=== PATIENT | male | born 1935 | race Caucasian/White ===

== ENCOUNTER 2016-05-26 11:43 | Emergency (ER) | payer MEDICARE, OTHER | END 2016-05-26 13:47 | disposition home or self-care (01) | DX: R07.9 Chest pain, unspecified (principal); I25.10 Atherosclerotic heart disease of native coronary artery without angina pectoris; I44.7 Left bundle-branch block, unspecified; R94.31 Abnormal electrocardiogram [ECG] [EKG]; G47.30 Sleep apnea, unspecified ==

== ENCOUNTER 2016-05-31 11:41 | Emergency (ER) | payer MEDICARE, OTHER | END 2016-05-31 16:00 | disposition short-term general hospital (02) | DX: I25.110 Atherosclerotic heart disease of native coronary artery with unstable angina pectoris (principal); Z95.5 Presence of coronary angioplasty implant and graft; I42.9 Cardiomyopathy, unspecified; I44.0 Atrioventricular block, first degree; I44.7 Left bundle-branch block, unspecified; Z79.01 Long term (current) use of anticoagulants; Z79.82 Long term (current) use of aspirin; Z87.891 Personal history of nicotine dependence ==

== ENCOUNTER 2016-05-31 16:05 | Outpatient (CLI) | payer MEDICARE, OTHER | END 2016-05-31 16:06 | disposition short-term general hospital (02) | DX: I20.0 Unstable angina (principal) | CPT/HCPCS: A0425; A0426 ==

== ENCOUNTER 2016-06-06 11:35 | Outpatient (CLI) | payer MEDICARE, OTHER | END 2016-06-06 11:36 | disposition home or self-care (01) | DX: G47.33 Obstructive sleep apnea (adult) (pediatric) (principal) | CPT/HCPCS: 99214; G0463 ==

== ENCOUNTER 2016-07-25 07:54 | Emergency (ER) | payer MEDICARE, OTHER ==
[2016-07-25] MEDS ORDERED: DEXAMETHASONE 10 MG/ML VIAL PO STA (08:30)
[2016-07-25] MEDS ORDERED: LIDOCAINE PATCH 5% TOP STA (08:30)
[2016-07-25] MEDS ORDERED: LIDOCAINE PATCH 5% TOP ONE (08:37)
[2016-07-25] MEDS ORDERED: DEXAMETHASONE 10 MG/ML VIAL ONE (08:37)
[2016-07-25] MEDS ORDERED: CHERRY SYRUP 10 ML UDC PO ONE (08:37)
--- NOTE | 2016-07-25 08:39 | ED Physician Documentation ---
History of Present Illness - Stated complaint Stated Complaint: BACK/LEG PX - Chief complaint Chief Complaint: Back Pain - Additonal information Additional information: hx from pt 80 male prior back surgery for HNP and sciatica many yr ago chronic back pain also vascular dz and other medical issues inc low back pain and right LE sciatica recently had a massage yesterday and has a spine/neuro appt today in [place] pain was severe so came to ER no recent imaging per pt always has some urinary dribbling but no new changes upset stomach but not really abd pain some numbness to posterior right thigh no weakness no saddle anesthesia no fever no injury Review of Systems Constitutional: denies: Fever, Chills Cardiac: denies: Chest pain / pressure Respiratory: denies: Dyspnea GI: denies: Abdominal Pain, Nausea, Vomiting : reports: Incontinent (not new) Musculoskeletal: reports: Back pain Neurologic: reports: Numbness (posterior R thigh). denies: Focal weakness Endocrine: denies: Easy bruising / bleeding Immunocompromised: denies: Immunocompromised PD PAST MEDICAL HISTORY - Past Medical History Cardiovascular: Coronary artery disease Respiratory: Sleep apnea, CPAP use Neuro: None Endocrine/Autoimmune: None GI: Diverticulitis : None Psych: None Musculoskeletal: Chronic back pain Derm: None - Past Surgical History Past Surgical History: Yes General: Bowel surgery Ortho: Knee replacement, Spine surgery Cardiovascular: Coronary stent - Present Medications Home Medications: Ambulatory Orders Medication Instructions Recorded Confirmed Omeprazole [PriLOSEC] 20 mg PO BID 08/01/12 07/25/16 Simvastatin [Zocor] 20 mg PO HS 08/01/12 07/25/16 Furosemide 40 mg ORAL DAILY 04/23/14 07/25/16 Losartan [Cozaar] 50 mg PO DAILY 09/02/14 07/25/16 Aspirin [Aspirin EC] 81 mg PO DAILY 12/20/14 07/25/16 Cholecalciferol (Vitamin D3) 5,000 units PO DAILY 02/21/16 07/25/16 [Vitamin D3] Darifenacin Hydrobromide [Enablex] 15 mg PO DAILY 02/21/16 07/25/16 Potassium Chloride [Micro-K] 10 meq PO BID 02/21/16 07/25/16 Sertraline [Zoloft] 50 mg PO QPM 12/13/16 05/17/17 Warfarin Sodium 5 mg PO MOWEFR@1400 02/21/16 07/25/16 Warfarin Sodium 10 mg PO SUTUTHSA@1400 02/21/16 07/25/16 Metoprolol Succinate 100 mg PO DAILY #30 tab.er.24h 05/26/16 07/25/16 Hydrocodone/Acetaminophen [Vicodin 1 tab PO Q6HR PRN 07/25/16 07/25/16 5-300 mg Tablet] Lidocaine Patch 5% [Lidoderm Patch] 1 each TOP DAILY PRN #10 patch 07/25/16 - Allergies Allergies/Adverse Reactions: Allergies Allergy/AdvReac Type Severity Reaction Status Date / Time Influenza Virus Vaccines Allergy Rash Verified 05/31/16 11:53 - Social History Does the pt smoke?: No Smoking Status: Former smoker Does the pt drink ETOH?: Yes Does the pt have substance abuse?: No - Immunizations Immunizations are current?: Yes Immunizations: TDAP >10years/unknown - POLST Patient has POLST: No PD ED PE NORMAL - Vitals Vital signs reviewed: Yes - General General: Alert and oriented X 3 - HEENT HEENT: Atraumatic - Neck Neck: Supple, no meningeal sign - Cardiac Cardiac: RRR - Respiratory Respiratory: No respiratory distress, Clear bilaterally - Abdomen Abdomen: Soft, Non tender, Other (no pulsatile mass appreciated but body habitus could obscure) - Back Back: Other (L spine midline scar, TTP L1-L3, slight erythema where pants rub but not warm or swollen) - Derm Derm: Normal color - Neuro Neuro: No motor deficit (hip flex knee ext foot dorsi plantar and great to ext 5 /5), Other (neg SLR, patellar DTR 1/4 debbi, no clonus). No: No sensory deficit ( numb to posterior R thigh/hamstring, denies saddle anesthesia) Results - Vitals Vitals: Vital Signs - 24 hr 07/25/16 07:59 Temperature 37.0 C Heart Rate 84 Respiratory 20 Rate Blood Pressure 107/84 H O2 Saturation 94 Oxygen O2 Source Room air - Rads (name of study) CT abd pelvis/L spine Radiology: See rad report (gallstone, ant right fat containing ventral hernia, aortic atherosclerosis without aneurysm, emphysema, substantial lumbar spondylosis with mod to severe central canal stenosis and r > L formainal stenosis, consider MRI (defer to pt neuro who he is seeing this afternoon, gave copy of CT on disk)) PD MEDICAL DECISION MAKING - ED course ED course: pt advised of CT findings including gallstones and hernia he feels much better after meds given copy of Ct to take to his neuro spine appt today Departure - Departure Disposition: Home, Self Care Clinical Impression: Back pain with sciatica Condition: Good Instructions: ED Sciatica, ED Back Care Tips Follow-Up: Yancy Clifton MD [Primary Care Provider] - Prescriptions: Lidocaine Patch 5% [Lidoderm Patch] 1 each TOP DAILY PRN #10 patch PRN Reason: Pain Comments: Follow up with your neurologist / marine specialist this afternoon as scheduled Take a copy on the CT with you - it shows spinal and foraminal stenosis that likely are contributing to your back pain and sciatica and the images might be useful for your specialist I wrote a prescription for more lidocaine patches And you should ask your specialist if more steroids might b helpful for the nerve pain
--- NOTE | 2016-07-25 09:24 | CT Report ---
EXAM: CT ABDOMEN AND PELVIS (CT KUB) EXAM DATE: 07/25/2016 08:52 AM. CLINICAL HISTORY: Lumbar pain and radiculopathy RLE. COMPARISONS: No abdomen pelvis comparison. Chest CT with contrast 05/04/2015. TECHNIQUE: Routine axial helical CT imaging was performed through the abdomen and pelvis without IV c ontrast. Reconstructions: Coronal and sagittal. In accordance with CT protocol optimization, one or more of the following dose reduction techniques w ere utilized for this exam: automated exposure control, adjustment of mA and/or KV based on patient s ize, or use of iterative reconstructive technique. FINDINGS: Lung Bases: Pulmonary emphysematous disease, left greater than right, without significant change. Right Kidney/Ureter: Stable upper pole cyst. 1.8 cm lower pole hypodensity (level not previously incl uded) is compatible with a cyst. No stones, hydronephrosis or hydroureter. Left Kidney/Ureter: No hydronephrosis, hydroureter or intrarenal calculi. A small calcification along the anterior margin of the upper poles associated with a small exophytic nodular focus. A calcificat ion is unchanged. Previously, there was a larger cystic appearance. Therefore, this is most consisten t with a benign finding. Other Solid Organs: Noncontrast images of the solid organs are grossly unremarkable. Gallbladder/Bile Ducts: Cholelithiasis. No gallbladder dilatation, surrounding inflammation or eviden ce of ductal dilatation. Peritoneal Cavity: Substantial colonic diverticulosis without evidence of diverticulitis. No definite acute abnormality. No adenopathy, free air or free fluid. Normal-appearing appendix. Pelvic Organs: No bladder stones or wall thickening. Noncontrast images of the visualized pelvic orga ns are unremarkable. Vasculature: Moderate to severe aortic and arterial calcifications, without aneurysm. Aorta is of nor mal diameter. Other: Very small fat-containing hernia within the anterior pelvic wall, to the right of midline, def ect measuring approximately 1.2 x 1.3 cm. Spondylosis. Degenerative disk disease and disk space narro wing is most L4-L5 and L5-S1 and slightly less so at L2-3 and L3-L4. Mild to moderate lumbar spine de generative disease. Degenerative/hypertrophic change results minimal moderate to severe L3-L4 and mod erate L4-L5 central canal stenosis. Multilevel neural foraminal narrowing, right greater than left an d greatest at L4-L5. No acute osseous abnormality. IMPRESSION: 1. Noncontrast CT of the abdomen and pelvis demonstrates no definite acute abnormality. 2. Cholelithiasis. 3. Substantial lumbar spondylosis with associated moderate to severe central canal stenosis and evide nce of right greater than left neural foraminal stenosis. MR imaging could be performed for further e valuation. 4. Small anterior right pelvic wall fat-containing hernia. 5. Substantial aortic and arterial atherosclerotic calcifications, without aneurysm. 6. Pulmonary emphysema. 7. Additional chronic findings, as above. [facility] Referring Provider Line: [phone] SITE ID: [id number]
[2016-07-25 09:57] VITALS: BP 91/77
== END 2016-07-25 10:02 | disposition home or self-care (01) ==
LOC: ED 07:54
DX: M54.41 Lumbago with sciatica, right side (principal); M47.896 Other spondylosis, lumbar region; K80.20 Calculus of gallbladder without cholecystitis without obstruction; K43.9 Ventral hernia without obstruction or gangrene; I25.10 Atherosclerotic heart disease of native coronary artery without angina pectoris; Z95.5 Presence of coronary angioplasty implant and graft; Z79.01 Long term (current) use of anticoagulants; Z79.82 Long term (current) use of aspirin; Z87.891 Personal history of nicotine dependence
CPT/HCPCS: 74176; 99283; A9270

== ENCOUNTER 2016-08-21 14:44 | Outpatient (CLI) | payer MEDICARE, OTHER ==
[2016-08-21 19:23] LABS: BASOPHILS # (AUTO) 0.1 10^3/uL (0.0-0.1); EOSINOPHILS # (AUTO) 0.1 10^3/uL (0.0-0.7); EOSINOPHILS % (AUTO) 1.7 %; HCT - HEMATOCRIT 42.9 % (42.0-52.0); HGB - HEMOGLOBIN 14.1 g/dL (14.0-18.0); LYMPHOCYTES # (AUTO) 1.7 10^3/uL (1.5-3.5); LYMPHOCYTES % (AUTO) 22.3 %; MEAN CORPUSCULAR HEMOGLOBIN 28.6 pg (27.0-31.0); MEAN CORPUSCULAR HGB CONC 32.8 g/dL (32.0-36.0); MEAN CORPUSCULAR VOLUME 87.2 fL (80.0-94.0); MEAN PLATELET VOLUME 8.6 fL (7.4-11.4); MONOCYTES # (AUTO) 0.7 10^3/uL (0.0-1.0); MONOCYTES % (AUTO) 8.8 %; NEUTROPHILS % (AUTO) 66.2 %; NUCLEATED RED BLOOD CELLS AUTO 0.1 /100WBC; RED BLOOD COUNT 4.92 10^6/uL (4.70-6.10); RED CELL DISTRIBUTION WIDTH 16.9 % (12.0-15.0); UNCORRECTED WHITE BLOOD COUNT 7.5 x10^3/uL; WHITE BLOOD COUNT 7.5 x10^3/uL (4.8-10.8)
[2016-08-21 19:42] LABS: ALBUMIN/GLOBULIN RATIO 1.2 (1.0-2.2); BILIRUBIN,TOTAL 0.5 mg/dL (0.2-1.0); BUN - BLOOD UREA NITROGEN 16 mg/dL (6-20); CALCIUM 9.8 mg/dL (8.5-10.3); CARBON DIOXIDE - CO2 24 mmol/L (21-32); CHLORIDE 103 mmol/L (101-111); CHOL/HDL RATIO 6.3 (<5.0); CHOLESTEROL 215 mg/dL; CREATININE 0.8 mg/dL (0.6-1.2); GFR - MDRD 93 (>89); GLUCOSE 107 mg/dL (70-100); HDL CHOLESTEROL 34 mg/dL; POTASSIUM 3.9 mmol/L (3.5-5.0); SODIUM 137 mmol/L (135-145); TOTAL PROTEIN 7.7 g/dL (6.7-8.2); TRIGLYCERIDES 476 mg/dL
[2016-08-21 20:50] LABS: LDL CHOLESTEROL,DIRECT 79 mg/dL
== END 2016-08-21 14:45 | disposition home or self-care (01) ==
LOC: LAB.WCP 14:44
PROVIDERS: ATTEND Family Medicine
DX: I10 Essential (primary) hypertension (principal); E78.5 Hyperlipidemia, unspecified
CPT/HCPCS: 36415; 80053; 80061; 85025

== ENCOUNTER 2016-09-17 11:50 | Outpatient (CLI) | payer MEDICARE, OTHER | END 2016-09-17 11:51 | disposition home or self-care (01) | LOC: LAB.R 11:50 | PROVIDERS: ATTEND Family Medicine | DX: R31.9 Hematuria, unspecified (principal) | CPT/HCPCS: 87086 ==

== ENCOUNTER 2016-10-16 19:32 | Outpatient (CLI) | payer MEDICARE, OTHER | END 2016-10-16 19:33 | disposition critical access hospital (66) | LOC: EMS 19:32 | PROVIDERS: ATTEND Surgery | DX: M25.561 Pain in right knee (principal); R10.9 Unspecified abdominal pain | CPT/HCPCS: A0425; A0429 ==

== ENCOUNTER 2016-10-16 19:47 | Emergency (ER) | payer MEDICARE, OTHER ==
[2016-10-16 20:01] VITALS: BP 134/73
--- NOTE | 2016-10-16 21:11 | XRAY Preliminary Report ---
Exam: XR Ribs w/PA Chest LT IMPRESSION: No evidence for rib fracture. [facility] SITE ID: [id number]
--- NOTE | 2016-10-16 21:14 | XRAY Report ---
EXAM: LEFT RIB RADIOGRAPHY EXAM DATE: 10/16/2016 08:51 PM. CLINICAL HISTORY: Ground level fall. Left mid lower anterior rib pain COMPARISON: Chest 05/31/2016. TECHNIQUE: 1 view of the chest and 2 views of the ribs. FINDINGS: Bones: No evidence for rib fracture Lungs: No focal opacities. No pneumothorax. No pleural effusions. Mediastinum: Normal heart size for technique. IMPRESSION: No evidence for rib fracture. [facility] Referring Provider Line: [phone] SITE ID: [id number]
--- NOTE | 2016-10-16 21:19 | XRAY Preliminary Report ---
Exam: XR KNEE 4 VIEW RT IMPRESSION: 1. Status post knee arthroplasty. 2. No definite acute osseous abnormality. 3. Small joint effusion redemonstrated. [facility] SITE ID: [id number]
--- NOTE | 2016-10-16 21:22 | XRAY Report ---
EXAM: RIGHT KNEE RADIOGRAPHY EXAM DATE: 10/16/2016 08:49 PM. CLINICAL HISTORY: GLF. COMPARISON: None. TECHNIQUE: 04/10/2016 views. FINDINGS: Bones: No fractures or acute bone lesion. Ossification medial to the medial margin tibial plateau and tibial prosthetic component is without substantial change. Joints: Status post knee arthroplasty with expected appearance and alignment. Small joint effusion re demonstrated. Soft Tissues: Vascular calcifications demonstrated.. No soft tissue swelling. IMPRESSION: 1. Status post knee arthroplasty. 2. No definite acute osseous abnormality. 3. Small joint effusion redemonstrated. [facility] Referring Provider Line: [phone] SITE ID: [id number]
--- NOTE | 2016-10-16 21:51 | ED Physician Documentation ---
PD HPI Fall - Stated complaint Stated Complaint: GLF/R KNEE INJ - Chief complaint Chief Complaint: Trauma Ext - History obtained from History obtained from: Patient, Family - History of Present Illness Mechanism of injury: Tripped Fall distance: Standing position Where injury occurred: Home Timing - onset: How many hours ago (1) Injury(ies) location: Chest, Right Lower Extremity Quality of pain: Pain Associated symptoms: No: LOC, AMS, Amnesia, Seizures Worsens with: Movement, Palpation Contributing factors: Anticoagulated Similar symptoms before: Has not had sx before Recently seen: Not recently seen - Additional information Additional information: Patient is an 80 year old male who is presenting after falling. patient states that he has a prosthetic knee and has been having trouble with it. patient states that he was unable to step up all the way and ended up tripping. Patient fell from standing hitting his right knee and left chest. Patient denied any head trauma, or any loc. Review of Systems Constitutional: denies: Fever, Chills Eyes: denies: Decreased vision, Photophobia Ears: denies: Ear pain, Drainage/discharge Nose: denies: Epistaxis Cardiac: reports: Chest pain / pressure. denies: Palpitations Respiratory: denies: Dyspnea, Cough, Wheezing GI: denies: Nausea, Vomiting Skin: denies: Abrasion (s) Musculoskeletal: reports: Extremity pain, Joint pain Neurologic: denies: Generalized weakness, Headache, Head injury, LOC Immunocompromised: denies: Immunocompromised PD PAST MEDICAL HISTORY - Past Medical History Cardiovascular: Coronary artery disease Respiratory: Sleep apnea, CPAP use Neuro: None Endocrine/Autoimmune: None GI: Diverticulitis : None Psych: None Musculoskeletal: Chronic back pain Derm: None - Past Surgical History Past Surgical History: Yes General: Bowel surgery Ortho: Knee replacement, Spine surgery Cardiovascular: Coronary stent - Present Medications Home Medications: Ambulatory Orders Medication Instructions Recorded Confirmed Omeprazole [PriLOSEC] 20 mg PO BID 08/01/12 07/25/16 Simvastatin [Zocor] 20 mg PO HS 08/01/12 07/25/16 Furosemide 40 mg ORAL DAILY 04/23/14 07/25/16 Losartan [Cozaar] 50 mg PO DAILY 09/02/14 07/25/16 Aspirin [Aspirin EC] 81 mg PO DAILY 12/20/14 07/25/16 Cholecalciferol (Vitamin D3) 5,000 units PO DAILY 02/21/16 07/25/16 [Vitamin D3] Darifenacin Hydrobromide [Enablex] 15 mg PO DAILY 02/21/16 07/25/16 Potassium Chloride [Micro-K] 10 meq PO BID 02/21/16 07/25/16 Sertraline [Zoloft] 50 mg PO QPM 02/21/16 07/25/16 Warfarin Sodium 5 mg PO MOWEFR@1400 02/21/16 07/25/16 Warfarin Sodium 10 mg PO SUTUTHSA@1400 02/21/16 07/25/16 Metoprolol Succinate 100 mg PO DAILY #30 tab.er.24h 05/26/16 07/25/16 Hydrocodone/Acetaminophen [Vicodin 1 tab PO Q6HR PRN 07/25/16 07/25/16 5-300 mg Tablet] Lidocaine Patch 5% [Lidoderm Patch] 1 each TOP DAILY PRN #10 patch 07/25/16 Lidocaine Patch 5% [Lidoderm Patch] 1 each TOP DAILY #10 patch 10/16/16 - Allergies Allergies/Adverse Reactions: Allergies Allergy/AdvReac Type Severity Reaction Status Date / Time Influenza Virus Vaccines Allergy Rash Verified 05/31/16 11:53 - Social History Does the pt smoke?: No Smoking Status: Former smoker Does the pt drink ETOH?: Yes Does the pt have substance abuse?: No - Immunizations Immunizations are current?: Yes Immunizations: TDAP >10years/unknown - POLST Patient has POLST: No PD ED PE NORMAL - Vitals Vital signs reviewed: Yes - General General: Alert and oriented X 3, No acute distress - HEENT HEENT: Atraumatic, PERRL - Neck Neck: Supple, no meningeal sign, No bony TTP - Cardiac Cardiac: RRR, No murmur - Respiratory Respiratory: No respiratory distress - Back Back: No CVA TTP - Derm Derm: Normal color, Warm and dry - Extremities Extremities: No deformity - Neuro Neuro: Alert and oriented X 3, No motor deficit, No sensory deficit, Normal speech - Psych Psych: Normal mood PD ED PE EXPANDED - Cardiac Cardiac: Chest wall TTP (tenderness to palpation of left chest wall, no ecchymosis, no step off) - Extremities Extremities: Right knee (no abrasion, minimal tenderness) Results - Vitals Vitals: Vital Signs - 24 hr 10/16/16 19:50 Temperature 36.9 C Heart Rate 76 Respiratory 17 Rate Blood Pressure 134/73 H O2 Saturation 96 Oxygen O2 Source Room air - Rads (name of study) chest x-ray Radiology: Final report received (no acute fracture or dislocation) right knee Radiology: Final report received (prior knee replacement, no acute abnormality) PD MEDICAL DECISION MAKING - ED course Complexity details: reviewed old records, reviewed results, re-evaluated patient , considered differential, d/w patient, d/w family ED course: Patient was seen and examined at bedside. Patient was sent for imaging. when patient returned the results were reviewed. there was no acute fractures or dislocations. Patient was treated with a lidoderm patch and tylenol. Patient required no further work up at this time and was stable for discharge with outpatient follow up. Departure - Departure Disposition: 01 Home, Self Care Clinical Impression: Contusion of rib on left side Condition: Good Instructions: ED Contusion Chest Wall Follow-Up: Yancy Clifton MD [Primary Care Provider] - Within 1 week Prescriptions: Lidocaine Patch 5% [Lidoderm Patch] 1 each TOP DAILY #10 patch Comments: your diagnostics today were within normal limits. there is no acute fracture or dislocation. You will need to follow up with your doctor this week. You should take tylenol for pain as well as the lidoderm patches. You can apply ice or heat as needed. You can follow up with your pmd as needed for new, worsening or uncontrollable symptoms. Discharge Date/Time: 10/16/16 22:07
[2016-10-16] MEDS: ACETAMINOPHEN 500 MG TABLET PO STA (22:00)
[2016-10-16] MEDS ORDERED: ACETAMINOPHEN 500 MG TABLET PO ONE (22:00)
[2016-10-16] MEDS: LIDOCAINE PATCH 5% TOP STA (22:01)
[2016-10-16] MEDS ORDERED: LIDOCAINE PATCH 5% TOP ONE (22:02)
== END 2016-10-16 22:07 | disposition home or self-care (01) ==
LOC: EDUNIT# → SUPCPDRO 19:47 → ED 19:47
DX: S20.212A Contusion of left front wall of thorax, initial encounter (principal); W01.0XXA Fall on same level from slipping, tripping and stumbling without subsequent striking against object, initial encounter; Y92.019 Unspecified place in single-family (private) house as the place of occurrence of the external cause; Z96.651 Presence of right artificial knee joint; I25.10 Atherosclerotic heart disease of native coronary artery without angina pectoris; G47.30 Sleep apnea, unspecified; Z79.82 Long term (current) use of aspirin; Z79.01 Long term (current) use of anticoagulants; Z87.891 Personal history of nicotine dependence
CPT/HCPCS: 71101; 73564; 99283; 99284; A9270

== ENCOUNTER 2016-11-19 09:11 | Outpatient (CLI) | payer MEDICARE, OTHER ==
[2016-11-19 14:15] LABS: ALBUMIN/GLOBULIN RATIO 1.3 (1.0-2.2); BILIRUBIN,TOTAL 0.4 mg/dL (0.2-1.0); BUN - BLOOD UREA NITROGEN 24 mg/dL (6-20); CALCIUM 9.5 mg/dL (8.5-10.3); CARBON DIOXIDE - CO2 26 mmol/L (21-32); CHLORIDE 102 mmol/L (101-111); CHOL/HDL RATIO 3.2 (<5.0); CHOLESTEROL 128 mg/dL; CREATININE 0.9 mg/dL (0.6-1.2); GFR - MDRD 81 (>89); GLUCOSE 102 mg/dL (70-100); HDL CHOLESTEROL 40 mg/dL; LDL/HDL RATIO 1.2 (<3.6); POTASSIUM 3.8 mmol/L (3.5-5.0); SODIUM 137 mmol/L (135-145); TOTAL PROTEIN 7.1 g/dL (6.7-8.2); TRIGLYCERIDES 206 mg/dL; VLDL CHOLESTEROL 41 mg/dL
== END 2016-11-19 09:12 | disposition home or self-care (01) ==
LOC: LAB.WCP 09:11
PROVIDERS: ATTEND Family Medicine
DX: E78.5 Hyperlipidemia, unspecified (principal); Z12.5 Encounter for screening for malignant neoplasm of prostate
CPT/HCPCS: 36415; 80053; 80061; G0103; 84153

== ENCOUNTER 2016-12-18 14:30 | Outpatient (CLI) | payer MEDICARE, OTHER | END 2016-12-18 14:31 | disposition home or self-care (01) | LOC: LAB.WCP 14:30 | PROVIDERS: ATTEND Family Medicine | DX: R35.0 Frequency of micturition (principal) | CPT/HCPCS: 87086 ==

== ENCOUNTER 2017-01-20 06:49 | Emergency (ER) | payer MEDICARE, OTHER ==
[2017-01-20 07:01] VITALS: BP 120/73
--- NOTE | 2017-01-20 07:40 | ED Physician Documentation ---
PD HPI ABD PAIN - Stated complaint Stated Complaint: CONSTIPATION - Chief complaint Chief Complaint: Abd Pain - History obtained from History obtained from: Patient, Family - History of Present Illness Timing - onset: How many days ago (4) Timing - details: Gradual onset (he had knee replacement a month ago and has had some pain med use. Has had firm stools. Has not had BM for 4 days and feels rectal fullness and discomfort like he has to go. No abd pain generally.) Quality: Aching, Pain (in rectal area mainly) Location: Other (rectal) Radiation: No: Chest, , Lower back, Left flank, Left shoulder, Other, Right flank, Right shoulder, Upper back Improved by: BM (but unable to get out more than little "deer pellets".). No: Eating Worsened by: No: Eating Associated symptoms: No: Fever, Nausea, Vomiting, Dysuria Review of Systems Constitutional: denies: Fever, Chills GI: reports: Constipation. denies: Nausea, Vomiting, Diarrhea, Bloody / black stool : denies: Dysuria, Frequency Skin: denies: Rash, Lesions PD PAST MEDICAL HISTORY - Past Medical History Past Medical History: Yes Cardiovascular: Coronary artery disease Respiratory: Sleep apnea, CPAP use Neuro: None Endocrine/Autoimmune: None GI: Diverticulitis : None Psych: None Musculoskeletal: Chronic back pain Derm: None - Past Surgical History Past Surgical History: Yes General: Bowel surgery Ortho: Knee replacement, Spine surgery Cardiovascular: Coronary stent - Present Medications Home Medications: Ambulatory Orders Medication Instructions Recorded Confirmed Omeprazole [PriLOSEC] 20 mg PO BID 08/01/12 01/20/17 Simvastatin [Zocor] 20 mg PO HS 08/01/12 01/20/17 Furosemide 40 mg ORAL DAILY 04/23/14 01/20/17 Losartan [Cozaar] 50 mg PO DAILY 09/02/14 01/20/17 Aspirin [Aspirin EC] 81 mg PO DAILY 12/20/14 01/20/17 Cholecalciferol (Vitamin D3) 5,000 units PO DAILY 02/21/16 01/20/17 [Vitamin D3] Darifenacin Hydrobromide [Enablex] 15 mg PO DAILY 02/21/16 01/20/17 Potassium Chloride [Micro-K] 10 meq PO BID 02/21/16 01/20/17 Sertraline [Zoloft] 50 mg PO QPM 02/21/16 01/20/17 Warfarin Sodium 5 mg PO MOWEFR@1400 02/21/16 01/20/17 Warfarin Sodium 10 mg PO SUTUTHSA@1400 02/21/16 01/20/17 Metoprolol Succinate 100 mg PO DAILY #30 tab.er.24h 05/26/16 01/20/17 Hydrocodone/Acetaminophen [Vicodin 1 tab PO Q6HR PRN 07/25/16 01/20/17 5-300 mg Tablet] Lidocaine Patch 5% [Lidoderm Patch] 1 each TOP DAILY PRN #10 patch 07/25/1602/24 Lidocaine Patch 5% [Lidoderm Patch] 1 each TOP DAILY #10 patch 10/16/16 01/20/17 Docusate Calcium 240 mg PO DAILY #30 capsule 01/20/17 - Allergies Allergies/Adverse Reactions: Allergies Allergy/AdvReac Type Severity Reaction Status Date / Time Influenza Virus Vaccines Allergy Rash Verified 01/20/17 07:00 - Social History Does the pt smoke?: No Smoking Status: Never smoker Does the pt drink ETOH?: Yes Does the pt have substance abuse?: No - Immunizations Immunizations are current?: Yes Immunizations: TDAP >10years/unknown - POLST Patient has POLST: No PD ED PE NORMAL - Vitals Vital signs reviewed: Yes - General General: Alert and oriented X 3, No acute distress, Well developed/nourished - Cardiac Cardiac: RRR, No murmur - Respiratory Respiratory: Clear bilaterally - Abdomen Abdomen: Normal bowel sounds, Soft, Non tender, Non distended, No organomegaly - Male Male : Other (baseball sized impaction broken to pieces digitially. No hemorrhoid/lesions. Guiac negative. ) - Back Back: No CVA TTP, No spinal TTP - Derm Derm: Normal color, Warm and dry - Extremities Extremities: No deformity, No tenderness to palpate, Other (knee replacement healing okay without signs of infection. ) Results - Vitals Vitals: Oxygen O2 Source Room air - Labs Labs: Laboratory Tests 01/20/17 01/20/17 01/20/17 08:23 08:23 08:28 WBC 7.9 RBC 4.21 L Hgb 11.5 L Hct 35.2 L MCV 83.5 MCH 27.2 MCHC 32.6 RDW 15.3 H Plt Count 284 MPV 7.4 Neut # 5.2 Lymph # 1.6 [place] # 0.8 Eos # 0.2 Baso # 0.1 Absolute Nucleated RBC 0.00 Nucleated RBC % 0.0 PT 17.8 H INR 1.6 H Sodium 132 L Potassium 4.1 Chloride 98 L Carbon Dioxide 24 Anion Gap 10.0 BUN 19 Creatinine 0.6 Estimated GFR (MDRD) 129 Glucose 109 H Calcium 9.3 Magnesium Total Bilirubin 0.6 AST 21 ALT 20 Alkaline Phosphatase 89 Total Protein 7.6 Albumin 3.9 Globulin 3.7 Albumin/Globulin Ratio 1.1 Lipase 14 L Urine Color Urine Clarity Urine pH Ur Specific [place] Urine Protein Urine Glucose (UA) Urine Ketones Urine Occult Blood Urine Nitrite Urine Bilirubin Urine Urobilinogen Ur Leukocyte Esterase Ur Microscopic Review Urine Culture Comments 01/20/17 01/20/17 08:28 08:48 WBC RBC Hgb Hct MCV MCH MCHC RDW Plt Count MPV Neut # Lymph # [place] # Eos # Baso # Absolute Nucleated RBC Nucleated RBC % PT INR Sodium Potassium Chloride Carbon Dioxide Anion Gap BUN Creatinine Estimated GFR (MDRD) Glucose Calcium Magnesium 2.3 Total Bilirubin AST ALT Alkaline Phosphatase Total Protein Albumin Globulin Albumin/Globulin Ratio Lipase Urine Color YELLOW Urine Clarity CLEAR Urine pH 7.5 Ur Specific [place] 1.020 Urine Protein NEGATIVE Urine Glucose (UA) NEGATIVE Urine Ketones NEGATIVE Urine Occult Blood NEGATIVE Urine Nitrite NEGATIVE Urine Bilirubin NEGATIVE Urine Urobilinogen 0.2 (NORMAL) Ur Leukocyte Esterase NEGATIVE Ur Microscopic Review NOT INDICATED Urine Culture Comments NOT INDICATED PD MEDICAL DECISION MAKING - ED course Complexity details: reviewed results, re-evaluated patient (he feels much improved after digitial disimpaction and enema with good results out. Labs are okay, so does not seem other underlying process. ), considered differential, d/ w patient Departure - Departure Disposition: 01 Home, Self Care Clinical Impression: Abdominal pain Qualifiers: Abdominal location: lower abdomen, unspecified Qualified Code(s): R10.30 - Lower abdominal pain, unspecified Constipation Qualifiers: Constipation type: slow transit constipation Qualified Code(s): K59.01 - Slow transit constipation Condition: Stable Record reviewed to determine appropriate education?: Yes Instructions: ED Constipation Follow-Up: Yancy Clifton MD [Primary Care Provider] - Prescriptions: Docusate Calcium 240 mg PO DAILY #30 capsule Comments: Drink lots of water. Continue usual medications. Add a stool softener such as docusate daily for the next week or 2. If you have not had good bowel movements late later this morning or afternoon, take the other half of the mag citrate. Follow-up as needed. Tylenol if needed for pains. Discharge Date/Time: 01/20/17 09:45
[2017-01-20] MEDS ORDERED: MAGNESIUM CITRATE 296 ML BOTTLE PO STA (08:01)
[2017-01-20] MEDS ORDERED: MINERAL OIL ENEMA 133 ML BOTTLE RC STA (08:01)
[2017-01-20] MEDS ORDERED: MAGNESIUM CITRATE 296 ML BOTTLE ONE (08:30)
[2017-01-20 08:44] LABS: ALBUMIN/GLOBULIN RATIO 1.1 (1.0-2.2); BILIRUBIN,TOTAL 0.6 mg/dL (0.2-1.0); CALCIUM 9.3 mg/dL (8.5-10.3); CREATININE 0.6 mg/dL (0.6-1.2); POTASSIUM 4.1 mmol/L (3.5-5.0); TOTAL PROTEIN 7.6 g/dL (6.7-8.2)
[2017-01-20 08:51] LABS: BASOPHILS # (AUTO) 0.1 10^3/uL (0.0-0.1); EOSINOPHILS # (AUTO) 0.2 10^3/uL (0.0-0.7); EOSINOPHILS % (AUTO) 2.2 %; HCT - HEMATOCRIT 35.2 % (42.0-52.0); HGB - HEMOGLOBIN 11.5 g/dL (14.0-18.0); LYMPHOCYTES # (AUTO) 1.6 10^3/uL (1.5-3.5); LYMPHOCYTES % (AUTO) 20.4 %; MEAN CORPUSCULAR HEMOGLOBIN 27.2 pg (27.0-31.0); MEAN CORPUSCULAR HGB CONC 32.6 g/dL (32.0-36.0); MEAN CORPUSCULAR VOLUME 83.5 fL (80.0-94.0); MEAN PLATELET VOLUME 7.4 fL (7.4-11.4); MONOCYTES # (AUTO) 0.8 10^3/uL (0.0-1.0); MONOCYTES % (AUTO) 10.3 %; NEUTROPHILS # (AUTO) 5.2 10^3/uL (1.5-6.6); NEUTROPHILS % (AUTO) 66.1 %; RED BLOOD COUNT 4.21 10^6/uL (4.70-6.10); RED CELL DISTRIBUTION WIDTH 15.3 % (12.0-15.0); UNCORRECTED WHITE BLOOD COUNT 7.9 x10^3/uL; WHITE BLOOD COUNT 7.9 x10^3/uL (4.8-10.8)
[2017-01-20 08:51] LABS: BILIRUBIN,URINE NEGATIVE (NEGATIVE); PH,URINE 7.5 PH (5.0-7.5)
[2017-01-20 08:53] LABS: UA CHARGE (STRIP ONLY) YES; UR CULTURE IF IND NOT INDICATED
[2017-01-20 09:41] LABS: INR 1.6 (0.8-1.2); PT - PROTHROMBIN TIME 17.8 secs (9.9-12.6)
== END 2017-01-20 09:45 | disposition home or self-care (01) ==
LOC: ED 06:49
DX: K59.01 Slow transit constipation (principal); R10.30 Lower abdominal pain, unspecified; I25.10 Atherosclerotic heart disease of native coronary artery without angina pectoris; G47.30 Sleep apnea, unspecified; Z79.82 Long term (current) use of aspirin; Z79.01 Long term (current) use of anticoagulants
CPT/HCPCS: 36415; 80053; 81003; 83690; 83735; 85025; 85610; 99283; A9270; 81001; 87086

== ENCOUNTER 2017-05-31 10:37 | Emergency (ER) | payer MEDICARE, OTHER ==
--- NOTE | 2017-05-31 12:17 | ED Physician Documentation ---
History of Present Illness - Stated complaint Stated Complaint: LT ARM NUMB/TINGLY - Chief complaint Chief Complaint: Ext Problem - History obtained from History obtained from: Patient - History of Present Illness Timing: Other (This is a very pleasant 81-year-old gentleman with history of obstructive sleep apnea, TIA, hypertension. From his description he either has coronary disease with stenting or he kind of points at his left subclavian when he is talking about this and he says it was not actually in his heart so he may have had a subclavian stent. As would have been 10 years ago or so. Regardless for the last 5 days he is awoken with numbness and tingling in the left arm that goes away during the course of the day but sometimes comes back during the day as well. For the most part he notes that after he wakes up though. He has not been sleeping in a different position. It is not associated with any symptoms in the legs. He does note occasional numbness and tingling in the right arm. There is no headache with it. He denies any arm pain. He vacillates as to whether or not there is weakness in the left arm.) Review of Systems Ten Systems: 10 systems reviewed and negative Constitutional: denies: Fever, Chills Nose: denies: Rhinorrhea / runny nose, Congestion Cardiac: denies: Chest pain / pressure, Palpitations Respiratory: denies: Dyspnea PD PAST MEDICAL HISTORY - Past Medical History Cardiovascular: Coronary artery disease Respiratory: Sleep apnea, CPAP use Neuro: None Endocrine/Autoimmune: None GI: Diverticulitis : None Psych: None Musculoskeletal: Chronic back pain Derm: None - Past Surgical History Past Surgical History: Yes General: Bowel surgery Ortho: Knee replacement, Spine surgery Cardiovascular: Coronary stent - Present Medications Home Medications: Ambulatory Orders Medication Instructions Recorded Confirmed Omeprazole [PriLOSEC] 20 mg PO BID 08/01/12 01/20/17 Simvastatin [Zocor] 20 mg PO HS 08/01/12 01/20/17 Furosemide 40 mg ORAL DAILY 04/23/14 01/20/17 Losartan [Cozaar] 50 mg PO DAILY 09/02/14 01/20/17 Aspirin [Aspirin EC] 81 mg PO DAILY 12/20/14 01/20/17 Cholecalciferol (Vitamin D3) 5,000 units PO DAILY 02/21/16 01/20/17 [Vitamin D3] Darifenacin Hydrobromide [Enablex] 15 mg PO DAILY 02/21/16 01/20/17 Potassium Chloride [Micro-K] 10 meq PO BID 02/21/16 01/20/17 Sertraline [Zoloft] 50 mg PO QPM 02/21/16 01/20/17 Warfarin Sodium 5 mg PO MOWEFR@1400 02/21/16 01/20/17 Warfarin Sodium 10 mg PO SUTUTHSA@1400 02/21/16 01/20/17 Metoprolol Succinate 100 mg PO DAILY #30 tab.er.24h 05/26/16 01/20/17 Hydrocodone/Acetaminophen [Vicodin 1 tab PO Q6HR PRN 07/25/16 01/20/17 5-300 mg Tablet] Lidocaine Patch 5% [Lidoderm Patch] 1 each TOP DAILY PRN #10 patch 07/25/1602/24 Lidocaine Patch 5% [Lidoderm Patch] 1 each TOP DAILY #10 patch 10/16/16 01/20/17 Docusate Calcium 240 mg PO DAILY #30 capsule 01/20/17 - Allergies Allergies/Adverse Reactions: Allergies Allergy/AdvReac Type Severity Reaction Status Date / Time Influenza Virus Vaccines Allergy Rash Verified 01/20/17 07:00 - Social History Does the pt smoke?: No Smoking Status: Never smoker Does the pt drink ETOH?: Yes Does the pt have substance abuse?: No - Immunizations Immunizations are current?: Yes Immunizations: TDAP >10years/unknown - POLST Patient has POLST: No PD ED PE NORMAL - Vitals Vital signs reviewed: Yes - General General: Alert and oriented X 3, No acute distress - HEENT HEENT: PERRL, EOMI, Pharynx benign - Neck Neck: Supple, no meningeal sign, No bony TTP, No bruit (carotid or subclavian on L) - Cardiac Cardiac: RRR, No murmur - Respiratory Respiratory: No respiratory distress, Clear bilaterally - Abdomen Abdomen: Non tender - Neuro Neuro: Alert and oriented X 3, Other (Normal sensation throughout the left arm. NIHSS zero.) Eye Opening: Spontaneous Motor: Obeys Commands Verbal: Oriented GCS Score: 15 - Psych Psych: Normal mood, Normal affect Results - Vitals Vitals: Vital Signs - 24 hr 05/31/17 05/31/1718 10:41 12:17 12:18 Temperature 36.3 C L 36 C L Heart Rate 86 61 60 Respiratory 18 16 Rate Blood Pressure 138/63 H 130/69 132/67 H O2 Saturation 99 98 Oxygen O2 Source Room air - Rads (name of study) CT [place] Radiology: EMP read contemporaneously (NAD, atrophy) CT Cspine Radiology: EMP read contemporaneously (Multilevel degenerative changes including spinal stenosis and neuroforaminal narrowing.) PD MEDICAL DECISION MAKING - ED course ED course: Mostly this sounds like he has just been sleeping on it wrong, but differential diagnosis would include intracranial abnormality, cervical radiculopathy, or vascular issue. Vascular issue is much less likely because he does not have any pain with it. Bilateral upper extremity blood pressures were checked by the RN and were equivalent. Intracranially issue is less likely with normal head CT other than age-related changes and the pattern of it. Radiculopathy is likely given the results of the CT scan. He was advised to follow-up with his physician for potential neurosurgical referral. Departure - Departure Disposition: 01 Home, Self Care Clinical Impression: Cervical radiculopathy, Numbness and tingling in left arm Condition: Good Record reviewed to determine appropriate education?: Yes Instructions: ED Cervical Radiculopathy Comments: Return if worse or if new symptoms develop. Follow-up with your physician, next available appointment and discuss neurosurgical referral.
[2017-05-31 12:19] VITALS: BP 132/67
--- NOTE | 2017-05-31 13:39 | CT Preliminary Report ---
Exam: CT HEAD W/O IMPRESSION: Generalized age-related cortical atrophic changes without evidence of acute intracranial abnormality. [facility] SITE ID: [id number]
--- NOTE | 2017-05-31 13:48 | CT Preliminary Report ---
Exam: CT CERVICAL SPINE W/O IMPRESSION: 1. No acute bony abnormality. 2. Multilevel degenerative changes with the greatest degree of central spinal canal stenosis mild at C5-C6 and C6-C7. 3. Greatest degree of neural foraminal compromise is on the left at C3-C4 and on the right at C5-C6. [facility] SITE ID: [id number]
--- NOTE | 2017-05-31 13:56 | CT Report ---
EXAM: CT HEAD WITHOUT CONTRAST EXAM DATE: 05/31/2017 01:06 PM. CLINICAL HISTORY: Intermittent left upper extremity numbness for the last 5 days. COMPARISON: Head MRI 08/01/2012. No prior head CT. TECHNIQUE: Multiaxial CT images were obtained from the foramen magnum to the vertex. Reformats: Coron al. IV contrast: None. In accordance with CT protocol optimization, one or more of the following dose reduction techniques w ere utilized for this exam: automated exposure control, adjustment of mA and/or KV based on patient s ize, or use of iterative reconstructive technique. FINDINGS: Parenchyma: No intraparenchymal hemorrhage. No evidence of mass, midline shift, or CT findings of acu te infarction. Herrera-white differentiation is distinct. Diffuse chronic microangiopathic white matter changes are evident. Extraaxial Spaces: Normal for age. No subdural or epidural collections identified. Ventricles: The ventricles and cortical sulci are enlarged, consistent with age-related tissue loss. Sinuses and orbits: Imaged paranasal sinuses, orbits, and mastoids show no significant abnormality. Bones: No evidence of fracture or calvarial defect. Other: None. IMPRESSION: Generalized age-related cortical atrophic changes without evidence of acute intracranial abnormality. [facility] Referring Provider Line: [phone] SITE ID: [id number]
--- NOTE | 2017-05-31 13:56 | CT Report ---
EXAM: CT CERVICAL SPINE WITHOUT CONTRAST DATE: 05/31/2017 01:06 PM. HISTORY: Acute on chronic intermittent bilateral upper extremity arm dysesthesias, left greater than right. COMPARISONS: None. TECHNIQUE: Thin-section axial images were acquired of the cervical spine without contrast. Post-proce ssing: Coronal and sagittal reformats. Other: None. In accordance with CT protocol optimization, one or more of the following dose reduction techniques w ere utilized for this exam: automated exposure control, adjustment of mA and/or KV based on patient s ize, or use of iterative reconstructive technique. FINDINGS: Alignment: No scoliosis or spondylolisthesis. Bones: No fracture or bone lesion. Interspace Levels/Facets: C1-C2: Unremarkable. C2-C3: Normal caliber. Old small central and left-sided disk herniation. Moderate degenerative change s both facets. Moderate left C2-C3 bony neural foraminal compromise. C3-C4: Mildly narrowed. Marked degenerative changes left C3-C4 facet with marked left C3-C4 bony neur al foraminal compromise. C4-C5: Mildly narrowed. C5-C6: Mildly narrowed. Old large central and right-sided disk herniation. Mild right and moderate-to -marked left C5-C6 facet degenerative changes. Mild central spinal canal stenosis. Moderate to marked right and moderate left C5-C6 bony neural foraminal compromise. C6-C7: Marked narrowing. Old large central disk herniation. Mild central spinal canal stenosis. C7-T1: Marked narrowing. Musculature: Normal. No fatty atrophy. Other: The paravertebral and prevertebral soft tissues are unremarkable. The lung apices are clear. IMPRESSION: 1. No acute bony abnormality. 2. Multilevel degenerative changes with the greatest degree of central spinal canal stenosis mild at C5-C6 and C6-C7. 3. Greatest degree of neural foraminal compromise is on the left at C3-C4 and on the right at C5-C6. [facility] Referring Provider Line: [phone] SITE ID: [id number]
== END 2017-05-31 14:27 | disposition home or self-care (01) ==
LOC: ED 10:37
DX: M54.12 Radiculopathy, cervical region (principal); R20.0 Anesthesia of skin; I25.10 Atherosclerotic heart disease of native coronary artery without angina pectoris; Z79.01 Long term (current) use of anticoagulants; G47.30 Sleep apnea, unspecified; Z87.19 Personal history of other diseases of the digestive system; Z79.82 Long term (current) use of aspirin
CPT/HCPCS: 70450; 72125; 99283

== ENCOUNTER 2017-06-03 10:25 | Outpatient (CLI) | payer MEDICARE, OTHER ==
[2017-06-03 12:33] LABS: BASOPHILS # (AUTO) 0.1 10^3/uL (0.0-0.1); BASOPHILS % (AUTO) 0.9 %; EOSINOPHILS # (AUTO) 0.2 10^3/uL (0.0-0.7); EOSINOPHILS % (AUTO) 3.5 %; HGB - HEMOGLOBIN 13.5 g/dL (14.0-18.0); LYMPHOCYTES # (AUTO) 1.6 10^3/uL (1.5-3.5); LYMPHOCYTES % (AUTO) 25.5 %; MEAN CORPUSCULAR HEMOGLOBIN 27.1 pg (27.0-31.0); MEAN CORPUSCULAR HGB CONC 32.7 g/dL (32.0-36.0); MEAN CORPUSCULAR VOLUME 82.9 fL (80.0-94.0); MEAN PLATELET VOLUME 8.4 fL (7.4-11.4); MONOCYTES # (AUTO) 0.7 10^3/uL (0.0-1.0); MONOCYTES % (AUTO) 10.6 %; NEUTROPHILS # (AUTO) 3.7 10^3/uL (1.5-6.6); NEUTROPHILS % (AUTO) 59.5 %; PLT - PLATELET COUNT 213 10^3/uL (130-450); RED BLOOD COUNT 4.97 10^6/uL (4.70-6.10); RED CELL DISTRIBUTION WIDTH 17.9 % (12.0-15.0); WHITE BLOOD COUNT 6.1 x10^3/uL (4.8-10.8)
[2017-06-03 12:44] LABS: ALBUMIN 4.1 g/dL (3.2-5.5); ALBUMIN/GLOBULIN RATIO 1.2 (1.0-2.2); ALKALINE PHOSPHATASE 63 IU/L (42-121); ALT ALANINE AMINOTRANSFERASE 17 IU/L (10-60); AST ASPARTATE AMINOTRANSFERASE 21 IU/L (10-42); BILIRUBIN,TOTAL 0.7 mg/dL (0.2-1.0); BUN - BLOOD UREA NITROGEN 20 mg/dL (6-20); CALCIUM 9.4 mg/dL (8.5-10.3); CARBON DIOXIDE - CO2 24 mmol/L (21-32); CHLORIDE 102 mmol/L (101-111); CHOL/HDL RATIO 2.7 (<5.0); CHOLESTEROL 109 mg/dL; CREATININE 0.7 mg/dL (0.6-1.2); GFR - MDRD 108 (>89); GLUCOSE 117 mg/dL (70-100); HDL CHOLESTEROL 41 mg/dL; LDL CHOLESTEROL,CALCULATED 33 mg/dL; LDL/HDL RATIO 0.8 (<3.6); SODIUM 137 mmol/L (135-145); TOTAL PROTEIN 7.6 g/dL (6.7-8.2); VLDL CHOLESTEROL 35 mg/dL
== END 2017-06-03 10:26 | disposition home or self-care (01) ==
LOC: LAB.WCP 10:25
PROVIDERS: ATTEND Family Medicine
DX: I10 Essential (primary) hypertension (principal); E78.5 Hyperlipidemia, unspecified; R53.83 Other fatigue
CPT/HCPCS: 36415; 80053; 80061; 83721; 84443; 85025

== ENCOUNTER 2017-06-15 16:55 | Emergency (ER) | payer MEDICARE, OTHER ==
--- NOTE | 2017-06-15 18:21 | ED Physician Documentation ---
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 There is no specific injury.) Review of Systems Constitutional: reports: Reviewed and negative Nose: reports: Reviewed and negative Cardiac: reports: Reviewed and negative PD PAST MEDICAL HISTORY - Past Medical History Past Medical History: Yes Cardiovascular: Coronary artery disease Respiratory: Sleep apnea, CPAP use Neuro: None Endocrine/Autoimmune: None GI: Diverticulitis : None Psych: None Musculoskeletal: Chronic back pain Derm: None - Past Surgical History Past Surgical History: Yes General: Bowel surgery Ortho: Knee replacement, Spine surgery Cardiovascular: Coronary stent - Present Medications Home Medications: Ambulatory Orders Medication Instructions Recorded Confirmed Omeprazole [PriLOSEC] 20 mg PO BID 08/01/12 01/20/17 Simvastatin [Zocor] 20 mg PO HS 08/01/12 01/20/17 Furosemide 40 mg ORAL DAILY 04/23/14 01/20/17 Losartan [Cozaar] 50 mg PO DAILY 09/02/14 01/20/17 Aspirin [Aspirin EC] 81 mg PO DAILY 12/20/14 01/20/17 Cholecalciferol (Vitamin D3) 5,000 units PO DAILY 02/21/16 01/20/17 [Vitamin D3] Darifenacin Hydrobromide [Enablex] 15 mg PO DAILY 02/21/16 01/20/17 Potassium Chloride [Micro-K] 10 meq PO BID 02/21/16 01/20/17 Sertraline [Zoloft] 50 mg PO QPM 02/21/16 01/20/17 Warfarin Sodium 5 mg PO MOWEFR@1400 02/21/16 01/20/17 Warfarin Sodium 10 mg PO SUTUTHSA@1400 02/21/16 01/20/17 Metoprolol Succinate 100 mg PO DAILY #30 tab.er.24h 05/26/16 01/20/17 Hydrocodone/Acetaminophen [Vicodin 1 tab PO Q6HR PRN 07/25/16 01/20/17 5-300 mg Tablet] Lidocaine Patch 5% [Lidoderm Patch] 1 each TOP DAILY PRN #10 patch 07/25/1602/24 Lidocaine Patch 5% [Lidoderm Patch] 1 each TOP DAILY #10 patch 10/16/16 01/20/17 Docusate Calcium 240 mg PO DAILY #30 capsule 01/20/17 HYDROcod/ACETAM 5/325 [[place] 5/325] 1 - 2 ea PO Q6H PRN #15 tablet 06/15/17 - Allergies Allergies/Adverse Reactions: Allergies Allergy/AdvReac Type Severity Reaction Status Date / Time Influenza Virus Vaccines Allergy Rash Verified 06/15/17 17:12 - Social History Does the pt smoke?: No Smoking Status: Never smoker Does the pt drink ETOH?: Yes Does the pt have substance abuse?: No - Immunizations Immunizations are current?: Yes Immunizations: TDAP >10years/unknown - POLST Patient has POLST: No PD ED PE NORMAL - Vitals Vital signs reviewed: Yes - General General: Alert and oriented X 3, No acute distress - Extremities Extremities: Other (He is tender focally over the medial epicondyle it has good range of the right elbow without evidence of infection or warmth, good machine accountant strength and radial pulses on the right.) - Neuro Neuro: Alert and oriented X 3, Normal speech - Psych Psych: Normal mood, Normal affect Results - Vitals Vitals: Vital Signs - 24 hr 06/15/17 17:04 Temperature 36.2 C L Heart Rate 63 Respiratory 16 Rate Blood Pressure 109/66 O2 Saturation 95 Oxygen O2 Source Room air Departure - Departure Disposition: 01 Home, Self Care Clinical Impression: Medial epicondylitis Qualifiers: Laterality: right Qualified Code(s): M77.01 - Medial epicondylitis, right elbow Condition: Good Record reviewed to determine appropriate education?: Yes Instructions: Medial Epicondylitis Prescriptions: HYDROcod/ACETAM 5/325 [[place] 5/325] 1 - 2 ea PO Q6H PRN #15 tablet PRN Reason: Pain Comments: When you go to the drugstore, get a tennis elbow bracelet which is available without a prescription and use it as per package instructions. Follow-up with your doctor. Return if worse. Do not drink or drive while taking narcotic pain medication. Note that many narcotic pain relievers also contain Tylenol/acetaminophen. Please ensure that your total dose of acetaminophen from all sources does not exceed 3 g (3000 mg) per day. You may get constipated while on this medication. Take a stool softener such as Colace twice a day while you are on it. Also add an poev-usu-decdjyw laxative such as senna or MiraLAX on any day that you do not have a bowel movement. If you received a narcotic pain medication or sedative while in the emergency department, do not drive for the next 24 hours.
[2017-06-15 18:33] VITALS: BP 137/79
[2017-06-15] MEDS ORDERED: HYDROcod/ACET 5/325 Prepack 4 PO STA (18:34)
== END 2017-06-15 18:44 | disposition home or self-care (01) ==
LOC: ED 16:55
DX: M77.01 Medial epicondylitis, right elbow (principal); I25.10 Atherosclerotic heart disease of native coronary artery without angina pectoris; Z95.5 Presence of coronary angioplasty implant and graft; Z96.659 Presence of unspecified artificial knee joint; Z79.82 Long term (current) use of aspirin
CPT/HCPCS: 99283

== ENCOUNTER 2017-07-15 13:11 | Outpatient (CLI) | payer MEDICARE, OTHER ==
--- NOTE | 2017-07-15 19:54 | MRI Report ---
EXAM: MRI CERVICAL SPINE WITHOUT CONTRAST EXAM DATE: 07/15/2017 01:47 PM. CLINICAL HISTORY: History of degenerative disk disease, severe intermittent neck pain and bilateral n umbness and tingling in the arms. History of degenerative disk disease and cervical radiculopathy. COMPARISONS: No prior MRI. Correlation is made with cervical spine CT from May 31, 2017.. TECHNIQUE: Multiplanar, multisequence T1-weighted and fluid-sensitive sequences of the cervical spine without contrast. Other: None. FINDINGS: Neurologic Structures: No focal signal abnormality in the cervical spinal cord including where the ve ntral cord is contacted by disk at C4-C5 and C5-C6 levels. No Chiari malformation or syrinx. Alignment: No change of alignment. Bone Marrow: Minimal degenerative endplate signal changes at multiple levels, most prominent at C6-C7 . Interspace Levels/Facets: C1-C2: Patent central canal. No cord impingement. Chronic-appearing mild to moderate hypertrophic deg enerative changes around the odontoid process. C2-C3: No focal disk herniation, central stenosis or significant disk space narrowing. Minimal left a nd moderate right facet arthropathy. Patent left neural foramen. Mild to moderate right foraminal sarah nosis. C3-C4: Mildly narrowed disk space. Minimal to mild right and moderate to severe left side hypertrophi c degenerative facet arthropathy. Asymmetric uncinate process spurring, minimal to mild on the right and moderate to severe on the left associated with foraminal stenosis that is mild on the right but a ppears severe on the left. Patent central canal. C4-C5: Mild to moderate degenerative disk disease. Moderately prominent central canal stenosis. Broad -based disk bulge. Ligamentum flavum thickening. Mild anterior cord compression. Ventral and dorsal C SF spaces are effaced. Mild to moderate facet hypertrophy. Minimal uncinate process spurring. Mild to moderate bilateral foraminal stenosis. C5-C6: Moderate degenerative disk disease. Broad-based disk bulge. Moderate central stenosis. Ventral thecal sac effacement and cord flattening by broad-based posterior disk herniation. Mild to moderate left and moderate right foraminal stenosis from bilateral uncinate process spurring and facet hypert rophy, and potentially accentuated by intraforaminal extension of the broad-based disk bulge. C6-C7: Moderate degenerative disk disease. Mild central stenosis without cord compression from chroni c-appearing broad-based bar-like posterior degenerative disk osteophyte complex. Mild to moderate debbi ateral foraminal stenosis from uncinate process spurring and relatively mild facet hypertrophy. C7-T1: Mild degenerative disk disease. Shallow disk bulge. Patent central canal. No significant jules inal narrowing. Musculature: Mild to moderate diffuse posterior paraspinal muscle fatty atrophy. Other: None. IMPRESSION: 1. Moderately prominent chronic multilevel hypertrophic degenerative cervical spinal spondylosis with out evidence for acute fracture or dislocation. 2. No focal cord signal abnormality including where mildly compressed by degenerative disk at C4-C5 a nd C5-C6 levels. 3. Multilevel central canal stenosis, most severe at C4-C5 and C5-C6. 4. Chronic appearing degenerative foraminal stenosis at multiple levels bilaterally but most severe o n the left at C3-C4. [facility] Referring Provider Line: [phone] SITE ID: [id number]
== END 2017-07-15 13:12 | disposition home or self-care (01) ==
LOC: DI 13:11
PROVIDERS: ATTEND Family Medicine
DX: M50.10 Cervical disc disorder with radiculopathy, unspecified cervical region (principal); M48.02 Spinal stenosis, cervical region; M47.22 Other spondylosis with radiculopathy, cervical region
CPT/HCPCS: 72141

== ENCOUNTER 2017-07-19 07:28 | Emergency (ER) | payer MEDICARE, OTHER ==
--- NOTE | 2017-07-19 07:46 | ED Physician Documentation ---
PD HPI UPPER EXT INJURY - Stated complaint Stated Complaint: LEFT SHOULDER PX/GLF - Chief complaint Chief Complaint: Ext Problem - History obtained from History obtained from: Patient - History of Present Illness Location: Left, Shoulder Type of injury: Fall Where injury occurred: Home Timing - onset: Last night Worsened by: Moving, Palpating Associated symptoms: No: Weakness, Numbness, Swelling Similar symptoms before: Has not had sx before - Additonal information Additional information: The patient is an 81-year-old male who presents with left shoulder pain. He stumbled last night while walking with his cane, and impacted his left shoulder when he fell. He denies any other injuries. He is right-hand dominant. Review of Systems Constitutional: denies: Fever Cardiac: denies: Chest pain / pressure Respiratory: denies: Dyspnea GI: denies: Abdominal Pain Skin: denies: Abrasion (s), Laceration (s) Musculoskeletal: reports: Joint pain (left shoulder). denies: Neck pain Neurologic: denies: Focal weakness, Numbness, Head injury PD PAST MEDICAL HISTORY - Past Medical History Cardiovascular: Coronary artery disease Respiratory: Sleep apnea, CPAP use Neuro: None Endocrine/Autoimmune: None GI: Diverticulitis : None Psych: None Musculoskeletal: Chronic back pain Derm: None - Past Surgical History Past Surgical History: Yes General: Bowel surgery Ortho: Knee replacement, Spine surgery Cardiovascular: Coronary stent - Present Medications Home Medications: Ambulatory Orders Medication Instructions Recorded Confirmed Omeprazole [PriLOSEC] 20 mg PO BID 08/01/12 01/20/17 Simvastatin [Zocor] 20 mg PO HS 08/01/12 01/20/17 Furosemide 40 mg ORAL DAILY 04/23/14 01/20/17 Losartan [Cozaar] 50 mg PO DAILY 09/02/14 01/20/17 Aspirin [Aspirin EC] 81 mg PO DAILY 12/20/14 01/20/17 Cholecalciferol (Vitamin D3) 5,000 units PO DAILY 02/21/16 01/20/17 [Vitamin D3] Darifenacin Hydrobromide [Enablex] 15 mg PO DAILY 02/21/16 01/20/17 Potassium Chloride [Micro-K] 10 meq PO BID 02/21/16 01/20/17 Sertraline [Zoloft] 50 mg PO QPM 02/21/16 01/20/17 Warfarin Sodium 5 mg PO MOWEFR@1400 02/21/16 01/20/17 Warfarin Sodium 10 mg PO SUTUTHSA@1400 02/21/16 01/20/17 Metoprolol Succinate 100 mg PO DAILY #30 tab.er.24h 05/26/16 01/20/17 Hydrocodone/Acetaminophen [Vicodin 1 tab PO Q6HR PRN 07/25/16 01/20/17 5-300 mg Tablet] Lidocaine Patch 5% [Lidoderm Patch] 1 each TOP DAILY PRN #10 patch 07/25/1602/24 Lidocaine Patch 5% [Lidoderm Patch] 1 each TOP DAILY #10 patch 10/16/16 01/20/17 Docusate Calcium 240 mg PO DAILY #30 capsule 01/20/17 HYDROcod/ACETAM 5/325 [[place] 5/325] 1 - 2 ea PO Q6H PRN #15 tablet 06/15/17 - Allergies Allergies/Adverse Reactions: Allergies Allergy/AdvReac Type Severity Reaction Status Date / Time Influenza Virus Vaccines Allergy Rash Verified 06/15/17 17:12 - Social History Does the pt smoke?: No Smoking Status: Never smoker Does the pt drink ETOH?: Yes Does the pt have substance abuse?: No - Immunizations Immunizations are current?: Yes Immunizations: TDAP >10years/unknown - POLST Patient has POLST: No PD ED PE NORMAL - Vitals Vital signs reviewed: Yes (Mild systolic hypertension initially.) - General General: Alert and oriented X 3, Well developed/nourished, Other (Ambulated into the emergency department with the assistance of his cane.) - HEENT HEENT: Atraumatic - Neck Neck: No bony TTP - Cardiac Cardiac: RRR - Respiratory Respiratory: No respiratory distress, Clear bilaterally, Other (No chest wall tenderness to palpation.) - Abdomen Abdomen: Soft, Non tender, Other (Rotund abdomen.) - Back Back: No CVA TTP, No spinal TTP - Derm Derm: No rash - Extremities Extremities: No calf tenderness / cord, Other (There is tenderness to palpation over the superior aspect of the shoulder across the acromion process. There is no tenderness over the scapular aspect, and no tenderness to palpation of the clavicle or humerus.) - Neuro Neuro: Alert and oriented X 3, No motor deficit, No sensory deficit Results - Vitals Vitals: Vital Signs - 24 hr 07/19/17 07:36 Temperature 36.3 C L Heart Rate 73 Respiratory 16 Rate Blood Pressure 148/71 H O2 Saturation 94 Oxygen O2 Source Room air - Rads (name of study) Left shoulder Radiology: Prelim report reviewed, EMP read contemporaneously, See rad report ( Degenerative joint disease.) PD MEDICAL DECISION MAKING - ED course Complexity details: reviewed results, re-evaluated patient, considered differential, d/w patient, d/w family ED course: The patient's presentation is most consistent with contusion to the left shoulder. X-ray reveals degenerative joint disease, without evidence of fracture or dislocation. I discussed with the patient and his symptomatic care and outpatient follow-up, as well as potentially worrisome signs or symptoms that should prompt reevaluation in the emergency department. Departure - Departure Disposition: 01 Home, Self Care Clinical Impression: Contusion of left shoulder Qualifiers: Encounter type: initial encounter Qualified Code(s): S40.012A - Contusion of left shoulder, initial encounter Condition: Stable Instructions: ED Contusion Upper Ext Follow-Up: Yancy Clifton MD [Primary Care Provider] - Comments: Apply ice pack to your left shoulder intermittently for the next 3 days. You can use Tylenol or ibuprofen if needed for pain or discomfort. Let pain be your guide to activity level. Follow up with your primary physician if not improved within 2 weeks. Return to the emergency department if you develop increasing pain, or otherwise worsening symptoms.
--- NOTE | 2017-07-19 08:16 | XRAY Preliminary Report ---
Exam: XR SHOULDER 3 VIEW LT IMPRESSION: MERLYN DONOHUE SITE ID: [id number]
--- NOTE | 2017-07-19 08:16 | XRAY Report ---
EXAM: LEFT SHOULDER RADIOGRAPHY EXAM DATE: 07/19/2017 08:04 AM. CLINICAL HISTORY: Left shoulder pain after falling. COMPARISON: None. TECHNIQUE: 3 views. FINDINGS: Bones: Normal. No fracture or bone lesion. Joints: AC joint hypertrophy. Glenohumeral osteophyte. Possible calcific tendinitis. Soft tissues: The visualized hemithorax is unremarkable. No soft tissue swelling. IMPRESSION: DJD [facility] Referring Provider Line: [phone] SITE ID: [id number]
[2017-07-19 08:42] VITALS: BP 133/64
== END 2017-07-19 08:40 | disposition home or self-care (01) ==
LOC: ED 07:28
DX: S40.012A Contusion of left shoulder, initial encounter (principal); M19.012 Primary osteoarthritis, left shoulder; W01.0XXA Fall on same level from slipping, tripping and stumbling without subsequent striking against object, initial encounter; Y93.01 Activity, walking, marching and hiking; Y92.009 Unspecified place in unspecified non-institutional (private) residence as the place of occurrence of the external cause; Z79.01 Long term (current) use of anticoagulants; Z79.82 Long term (current) use of aspirin
CPT/HCPCS: 99283

== ENCOUNTER 2017-07-26 13:46 | Outpatient (CLI) | payer MEDICARE, OTHER ==
[2017-07-26] MEDS ORDERED: IOPAMIDOL-300 100 ML VIAL IVP ONE ×3 (13:47→15:05)
[2017-07-26 14:13] LABS: ALBUMIN/GLOBULIN RATIO 1.1 (1.0-2.2); BILIRUBIN,TOTAL 0.8 mg/dL (0.2-1.0); CALCIUM 9.3 mg/dL (8.5-10.3); CREATININE 0.9 mg/dL (0.6-1.2); TOTAL PROTEIN 7.8 g/dL (6.7-8.2)
[2017-07-26] MEDS ORDERED: IOPAMIDOL-300 100 ML VIAL ONE (14:25)
--- NOTE | 2017-07-26 17:37 | CT Report ---
CT PULMONARY ANGIOGRAM: 07/26/2017 CLINICAL INDICATION: Dyspnea on exertion, history of pulmonary embolus. COMPARISON: 05/04/2015 TECHNIQUE: Axial CT images of the chest were obtained with 80 mL Isovue 300 intravenously. Sagittal and coronal 3-D reconstructions were performed. In accordance with CT protocol optimization, one or more of the following dose reduction techniques were utilized for this exam: Automated exposure control, adjustment of mA and/or KV based on patient size, or use of iterative reconstructive technique. FINDINGS: The heart and great vessels demonstrate atherosclerotic calcification. Previously noted left AP window lymph node is stable. No new adenopathy is seen. There is no evidence of pulmonary embolus. The lungs demonstrate stable emphysema. No focal infiltrate, effusion, or consolidation is present. No pneumothorax. Limited evaluation of upper abdominal structures demonstrates normal adrenal glands. Osseous structures demonstrate degenerative changes. IMPRESSION: NO EVIDENCE OF PULMONARY EMBOLUS. STABLE EMPHYSEMA. TD: 07/26/2017 15:15
== END 2017-07-26 13:47 | disposition home or self-care (01) ==
LOC: LAB 13:46 → DI 13:47
PROVIDERS: ATTEND Family Medicine
DX: R06.09 Other forms of dyspnea (principal); Z86.711 Personal history of pulmonary embolism; J43.9 Emphysema, unspecified
CPT/HCPCS: 36415; 71275; 80053; Q9967

== ENCOUNTER 2017-08-23 21:49 | Outpatient (CLI) | payer MEDICARE, OTHER | END 2017-08-23 23:59 | disposition critical access hospital (66) | LOC: EMS 21:49 | PROVIDERS: ATTEND Surgery | DX: M62.81 Muscle weakness (generalized) (principal); W06.XXXA Fall from bed, initial encounter; Y92.003 Bedroom of unspecified non-institutional (private) residence as the place of occurrence of the external cause | CPT/HCPCS: A0425; A0429 ==

== ENCOUNTER 2017-08-23 22:02 | Inpatient (IN) | payer MEDICARE, OTHER ==
--- NOTE | 2017-08-23 22:12 | ED Physician Documentation ---
History of Present Illness - Stated complaint Stated Complaint: FELL, FATIGUE, HIT HEAD - History obtained from History obtained from: Patient, Family - History of Present Illness Timing: How many days ago (2-3) Pain level max: 0 Pain level now: 0 Improved by: rest Worsened by: exertion, ambulation Associated symptoms: dyspnea, weakness - Additonal information Additional information: c/o 2-3 days "pretty unsteady" (per patient) when ambulating, associated with increasing generalized weakness and dyspnea which also are both worse with ambulation. Tonight, he tried to get out of bed and was too weak to stand, and thus he slowly slid down to floor. He denies falling, denies injury (denies any injury but also specifically denies head injury). BIBA. medics arrived to patient's home and found pulse ox 88% on room air, improved to 93% with supplemental oxygen (3L NC). Review of Systems Constitutional: reports: Chills. denies: Fever, Sweats Eyes: reports: Reviewed and negative Ears: reports: Reviewed and negative Nose: reports: Reviewed and negative Throat: reports: Reviewed and negative Cardiac: reports: Reviewed and negative Respiratory: reports: Dyspnea, Cough. denies: Wheezing GI: reports: Reviewed and negative : denies: Dysuria, Frequency Skin: denies: Rash Musculoskeletal: reports: Reviewed and negative Neurologic: reports: Generalized weakness. denies: Focal weakness, Numbness, Confused, Altered mental status, Headache, Head injury, LOC PD PAST MEDICAL HISTORY - Past Medical History Cardiovascular: Coronary artery disease Respiratory: Sleep apnea, CPAP use Endocrine/Autoimmune: None GI: Diverticulitis : None Psych: None Musculoskeletal: Chronic back pain Derm: None - Past Surgical History Past Surgical History: Yes General: Bowel surgery Ortho: Knee replacement, Spine surgery Cardiovascular: Coronary stent - Present Medications Home Medications: Ambulatory Orders Medication Instructions Recorded Confirmed Omeprazole [PriLOSEC] 20 mg PO BID 08/01/12 08/24/17 Furosemide 40 mg ORAL DAILY 04/23/14 08/24/17 Losartan [Cozaar] 50 mg PO DAILY 09/02/14 08/24/17 Aspirin [Aspirin EC] 81 mg PO DAILY 12/20/14 08/24/17 Cholecalciferol (Vitamin D3) 5,000 units PO DAILY 02/21/16 08/24/17 [Vitamin D3] Potassium Chloride [Micro-K] 10 meq PO BID 02/21/16 08/24/17 Warfarin Sodium 5 mg PO TU@1400 02/21/16 08/24/17 Warfarin Sodium 7.5 mg PO SUMOWETHFRSA@1400 02/21/16 08/24/17 Albuterol Sulfate [Proair Hfa 1 - 2 puffs INH Q4H PRN 08/23/17 08/23/17 Inhaler] Atorvastatin [Lipitor] 40 mg PO DAILY 08/23/17 08/23/17 Metoprolol Succinate 50 mg PO DAILY 08/23/17 08/23/17 Tiotropium [place] [Spiriva] 1 inh IH DAILY 08/23/17 08/24/17 Darifenacin Hydrobromide 7.5 mg PO DAILY 08/24/17 08/24/17 [Darifenacin ER] - Allergies Allergies/Adverse Reactions: Allergies Allergy/AdvReac Type Severity Reaction Status Date / Time Influenza Virus Vaccines Allergy Rash Verified 08/23/17 22:17 - Social History Does the pt smoke?: No Smoking Status: Never smoker Does the pt drink ETOH?: Yes Does the pt have substance abuse?: No - Immunizations Immunizations are current?: Yes Immunizations: TDAP >10years/unknown - POLST Patient has POLST: No PD ED PE NORMAL - Vitals Vital signs reviewed: Yes - General General: Alert and oriented X 3, No acute distress, Well developed/nourished - HEENT HEENT: PERRL, EOMI, Moist mucous membranes - Neck Neck: Supple, no meningeal sign - Cardiac Cardiac: RRR, No murmur - Respiratory Respiratory: No respiratory distress, Other (bibasilar rales) - Abdomen Abdomen: Soft, Non tender - Derm Derm: Normal color, Warm and dry - Extremities Extremities: No edema - Neuro Neuro: Alert and oriented X 3 Results - Vitals Vitals: Vital Signs - 24 hr 08/23/17 08/23/17 08/23/17 22:08 22:54 23:40 Temperature 37.1 C Heart Rate 88 85 84 Respiratory 22 18 25 H Rate Blood Pressure 121/58 L 134/70 H O2 Saturation 90 L 95 93 Oxygen O2 Source Room air Oxygen Flow Rate 2 - Labs Labs: Laboratory Tests 08/23/17 08/23/17 08/23/17 22:30 22:30 22:30 WBC 12.1 H RBC 4.99 Hgb 13.2 L Hct 41.3 L MCV 82.7 MCH 26.5 L MCHC 32.1 RDW 15.4 H Plt Count 212 MPV 7.6 Neut # (Auto) 10.4 H Lymph # (Auto) 0.7 L [place] # (Auto) 0.8 Eos # (Auto) 0.0 Baso # (Auto) 0.1 Absolute Nucleated RBC 0.00 Band Neuts % (Manual) Not Reportable Abnorm Lymph % (Manual) Not Reportable Nucleated RBC % 0.0 Neutrophils # (Manual) Not Reportable Lymphocytes # (Manual) Not Reportable Monocytes # (Manual) Not Reportable Eosinophils # (Manual) Not Reportable Basophils # (Manual) Not Reportable Differential Comment MANUAL=AUTO DIFF Manual Slide Review Indicated Platelet Estimate NORMAL (130-450,000) Platelet Morphology NORMAL APPEARANCE RBC Morph Micro Appear NORMAL APPEARANCE PT 40.0 H INR 3.7 H APTT 37.8 H Sodium 131 L Potassium 3.7 Chloride 97 L Carbon Dioxide 23 Anion Gap 11.0 BUN 15 Creatinine 0.9 Estimated GFR (MDRD) 81 L Glucose 133 H Lactic Acid Calcium 9.5 Troponin I B-Natriuretic Peptide Urine Color Urine Clarity Urine pH Ur Specific [place] Urine Protein Urine Glucose (UA) Urine Ketones Urine Occult Blood Urine Nitrite Urine Bilirubin Urine Urobilinogen Ur Leukocyte Esterase Urine RBC Urine WBC Ur Squamous Epith Cells Urine Bacteria Urine Casts Urine Mucus Ur Microscopic Review Urine Culture Comments 08/23/17 08/23/17 08/23/17 22:30 22:30 23:12 WBC RBC Hgb Hct MCV MCH MCHC RDW Plt Count MPV Neut # (Auto) Lymph # (Auto) [place] # (Auto) Eos # (Auto) Baso # (Auto) Absolute Nucleated RBC Band Neuts % (Manual) Abnorm Lymph % (Manual) Nucleated RBC % Neutrophils # (Manual) Lymphocytes # (Manual) Monocytes # (Manual) Eosinophils # (Manual) Basophils # (Manual) Differential Comment Manual Slide Review Platelet Estimate Platelet Morphology RBC Morph Micro Appear PT INR APTT Sodium Potassium Chloride Carbon Dioxide Anion Gap BUN Creatinine Estimated GFR (MDRD) Glucose Lactic Acid Calcium Troponin I 0.05 B-Natriuretic Peptide 394 H Urine Color YELLOW Urine Clarity CLEAR Urine pH 5.5 Ur Specific [place] 1.025 Urine Protein 30 H Urine Glucose (UA) NEGATIVE Urine Ketones NEGATIVE Urine Occult Blood NEGATIVE Urine Nitrite NEGATIVE Urine Bilirubin NEGATIVE Urine Urobilinogen 0.2 (NORMAL) Ur Leukocyte Esterase NEGATIVE Urine RBC 0-5 Urine WBC 0-3 Ur Squamous Epith Cells NONE SEEN Urine Bacteria Rare Urine Casts 3-5 Hyaline Casts Urine Mucus Marked Strands Ur Microscopic Review INDICATED Urine Culture Comments NOT INDICATED 08/23/17 23:35 WBC RBC Hgb Hct MCV MCH MCHC RDW Plt Count MPV Neut # (Auto) Lymph # (Auto) [place] # (Auto) Eos # (Auto) Baso # (Auto) Absolute Nucleated RBC Band Neuts % (Manual) Abnorm Lymph % (Manual) Nucleated RBC % Neutrophils # (Manual) Lymphocytes # (Manual) Monocytes # (Manual) Eosinophils # (Manual) Basophils # (Manual) Differential Comment Manual Slide Review Platelet Estimate Platelet Morphology RBC Morph Micro Appear PT INR APTT Sodium Potassium Chloride Carbon Dioxide Anion Gap BUN Creatinine Estimated GFR (MDRD) Glucose Lactic Acid 1.1 Calcium Troponin I B-Natriuretic Peptide Urine Color Urine Clarity Urine pH Ur Specific [place] Urine Protein Urine Glucose (UA) Urine Ketones Urine Occult Blood Urine Nitrite Urine Bilirubin Urine Urobilinogen Ur Leukocyte Esterase Urine RBC Urine WBC Ur Squamous Epith Cells Urine Bacteria Urine Casts Urine Mucus Ur Microscopic Review Urine Culture Comments PD MEDICAL DECISION MAKING - ED course Complexity details: reviewed results, re-evaluated patient, considered differential, d/w patient, d/w family ED course: pulse ox 88% room air [employer], improved to 93% with NC oxygen. On ED arrival, oxygen was briefly stopped to facilitate transfer to ED stretcher, and pulse ox noted to drop back to 89% (with good pleth wave on monitor), which improved to mid-90s with 4 liters NC oxygen. He has COPD but does not use oxygen at home ( uses CPAP at night). Describes gradually worsening generalized weakness to the point of unable to support his own weight tonight. Pneumonia (right sided infiltrate) on CXR. Given abx. (rocephin, zithromax) in ED and will admit for further treatment and evaluation until weakness and hypoxia improve sufficiently. - Sepsis Event Vital Signs: Vital Signs - 24 hr 08/23/17 08/23/17 08/23/17 22:08 22:54 23:40 Temperature 37.1 C Heart Rate 88 85 84 Respiratory 22 18 25 H Rate Blood Pressure 121/58 L 134/70 H O2 Saturation 90 L 95 93 Oxygen O2 Source Room air Oxygen Flow Rate 2 Departure - Departure Disposition: 66 [facility] DC/Xfer Clinical Impression: Pneumonia Condition: Good Discharge Date/Time: 08/24/17 00:34
[2017-08-23 22:37] LABS: BASOPHILS # (AUTO) 0.1 10^3/uL (0.0-0.1); BASOPHILS % (AUTO) 0.6 %; EOSINOPHILS % (AUTO) 0.1 %; HGB - HEMOGLOBIN 13.2 g/dL (14.0-18.0); LYMPHOCYTES # (AUTO) 0.7 10^3/uL (1.5-3.5); MEAN CORPUSCULAR HEMOGLOBIN 26.5 pg (27.0-31.0); MEAN CORPUSCULAR HGB CONC 32.1 g/dL (32.0-36.0); MEAN CORPUSCULAR VOLUME 82.7 fL (80.0-94.0); MEAN PLATELET VOLUME 7.6 fL (7.4-11.4); MONOCYTES # (AUTO) 0.8 10^3/uL (0.0-1.0); MONOCYTES % (AUTO) 6.8 %; NEUTROPHILS # (AUTO) 10.4 10^3/uL (1.5-6.6); NEUTROPHILS % (AUTO) 86.5 %; PLT - PLATELET COUNT 212 10^3/uL (130-450); RED BLOOD COUNT 4.99 10^6/uL (4.70-6.10); RED CELL DISTRIBUTION WIDTH 15.4 % (12.0-15.0); WHITE BLOOD COUNT 12.1 x10^3/uL (4.8-10.8)
[2017-08-23 22:43] LABS: INR 3.7 (0.8-1.2)
[2017-08-23 22:46] LABS: CALCIUM 9.5 mg/dL (8.5-10.3); CREATININE 0.9 mg/dL (0.6-1.2)
[2017-08-23 22:53] LABS: DIFFERENTIAL COMMENT MANUAL=AUTO DIFF; PLATELET ESTIMATE, MANUAL NORMAL (130-450,000) (NORMAL); PLATELET MORPHOLOGY NORMAL APPEARANCE (NORMAL); RBC MORPHOLOGY (MULTIPLE) NORMAL APPEARANCE (NORMAL)
--- NOTE | 2017-08-23 23:03 | XRAY Report ---
Procedure Date: 08/23/2017 Accession Number: [id number] / [id number] Procedure: XR - Chest 2 View X-Ray CPT Code: 50912 FULL RESULT: EXAM: CHEST RADIOGRAPHY EXAM DATE: 08/23/2017 10:46 PM. CLINICAL HISTORY: Weakness, hypoxia. COMPARISON: CT chest 07/26/2017, chest x-ray 05/31/2016. TECHNIQUE: 2 views. FINDINGS: Lungs/Pleura: Large volumes. Right perihilar opacities likely in the superior aspect of the right lower lobe. No pneumothorax or effusion. Mediastinum: Within exam limitations, cardiomediastinal contour is normal. Other: None. IMPRESSION: COPD with superimposed right perihilar pneumonia. RADIA
[2017-08-23 23:28] LABS: BILIRUBIN,URINE NEGATIVE (NEGATIVE); GLUCOSE, URINE (UA) NEGATIVE (NEGATIVE); KETONES,URINE (UA) NEGATIVE (NEGATIVE); LEUKOCYTE ESTERASE, URINE NEGATIVE (NEGATIVE); NITRITE,URINE NEGATIVE (NEGATIVE); OCCULT BLOOD,URINE NEGATIVE (NEGATIVE); PH,URINE 5.5 PH (5.0-7.5); PROTEIN,URINE 30 mg/dL (NEGATIVE); UROBILINOGEN,URINE 0.2 (NORMAL) E.U./dL (NORMAL)
[2017-08-23 23:34] LABS: CLARITY,URINE CLEAR (CLEAR)
[2017-08-23 23:38] LABS: BACTERIA,URINE Rare /HPF (None Seen); CASTS, URINE 3-5 Hyaline Casts /LPF; MUCUS,URINE Marked Strands; RBC,URINE 0-5 /HPF (0-5); SQUAMOUS EPITHELIAL CELL,UR NONE SEEN (<= Few)
[2017-08-24] MEDS ORDERED: cefTRIAXone 1 GM in SODIUM CHLORIDE 0.9% MINIBAG 100 ML IV STA (00:04)
[2017-08-24] MEDS ORDERED: AZITHROMYCIN INJ 500 MG in SODIUM CHLORIDE 0.9% 250 ML IV STA (00:04)
[2017-08-24] MEDS ORDERED: PROCHLORPERAZINE 10 MG/2 ML VIAL IVP PRN (00:15)
[2017-08-24] MEDS ORDERED: SODIUM CHLORIDE FLUSH 0.9% 10 ML SYRINGE IVP PRN (00:15)
[2017-08-24] MEDS ORDERED: ALBUTEROL NEB 2.5 MG/3 ML INH PRN (00:28)
--- NOTE | 2017-08-24 00:45 | HISTORY & PHYSICAL EXAMINATION ---
Chief Complaint - Chief Complaint Chief Complaint: chills, cough History of Present Illness - Admitted From Admitted From:: Home - History Obtained From History obtained from: patient, ED physician - History of Present Illness HPI Comment/Other: Mr. Wally Garcia is a very pleasant 81-year-old gentleman with a history significant for emphysema and pulmonary emboli, who has been having some increasing weakness and shortness of breath for the last several days, maybe up to a week. This continued to worsen until today when the patient lost his balance and lowered himself to the floor and then was then too short of breath to get back up again. He called the rescue squad who brought him to the emergency department where he was found to have an oxygen saturation of 88% on room air which was easily corrected to 94% on 3 L. He is also found to have an elevated BNP of 394 and an elevated INR of 3.7. Chest x-ray noted COPD with right perihilar pneumonia. Patient has had fevers and chills and so will be admitted to the hospital for IV antibiotics and ongoing treatment. History - Past Medical History Cardiovascular: reports: Hypertension, High cholesterol, Coronary artery disease , Pulmonary embolism Respiratory: reports: Sleep apnea, CPAP use Endocrine/Autoimmune: reports: None GI: reports: GERD, Diverticulitis : reports: None Psych: reports: None Musculoskeletal: reports: Chronic back pain Derm: reports: None MRSA Hx?: No - Past Surgical History General: reports: Bowel surgery Ortho: reports: Knee replacement, Spine surgery Cardiovascular: reports: Coronary stent - Family & Social History Family History: Mother: , Father: Family History Comment/Other: Patient's mother of pneumonia when he was 14. Patient's father of cancer at age 83. Patient was an only child, no known history of heart disease, COPD, or diabetes in the family. Living arrangement: At home Living Situation: With family Social History Notes: The patient describes himself as a "moderate" drinker - Substance History Use: Uses substance without health or social issues: Alcohol Abuse: Recurrent use of substance despite neg consequences: NONE Dependence: Experiences withdrawal or developed tolerances: NONE - POLST Patient has POLST: Yes POLST Status: DNR Meds/Allgy - Home Medications Home Medications: Ambulatory Orders Medication Instructions Recorded Confirmed Omeprazole [PriLOSEC] 20 mg PO BID 08/01/12 01/20/17 Furosemide 40 mg ORAL DAILY 04/23/14 01/20/17 Losartan [Cozaar] 50 mg PO DAILY 09/02/14 01/20/17 Aspirin [Aspirin EC] 81 mg PO DAILY 12/20/14 01/20/17 Cholecalciferol (Vitamin D3) 5,000 units PO DAILY 02/21/16 01/20/17 [Vitamin D3] Potassium Chloride [Micro-K] 10 meq PO BID 02/21/16 01/20/17 Warfarin Sodium 5 mg PO MOWEFR@1400 02/21/16 01/20/17 Warfarin Sodium 10 mg PO SUTUTHSA@1400 02/21/16 01/20/17 Albuterol Sulfate [Proair Hfa 1 - 2 puffs INH Q4H PRN 08/23/17 08/23/17 Inhaler] Atorvastatin [Lipitor] 40 mg PO DAILY 08/23/17 08/23/17 Darifenacin Hydrobromide [Enablex] 15 mg PO DAILY 08/23/17 08/23/17 Metoprolol Succinate 50 mg PO DAILY 08/23/17 08/23/17 Tiotropium [place] [Spiriva] 18 mcg IH DAILY 08/23/17 08/23/17 - Allergies Allergies/Adverse Reactions: Allergies Allergy/AdvReac Type Severity Reaction Status Date / Time Influenza Virus Vaccines Allergy Rash Verified 08/23/17 22:17 Review of Systems - Constitutional Constitutional: reports: Fatigue, Fever, Chills, Weakness, Night sweats - Eyes Eyes: denies: Pain, Irritation, Amaurosis, Blurred vision, Dipolpia - Ears, Nose & Throat Ears, Nose & Throat: denies: Ear pain, Hearing loss, Tinnitus, Vertigo, Nasal pain, Nasal discharge, Nosebleeds, Hoarseness - Cardiovascular Cariovascular: denies: Irregular heart rate, Palpitations, Chest pain, Edema, Syncope - Respiratory Respiratory: reports: Cough, Sputum production, SOB with exertion. denies: Wheezing, Snoring, Hemoptysis, Orthopnea, SOB at rest - Gastrointestinal Gastrointestinal: denies: Abdominal pain, Abdominal distention, Constipation, Diarrhea, Change in bowel habits, Rectal bleeding - Genitourinary Genitourinary: denies: Dysuria, Frequency, Urgency, Hematuria - Musculoskeletal Musculoskeletal: denies: Muscle pain, Back pain, Muscle aches, Stiffness - Integumentary Integumentary: denies: Rash, Pruritis, Lesions, Dryness - Neurological Neurological: denies: General weakness, Focal weakness, Headache, Dizziness - Psychiatric Psychiatric: denies: Depression, Anxiety, Suicidal, Hallucinations, Homicidal - Endocrine Endocrine: denies: Polyuria, Polydypsia, Polyphagia - Hematologic/Lymphatic Hematologic/Lymphatic: denies: Anemia, Bruising, Petechiae, Lymphadenopathy - All Other Systems All Other Systems: reports: Reviewed and negative Exam - Vital Signs Reviewed Vital Signs: Yes Vital Signs: Vital Signs x48h Pulse Resp BP Pulse Ox 08/24/17 00:32 85 22 119/67 95 - Physical Exam General Appearance: positive: No acute distress, Alert Eyes Bilateral: positive: Normal inspection, PERRL, EOMI, No lid inflammation, Conjunctivae nml, No scleral icterus ENT: positive: ENT inspection nml, Pharynx nml, No signs of dehydration Neck: positive: Nml inspection, Thyroid nml, No JVD, Trachea midline. negative : Thyromegaly Respiratory: positive: Chest non-tender, No respiratory distress, Other (Breath sounds are diminished in all yoder). negative: Wheezes, Rales, Rhonchi Cardiovascular: positive: Regular rate & rhythm, No murmur, No gallop Peripheral Pulses: positive: 1+ Abdomen: positive: Non-tender, No organomegaly, Nml bowel sounds, No distention. negative: Guarding, Rebound Back: positive: Nml inspection. negative: CVA tenderness (R), CVA tenderness (L ) Skin: positive: Color nml, No rash, Warm, Dry. negative: Cyanosis Extremities: positive: Non-tender, Full ROM, Nml appearance, No pedal edema Neurologic/Psychiatric: positive: Oriented x3, CN's nml (2-12), Motor nml, Sensation nml, Mood/affect nml Conclusion/Plan - Problem List (1) Pneumonia Conclusion/Plan: Right perihilar, superimposed on COPD, specifically emphysema. The patient is oxygen dependent at this time and we will continue with [id number] bronchodilators, IV antibiotics, and supplemental oxygen as needed. He may also have some component of fluid overload although this was not seen on the chest x-ray. His BNP is 394. Qualifiers: Pneumonia type: due to unspecified organism Laterality: right Lung location: upper lobe of lung Qualified Code(s): J18.1 - Lobar pneumonia, unspecified organism (2) Emphysema of lung Conclusion/Plan: We will continue the patient on his Spiriva with supplemental bronchodilators (3) Hyperlipidemia Conclusion/Plan: We will continue the patient on his Lipitor (4) Coronary artery disease Conclusion/Plan: We will continue the patient on his daily aspirin (5) History of pulmonary embolus (PE) Conclusion/Plan: We will continue to anticoagulate the patient on his Coumadin. We will hold the Coumadin for 2 days as his INR is 3.7 on admission. (6) Gastroesophageal reflux disease Conclusion/Plan: We will continue the patient on his omeprazole (7) History of congestive heart failure Conclusion/Plan: We will continue the patient on his furosemide, potassium chloride, metoprolol, and losartan. BNP was 394, will monitor serially. (8) HTN (hypertension) Conclusion/Plan: We will continue the patient on his furosemide and losartan and metoprolol. - Lab Results Lab results reviewed: Yes Fish Bones: 08/23/17 22:30 08/23/17 22:30 - Diagnostic Imaging Results Diagnostic Imaging Results: positive: Final report reviewed Diagnostic Imaging Results Comments: EXAM: XR/[id number] ([id number]) Procedure Date: 08/23/2017 Accession Number: [id number] / [id number] Procedure: XR - Chest 2 View X-Ray CPT Code: 56631 FULL RESULT: EXAM: CHEST RADIOGRAPHY EXAM DATE: 08/23/2017 10:46 PM. CLINICAL HISTORY: Weakness, hypoxia. COMPARISON: CT chest 07/26/2017, chest x-ray 05/31/2016. TECHNIQUE: 2 views. FINDINGS: Lungs/Pleura: Large volumes. Right perihilar opacities likely in the superior aspect of the right lower lobe. No pneumothorax or effusion. Mediastinum: Within exam limitations, cardiomediastinal contour is normal. Other: None. IMPRESSION: COPD with superimposed right perihilar pneumonia. Core Measures - Anticipated LOS I expect patient to be DC'd or transferred within 96 hours.: Yes - DVT/VTE - Prophylaxis VTE/DVT Device ordered at admit?: Yes
[2017-08-24] MEDS ORDERED: AZITHROMYCIN INJ 500 MG in SODIUM CHLORIDE 0.9% 250 ML IV SCH (01:00)
[2017-08-24] MEDS ORDERED: D5.45NS W/20 MEQ KCL 1,000 ML IV SCH (01:00)
[2017-08-24] MEDS: SODIUM CHLORIDE FLUSH 0.9% 10 ML SYRINGE IVP SCH ×4 (01:07→23:57)
[2017-08-24] MEDS: HYDROcod/ACETAM 5/325 MG TABLET PO PRN ×3 (03:06→13:13)
[2017-08-24 06:01] LABS: HGB - HEMOGLOBIN 12.3 g/dL (14.0-18.0); MEAN CORPUSCULAR HEMOGLOBIN 26.9 pg (27.0-31.0); MEAN CORPUSCULAR HGB CONC 32.7 g/dL (32.0-36.0); MEAN CORPUSCULAR VOLUME 82.5 fL (80.0-94.0); MEAN PLATELET VOLUME 7.5 fL (7.4-11.4); RED BLOOD COUNT 4.55 10^6/uL (4.70-6.10); RED CELL DISTRIBUTION WIDTH 15.6 % (12.0-15.0); WHITE BLOOD COUNT 10.2 x10^3/uL (4.8-10.8)
[2017-08-24 06:16] LABS: CALCIUM 8.7 mg/dL (8.5-10.3); CREATININE 0.8 mg/dL (0.6-1.2)
[2017-08-24] MEDS: POLYETHYLENE GLYCOL 3350 17 GM PACKET PO SCH (07:29)
[2017-08-24 08:18] LABS: INR 3.8 (0.8-1.2); PT - PROTHROMBIN TIME 40.7 secs (9.9-12.6)
[2017-08-24] MEDS: FUROSEMIDE 20 MG TABLET PO SCH (08:43)
[2017-08-24] MEDS: METOPROLOL SUCCINATE 50 MG TABLET PO SCH (08:43)
[2017-08-24] MEDS: POTASSIUM CHLORIDE 10 MEQ CAPSULE PO SCH ×2 (08:43→20:00)
[2017-08-24] MEDS: PANTOPRAZOLE 40 MG TABLET PO SCH ×2 (08:43→20:00)
[2017-08-24] MEDS: NYSTATIN POWDER 15 GM TOP SCH ×2 (08:44→20:04)
[2017-08-24] MEDS: LOSARTAN 50 MG TABLET PO SCH (08:44)
[2017-08-24] MEDS: CHOLECALCIFEROL 5,000 UNIT CAPSULE PO SCH (08:44)
[2017-08-24] MEDS: SODIUM CHLORIDE 0.9% 1,000 ML IV SCH (08:44)
[2017-08-24] MEDS: ASPIRIN EC 81 MG TABLET PO SCH (08:44)
[2017-08-24] MEDS: ATORVASTATIN 40 MG TABLET PO SCH (08:44)
[2017-08-24] MEDS: DARIFENACIN HYDROBROMIDE 15 MG PO SCH (08:45)
[2017-08-24] MEDS ORDERED: NON FORMULARY MED (Omeprazole [Prilosec] 20 MG) PO SCH (09:00)
[2017-08-24] MEDS: IPRATROPIUM 0.2 MG/ML NEB INH SCH ×2 (11:30)
--- NOTE | 2017-08-24 11:46 | PROVIDER PROGRESS NOTE ---
Subjective - Prog Note Date Prog Note Date: 08/24/17 - Subjective Pt reports feeling: Improved Subjective: pt report he has great improvement, better breath. no fever, chill, chest pain. Current Medications - Current Medications Current Medications: Active Medications Hydrocodone Bitart/Acetaminophen ([place] 5/325) 1 tab PO Q4HR PRN PRN Reason: Pain 5 to 7 Last Admin: 08/24/17 06:51 Dose: 1 tab Albuterol () 2.5 mg INH Q4H PRN PRN Reason: Shortness of Air/Wheezing Aspirin (Ecotrin) 81 mg PO DAILY [facility] Last Admin: 08/24/17 08:44 Dose: 81 mg Atorvastatin Calcium (Lipitor) 40 mg PO DAILY [facility] Last Admin: 08/24/17 08:44 Dose: 40 mg Cholecalciferol (Vitamin D3) 5,000 unit PO DAILY [facility] Last Admin: 08/24/17 08:44 Dose: 5,000 unit Furosemide (Lasix) 40 mg PO DAILY [facility] Last Admin: 08/24/17 08:43 Dose: 40 mg Ceftriaxone Sodium 1 gm/ (Sodium Chloride) 100 mls @ 200 mls/hr IV Q24H [facility] Azithromycin 500 mg/ Sodium (Chloride) 250 mls @ 250 mls/hr IV Q24H [facility] Sodium Chloride (Normal Saline 0.9%) 1,000 mls @ 50 mls/hr IV .Q20H [facility] Last Admin: 08/24/17 08:44 Dose: 50 mls/hr Ipratropium [place] (Atrovent) 0.5 mg INH RTQ6H [facility] Last Admin: 08/24/17 11:30 Dose: 0.5 mg Losartan Potassium (Cozaar) 50 mg PO DAILY [facility] Last Admin: 08/24/17 08:44 Dose: 50 mg Metoprolol Succinate (Toprol Xl) 50 mg PO DAILY [facility] Last Admin: 08/24/17 08:43 Dose: 50 mg Nystatin (Nystop) 1 applic TOP BID [facility] Last Admin: 08/24/17 08:44 Dose: 1 applic Pantoprazole Sodium (Protonix) 40 mg PO BID [facility] Last Admin: 08/24/17 08:43 Dose: 40 mg Darifenacin Hydrobromide [ Enablex] 15 Mg 1 each PO DAILY [facility] Last Admin: 08/24/17 08:45 Dose: Not Given Polyethylene Glycol (Miralax) 17 gm PO DAILY [facility] Last Admin: 08/24/17 07:29 Dose: Not Given Potassium Chloride (Micro-K) 10 meq PO BID [facility] Last Admin: 08/24/17 08:43 Dose: 10 meq Prochlorperazine Edisylate (Compazine Inj) 10 mg IVP Q6HR PRN PRN Reason: Nausea / Vomiting Sodium Chloride (Normal Saline Flush 0.9%) 10 ml IVP PRN PRN PRN Reason: NEEDED PER PROVIDER ORDERS Sodium Chloride (Normal Saline Flush 0.9%) 10 ml IVP 0100,0900,1700 [facility] Last Admin: 08/24/17 07:29 Dose: Not Given Omeprazole [PriLOSEC] 20 mg PO BID 08/01/12 Furosemide 40 mg ORAL DAILY 04/23/14 Losartan [Cozaar] 50 mg PO DAILY 09/02/14 Aspirin [Aspirin EC] 81 mg PO DAILY 12/20/14 Cholecalciferol (Vitamin D3) [Vitamin D3] 5,000 units PO DAILY 02/21/16 Potassium Chloride [Micro-K] 10 meq PO BID 02/21/16 Warfarin Sodium 5 mg PO TU@1400 02/21/16 Warfarin Sodium 7.5 mg PO SUMOWETHFRSA@1400 02/21/16 Albuterol Sulfate [Proair Hfa Inhaler] 1 - 2 puffs INH Q4H PRN 08/23/17 Atorvastatin [Lipitor] 40 mg PO DAILY 08/23/17 Metoprolol Succinate 50 mg PO DAILY 08/23/17 Tiotropium [place] [Spiriva] 1 inh IH DAILY 08/23/17 Darifenacin Hydrobromide [Darifenacin ER] 7.5 mg PO DAILY 08/24/17 Objective - Vital Signs/Intake & Output Reviewed Vital Signs: Yes Vital Signs: Vital Signs x48h Temp Pulse Pulse Resp BP Pulse Ox 08/24/17 11:34 74 16 08/24/17 08:00 36.5 C 79 20 123/71 96 Intake & Output: Intake & Output 08/21/17 08/22/17 08/23/17 08/24/17 23:59 23:59 23:59 23:59 Intake Total 1820 Output Total 500 Balance 1320 - Objective General Appearance: positive: No acute distress, Alert. negative: Lethargic Eyes Bilateral: positive: Normal inspection, PERRL, No lid inflammation, Conjunctivae nml ENT: positive: ENT inspection nml, Pharynx nml, No signs of dehydration. negative: Purulent nasal drainage, Pharyngeal erythema, Oral lesions Neck: positive: Nml inspection, Thyroid nml, No JVD, Trachea midline. negative : Thyromegaly, Lymphadenopathy (R), Lymphadenopathy (L), Stiff neck, Swelling/ bruising, Tracheal deviation Respiratory: positive: Chest non-tender, No respiratory distress, Breath sounds nml. negative: Wheezes, Rales, Rhonchi Cardiovascular: positive: Regular rate & rhythm, No murmur, No gallop. negative : Irregularly irregular, Extrasystoles, Tachycardia, Bradycardia, JVD present, Systolic murmur, Diastolic murmur Peripheral Pulses: 2+ Radial (R), 2+ Radial (L), 2+ Dorsalis pedis (R), 2+ Dorsalis pedis (L) Abdomen: positive: Non-tender, No organomegaly, Nml bowel sounds, No distention. negative: Tenderness, Guarding, Rebound Back: positive: Nml inspection. negative: CVA tenderness (R), CVA tenderness (L ) Skin: positive: Color nml, No rash, Warm, Dry. negative: Cyanosis, Diaphoresis , Pallor Extremities: positive: Non-tender, Full ROM, Nml appearance. negative: Calf tenderness, Joint swelling, Jasen's sign/cords Neurologic/Psychiatric: positive: Oriented x3, Motor nml, Sensation nml, Mood/ affect nml. negative: Sensory loss, Facial droop, Slurred/abnml speech, Depressed mood/affect - Lab Results Fish Bones: 08/24/17 05:35 08/24/17 05:35 Other Labs: Lab Results x24hrs 08/24/17 08/24/17 08/24/17 Range/Units 08:00 05:35 05:35 WBC 10.2 (4.8-10.8) x10^3/uL RBC 4.55 L (4.70-6.10) 10^6/uL Hgb 12.3 L (14.0-18.0) g/dL Hct 37.6 L (42.0-52.0) % MCV 82.5 (80.0-94.0) fL MCH 26.9 L (27.0-31.0) pg MCHC 32.7 (32.0-36.0) g/dL RDW 15.6 H (12.0-15.0) % Plt Count 192 (130-450) 10^3/uL MPV 7.5 (7.4-11.4) fL PT 40.7 H (9.9-12.6) secs INR 3.8 H (0.8-1.2) Sodium 132 L (135-145) mmol/L Potassium 3.5 (3.5-5.0) mmol/L Chloride 98 L (101-111) mmol/L Carbon Dioxide 26 (21-32) mmol/L Anion Gap 8.0 (6-13) BUN 14 (6-20) mg/dL Creatinine 0.8 (0.6-1.2) mg/dL Estimated GFR (MDRD) 92 (>89) Glucose 131 H (70-100) mg/dL Calcium 8.7 (8.5-10.3) mg/dL ABX Reporting Has patient been on IV antibiotics over the past 48 hours?: Yes Assessment/Plan - Problem List (1) Pneumonia Impression: Conclusion/Plan: pt report he feel great better than yesterday, better breath. continue antibiotic daily lab and vital monitor Right perihilar, superimposed on COPD, specifically emphysema. The patient is oxygen dependent at this time and we will continue with [id number] bronchodilators, IV antibiotics, and supplemental oxygen as needed. He may also have some component of fluid overload although this was not seen on the chest x-ray. His BNP is 394. (2) Emphysema of lung Conclusion/Plan: continue breath treatment We will continue the patient on his Spiriva with supplemental bronchodilators (3) Hyperlipidemia Conclusion/Plan: We will continue the patient on his Lipitor (4) Coronary artery disease Conclusion/Plan: We will continue the patient on his daily aspirin (5) History of pulmonary embolus (PE) Conclusion/Plan: We will continue to anticoagulate the patient on his Coumadin. We will hold the Coumadin for 2 days as his INR is 3.7 on admission. (6) Gastroesophageal reflux disease Conclusion/Plan: We will continue the patient on his omeprazole (7) History of congestive heart failure Conclusion/Plan: We will continue the patient on his furosemide, potassium chloride, metoprolol, and losartan. BNP was 394, will monitor serially. (8) HTN (hypertension) Conclusion/Plan: stable, continue home regime continue vital monitor Qualifiers: Pneumonia type: due to unspecified organism Laterality: right Lung location: upper lobe of lung Qualified Code(s): J18.1 - Lobar pneumonia, unspecified organism
[2017-08-24] MEDS ORDERED: WARFARIN 5 MG TABLET PO SCH (14:00)
[2017-08-24] MEDS ORDERED: IPRATROPIUM/ALBUTEROL 3 ML NEB INH PRN (16:52)
[2017-08-25] MEDS ORDERED: cefTRIAXone 1 GM in SODIUM CHLORIDE 0.9% MINIBAG 100 ML IV SCH ×2
[2017-08-25] MEDS: HYDROcod/ACETAM 5/325 MG TABLET PO PRN (00:09)
[2017-08-25] MEDS ORDERED: AZITHROMYCIN INJ 500 MG in SODIUM CHLORIDE 0.9% 250 ML IV SCH (01:00)
[2017-08-25 05:44] LABS: HGB - HEMOGLOBIN 12.2 g/dL (14.0-18.0); MEAN CORPUSCULAR HEMOGLOBIN 27.1 pg (27.0-31.0); MEAN CORPUSCULAR HGB CONC 32.5 g/dL (32.0-36.0); MEAN CORPUSCULAR VOLUME 83.4 fL (80.0-94.0); MEAN PLATELET VOLUME 7.5 fL (7.4-11.4); RED BLOOD COUNT 4.49 10^6/uL (4.70-6.10); RED CELL DISTRIBUTION WIDTH 15.9 % (12.0-15.0); WHITE BLOOD COUNT 7.2 x10^3/uL (4.8-10.8)
[2017-08-25 05:48] LABS: INR 4.2 (0.8-1.2); PT - PROTHROMBIN TIME 44.4 secs (9.9-12.6)
[2017-08-25 05:59] LABS: CALCIUM 8.9 mg/dL (8.5-10.3); CREATININE 0.9 mg/dL (0.6-1.2)
[2017-08-25] MEDS: SODIUM CHLORIDE 0.9% 1,000 ML IV SCH (06:00)
[2017-08-25] MEDS: POTASSIUM CHLORIDE 10 MEQ CAPSULE PO SCH (08:54)
[2017-08-25] MEDS: FUROSEMIDE 20 MG TABLET PO SCH (08:54)
[2017-08-25] MEDS: ATORVASTATIN 40 MG TABLET PO SCH (08:54)
[2017-08-25] MEDS: METOPROLOL SUCCINATE 50 MG TABLET PO SCH (08:54)
[2017-08-25] MEDS: ASPIRIN EC 81 MG TABLET PO SCH (08:54)
[2017-08-25] MEDS: LOSARTAN 50 MG TABLET PO SCH (08:54)
[2017-08-25] MEDS: PANTOPRAZOLE 40 MG TABLET PO SCH (08:54)
[2017-08-25] MEDS: CHOLECALCIFEROL 5,000 UNIT CAPSULE PO SCH (08:55)
[2017-08-25] MEDS: NYSTATIN POWDER 15 GM TOP SCH (08:55)
[2017-08-25] MEDS: POLYETHYLENE GLYCOL 3350 17 GM PACKET PO SCH (08:56)
[2017-08-25] MEDS: DARIFENACIN HYDROBROMIDE 15 MG PO SCH (08:56)
[2017-08-25] MEDS: SODIUM CHLORIDE FLUSH 0.9% 10 ML SYRINGE IVP SCH (08:56)
[2017-08-25 09:08] VITALS: BP 133/70
--- NOTE | 2017-08-25 10:17 | Discharge Plan ---
Discharge Plan Disposition: 01 Home, Self Care Condition: Poor Prescriptions: Cephalexin [Keflex] 500 mg PO BID #14 capsule Diet: Regular Activity Restrictions: Activity as Tolerated Shower Restrictions: No (fall precaution, caregiver closely monitor) Assistance Devices: Walker Weight Bearing: Full Weight Instruction Topics: Pneumonia, Cephalexin tablets or capsules, Coumadin, Prothrombin Time Additional Instructions or Follow Up instructions: You may follow up your PCP in one week, may hold your Coumadin on tomorrow, then resume Coumadin as the scheduled dosage after tomorrow on 08/27/17, may check PT/INR in one week. Should your symptoms return or worsen, you may present ER or call 911 for help. No Smoking: If you smoke, Please STOP! Call for help. Follow-up with: Yancy Clifton MD [Primary Care Provider] -
--- NOTE | 2017-08-25 10:50 | DISCHARGE SUMMARY ---
Discharge Summary Discharge Date: 08/25/17 Discharging Provider: CARDOZA Primary Care Provider: Dr. Clifton Condition at Discharge: Good Discharge Disposition: 01 Home, Self Care Discharge Facility Name: home - DIAGNOSES Admission Diagnoses: (1) Pneumonia (2) Emphysema of lung (3) Hyperlipidemia (4) Coronary artery disease (5) History of pulmonary embolus (PE) (6) Gastroesophageal reflux disease (7) History of congestive heart failure (8) HTN (hypertension) Discharge Diagnoses with Status of Each Condition: (1) Pneumonia after treatment, pt became room air 97% Sats. No cough, fever, chill, WBC became normal. pt is prescribed antibiotics to finish the antibiotics course. (2) Emphysema of lung stable. pt became room air 97% Sats. (3) Hyperlipidemia stable (4) Coronary artery disease stable, continue to be managed by PCP (5) History of pulmonary embolus (PE) stable. pt is on Coumadin. PT/INR level is slight above therapeutic level likely due to antibiotics. Pt is advised to hold today and tomorrow Coumadin, then resume his home regime, and check PT/INR in one week (6) Gastroesophageal reflux disease stable, (7) History of congestive heart failure stable, continue to be managed by PCP (8) HTN (hypertension) stable. - HPI History of Present Illness: refer from Dr. Mueller's HPI for pt as the following: Mr. Wally Garcia is a very pleasant 81-year-old gentleman with a history significant for emphysema and pulmonary emboli, who has been having some increasing weakness and shortness of breath for the last several days, maybe up to a week. This continued to worsen until today when the patient lost his balance and lowered himself to the floor and then was then too short of breath to get back up again. He called the rescue squad who brought him to the emergency department where he was found to have an oxygen saturation of 88% on room air which was easily corrected to 94% on 3 L. He is also found to have an elevated BNP of 394 and an elevated INR of 3.7. Chest x-ray noted COPD with right perihilar pneumonia. Patient has had fevers and chills and so will be admitted to the hospital for IV antibiotics and ongoing treatment. - ALLERGIES Allergies/Adverse Reactions: Allergies Allergy/AdvReac Type Severity Reaction Status Date / Time Influenza Virus Vaccines Allergy Rash Verified 08/23/17 22:17 - MEDICATIONS Home Medications: Ambulatory Orders Medication Instructions Recorded Confirmed Omeprazole [PriLOSEC] 20 mg PO BID 08/01/12 08/24/17 Furosemide 40 mg ORAL DAILY 04/23/14 08/24/17 Losartan [Cozaar] 50 mg PO DAILY 09/02/14 08/24/17 Aspirin [Aspirin EC] 81 mg PO DAILY 12/20/14 08/24/17 Cholecalciferol (Vitamin D3) 5,000 units PO DAILY 02/21/16 08/24/17 [Vitamin D3] Potassium Chloride [Micro-K] 10 meq PO BID 02/21/16 08/24/17 Warfarin Sodium 5 mg PO TU@1400 02/21/16 08/24/17 Warfarin Sodium 7.5 mg PO SUMOWETHFRSA@1400 02/21/16 08/24/17 Albuterol Sulfate [Proair Hfa 1 - 2 puffs INH Q4H PRN 08/23/17 08/23/17 Inhaler] Atorvastatin [Lipitor] 40 mg PO DAILY 08/23/17 08/23/17 Metoprolol Succinate 50 mg PO DAILY 08/23/17 08/23/17 Tiotropium [place] [Spiriva] 1 inh IH DAILY 08/23/17 08/24/17 Darifenacin Hydrobromide 7.5 mg PO DAILY 08/24/17 08/24/17 [Darifenacin ER] Cephalexin [Keflex] 500 mg PO BID #14 capsule 08/25/17 - PHYSICAL EXAM AT DISCHARGE General Appearance: positive: No acute distress, Alert. negative: Lethargic Eyes Bilateral: positive: Normal inspection, PERRL, No lid inflammation, Conjunctivae nml ENT: positive: ENT inspection nml, Pharynx nml, No signs of dehydration. negative: Purulent nasal drainage, Pharyngeal erythema, Oral lesions Neck: positive: Nml inspection, Thyroid nml, No JVD, Trachea midline. negative : Thyromegaly, Lymphadenopathy (R), Lymphadenopathy (L), Stiff neck, Swelling/ bruising, Tracheal deviation Respiratory: positive: Chest non-tender, No respiratory distress, Breath sounds nml. negative: Wheezes, Rales, Rhonchi Cardiovascular: positive: Regular rate & rhythm, No murmur, No gallop. negative : Irregularly irregular, Extrasystoles, Tachycardia, Bradycardia, JVD present, Systolic murmur, Diastolic murmur Peripheral Pulses: positive: 2+ Abdomen: positive: Non-tender, No organomegaly, Nml bowel sounds, No distention. negative: Tenderness, Guarding, Rebound Back: positive: Nml inspection. negative: CVA tenderness (R), CVA tenderness (L ) Skin: positive: Color nml, No rash, Warm, Dry. negative: Cyanosis, Diaphoresis , Pallor Extremities: positive: Non-tender, Full ROM, Nml appearance. negative: Calf tenderness, Joint swelling, Jasen's sign/cords Neurologic/Psychiatric: positive: Oriented x3, Motor nml, Sensation nml, Mood/ affect nml. negative: Weakness, Sensory loss, Facial droop, Slurred/abnml speech, Depressed mood/affect - LABS Result Diagrams: 08/25/17 05:35 08/25/17 05:35 - FOLLOW UP Follow Up: You may follow up your PCP in one week, may hold your Coumadin on tomorrow, then resume Coumadin as the scheduled dosage after tomorrow on 08/27/17, may check PT/INR in one week. Should your symptoms return or worsen, you may present ER or call 911 for help. - TIME SPENT Time Spent in Discharge (Minutes): 50
[2017-08-26] MEDS ORDERED: WARFARIN 5 MG TABLET PO SCH (14:00)
== END 2017-08-25 11:55 | disposition home or self-care (01) | DRG 195 ==
LOC: EDUNIT# → ED 22:02 → SUPCPDRO 22:02 → MS2 08-24 00:15
PROVIDERS: ADMIT Hospitalist; ATTEND Nurse Practitioner Gerontology
DX: J18.9 Pneumonia, unspecified organism (principal); J44.9 Chronic obstructive pulmonary disease, unspecified; J18.1 Lobar pneumonia, unspecified organism; G47.30 Sleep apnea, unspecified; J43.9 Emphysema, unspecified; I11.0 Hypertensive heart disease with heart failure; I50.9 Heart failure, unspecified; I25.10 Atherosclerotic heart disease of native coronary artery without angina pectoris; E78.5 Hyperlipidemia, unspecified; K21.9 Gastro-esophageal reflux disease without esophagitis; G89.29 Other chronic pain; M54.9 Dorsalgia, unspecified; Z96.659 Presence of unspecified artificial knee joint; Z66 Do not resuscitate; Z79.82 Long term (current) use of aspirin; Z79.01 Long term (current) use of anticoagulants; Z79.51 Long term (current) use of inhaled steroids; Z79.899 Other long term (current) drug therapy; Z86.711 Personal history of pulmonary embolism; Z95.5 Presence of coronary angioplasty implant and graft
CPT/HCPCS: 36415; 71046; 80048; 81001; 81003; 83605; 83880; 84484; 85025; 85027; 85610; 85730; 87040; 87086; 93005; 94640; 99284; 99285

== ENCOUNTER 2017-09-24 09:41 | Outpatient (CLI) | payer MEDICARE, OTHER ==
[2017-09-24 13:49] LABS: BASOPHILS # (AUTO) 0.1 10^3/uL (0.0-0.1); EOSINOPHILS # (AUTO) 0.2 10^3/uL (0.0-0.7); EOSINOPHILS % (AUTO) 3.4 %; HGB - HEMOGLOBIN 13.6 g/dL (14.0-18.0); LYMPHOCYTES # (AUTO) 1.7 10^3/uL (1.5-3.5); LYMPHOCYTES % (AUTO) 28.5 %; MEAN CORPUSCULAR HEMOGLOBIN 26.7 pg (27.0-31.0); MEAN CORPUSCULAR HGB CONC 32.7 g/dL (32.0-36.0); MEAN CORPUSCULAR VOLUME 81.5 fL (80.0-94.0); MONOCYTES # (AUTO) 0.5 10^3/uL (0.0-1.0); MONOCYTES % (AUTO) 8.8 %; NEUTROPHILS # (AUTO) 3.5 10^3/uL (1.5-6.6); NEUTROPHILS % (AUTO) 58.3 %; PLT - PLATELET COUNT 216 10^3/uL (130-450); RED BLOOD COUNT 5.09 10^6/uL (4.70-6.10); WHITE BLOOD COUNT 6.1 x10^3/uL (4.8-10.8)
[2017-09-24 14:12] LABS: ALBUMIN 3.5 g/dL (3.2-5.5); ALBUMIN/GLOBULIN RATIO 0.9 (1.0-2.2); ALKALINE PHOSPHATASE 63 IU/L (42-121); ALT ALANINE AMINOTRANSFERASE 22 IU/L (10-60); AST ASPARTATE AMINOTRANSFERASE 29 IU/L (10-42); BILIRUBIN,TOTAL 0.6 mg/dL (0.2-1.0); BUN - BLOOD UREA NITROGEN 17 mg/dL (6-20); CALCIUM 9.3 mg/dL (8.5-10.3); CARBON DIOXIDE - CO2 25 mmol/L (21-32); CHLORIDE 103 mmol/L (101-111); CHOL/HDL RATIO 2.3 (<5.0); CHOLESTEROL 92 mg/dL; CREATININE 0.8 mg/dL (0.6-1.2); GFR - MDRD 92 (>89); GLUCOSE 122 mg/dL (70-100); HDL CHOLESTEROL 40 mg/dL; LDL CHOLESTEROL,CALCULATED 22 mg/dL; LDL/HDL RATIO 0.6 (<3.6); SODIUM 135 mmol/L (135-145); TOTAL PROTEIN 7.2 g/dL (6.7-8.2); VLDL CHOLESTEROL 30 mg/dL
== END 2017-09-24 09:42 ==
LOC: LAB.WCP 09:41
PROVIDERS: ATTEND Family Medicine
DX: I10 Essential (primary) hypertension (principal); E78.5 Hyperlipidemia, unspecified; R53.83 Other fatigue; R41.3 Other amnesia
CPT/HCPCS: 36415; 80053; 80061; 83721; 84443; 85025

== ENCOUNTER 2017-10-03 12:45 | Outpatient (CLI) | payer MEDICARE, OTHER ==
--- NOTE | 2017-10-03 13:34 | CT Report ---
Procedure Date: 10/03/2017 Accession Number: [id number] / [id number] Procedure: CT - Chest W/O CPT Code: FULL RESULT: EXAM: Chest W/O DATE: 10/03/2017 1:07 PM CLINICAL HISTORY: RIB PAIN, RIGHT SIDED, ELDERLY FALL COMPARISON: CTA chest 07/26/2017. TECHNIQUE: Routine helical CT imaging was performed through the chest. IV contrast: None. Reconstructions: Coronal and sagittal. In accordance with CT protocol optimization, one or more of the following dose reduction techniques were utilized for this exam: automated exposure control, adjustment of mA and/or KV based on patient size, or use of iterative reconstructive technique. FINDINGS: Lungs/Pleura: Focal groundglass region in the left lower lobe is nonspecific, most likely infectious/inflammatory. Emphysematous changes are noted in the lung bases. There is no bronchial thickening, lobar consolidation or suspicious nodule. There is no pneumothorax or pleural effusion. Mediastinum: Normal. No adenopathy or masses. The heart appears normal. There are extensive coronary and great vessel calcifications. Bones: There are nondisplaced fractures of the lateral right sixth and seventh ribs. Visualized Abdomen: A right renal cyst remains incompletely characterized. Cholelithiasis. Extensive vascular calcifications. Other: None. IMPRESSION: Nondisplaced fractures of the lateral sixth and seventh right ribs. Right renal cyst, incompletely characterized. Recommend retroperitoneal ultrasound. Nonspecific 2.5 cm groundglass opacity in the left lower lobe. Follow-up CT in 6 months to document resolution is recommended. [facility]
== END 2017-10-03 12:46 | disposition home or self-care (01) ==
LOC: DI 12:45
PROVIDERS: ATTEND Physician Assistant
DX: S22.41XA Multiple fractures of ribs, right side, initial encounter for closed fracture (principal); R07.81 Pleurodynia; R29.6 Repeated falls; Q61.01 Congenital single renal cyst
CPT/HCPCS: 71250

== ENCOUNTER 2017-12-16 13:58 | Outpatient (CLI) | payer MEDICARE, OTHER | END 2017-12-16 13:59 | disposition home or self-care (01) | LOC: SC 13:58 | PROVIDERS: ATTEND Internal Medicine Pulmonary Disease | DX: G47.33 Obstructive sleep apnea (adult) (pediatric) (principal) | CPT/HCPCS: 99213; G0463; 99212 ==

== ENCOUNTER 2018-01-12 08:45 | Outpatient (CLI) | payer MEDICARE, OTHER | END 2018-01-12 08:46 | disposition critical access hospital (66) | LOC: EMS 08:45 | PROVIDERS: ATTEND Surgery | DX: R53.1 Weakness (principal); R20.0 Anesthesia of skin | CPT/HCPCS: A0425; A0427 ==

== ENCOUNTER 2018-01-12 08:57 | Inpatient (IN) | payer MEDICARE, OTHER ==
[2018-01-12 09:21] LABS: BILIRUBIN,URINE NEGATIVE (NEGATIVE); GLUCOSE, URINE (UA) NEGATIVE (NEGATIVE); KETONES,URINE (UA) NEGATIVE (NEGATIVE); LEUKOCYTE ESTERASE, URINE NEGATIVE (NEGATIVE); NITRITE,URINE NEGATIVE (NEGATIVE); OCCULT BLOOD,URINE NEGATIVE (NEGATIVE); PROTEIN,URINE NEGATIVE (NEGATIVE); UROBILINOGEN,URINE 0.2 (NORMAL) E.U./dL (NORMAL)
--- NOTE | 2018-01-12 09:23 | ED Physician Documentation ---
PD HPI FOCAL NEURO - Stated complaint Stated Complaint: POSS TIA - Chief complaint Chief Complaint: Neuro - Additional information Additional information: 82-year-old male presents to the emergency department with a sudden onset of left arm and leg weakness which started while at home at rest. The patient reports being unable to use the arm or leg and was unable to stand up. The symptoms resolved after 15-20 minutes. The patient now has normal strength and feels at his normal baseline. The patient denies head pain, neck pain, vision changes, speech difficulty. Symptoms were described as severe. No symptoms currently. No triggering factors. No other associated symptoms Review of Systems Constitutional: denies: Fever, Chills Eyes: denies: Discharge Ears: denies: Ear pain Nose: denies: Congestion Throat: denies: Sore throat Cardiac: denies: Chest pain / pressure Respiratory: denies: Cough GI: denies: Abdominal Pain : denies: Dysuria Skin: denies: Rash Musculoskeletal: denies: Neck pain Neurologic: reports: Focal weakness. denies: Generalized weakness, Numbness, Near syncope, Syncope, Seizure, Headache PD PAST MEDICAL HISTORY - Past Medical History Cardiovascular: Coronary artery disease Respiratory: Sleep apnea, CPAP use Endocrine/Autoimmune: None GI: Diverticulitis : None Psych: None Musculoskeletal: Osteoarthritis, Chronic back pain Derm: None - Past Surgical History Past Surgical History: Yes General: Bowel surgery Ortho: Knee replacement, Spine surgery Cardiovascular: Coronary stent - Present Medications Home Medications: Ambulatory Orders Medication Instructions Recorded Confirmed Omeprazole [PriLOSEC] 20 mg PO BID 08/01/12 08/24/17 Furosemide 40 mg ORAL DAILY 04/23/14 08/24/17 Losartan [Cozaar] 50 mg PO DAILY 09/02/14 08/24/17 Aspirin [Aspirin EC] 81 mg PO DAILY 12/20/14 08/24/17 Cholecalciferol (Vitamin D3) 5,000 units PO DAILY 02/21/16 08/24/17 [Vitamin D3] Potassium Chloride [Micro-K] 10 meq PO BID 02/21/16 08/24/17 Warfarin Sodium 5 mg PO TU@1400 02/21/16 08/24/17 Warfarin Sodium 7.5 mg PO SUMOWETHFRSA@1400 02/21/16 08/24/17 Albuterol Sulfate [Proair Hfa 1 - 2 puffs INH Q4H PRN 08/23/17 08/23/17 Inhaler] Atorvastatin [Lipitor] 40 mg PO DAILY 08/23/17 08/23/17 Metoprolol Succinate 50 mg PO DAILY 08/23/17 08/23/17 Tiotropium [place] [Spiriva] 1 inh IH DAILY 08/23/17 08/24/17 - Allergies Allergies/Adverse Reactions: Allergies Allergy/AdvReac Type Severity Reaction Status Date / Time Influenza Virus Vaccines Allergy Rash Verified 01/12/18 09:08 - Social History Does the pt smoke?: No Smoking Status: Never smoker Does the pt drink ETOH?: Yes Does the pt have substance abuse?: No - Immunizations Immunizations are current?: Yes Immunizations: TDAP >10years/unknown - POLST Patient has POLST: No POLST Status: DNR PD ED PE NORMAL - General General: Alert and oriented X 3, No acute distress - HEENT HEENT: Atraumatic, PERRL, EOMI, Ears normal - Neck Neck: Supple, no meningeal sign - Cardiac Cardiac: RRR, Strong equal pulses - Respiratory Respiratory: No respiratory distress, Clear bilaterally - Abdomen Abdomen: Soft, Non tender - Derm Derm: Normal color - Extremities Extremities: No deformity, Normal ROM s pain - Neuro Neuro: Alert and oriented X 3, diamond blender 2-12 intact, No motor deficit, No sensory deficit, Normal speech, Other (The face is symmetric, tongue is midline. Closing Agent strengths are equal bilaterally. No pronator drift in the upper or lower ext remities. The speech is clear. Sensation light touch in the upper and lower extremities is intact) - Psych Psych: Normal mood Results - Vitals Vitals: Vital Signs - 24 hr 01/12/18 01/12/18 01/12/18 09:01 09:37 10:00 Temperature 36.3 C L Heart Rate 68 60 61 Respiratory 16 16 19 Rate Blood Pressure 147/81 H 125/71 138/81 H O2 Saturation 95 94 01/12/18 10:30 Temperature Heart Rate 63 Respiratory 19 Rate Blood Pressure 122/75 O2 Saturation Oxygen O2 Source Room air - EKG (time done) 09:34 Rate: Rate (enter#) Rhythm: NSR Intervals: LBBB QRS: Normal Ischemia: Non specific changes Compare to prior EKG: Unchanged from prior EKG - Labs Labs: Laboratory Tests 11/06/2601/12/18 01/12/18 09:05 09:39 09:39 WBC 5.6 RBC 5.20 Hgb 14.3 Hct 43.1 MCV 82.9 MCH 27.6 MCHC 33.3 RDW 17.1 H Plt Count 196 MPV 7.9 Neut # (Auto) 3.6 Lymph # (Auto) 1.[address] [place] # (Auto) 0.5 Eos # (Auto) 0.1 Baso # (Auto) 0.1 Absolute Nucleated RBC 0.04 Nucleated RBC % 0.6 Manual Slide Review Indicated WBC Morphology NORMAL APPEARANCE Platelet Estimate NORMAL (130-450,000) Platelet Morphology NORMAL APPEARANCE RBC Morph Micro Appear NORMAL APPEARANCE PT 19.1 H INR 1.7 H APTT 32.6 Sodium Potassium Chloride Carbon Dioxide Anion Gap BUN Creatinine Estimated GFR (MDRD) Glucose Calcium Total Bilirubin AST ALT Alkaline Phosphatase Troponin I Total Protein Albumin Globulin Albumin/Globulin Ratio Lipase Urine Color YELLOW Urine Clarity CLEAR Urine pH 7.0 Ur Specific [place] 1.010 Urine Protein NEGATIVE Urine Glucose (UA) NEGATIVE Urine Ketones NEGATIVE Urine Occult Blood NEGATIVE Urine Nitrite NEGATIVE Urine Bilirubin NEGATIVE Urine Urobilinogen 0.2 (NORMAL) Ur Leukocyte Esterase NEGATIVE Ur Microscopic Review NOT INDICATED Urine Culture Comments NOT INDICATED 01/12/18 01/12/18 09:39 09:39 WBC RBC Hgb Hct MCV MCH MCHC RDW Plt Count MPV Neut # (Auto) Lymph # (Auto) [place] # (Auto) Eos # (Auto) Baso # (Auto) Absolute Nucleated RBC Nucleated RBC % Manual Slide Review WBC Morphology Platelet Estimate Platelet Morphology RBC Morph Micro Appear PT INR APTT Sodium 135 Potassium 3.8 Chloride 100 L Carbon Dioxide 25 Anion Gap 10.0 BUN 15 Creatinine 0.9 Estimated GFR (MDRD) 80 L Glucose 129 H Calcium 9.6 Total Bilirubin 1.2 H AST 31 ALT 22 Alkaline Phosphatase 77 Troponin I 0.04 Total Protein 8.1 Albumin 4.2 Globulin 3.9 Albumin/Globulin Ratio 1.1 Lipase 21 L Urine Color Urine Clarity Urine pH Ur Specific [place] Urine Protein Urine Glucose (UA) Urine Ketones Urine Occult Blood Urine Nitrite Urine Bilirubin Urine Urobilinogen Ur Leukocyte Esterase Ur Microscopic Review Urine Culture Comments - Rads (name of study) CT head Radiology: Final report received (IMPRESSION: Generalized age-related cortical atrophic changes without evidence of acute intracranial abnormality. No significant change from prior) CXR Radiology: Final report received (IMPRESSION: No radiographically apparent acute abnormality in the chest. ) PD MEDICAL DECISION MAKING - ED course ED course: The patient's symptoms are concerning for a transient ischemic attack and the patient's ABCD2 score places him into a high risk category. The patient will require admission to the hospital for further workup and evaluation of his symptoms. The findings and plan were discussed with the patient and family who understand and agree to the plan. The case discussed with the hospitalist Dr. Thomas who accepts the patient onto his service. Departure - Departure Disposition: ED Place in Observation Clinical Impression: TIA (transient ischemic attack)
[2018-01-12 09:24] LABS: CLARITY,URINE CLEAR (CLEAR)
--- NOTE | 2018-01-12 09:36 | XRAY Report ---
Reason: TIA Procedure Date: 01/12/2018 Accession Number: [id number] / [id number] Procedure: XR - Chest 1 View X-Ray CPT Code: 76464 FULL RESULT: EXAM: CHEST RADIOGRAPHY EXAM DATE: 01/12/2018 09:23 AM. CLINICAL HISTORY: Dyspnea. COMPARISON: RIBS 2 VIEW RT 09/26/2017 1:51 PM CHEST W/O 10/03/2017 1:01 PM. TECHNIQUE: 1 view. FINDINGS: Lungs/Pleura: No focal consolidation. No pneumothorax or definite pleural effusion. Mediastinum: Mild enlargement of the cardiac silhouette. Aortic atherosclerosis. Other: None. IMPRESSION: No radiographically apparent acute abnormality in the chest. RADIA
--- NOTE | 2018-01-12 09:43 | CT Report ---
Reason: TIA Procedure Date: 01/12/2018 Accession Number: [id number] / [id number] Procedure: CT - Head W/O CPT Code: FULL RESULT: EXAM: CT HEAD EXAM DATE: 01/12/2018 09:21 AM. CLINICAL HISTORY: Left upper and lower extremity numbness and tingling; resolved. Possible TIA. COMPARISON: HEAD W/O 05/31/2017 12:45 PM. TECHNIQUE: Multiaxial CT images were obtained from the foramen magnum to the vertex. Reformats: Sagittal and coronal. IV contrast: None. In accordance with CT protocol optimization, one or more of the following dose reduction techniques were utilized for this exam: automated exposure control, adjustment of mA and/or KV based on patient size, or use of iterative reconstructive technique. FINDINGS: Parenchyma: No intraparenchymal hemorrhage. No evidence of mass, midline shift, or CT findings of acute infarction. Herrera-white differentiation is distinct. Diffuse chronic microangiopathic white matter changes are evident. Extraaxial Spaces: Normal for age. No subdural or epidural collections identified. Ventricles: The ventricles and cortical sulci are enlarged, consistent with age-related tissue loss. Sinuses and orbits: Imaged paranasal sinuses, orbits, and mastoids show no significant abnormality. Bones: No evidence of fracture or calvarial defect. Other: None. IMPRESSION: Generalized age-related cortical atrophic changes without evidence of acute intracranial abnormality. No significant change from prior. RADIA
[2018-01-12 09:48] LABS: INR 1.7 (0.8-1.2); PT - PROTHROMBIN TIME 19.1 secs (9.9-12.6)
[2018-01-12 09:53] LABS: BASOPHILS # (AUTO) 0.1 10^3/uL (0.0-0.1); BASOPHILS % (AUTO) 1.3 %; EOSINOPHILS # (AUTO) 0.1 10^3/uL (0.0-0.7); EOSINOPHILS % (AUTO) 2.1 %; HGB - HEMOGLOBIN 14.3 g/dL (14.0-18.0); LYMPHOCYTES # (AUTO) 1.2 10^3/uL (1.5-3.5); LYMPHOCYTES % (AUTO) 22.2 %; MEAN CORPUSCULAR HEMOGLOBIN 27.6 pg (27.0-31.0); MEAN CORPUSCULAR HGB CONC 33.3 g/dL (32.0-36.0); MEAN CORPUSCULAR VOLUME 82.9 fL (80.0-94.0); MEAN PLATELET VOLUME 7.9 fL (7.4-11.4); MONOCYTES # (AUTO) 0.5 10^3/uL (0.0-1.0); MONOCYTES % (AUTO) 9.3 %; NEUTROPHILS # (AUTO) 3.6 10^3/uL (1.5-6.6); NEUTROPHILS % (AUTO) 65.1 %; PLT - PLATELET COUNT 196 10^3/uL (130-450); RED CELL DISTRIBUTION WIDTH 17.1 % (12.0-15.0); WHITE BLOOD COUNT 5.6 x10^3/uL (4.8-10.8)
[2018-01-12 10:14] LABS: ALBUMIN 4.2 g/dL (3.2-5.5); ALBUMIN/GLOBULIN RATIO 1.1 (1.0-2.2); BILIRUBIN,TOTAL 1.2 mg/dL (0.2-1.0); CALCIUM 9.6 mg/dL (8.5-10.3); CREATININE 0.9 mg/dL (0.6-1.2); TOTAL PROTEIN 8.1 g/dL (6.7-8.2)
[2018-01-12 10:26] LABS: PLATELET MORPHOLOGY NORMAL APPEARANCE (NORMAL)
[2018-01-12 10:27] LABS: PLATELET ESTIMATE, MANUAL NORMAL (130-450,000) (NORMAL); RBC MORPHOLOGY (MULTIPLE) NORMAL APPEARANCE (NORMAL)
[2018-01-12] MEDS ORDERED: SODIUM CHLORIDE FLUSH 0.9% 10 ML SYRINGE IVP PRN (11:32)
[2018-01-12] MEDS ORDERED: ONDANSETRON 4 MG/2 ML VIAL IVP PRN (11:32)
[2018-01-12] MEDS ORDERED: ZOLPIDEM 5 MG TABLET PO PRN (11:32)
--- NOTE | 2018-01-12 11:39 | HISTORY & PHYSICAL EXAMINATION ---
Chief Complaint - Chief Complaint Chief Complaint: left side weakness History of Present Illness - History of Present Illness HPI Comment/Other: Mr. Rodas is a 82-year-old gentleman with a history significant for emphysema and pulmonary emboli with Coumadin, HTN and HLD, who presents to the emergency department with complains of a sudden onset of left arm and leg weakness with numbness on left upper extremity. Pt state his left side weakness started while at home at rest in the morning. The patient reports he was so weakness, and he was unable to stand up and unable to use the arm. Pt report his these symptoms resolved after around 30 minutes. Now he has normal strength and sensation as his normal baseline on left side both upper and lower extremities. The patient denies headache, vision changes, neck pain, speech difficulty, facial droop, chest pain, fever, chill, cough, shortness of breath, abdominal pain. CT of head and CXR are unremarkable. Lab test are unremarkable today. pt is admitted in observation unit for TIA workup. History - Past Medical History Cardiovascular: reports: Coronary artery disease Respiratory: reports: Sleep apnea, CPAP use Neuro: reports: CVA Endocrine/Autoimmune: reports: None GI: reports: Diverticulitis : reports: None Psych: reports: None Musculoskeletal: reports: Osteoarthritis, Chronic back pain Derm: reports: None MRSA Hx?: No - Past Surgical History General: reports: Bowel surgery Ortho: reports: Knee replacement, Spine surgery Cardiovascular: reports: Coronary stent - Family & Social History Family History: Mother: , Father: Family History Comment/Other: Patient's mother of pneumonia when he was 14. Patient's father of cancer at age 83. Patient was an only child, no known history of heart disease, COPD, or diabetes in the family. Social History Notes: The patient describes himself as a "moderate" drinker - Substance History Use: Uses substance without health or social issues: Alcohol - POLST Patient has POLST: No POLST Status: DNR Meds/Allgy - Home Medications Home Medications: Ambulatory Orders Medication Instructions Recorded Confirmed Omeprazole [PriLOSEC] 20 mg PO BID 08/01/12 01/12/18 Furosemide 40 mg ORAL DAILY 04/23/14 01/12/18 Losartan [Cozaar] 50 mg PO DAILY 09/02/14 01/12/18 Aspirin [Aspirin EC] 81 mg PO DAILY 12/20/14 01/12/18 Cholecalciferol (Vitamin D3) 5,000 units PO DAILY 02/21/16 01/12/18 [Vitamin D3] Potassium Chloride [Micro-K] 10 meq PO BID 02/21/16 01/12/18 Warfarin Sodium 5 mg PO MO@1400 02/21/16 01/12/18 Warfarin Sodium 7.5 mg PO SUTUWETHFRSA@1400 02/21/16 01/12/18 Albuterol Sulfate [Proair Hfa 2 puffs INH Q4H PRN 08/23/17 01/12/18 Inhaler] Atorvastatin [Lipitor] 40 mg PO DAILY 08/23/17 01/12/18 Metoprolol Succinate 50 mg PO DAILY 08/23/17 01/12/18 Tiotropium [place] [Spiriva] 1 inh IH DAILY 08/23/17 01/12/18 Darifenacin Hydrobromide 7.5 mg PO DAILY 01/12/18 01/12/18 [Darifenacin ER] Diclofenac Sodium [Voltaren] 2 - 4 gm TOP QID PRN 01/12/18 01/12/18 - Allergies Allergies/Adverse Reactions: Allergies Allergy/AdvReac Type Severity Reaction Status Date / Time Influenza Virus Vaccines Allergy Rash Verified 01/12/18 09:08 Review of Systems - Constitutional Constitutional: denies: Fatigue, Fever, Chills, Malaise, Weakness, Poor appetite, Diaphoresis, Night sweats - Eyes Eyes: denies: Pain, Irritation, Amaurosis, Blurred vision, Spots in vision, Field loss, Vision loss, Dipolpia - Ears, Nose & Throat Ears, Nose & Throat: denies: Ear pain, Hearing loss, Hearing aids, Tinnitus, Vertigo, Nasal pain, Nasal discharge, Nosebleeds, Nasal obstruction, Nasal congestion, Postnasal drainage, Dentures, Sore throat, Hoarseness, Mouth lesions, Bleeding gums, Dental decay - Cardiovascular Cariovascular: denies: Irregular heart rate, Palpitations, Chest pain, Edema, Lightheadedness, Syncope, Exertional dyspnea, Decr. exercise tolerance - Respiratory Respiratory: denies: Cough, Sputum production, Wheezing, Snoring, Hemoptysis, Orthopnea, SOB at rest, SOB with exertion - Gastrointestinal Gastrointestinal: denies: Abdominal pain, Abdominal distention, Constipation, Diarrhea, Change in bowel habits, Rectal bleeding, Black stools, Bloody stools, Nausea, Vomiting, Bile emesis, [place] blood emesis, Coffee grounds emesis, Reflux/heartburn, Bloating - Genitourinary Genitourinary: denies: Dysuria, Frequency, Urgency, Hematuria, Incontinence, Flank pain, Nocturia, Urethral discharge - Musculoskeletal Musculoskeletal: denies: Muscle pain, Back pain, Muscle aches, Stiffness, Limited range of motion, Muscle weakness, Gout, Joint pain - Integumentary Integumentary: denies: Rash, Pruritis, Lesions, Dryness, Lumps, Acne, Pigment changes, Nail changes - Neurological Neurological: reports: Focal weakness, Numbness. 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 negative: Lethargic Eyes Bilateral: positive: Normal inspection, PERRL, No lid inflammation, Conjunctivae nml ENT: positive: ENT inspection nml, Pharynx nml, No signs of dehydration. negative: Purulent nasal drainage, Pharyngeal erythema, Oral lesions Neck: positive: Nml inspection, Thyroid nml, No JVD, Trachea midline. negative: Thyromegaly, Lymphadenopathy (R), Lymphadenopathy (L), Stiff neck, Swelling/bruising, Tracheal deviation Respiratory: positive: Chest non-tender, No respiratory distress, Breath sounds nml. negative: Wheezes, Rales, Rhonchi Cardiovascular: positive: Regular rate & rhythm, No murmur, No gallop. negative: Irregularly irregular, Extrasystoles, Tachycardia, Bradycardia, JVD present, Systolic murmur, Diastolic murmur Peripheral Pulses: positive: 2+ Abdomen: positive: Non-tender, No organomegaly, Nml bowel sounds, No distention. negative: Tenderness, Guarding, Rebound Back: positive: Nml inspection. negative: CVA tenderness (R), CVA tenderness (L) Skin: positive: Color nml, No rash, Warm, Dry. negative: Cyanosis, Diaphoresis, Pallor Extremities: positive: Non-tender, Full ROM, Nml appearance. negative: Calf tenderness, Joint swelling, Jasen's sign/cords Neurologic/Psychiatric: positive: Oriented x3, Motor nml, Sensation nml, Mood/affect nml. negative: Weakness, Sensory loss, Facial droop, Slurred/abnml speech, Depressed mood/affect Conclusion/Plan - Problem List (1) TIA (transient ischemic attack) Conclusion/Plan: pt state he had about 30 min left side weakness and upper extremity numbness, then all these symptoms disappears. Pt took Aspirin 81 mg, and Coumadin for his hx of PE., INR 1.7, pt also took Lipitor 40 mg daily continue Aspirin and Coumadin increase Lipitor to 80 mg daily add Lipid Panel test tele and vital monitor Order ECHO, US of Carotid, and MRI of brain. PT/INR test (2) Emphysema lung Conclusion/Plan: pt appears stable, 94% sats on room air. Albuterol and Duoneb PRN O2 supplement as needed (3) Hx of pulmonary embolus Conclusion/Plan: pt does not present SOB, chest pain, cough. continue Coumadin daily lab PT/INR test (4) HTN (hypertension) Conclusion/Plan: stable, allow BP increase, hold home BP medications, vital monitor (5) HLD (hyperlipidemia) Conclusion/Plan: will check lipid panel, increase Lipitor to 80 mg daily (6) Full code status Conclusion/Plan: pt request full code status - Lab Results Fish Bones: 01/12/18 09:39 01/12/18 09:39 Core Measures - Anticipated LOS I expect patient to be DC'd or transferred within 96 hours.: Yes - DVT/VTE - Prophylaxis VTE/DVT Device ordered at admit?: Yes VTE/DVT Prophylaxis med ordered at admit?: Yes
[2018-01-12] MEDS ORDERED: ALBUTEROL NEB 2.5 MG/3 ML INH PRN (12:51)
[2018-01-12] MEDS ORDERED: IPRATROPIUM/ALBUTEROL 3 ML NEB INH PRN (12:51)
[2018-01-12] MEDS ORDERED: Diclofenac Sodium [Voltaren] GEL TOP PRN (12:53)
[2018-01-12] MEDS ORDERED: METOPROLOL SUCCINATE 50 MG TABLET PO SCH (13:00)
[2018-01-12] MEDS: ASPIRIN EC 81 MG TABLET PO SCH (13:32)
[2018-01-12] MEDS: WARFARIN 2.5 MG TABLET PO SCH (13:33)
[2018-01-12] MEDS: ATORVASTATIN 40 MG TABLET PO SCH (13:33)
[2018-01-12] MEDS ORDERED: WARFARIN 2.5 MG TABLET PO SCH (15:00)
[2018-01-12] MEDS: SODIUM CHLORIDE FLUSH 0.9% 10 ML SYRINGE IVP SCH (15:53)
--- NOTE | 2018-01-12 18:24 | Ultrasound Report ---
Reason: TIA Procedure Date: 01/12/2018 Accession Number: [id number] / [id number] Procedure: US - Carotid Doppler Complete CPT Code: FULL RESULT: EXAM: BILATERAL CAROTID AND VERTEBRAL ARTERY DUPLEX DOPPLER ULTRASOUND. EXAM DATE: 01/12/2018 05:19 PM CLINICAL HISTORY: Transient ischemic attack. Left arm and leg weakness. COMPARISON: None. TECHNIQUE: Grayscale imaging, color Doppler, and duplex spectral Doppler were used to evaluate the carotid and vertebral arteries bilaterally. Static images were obtained. FINDINGS: Mild bilateral heterogeneous plaque in with calcification. Normal antegrade flow is present in bilateral vertebral arteries. VELOCITIES (cm/sec): Right CCA prox: PSV 80.1 cm/sec CCA mid: PSV 66.7 cm/sec, EDV 6.0 cm/sec, S/D 11.12 CCA dist: PSV 53.2 cm/sec, EDV 7.6 cm/sec, S/D 7.00 ICA prox: PSV 77.0 cm/sec, EDV 16.8 cm/sec, S/D 4.58 ICA mid: PSV 85.7 cm/sec, EDV 14.6 cm/sec, S/D 5.87 ICA dist: PSV 65.1 cm/sec, EDV 11.9 cm/sec, S/D 5.47 ECA: PSV 90.1 cm/sec, EDV 6.9 cm/sec, S/D 13.06 Vert: PSV 24.8 cm/sec, EDV 4.8 cm/sec, S/D 5.17 ICA/CCA: PSV 1.61, EDV 1.92 Left CCA prox: PSV 84.1 cm/sec, EDV 9.0 cm/sec, S/D 9.34 CCA mid: PSV 65.6 cm/sec, EDV 7.2 cm/sec, S/D 9.11 CCA dist: PSV 57.0 cm/sec, EDV 10.9 cm/sec, S/D 5.23 ICA prox: PSV 58.6 cm/sec, EDV 13.0 cm/sec, S/D 4.51 ICA mid: PSV 63.5 cm/sec, EDV 10.3 cm/sec, S/D 6.17 ICA dist: PSV 45.6 cm/sec, EDV 10.3 cm/sec, S/D 4.43 ECA prox: PSV 66.7 cm/sec Vert: PSV 45.0 cm/sec, EDV 9.8 cm/sec, S/D 4.59 ICA/CCA: PSV 1.11, EDV 0.94 ICA diameter stenosis: Right: <50% by velocity and <70% by NASCET criteria. Left: <50% by velocity and <70% by NASCET criteria. IMPRESSION: 1. Mild heterogeneous bilateral carotid artery plaquing. 2. In the right carotid artery there are no elevated carotid artery velocities to suggest hemodynamically significant stenosis. 3. In the left carotid artery there are no elevated carotid artery velocities to suggest hemodynamically significant stenosis. 4. Normal antegrade flow is present in bilateral vertebral arteries. General Recommendations: Stenosis =50% ICA - Follow-up ultrasound 6-12 months Stenosis <50% ICA - High Risk Patient with plaque - Follow-up ultrasound 1-2 years Normal Study but High Risk Patient - Follow-up ultrasound 3-5 years Management recommendations and diagnostic criteria are based on current IAC endorsed standards in Carotid Artery Stenosis: Grayscale and Doppler Ultrasound Diagnosis. Validated velocity measurements with angiographic measurements and velocity criteria are extrapolated from diameter data as defined by the Society of Radiologists in Ultrasound Consensus Conference Radiology 2003; 229;340-346. RADIA
[2018-01-12] MEDS: BACITRACIN OINT TOP PRN (19:42)
[2018-01-12] MEDS: FAMOTIDINE 20 MG TABLET PO SCH (20:44)
[2018-01-13] MEDS: SODIUM CHLORIDE FLUSH 0.9% 10 ML SYRINGE IVP SCH ×4 (00:44→23:51)
[2018-01-13] MEDS: ACETAMINOPHEN 325 MG TABLET PO PRN ×4 (02:18→20:35)
[2018-01-13 05:54] LABS: BASOPHILS % (AUTO) 0.6 %; EOSINOPHILS # (AUTO) 0.2 10^3/uL (0.0-0.7); EOSINOPHILS % (AUTO) 2.1 %; HGB - HEMOGLOBIN 13.7 g/dL (14.0-18.0); LYMPHOCYTES # (AUTO) 1.6 10^3/uL (1.5-3.5); LYMPHOCYTES % (AUTO) 22.5 %; MEAN CORPUSCULAR HEMOGLOBIN 27.5 pg (27.0-31.0); MEAN CORPUSCULAR HGB CONC 32.7 g/dL (32.0-36.0); MEAN CORPUSCULAR VOLUME 84.1 fL (80.0-94.0); MEAN PLATELET VOLUME 7.8 fL (7.4-11.4); MONOCYTES # (AUTO) 0.7 10^3/uL (0.0-1.0); MONOCYTES % (AUTO) 9.3 %; NEUTROPHILS # (AUTO) 4.8 10^3/uL (1.5-6.6); NEUTROPHILS % (AUTO) 65.5 %; PLT - PLATELET COUNT 166 10^3/uL (130-450); RED BLOOD COUNT 4.99 10^6/uL (4.70-6.10); RED CELL DISTRIBUTION WIDTH 17.2 % (12.0-15.0); WHITE BLOOD COUNT 7.3 x10^3/uL (4.8-10.8)
[2018-01-13 05:57] LABS: INR 1.8 (0.8-1.2); PT - PROTHROMBIN TIME 20.6 secs (9.9-12.6)
[2018-01-13 06:05] LABS: ALBUMIN 3.7 g/dL (3.2-5.5); ALBUMIN/GLOBULIN RATIO 1.1 (1.0-2.2); BILIRUBIN,TOTAL 0.9 mg/dL (0.2-1.0); CALCIUM 9.3 mg/dL (8.5-10.3); CREATININE 0.9 mg/dL (0.6-1.2); MAGNESIUM 1.9 mg/dL (1.7-2.8); TOTAL PROTEIN 7.2 g/dL (6.7-8.2)
[2018-01-13 06:29] LABS: CHOL/HDL RATIO 3.1 (<5.0); CHOLESTEROL 101 mg/dL; HDL CHOLESTEROL 33 mg/dL; LDL CHOLESTEROL,CALCULATED 37 mg/dL; LDL/HDL RATIO 1.1 (<3.6); VLDL CHOLESTEROL 31 mg/dL
[2018-01-13] MEDS: FUROSEMIDE 20 MG TABLET PO SCH (09:54)
[2018-01-13] MEDS: LOSARTAN 50 MG TABLET PO SCH (09:54)
[2018-01-13] MEDS: METOPROLOL SUCCINATE 25 MG TABLET PO SCH (09:54)
[2018-01-13] MEDS: ASPIRIN EC 81 MG TABLET PO SCH (09:54)
[2018-01-13] MEDS: ATORVASTATIN 40 MG TABLET PO SCH (09:54)
[2018-01-13] MEDS: FAMOTIDINE 20 MG TABLET PO SCH ×2 (09:54→20:36)
[2018-01-13] MEDS: POLYETHYLENE GLYCOL 3350 17 GM PACKET PO SCH (09:55)
--- NOTE | 2018-01-13 10:13 | MRI Report ---
Reason: TIA Procedure Date: 01/13/2018 Accession Number: [id number] / [id number] Procedure: MRI - Brain W/O CPT Code: FULL RESULT: EXAM: MRI BRAIN WITHOUT CONTRAST EXAM DATE: 01/13/2018 09:31 AM. CLINICAL HISTORY: TIA. Left-sided weakness. COMPARISON: MRI brain without contrast 06/19/2011. CT head without contrast 01/12/2018 9:15 AM (report not provided). MRI/MRA brain and MRA neck 08/01/2012. TECHNIQUE: Multiplanar, multisequence T1-weighted and fluid-sensitive MR sequences of the brain were performed. Sequences optimized for routine evaluation. Other: None. IV Contrast: None. FINDINGS: Brain Volume: Normal for age. Parenchyma/Dura: There is interval development of an oval 6 mm focus of signal abnormality laterally within the right amygdala. This demonstrates restricted diffusion with increased T2/FLAIR signal. This is at the anteromedial margin of the temporal horn of the right lateral ventricle. Mild increased punctate focus of diffusion bright signal is seen in the right posterior limb of the internal capsule. Focal increased T2 signal is seen. This measures approximately 3 mm in size. Mild confluent periventricular with scattered punctate deep white matter T2 and FLAIR bright signal is seen in the cerebral hemispheres, not significantly changed. No intracranial mass or hemorrhage is seen. Prominent perivascular spaces are seen laterally in the lentiform nuclei bilaterally. Ventricles/Cisterns: Mild age-related prominence to the ventricular system is seen. No hydrocephalus. Unremarkable. Note is made of bilateral lens removal. Orbits: Mild age-related prominence to the ventricular system is noted. No hydrocephalus. Sella [place]: The pituitary gland, cavernous sinuses, suprasellar cistern and optic chiasm are unremarkable. IAC: Symmetric and unremarkable. Vasculature: Normal signal flow void is seen in the major arterial structures at the skull base. Sinuses: No acute appearing sinus disease. Bones: No focal pathologic appearing marrow signal changes. Other: None. IMPRESSION: 1. 6 mm focus of restricted diffusion laterally in the right amygdala. This is consistent with acute infarct. 2. 3 mm focus of punctate increased diffusion within the right posterior limb of the internal capsule. This likely represents acute infarct as well. 3. Mild confluent periventricular and patchy deep white matter T2/FLAIR bright signal is seen in the cerebral hemispheres. This is nonspecific but typically secondary to small vessel ischemic change. Sequela of demyelination is in the differential but considered less likely. Critical Result: Findings are discussed with referring treating physician on 01/13/2018 at 1008 hrs. RADIA
--- NOTE | 2018-01-13 10:25 | ADVANCE CARE PLANNING NOTE ---
Advance Care Planning - Date/Time Date: 01/13/18 Time: 11:30 - Purpose of encounter Text: advance care for pt - Parties in attendance Parties in attendance: pt and me - Decisional capacity Decisional capacity of: pt is alert and oriented, has full capacity to make decision. - Subjective/Patient's story Subjective/Patient's story: pt report he feel fatigue all the time and weakness at his left side and lower and upper extremities - Objective/Medical story Objective/Medical Story: pt had new diagnosis of stroke, new onset of systolic heart failure - Goals of Care Goals of care determinations: advance care for pt - Plan Plan: pt state he will consider to change his code status from full code to DNR first. - Code Status Code Status: Attempt Resuscitation - Time Spent on Advance Care Planning Time spent on advance care plannin
[2018-01-13] MEDS ORDERED: WARFARIN 2.5 MG TABLET PO SCH (11:00)
[2018-01-13] MEDS: ASPIRIN EC 325 MG TABLET PO SCH (11:26)
--- NOTE | 2018-01-13 13:34 | PROVIDER PROGRESS NOTE ---
Subjective - Prog Note Date Prog Note Date: 01/13/18 - Subjective Pt reports feeling: Worse Subjective: pt report his left upper and lower extremity became weakness compared with yesterday. he denies other focus neuro deficits. I discussed with all image studies including reduced EF from ECHO and two acute strokes sites from MRI Current Medications - Current Medications Current Medications: Active Medications Acetaminophen (Tylenol) 650 mg PO Q4HR PRN PRN Reason: Pain 1 to 4 Last Admin: 01/13/18 11:26 Dose: 650 mg Albuterol () 2.5 mg INH RTQ4H PRN PRN Reason: Wheezing Albuterol/Ipratropium (Duoneb) 3 ml INH Q4HR PRN PRN Reason: Wheezing Aspirin (Ecotrin) 325 mg PO DAILY [facility] Last Admin: 01/13/18 11:26 Dose: 325 mg Atorvastatin Calcium (Lipitor) 80 mg PO DAILY [facility] Last Admin: 01/13/18 09:54 Dose: 80 mg Bacitracin (Bacitracin) 1 packet TOP PRN PRN PRN Reason: Skin Care Last Admin: 01/12/18 19:42 Dose: 1 packet Famotidine (Pepcid) 20 mg PO BID [facility] Last Admin: 01/13/18 09:54 Dose: 20 mg Furosemide (Lasix) 40 mg PO DAILY [facility] Last Admin: 01/13/18 09:54 Dose: 40 mg Ibuprofen (Motrin) 600 mg PO Q6HR PRN PRN Reason: PAIN Losartan Potassium (Cozaar) 50 mg PO DAILY [facility] Last Admin: 01/13/18 09:54 Dose: 50 mg Metoprolol Succinate (Toprol Xl) 25 mg PO DAILY [facility] Last Admin: 01/13/18 09:54 Dose: 25 mg Ondansetron HCl (Zofran Inj) 4 mg IVP Q6HR PRN PRN Reason: Nausea / Vomiting Diclofenac Sodium [ (Voltaren] Gel) 2 each TOP QID PRN PRN Reason: PAIN Polyethylene Glycol (Miralax) 17 gm PO DAILY [facility] Last Admin: 01/13/18 09:55 Dose: 17 gm Sodium Chloride (Normal Saline Flush 0.9%) 10 ml IVP PRN PRN PRN Reason: NEEDED PER PROVIDER ORDERS Sodium Chloride (Normal Saline Flush 0.9%) 10 ml IVP 0100,0900,1700 [facility] Last Admin: 01/13/18 09:55 Dose: 10 ml Warfarin Sodium (Coumadin) 5 mg PO QDWARFARIN [facility] Warfarin Sodium (Coumadin) 2.5 mg PO SUMOWETHFRSA@1400 [facility] Last Admin: 01/12/18 13:33 Dose: 2.5 mg Zolpidem Tartrate (Ambien) 5 mg PO QPM PRN PRN Reason: Insomnia Last Admin: 01/12/18 21:29 Dose: 5 mg Omeprazole [PriLOSEC] 20 mg PO BID 08/01/12 Furosemide 40 mg ORAL DAILY 04/23/14 Losartan [Cozaar] 50 mg PO DAILY 09/02/14 Aspirin [Aspirin EC] 81 mg PO DAILY 12/20/14 Cholecalciferol (Vitamin D3) [Vitamin D3] 5,000 units PO DAILY 02/21/16 Potassium Chloride [Micro-K] 10 meq PO BID 02/21/16 Warfarin Sodium 5 mg PO MO@1400 02/21/16 Warfarin Sodium 7.5 mg PO SUTUWETHFRSA@1400 02/21/16 Albuterol Sulfate [Proair Hfa Inhaler] 2 puffs INH Q4H PRN 08/23/17 Atorvastatin [Lipitor] 40 mg PO DAILY 08/23/17 Metoprolol Succinate 50 mg PO DAILY 08/23/17 Tiotropium [place] [Spiriva] 1 inh IH DAILY 08/23/17 Darifenacin Hydrobromide [Darifenacin ER] 7.5 mg PO DAILY 01/12/18 Diclofenac Sodium [Voltaren] 2 - 4 gm TOP QID PRN 01/12/18 Objective - Vital Signs/Intake & Output Reviewed Vital Signs: Yes Vital Signs: Vital Signs x48h Temp Pulse Pulse Pulse Resp BP BP 01/13/18 11:14 55 L 130/67 01/13/18 10:45 36.4 C L 56 L 14 01/13/18 07:34 36.4 C L 63 20 126/74 Pulse Ox 01/13/18 11:14 01/13/18 10:45 96 01/13/18 07:34 94 Intake & Output: Intake & Output 01/11/18 01/12/18 01/12/18 01/13/18 00:59 00:59 23:59 23:59 Intake Total 600 Output Total 100 Balance 500 - Objective General Appearance: positive: No acute distress, Alert. negative: Lethargic Eyes Bilateral: positive: Normal inspection, PERRL, No lid inflammation, Con junctivae nml ENT: positive: ENT inspection nml, Pharynx nml, No signs of dehydration. negative: Purulent nasal drainage, Pharyngeal erythema, Oral lesions Neck: positive: Nml inspection, Thyroid nml, No JVD, Trachea midline. negative: Thyromegaly, Lymphadenopathy (R), Lymphadenopathy (L), Stiff neck, Swelling/bruising, Tracheal deviation Respiratory: positive: Chest non-tender, No respiratory distress, Breath sounds nml. negative: Wheezes, Rales, Rhonchi Cardiovascular: positive: Regular rate & rhythm, No murmur, No gallop. negative: Irregularly irregular, Extrasystoles, Tachycardia, Bradycardia, JVD present, Systolic murmur, Diastolic murmur Peripheral Pulses: 2+ Radial (R), 2+ Radial (L), 2+ Dorsalis pedis (R), 2+ Dorsalis pedis (L) Abdomen: positive: Non-tender, No organomegaly, Nml bowel sounds, No distention. negative: Tenderness, Guarding, Rebound Back: positive: Nml inspection. negative: CVA tenderness (R), CVA tenderness (L) Skin: positive: Color nml, No rash, Warm, Dry. negative: Cyanosis, Diaphoresis, Pallor Extremities: positive: Non-tender, Nml appearance. negative: Calf tenderness, Joint swelling, Jasen's sign/cords Neurologic/Psychiatric: positive: Oriented x3, Sensation nml, Mood/affect nml, Weakness. negative: Sensory loss, Facial droop, Slurred/abnml speech, Depressed mood/affect - Lab Results Fish Bones: 01/13/18 05:28 18 05:28 Other Labs: Lab Results x24hrs 01/13/18 01/13/18 01/13/18 Range/Units 05:28 05:28 05:28 WBC 7.3 (4.8-10.8) x10^3/uL RBC 4.99 (4.70-6.10) 10^6/uL Hgb 13.7 L (14.0-18.0) g/dL Hct 41.9 L (42.0-52.0) % MCV 84.1 (80.0-94.0) fL MCH 27.5 (27.0-31.0) pg MCHC 32.7 (32.0-36.0) g/dL RDW 17.2 H (12.0-15.0) % Plt Count 166 (130-450) 10^3/uL MPV 7.8 (7.4-11.4) fL Neut # (Auto) 4.8 (1.5-6.6) 10^3/uL Lymph # (Auto) 1.6 (1.5-3.5) 10^3/uL [place] # (Auto) 0.7 (0.0-1.0) 10^3/uL Eos # (Auto) 0.2 (0.0-0.7) 10^3/uL Baso # (Auto) 0.0 (0.0-0.1) 10^3/uL Absolute Nucleated RBC 0.00 x10^3/uL Nucleated RBC % 0.0 /100WBC PT (9.9-12.6) secs INR (0.8-1.2) Sodium 135 (135-145) mmol/L Potassium 3.5 (3.5-5.0) mmol/L Chloride 99 L (101-111) mmol/L Carbon Dioxide 25 (21-32) mmol/L Anion Gap 11.0 (6-13) BUN 20 (6-20) mg/dL Creatinine 0.9 (0.6-1.2) mg/dL Estimated GFR (MDRD) 80 L (>89) Glucose 142 H (70-100) mg/dL Calcium 9.3 (8.5-10.3) mg/dL Magnesium 1.9 (1.7-2.8) mg/dL Total Bilirubin 0.9 (0.2-1.0) mg/dL AST 27 (10-42) IU/L ALT 19 (10-60) IU/L Alkaline Phosphatase 66 (42-121) IU/L Total Protein 7.2 (6.7-8.2) g/dL Albumin 3.7 (3.2-5.5) g/dL Globulin 3.5 (2.1-4.2) g/dL Albumin/Globulin Ratio 1.1 (1.0-2.2) Triglycerides 154 H ( - 149) mg/dL Cholesterol 101 ( - 199) mg/dL LDL Cholesterol, Calc 37 ( - 129) mg/dL VLDL Cholesterol 31 mg/dL HDL Cholesterol 33 L (60 - ) mg/dL LDL/HDL Ratio 1.1 (<3.6) Cholesterol/HDL Ratio 3.1 (<5.0) 01/13/18 Range/Units 05:28 WBC (4.8-10.8) x10^3/uL RBC (4.70-6.10) 10^6/uL Hgb (14.0-18.0) g/dL Hct (42.0-52.0) % MCV (80.0-94.0) fL MCH (27.0-31.0) pg MCHC (32.0-36.0) g/dL RDW (12.0-15.0) % Plt Count (130-450) 10^3/uL MPV (7.4-11.4) fL Neut # (Auto) (1.5-6.6) 10^3/uL Lymph # (Auto) (1.5-3.5) 10^3/uL [place] # (Auto) (0.0-1.0) 10^3/uL Eos # (Auto) (0.0-0.7) 10^3/uL Baso # (Auto) (0.0-0.1) 10^3/uL Absolute Nucleated RBC x10^3/uL Nucleated RBC % /100WBC PT 20.6 H (9.9-12.6) secs INR 1.8 H (0.8-1.2) Sodium (135-145) mmol/L Potassium (3.5-5.0) mmol/L Chloride (101-111) mmol/L Carbon Dioxide (21-32) mmol/L Anion Gap (6-13) BUN (6-20) mg/dL Creatinine (0.6-1.2) mg/dL Estimated GFR (MDRD) (>89) Glucose (70-100) mg/dL Calcium (8.5-10.3) mg/dL Magnesium (1.7-2.8) mg/dL Total Bilirubin (0.2-1.0) mg/dL AST (10-42) IU/L ALT (10-60) IU/L Alkaline Phosphatase (42-121) IU/L Total Protein (6.7-8.2) g/dL Albumin (3.2-5.5) g/dL Globulin (2.1-4.2) g/dL Albumin/Globulin Ratio (1.0-2.2) Triglycerides ( - 149) mg/dL Cholesterol ( - 199) mg/dL LDL Cholesterol, Calc ( - 129) mg/dL VLDL Cholesterol mg/dL HDL Cholesterol (60 - ) mg/dL LDL/HDL Ratio (<3.6) Cholesterol/HDL Ratio (<5.0) ABX Reporting Has patient been on IV antibiotics over the past 48 hours?: No Assessment/Plan - Problem List (1) Stroke Impression: Conclusion/Plan: 01/13 MRI reveals two acute stroke sites, pt complains left upper and lower extremities weakness again today. switch to inpt, pt likely need continue training at [facility] after d/c. discuss these test result with pt increase Aspirin to 325 mg daily continue Coumadin, add once 2.5 mg more Coumadin, since INR 1.8. continue PT/INR continue 80 mg Lipitor order PT/OT, treatment and evaluation pt state he had about 30 min left side weakness and upper extremity numbness, then all these symptoms disappears. Pt took Aspirin 81 mg, and Coumadin for his hx of PE., INR 1.7, pt also took Lipitor 40 mg daily continue Aspirin and Coumadin increase Lipitor to 80 mg daily add Lipid Panel test tele and vital monitor Order ECHO, US of Carotid, and MRI of brain. PT/INR test (2) Emphysema lung Conclusion/Plan: pt appears stable, 94% sats on room air. Albuterol and Duoneb PRN O2 supplement as needed (3) Hx of pulmonary embolus Conclusion/Plan: pt does not present SOB, chest pain, cough. continue Coumadin daily lab PT/INR test (4) HTN (hypertension) Conclusion/Plan: stable, allow BP increase, hold home BP medications, vital monitor (5) HLD (hyperlipidemia) Conclusion/Plan: will check lipid panel, increase Lipitor to 80 mg daily
[2018-01-13] MEDS ORDERED: IBUPROFEN 600 MG TABLET PO PRN (13:40)
[2018-01-13] MEDS ORDERED: WARFARIN 5 MG TABLET PO SCH (14:00)
[2018-01-13] MEDS: WARFARIN 2.5 MG TABLET PO SCH (14:09)
[2018-01-13] MEDS: BACITRACIN OINT TOP PRN (17:27)
[2018-01-14 05:30] LABS: BASOPHILS # (AUTO) 0.1 10^3/uL (0.0-0.1); BASOPHILS % (AUTO) 1.1 %; EOSINOPHILS # (AUTO) 0.1 10^3/uL (0.0-0.7); EOSINOPHILS % (AUTO) 2.8 %; HGB - HEMOGLOBIN 13.8 g/dL (14.0-18.0); LYMPHOCYTES # (AUTO) 1.5 10^3/uL (1.5-3.5); LYMPHOCYTES % (AUTO) 28.4 %; MEAN CORPUSCULAR HEMOGLOBIN 27.2 pg (27.0-31.0); MEAN CORPUSCULAR HGB CONC 32.2 g/dL (32.0-36.0); MEAN CORPUSCULAR VOLUME 84.4 fL (80.0-94.0); MEAN PLATELET VOLUME 7.9 fL (7.4-11.4); MONOCYTES # (AUTO) 0.5 10^3/uL (0.0-1.0); MONOCYTES % (AUTO) 10.5 %; NEUTROPHILS # (AUTO) 2.9 10^3/uL (1.5-6.6); NEUTROPHILS % (AUTO) 57.2 %; PLT - PLATELET COUNT 183 10^3/uL (130-450); RED BLOOD COUNT 5.06 10^6/uL (4.70-6.10); RED CELL DISTRIBUTION WIDTH 17.1 % (12.0-15.0); WHITE BLOOD COUNT 5.2 x10^3/uL (4.8-10.8)
[2018-01-14 05:35] LABS: INR 2.2 (0.8-1.2); PT - PROTHROMBIN TIME 24.5 secs (9.9-12.6)
[2018-01-14 05:43] LABS: ALBUMIN 3.6 g/dL (3.2-5.5); BILIRUBIN,TOTAL 0.7 mg/dL (0.2-1.0); CALCIUM 9.3 mg/dL (8.5-10.3); CREATININE 0.8 mg/dL (0.6-1.2); TOTAL PROTEIN 7.1 g/dL (6.7-8.2)
[2018-01-14] MEDS: ATORVASTATIN 40 MG TABLET PO SCH (08:56)
[2018-01-14] MEDS: ASPIRIN EC 325 MG TABLET PO SCH (08:56)
[2018-01-14] MEDS: METOPROLOL SUCCINATE 25 MG TABLET PO SCH (08:56)
[2018-01-14] MEDS: FAMOTIDINE 20 MG TABLET PO SCH (08:57)
[2018-01-14] MEDS: LOSARTAN 50 MG TABLET PO SCH (08:57)
[2018-01-14] MEDS: FUROSEMIDE 20 MG TABLET PO SCH (08:59)
[2018-01-14] MEDS: POLYETHYLENE GLYCOL 3350 17 GM PACKET PO SCH (08:59)
[2018-01-14] MEDS: SODIUM CHLORIDE FLUSH 0.9% 10 ML SYRINGE IVP SCH (08:59)
[2018-01-14] MEDS ORDERED: IPRATROPIUM 0.2 MG/ML NEB INH SCH (11:00)
[2018-01-14] MEDS ORDERED: APIXABAN 5 MG TABLET PO SCH (11:00)
[2018-01-14] MEDS ORDERED: SPIRONOLACTONE 25 MG TABLET PO SCH (11:00)
--- NOTE | 2018-01-14 11:16 | Discharge Plan ---
Discharge Plan Disposition: Home, Self Care Condition: Good Prescriptions: Apixaban [Eliquis] 5 mg PO BID #60 tablet Furosemide 20 mg ORAL DAILY #30 tablet Metoprolol Succinate [Toprol Xl] 25 mg PO DAILY #30 tablet Spironolactone [Aldactone] 25 mg PO DAILY #30 tablet Diet: Cardiac Activity Restrictions: Activity as Tolerated Shower Restrictions: No Assistance Devices: Walker Weight Bearing: Full Weight Additional Instructions or Follow Up instructions: You were found to have a stroke in your right brain: Your INR was too low at the time of admission, so this was the most likely cause of this stroke. Start Eliquis, STOP Warfarin (coumadin). This is to be taken twice daily. You were found to have much worse heart function than in December 2014. Stay on your medications and I have put in a recommendation for cardiac rehab. You were found to have elevated right heart pressures, so you will need further testing at the sleep lab. You were started on spironolactone and your lasix dose was lowered to half the dose. Please also STOP the potassium. New prescriptions were sent to your pharmacy for: Eliquis Spironolactone STOP: Potassium Warfarin Reduce lasix dose. Please see your PCP within one week. If you have similar symptoms, please come back to the ED. Follow-Up Care: [facility] - Cardiac, Outpatient Rehab - PT No Smoking: If you smoke, Please STOP! Call for help. Follow-up with: Yancy Clifton MD [Primary Care Provider] -
--- NOTE | 2018-01-14 11:23 | DISCHARGE SUMMARY ---
Discharge Summary Admit Date: 01/12/18 Discharge Date: 01/14/18 Discharging Provider: DORA Lester Primary Care Provider: Yancy Clifton Code Status: Attempt Resuscitation Condition at Discharge: Good Discharge Disposition: 01 Home, Self Care - DIAGNOSES Admission Diagnoses: Transient cerebral ischemic attack, unspecified (G45.9) Emphysema, unspecified (J43.9) Personal history of other diseases of the circulatory system (Z86.79) Hyperlipidemia, unspecified (E78.5) Obstructive sleep apnea (adult) (pediatric) (G47.33) Essential (primary) hypertension (I10) Dilated cardiomyopathy (I42.0) Discharge Diagnoses with Status of Each Condition: 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 This condition has worsened since the last echo in 12/2014, cardiac rehab. Cor pulmonale (I27.81) chronic, stable. Further sleep study evaluation and possible CPAP settings adjusted out patient. THOMAS on CPAP (G47.33) chronic, stable. COPD (chronic obstructive pulmonary disease) (J44.9) chronic, stable. - HPI History of Present Illness: Wally Garcia is an 82-year-old male with a past medical history of COPD, pulmonary emboli on Coumadin, hypertension, THOMAS on CPAP, morbid obesity, and hyperlipidemia. He presented to the emergency department with complaints of sudden onset numbness and weakness of his left arm/left leg. The patient stated that his left sided weakness started while at home during a time of rest this morning and it was very difficult to come in to be evaluated. The patient reports he was so profoundly weak that he was unable to stand up or even use his arm. He described these symptoms had resolved after what he predicts, 30 minutes. On initial exam, he has normal strength and sensation to his left upper and lower extremities. The patient denied headaches, vision changes, neck pain, speech difficulties, facial droop, chest pain, fever, chills, cough, shortness of breath, or abdominal pain on initial exam. A head CT showed no acute infarcts, and chest x-ray is unremarkable. Lab tests are within normal limits. The patient will be admitted to observation for further TIA workup. - HOSPITAL COURSE Hospital Course: The patient underwent a TIA work up as his initial symptoms had resolved including PT evaluation, telemetry monitoring, echocardiogram and a brain MRI. He was found to have a right posterior internal capsule and amygdala CVA, embolic in nature that was most likely caused by his dilated cardiomyopathy that has worsened since 12/2014 as his EF was 50-55%, and now found to be only 35- 40%. He was found to be sub-theraputic with an INR of just 1.7 on admission, so since he had good kidney function, his anticoagulant was changed from Warfarin to Eliquis. This medication was pre-sent to his pharmacy who gave a greenfield of $28/month. I have recommended cardiac rehab, and out patient physical therapy as per our re habilitation therapist evaluation. He was medically stable at the time of discharge and I took extra time for one-on-one counseling and spoke with his daughter, Sophia to update of my medical recommendations. - ALLERGIES Allergies/Adverse Reactions: Allergies Allergy/AdvReac Type Severity Reaction Status Date / Time Influenza Virus Vaccines Allergy Rash Verified 01/12/18 09:08 - MEDICATIONS Home Medications: Ambulatory Orders Medication Instructions Recorded Confirmed Omeprazole [PriLOSEC] 20 mg PO BID 08/01/12 01/12/18 Losartan [Cozaar] 50 mg PO DAILY 09/02/14 01/12/18 Aspirin [Aspirin EC] 81 mg PO DAILY 12/20/14 01/12/18 Cholecalciferol (Vitamin D3) 5,000 units PO DAILY 02/21/16 01/12/18 [Vitamin D3] Albuterol Sulfate [Proair Hfa 2 puffs INH Q4H PRN 08/23/17 01/12/18 Inhaler] Tiotropium [place] [Spiriva] 1 inh IH DAILY 08/23/17 01/12/18 Darifenacin Hydrobromide 7.5 mg PO DAILY 01/12/18 01/12/18 [Darifenacin ER] Diclofenac Sodium [Voltaren] 2 - 4 gm TOP QID PRN 01/12/18 01/12/18 Acetaminophen [Tylenol] 650 mg PO Q4HR PRN tablet 01/14/18 Apixaban [Eliquis] 5 mg PO BID #60 tablet 01/14/18 Atorvastatin [Lipitor] 40 mg PO DAILY #30 tablet 01/14/18 Furosemide 20 mg ORAL DAILY #30 tablet 01/14/18 Metoprolol Succinate [Toprol Xl] 25 mg PO DAILY #30 tablet 01/14/18 Spironolactone [Aldactone] 25 mg PO DAILY #30 tablet 01/14/18 - PHYSICAL EXAM AT DISCHARGE General Appearance: positive: No acute distress, Alert Eyes Bilateral: positive: Normal inspection, No lid inflammation ENT: positive: Pharynx nml, No signs of dehydration Neck: positive: Thyroid nml, No JVD, Trachea midline Respiratory: positive: Chest non-tender, No respiratory distress, Breath sounds nml Cardiovascular: positive: Regular rate & rhythm, Systolic murmur, Decreased pulse(s) Peripheral Pulses: positive: 1+ Abdomen: positive: Non-tender, Nml bowel sounds, Other (rounded, soft) Back: positive: Nml inspection Skin: positive: No rash, Warm, Dry Extremities: positive: Non-tender, Full ROM, Pedal edema (mild, dependent, BLE) Neurologic/Psychiatric: positive: Oriented x3, CN's nml (2-12), Motor nml, Sensation nml, Weakness, Depressed mood/affect, Other (mild weakness appreciated in left hand rn transitional care, no other deficits. Only mild ataxia) Reflexes: Bicep (R): 3+, Bicep (L): 3+ - LABS Result Diagrams: 01/14/18 05:10 01/14/18 05:10 - DIAGNOSTIC IMAGING Diagnostic Imaging Results: Final report reviewed Diagnostic Imaging Results Comments: EXAM: MRI BRAIN WITHOUT CONTRAST EXAM DATE: 01/13/2018 09:31 AM. IMPRESSION: 1. 6 mm focus of restricted diffusion laterally in the right amygdala. This is consistent with acute infarct. 2. 3 mm focus of punctate increased diffusion within the right posterior limb of the internal capsule. This likely represents acute infarct as well. 3. Mild confluent periventricular and patchy deep white matter T2/FLAIR bright signal is seen in the cerebral hemispheres. This is nonspecific but typically secondary to small vessel ischemic change. Sequela of demyelination is in the d ifferential but considered less likely. ECHOCARDIOGRAM: 01/12/18 Final read by Augusto Loco MD 1. Overall LV systolic function is moderately globally impaired with an EF of 35-40%. 2. Severe increase in the LA volume index. 3. Severe RA enlargement. 4. Contrast injection of agitated saline was negative for an atrial shunt. - FOLLOW UP Follow Up: Disposition: Home, Self Care Condition: Good Prescriptions: Apixaban [Eliquis] 5 mg PO BID #60 tablet Furosemide 20 mg ORAL DAILY #30 tablet Metoprolol Succinate [Toprol Xl] 25 mg PO DAILY #30 tablet Spironolactone [Aldactone] 25 mg PO DAILY #30 tablet Diet: Cardiac Activity Restrictions: Activity as Tolerated Assistance Devices: Walker Additional Instructions or Follow Up instructions: You were found to have a stroke in your right brain: Your INR was too low at the time of admission, so this was the most likely cause of this stroke. Start Eliquis, STOP Warfarin (coumadin). This is to be taken twice daily. You were found to have much worse heart function than in December 2014. Stay on your medications and I have put in a recommendation for cardiac rehab. You were found to have elevated right heart pressures, so you will need further testing at the sleep lab. You were started on spironolactone and your lasix dose was lowered to half the dose. Please also STOP the potassium. New prescriptions were sent to your pharmacy for: Eliquis Spironolactone STOP: Potassium Warfarin Reduce lasix dose. Please see your PCP within one week. If you have similar symptoms, please come back to the ED. - TIME SPENT Time Spent in Discharge (Minutes): 60
[2018-01-14 12:27] VITALS: BP 150/58
[2018-01-15] MEDS ORDERED: FUROSEMIDE 20 MG TABLET PO SCH (09:00)
== END 2018-01-14 12:58 | disposition home or self-care (01) | DRG 65 ==
LOC: EDUNIT# → ED 08:57 → MS2 11:32 → OBSVTOIN 01-13 10:40
PROVIDERS: ADMIT Nurse Practitioner Gerontology; ATTEND Nurse Practitioner Gerontology
DX: G45.9 Transient cerebral ischemic attack, unspecified (principal); I63.431 Cerebral infarction due to embolism of right posterior cerebral artery; I10 Essential (primary) hypertension; G81.94 Hemiplegia, unspecified affecting left nondominant side; G47.30 Sleep apnea, unspecified; I50.20 Unspecified systolic (congestive) heart failure; I11.0 Hypertensive heart disease with heart failure; J43.9 Emphysema, unspecified; E78.5 Hyperlipidemia, unspecified; G47.33 Obstructive sleep apnea (adult) (pediatric); I25.5 Ischemic cardiomyopathy; I25.10 Atherosclerotic heart disease of native coronary artery without angina pectoris; E66.01 Morbid (severe) obesity due to excess calories; Z68.31 Body mass index [BMI] 31.0-31.9, adult; M19.90 Unspecified osteoarthritis, unspecified site; G89.29 Other chronic pain; M54.9 Dorsalgia, unspecified; Z66 Do not resuscitate; Z96.659 Presence of unspecified artificial knee joint; Z86.711 Personal history of pulmonary embolism; Z79.82 Long term (current) use of aspirin; Z79.01 Long term (current) use of anticoagulants; Z79.51 Long term (current) use of inhaled steroids; Z95.5 Presence of coronary angioplasty implant and graft
CPT/HCPCS: 36415; 70450; 70551; 71045; 80053; 80061; 81001; 81003; 83690; 83721; 83735; 84484; 85025; 85610; 85730; 87086; 93005; 93306; 93880; 94640; 99285

== ENCOUNTER 2018-01-22 13:45 | Outpatient (CLI) | payer MEDICARE, OTHER ==
[2018-01-22 19:14] LABS: CALCIUM 9.6 mg/dL (8.5-10.3); CREATININE 0.8 mg/dL (0.6-1.2)
== END 2018-01-22 13:46 | disposition home or self-care (01) ==
LOC: LAB.WCP 13:45
PROVIDERS: ATTEND Family Medicine
DX: I10 Essential (primary) hypertension (principal)
CPT/HCPCS: 36415; 80048

== ENCOUNTER 2018-03-18 09:33 | Outpatient (CLI) | payer MEDICARE, OTHER ==
[2018-03-18 12:42] LABS: BASOPHILS % (AUTO) 0.7 %; EOSINOPHILS # (AUTO) 0.2 10^3/uL (0.0-0.7); EOSINOPHILS % (AUTO) 2.6 %; HGB - HEMOGLOBIN 14.4 g/dL (14.0-18.0); LYMPHOCYTES # (AUTO) 1.7 10^3/uL (1.5-3.5); LYMPHOCYTES % (AUTO) 25.6 %; MEAN CORPUSCULAR HEMOGLOBIN 28.7 pg (27.0-31.0); MEAN CORPUSCULAR HGB CONC 33.4 g/dL (32.0-36.0); MEAN CORPUSCULAR VOLUME 85.9 fL (80.0-94.0); MEAN PLATELET VOLUME 8.1 fL (7.4-11.4); MONOCYTES # (AUTO) 0.5 10^3/uL (0.0-1.0); MONOCYTES % (AUTO) 8.2 %; NEUTROPHILS # (AUTO) 4.2 10^3/uL (1.5-6.6); NEUTROPHILS % (AUTO) 62.9 %; PLT - PLATELET COUNT 228 10^3/uL (130-450); RED BLOOD COUNT 5.02 10^6/uL (4.70-6.10); RED CELL DISTRIBUTION WIDTH 16.4 % (12.0-15.0); WHITE BLOOD COUNT 6.6 x10^3/uL (4.8-10.8)
[2018-03-18 12:44] LABS: ALBUMIN/GLOBULIN RATIO 1.2 (1.0-2.2); ALKALINE PHOSPHATASE 61 IU/L (42-121); ALT ALANINE AMINOTRANSFERASE 22 IU/L (10-60); AST ASPARTATE AMINOTRANSFERASE 26 IU/L (10-42); BILIRUBIN,TOTAL 0.6 mg/dL (0.2-1.0); BUN - BLOOD UREA NITROGEN 17 mg/dL (6-20); CALCIUM 9.9 mg/dL (8.5-10.3); CARBON DIOXIDE - CO2 27 mmol/L (21-32); CHLORIDE 102 mmol/L (101-111); CHOL/HDL RATIO 2.7 (<5.0); CHOLESTEROL 115 mg/dL; CREATININE 0.8 mg/dL (0.6-1.2); GFR - MDRD 92 (>89); GLUCOSE 121 mg/dL (70-100); HDL CHOLESTEROL 42 mg/dL; LDL CHOLESTEROL,CALCULATED 40 mg/dL; SODIUM 137 mmol/L (135-145); TOTAL PROTEIN 7.3 g/dL (6.7-8.2); VLDL CHOLESTEROL 33 mg/dL
== END 2018-03-18 23:59 | disposition home or self-care (01) ==
LOC: LAB.WCP 09:33
PROVIDERS: ATTEND Family Medicine
DX: I10 Essential (primary) hypertension (principal); I50.9 Heart failure, unspecified; E78.5 Hyperlipidemia, unspecified; I25.10 Atherosclerotic heart disease of native coronary artery without angina pectoris
CPT/HCPCS: 36415; 80053; 80061; 83721; 83880; 84443; 85025

== ENCOUNTER 2018-04-21 01:59 | Outpatient (CLI) | payer MEDICARE, OTHER | END 2018-04-21 02:00 | disposition critical access hospital (66) | LOC: EMS 01:59 | PROVIDERS: ATTEND Surgery | DX: S89.91XA Unspecified injury of right lower leg, initial encounter (principal); W19.XXXA Unspecified fall, initial encounter | CPT/HCPCS: A0425; A0429 ==

== ENCOUNTER 2018-04-21 02:19 | Emergency (ER) | payer MEDICARE, OTHER ==
--- NOTE | 2018-04-21 03:28 | XRAY Report ---
Reason: GLF/injury to R knee 2 days ago Procedure Date: 04/21/2018 Accession Number: [id number] / [id number] Procedure: XR - Knee 2 View RT CPT Code: FULL RESULT: EXAM: RIGHT KNEE RADIOGRAPHY EXAM DATE: 04/21/2018 03:20 AM. CLINICAL HISTORY: Medial right knee pain post fall. COMPARISON: KNEE 4 VIEW RT 10/16/2016 8:32 PM. TECHNIQUE: 4 views. FINDINGS: Bones and Joints: Interval revision of right knee replacement. No definite acute fracture or definitive hardware loosening. Minimal lucency around the tibial cement medially is probably within normal limits. No malalignment. Soft Tissues: Medial mild soft tissue swelling. IMPRESSION: No definite acute fracture or definitive hardware loosening. Minimal lucency around the tibial cement medially is probably within normal limits. RADIA
--- NOTE | 2018-04-21 03:42 | ED Physician Documentation ---
PD HPI LOWER EXT INJURY - Stated complaint Stated Complaint: GLF, KNEE PAIN SP FALL ON SATURDAY - Chief complaint Chief Complaint: Trauma Ext - History obtained from History obtained from: Patient - History of Present Illness PD HPI LOW EXT INJURY LOCATION: Right, Knee Type of injury: Fall, Twist Where injury occurred: Home Timing - onset: How many days ago (4) Timing - duration: Days (4) Timing - details: Abrupt onset, Still present Improved by: Rest, Immobilization Worsened by: Moving, Palpating Associated symptoms: No: Weakness, Numbness, Tingling, Swelling Contributing factors: No: Anticoagulated Similar symptoms before: Has not had sx before Recently seen: Not recently seen - Additional information Additional information: 82-year-old male who has had bilateral knee replacements over a year ago done at [facility] has had medial knee pain and he went to stand up in the bathroom and his leg gave out on him and twisted. He now has pain on the medial aspect of his right knee. He is able to bear some weight but feels the knee is unstable. He has had some relief of his pain with the use of oral Vicodin. He is not able to participate in physical therapy secondary to the instability of his knee. Review of Systems Constitutional: denies: Fever Respiratory: denies: Cough GI: denies: Vomiting, Diarrhea : denies: Dysuria Musculoskeletal: reports: Extremity pain, Joint pain, Pain with weight bearing. denies: Neck pain, Back pain Neurologic: denies: Generalized weakness, Focal weakness, Numbness PD PAST MEDICAL HISTORY - Past Medical History Past Medical History: Yes Cardiovascular: Coronary artery disease Respiratory: Sleep apnea, CPAP use Neuro: CVA Endocrine/Autoimmune: None GI: Diverticulitis : None Psych: None Musculoskeletal: Osteoarthritis, Chronic back pain Derm: None Other Past Medical History: Unable to verify meds profile. Pt. states, "I don't know. My daughter & my son @ home do not knw my med lists." - Past Surgical History Past Surgical History: Yes General: Bowel surgery Ortho: Knee replacement, Spine surgery Cardiovascular: Coronary stent - Present Medications Home Medications: Ambulatory Orders Medication Instructions Recorded Confirmed Omeprazole [PriLOSEC] 20 mg PO BID 08/01/12 04/11/18 Losartan [Cozaar] 50 mg PO DAILY 09/02/14 04/11/18 Aspirin [Aspirin EC] 81 mg PO DAILY 12/20/14 04/11/18 Cholecalciferol (Vitamin D3) 5,000 units PO DAILY 02/21/16 04/11/18 [Vitamin D3] Albuterol Sulfate [Proair Hfa 2 puffs INH Q4H PRN 08/23/17 04/11/18 Inhaler] Tiotropium [place] [Spiriva] 1 inh IH DAILY 08/23/17 04/11/18 Darifenacin Hydrobromide 7.5 mg PO DAILY 01/12/18 04/11/18 [Darifenacin ER] Diclofenac Sodium [Voltaren] 2 - 4 gm TOP QID PRN 01/12/18 04/11/18 Acetaminophen [Tylenol] 650 mg PO Q4HR PRN tablet 01/14/18 04/11/18 Apixaban [Eliquis] 5 mg PO BID #60 tablet 01/14/18 04/11/18 Atorvastatin [Lipitor] 40 mg PO DAILY #30 tablet 01/14/18 04/11/18 Furosemide 20 mg ORAL DAILY #30 tablet 01/14/18 04/11/18 Metoprolol Succinate [Toprol Xl] 25 mg PO DAILY #30 tablet 01/14/18 04/11/18 Spironolactone [Aldactone] 25 mg PO DAILY #30 tablet 01/14/18 04/11/18 Hydrocodone/Acetaminophen 1 - 2 each PO Q6H PRN #14 tablet 04/21/18 [Hydrocodon-Acetaminophen 5-325] - Allergies Allergies/Adverse Reactions: Allergies Allergy/AdvReac Type Severity Reaction Status Date / Time Influenza Virus Vaccines Allergy Rash Verified 04/21/18 02:33 - Social History Does the pt smoke?: No Smoking Status: Never smoker Does the pt drink ETOH?: Yes Does the pt have substance abuse?: No - Immunizations Immunizations are current?: Yes Immunizations: TDAP >10years/unknown - POLST Patient has POLST: No POLST Status: DNR PD ED PE NORMAL - Vitals Vital signs reviewed: Yes (normal ) - General General: Alert and oriented X 3, No acute distress, Well developed/nourished - HEENT HEENT: Atraumatic, PERRL, EOMI, Other (dry mucous membranes ) - Respiratory Respiratory: No respiratory distress - Derm Derm: Normal color, Warm and dry, No rash - Extremities Extremities: Other (There are well healed surgical scars to both knees and the right knee has pain over the medial joint line and pain with forces opening the joint line. The distal n/v is intact. The LCL appears stable to testing ) - Neuro Neuro: Alert and oriented X 3, ham pumper 2-12 intact, No motor deficit, No sensory deficit, Normal speech Eye Opening: Spontaneous Motor: Obeys Commands Verbal: Oriented GCS Score: 15 - Psych Psych: Normal mood, Normal affect Results - Vitals Vitals: Vital Signs - 24 hr 04/21/18 02:25 Temperature 36.1 C L Heart Rate 73 Respiratory 18 Rate Blood Pressure 120/71 O2 Saturation 93 Oxygen O2 Source Room air - Rads (name of study) knee R Radiology: Prelim report reviewed (Impression: No definite acute fracture or definite hardware loosening. Minimal lucency around the tibial cement medially is probably within normal limits.), EMP read indepedently, See rad report PD MEDICAL DECISION MAKING - ED course Complexity details: reviewed old records, reviewed results, re-evaluated patient, considered differential, d/w patient ED course: 82-year-old male with bilateral knee replacements appears to have a sprain of the right medial collateral ligaments and he is placed into a knee immobilizer. He does have some pain medicine at home for use tonight and will provide him with a short supply. I have asked patient to follow-up with orthopedics. Departure - Departure Disposition: 01 Home, Self Care Clinical Impression: Sprain of collateral ligament of right knee Qualifiers: Encounter type: initial encounter Qualified Code(s): S83.401A - Sprain of unspecified collateral ligament of right knee, initial encounter Condition: Stable Instructions: ED Sprain Knee Collateral Ligaments Follow-Up: Yancy Clifton MD [Primary Care Provider] - [facility] [Provider Group] Prescriptions: Hydrocodone/Acetaminophen [Hydrocodon-Acetaminophen 5-325] 1 - 2 each PO Q6H PRN #14 tablet PRN Reason: pain
[2018-04-21 04:40] VITALS: BP 134/67
== END 2018-04-21 04:15 | disposition home or self-care (01) ==
LOC: EDUNIT# → ED 02:19
DX: S83.401A Sprain of unspecified collateral ligament of right knee, initial encounter (principal); X50.1XXA Overexertion from prolonged static or awkward postures, initial encounter; W18.30XA Fall on same level, unspecified, initial encounter; Y92.009 Unspecified place in unspecified non-institutional (private) residence as the place of occurrence of the external cause; I25.10 Atherosclerotic heart disease of native coronary artery without angina pectoris; Z95.5 Presence of coronary angioplasty implant and graft; Z96.653 Presence of artificial knee joint, bilateral; Z79.82 Long term (current) use of aspirin
CPT/HCPCS: 99283; 99284

== ENCOUNTER 2018-07-02 22:00 | Outpatient (CLI) | payer MEDICARE, OTHER | END 2018-07-02 22:01 | disposition critical access hospital (66) | LOC: EMS 22:00 | PROVIDERS: ATTEND Surgery | DX: T14.90XA Injury, unspecified, initial encounter (principal); W18.30XA Fall on same level, unspecified, initial encounter; W18.39XA Other fall on same level, initial encounter; W21.89XA Striking against or struck by other sports equipment, initial encounter; Y93.89 Activity, other specified; Y92.009 Unspecified place in unspecified non-institutional (private) residence as the place of occurrence of the external cause | CPT/HCPCS: A0425; A0429 ==

== ENCOUNTER 2018-07-02 22:21 | Observation (INO) | payer MEDICARE, OTHER ==
--- NOTE | 2018-07-02 22:53 | ED Physician Documentation ---
PD HPI Fall - Stated complaint Stated Complaint: FELL - Chief complaint Chief Complaint: Trauma Ch/Bk - History obtained from History obtained from: Patient, Family - History of Present Illness Mechanism of injury: Lost balance Fall distance: Standing position Where injury occurred: Home Timing - onset: How many minutes ago (approximately 20-30 minutes [employer]) Injury(ies) location: Chest, Back Pain level max: 10 Pain level now: 10 Quality of pain: Pain Associated symptoms: No: LOC, AMS, Amnesia, Neck pain, Weakness Symptoms improve with: Rest, Position Worsens with: Movement, Palpation Contributing factors: Anticoagulated. No: Intoxicated Similar symptoms before: Has not had sx before Recently seen: Clinic (seen by PMD yesterday; patient says there were some medication changes but he does not know what was chagned nor does he know what medications he is on . He refers me to a list that is at the bedside but late in ED stay, he indicates this is his old list and that the updated list was entered into computer at PMD's office) - Additional information Additional information: while lifting his wheelchair up a stair at home tonight, patient lost his balance and fell backwards, striking an exercise bicycle. he c/o left rib pain that radiates to his back. Review of Systems Eyes: reports: Reviewed and negative Cardiac: reports: Chest pain / pressure (left chest wall pain). denies: Palpitations, Pedal edema, Calf pain Respiratory: reports: Reviewed and negative GI: reports: Reviewed and negative : reports: Incontinent. denies: Dysuria, Frequency Skin: reports: Reviewed and negative Musculoskeletal: reports: Back pain. denies: Neck pain, Extremity pain, Joint pain Neurologic: denies: Generalized weakness, Focal weakness, Numbness, Headache, Head injury, LOC PD PAST MEDICAL HISTORY - Past Medical History Cardiovascular: Coronary artery disease Respiratory: Sleep apnea, CPAP use Neuro: CVA Endocrine/Autoimmune: None GI: Diverticulitis : None Psych: None Musculoskeletal: Osteoarthritis, Chronic back pain Derm: None - Past Surgical History Past Surgical History: Yes General: Bowel surgery Ortho: Knee replacement, Spine surgery Cardiovascular: Coronary stent - Present Medications Home Medications: Ambulatory Orders Medication Instructions Recorded Confirmed Omeprazole [PriLOSEC] 20 mg PO BID 08/01/12 04/11/18 Losartan [Cozaar] 50 mg PO DAILY 09/02/14 04/11/18 Aspirin [Aspirin EC] 81 mg PO DAILY 12/20/14 04/11/18 Cholecalciferol (Vitamin D3) 5,000 units PO DAILY 02/21/16 04/11/18 [Vitamin D3] Albuterol Sulfate [Proair Hfa 2 puffs INH Q4H PRN 08/23/17 04/11/18 Inhaler] Tiotropium [place] [Spiriva] 1 inh IH DAILY 08/23/17 04/11/18 Darifenacin Hydrobromide 7.5 mg PO DAILY 01/12/18 04/11/18 [Darifenacin ER] Diclofenac Sodium [Voltaren] 2 - 4 gm TOP QID PRN 01/12/18 04/11/18 Acetaminophen [Tylenol] 650 mg PO Q4HR PRN tablet 01/14/18 04/11/18 Apixaban [Eliquis] 5 mg PO BID #60 tablet 01/14/18 04/11/18 Atorvastatin [Lipitor] 40 mg PO DAILY #30 tablet 01/14/18 04/11/18 Furosemide 20 mg ORAL DAILY #30 tablet 01/14/18 04/11/18 Metoprolol Succinate [Toprol Xl] 25 mg PO DAILY #30 tablet 01/14/18 04/11/18 Spironolactone [Aldactone] 25 mg PO DAILY #30 tablet 01/14/18 04/11/18 Hydrocodone/Acetaminophen 1 - 2 each PO Q6H PRN #14 tablet 04/21/18 [Hydrocodon-Acetaminophen 5-325] - Allergies Allergies/Adverse Reactions: Allergies Allergy/AdvReac Type Severity Reaction Status Date / Time Influenza Virus Vaccines Allergy Rash Verified 04/21/18 02:33 bacitracin AdvReac Rash Verified 07/02/18 22:27 neomycin AdvReac Rash Verified 07/02/18 22:27 polymyxin B AdvReac Rash Verified 07/02/18 22:27 - Social History Does the pt smoke?: No Smoking Status: Never smoker Does the pt drink ETOH?: Yes Does the pt have substance abuse?: No - Immunizations Immunizations are current?: Yes Immunizations: TDAP >10years/unknown - POLST Patient has POLST: No POLST Status: DNR PD ED PE NORMAL - Vitals Vital signs reviewed: Yes - General General: Alert and oriented X 3, Well developed/nourished, Other (appears to be in obvious painful distress that is worse with most any movement involving his back (does not appear to worsen when he moves any of his extremities)) - HEENT HEENT: Atraumatic, PERRL, EOMI, Other (right parietal scalp ulceration with dressing and packing (not new; had skin biopsy recently)) - Neck Neck: Supple, no meningeal sign, No bony TTP - Cardiac Cardiac: RRR, No murmur - Respiratory Respiratory: No respiratory distress, Clear bilaterally - Abdomen Abdomen: Soft, Non distended, Other (mild/moderate tenderness upper abdomen and periumbilical area; he indicates this mostly causes worsening pain in left chest and mid/lower back) - Derm Derm: Normal color, Warm and dry - Extremities Extremities: No deformity, No tenderness to palpate, Normal ROM s pain, No edema, No calf tenderness / cord - Neuro Neuro: Alert and oriented X 3, housekeeping lead 2-12 intact, No motor deficit, No sensory deficit, Normal speech Eye Opening: Spontaneous Motor: Obeys Commands Verbal: Oriented GCS Score: 15 PD ED PE EXPANDED - Free text exam Free text exam: tender to palpation left chest wall (predominantly anterolateral) Results - Vitals Vitals: Vital Signs - 24 hr 07/02/18 07/02/18 07/03/18 22:28 22:34 00:45 Temperature 36.4 C L 36.4 C L Heart Rate 98 98 89 Respiratory 18 18 18 Rate Blood Pressure 210/84 H 210/84 H 156/92 H O2 Saturation 98 98 93 07/03/18 07/03/18 07/03/18 00:52 01:09 01:40 Temperature Heart Rate 96 96 98 Respiratory 24 19 26 H Rate Blood Pressure 190/96 H O2 Saturation 96 96 95 07/03/18 07/03/18 01:50 03:00 Temperature Heart Rate 97 Respiratory 19 Rate Blood Pressure 168/88 H O2 Saturation 95 96 Oxygen O2 Source Simple Mask Oxygen Flow Rate 5 - Labs Labs: Laboratory Tests 07/02/18 07/02/18 07/02/18 22:30 23:18 23:18 WBC 8.1 RBC 5.29 Hgb 15.4 Hct 46.7 MCV 88.2 MCH 29.0 MCHC 32.9 RDW 15.5 H Plt Count 235 MPV 7.8 Neut # (Auto) 6.1 Lymph # (Auto) 1.2 L [place] # (Auto) 0.6 Eos # (Auto) 0.1 Baso # (Auto) 0.1 Absolute Nucleated RBC 0.00 Nucleated RBC % 0.0 PT 12.8 H INR 1.1 APTT 27.3 Sodium Potassium Chloride Carbon Dioxide Anion Gap BUN Creatinine Estimated GFR (MDRD) Glucose POC Whole Bld Glucose 106 H Calcium Total Bilirubin AST ALT Alkaline Phosphatase Total Protein Albumin Globulin Albumin/Globulin Ratio Lipase Urine Color Urine Clarity Urine pH Ur Specific [place] Urine Protein Urine Glucose (UA) Urine Ketones Urine Occult Blood Urine Nitrite Urine Bilirubin Urine Urobilinogen Ur Leukocyte Esterase Ur Microscopic Review Urine Culture Comments 07/02/18 07/03/18 23:18 02:30 WBC RBC Hgb Hct MCV MCH MCHC RDW Plt Count MPV Neut # (Auto) Lymph # (Auto) [place] # (Auto) Eos # (Auto) Baso # (Auto) Absolute Nucleated RBC Nucleated RBC % PT INR APTT Sodium 136 Potassium 3.5 Chloride 98 L Carbon Dioxide 24 Anion Gap 14.0 H BUN 10 Creatinine 0.9 Estimated GFR (MDRD) 80 L Glucose 134 H POC Whole Bld Glucose Calcium 9.9 Total Bilirubin 1.0 AST 28 ALT 27 Alkaline Phosphatase 60 Total Protein 8.4 H Albumin 4.4 Globulin 4.0 Albumin/Globulin Ratio 1.1 Lipase 21 L Urine Color YELLOW Urine Clarity CLEAR Urine pH 5.5 Ur Specific [place] <=1.005 Urine Protein TRACE Urine Glucose (UA) NEGATIVE Urine Ketones NEGATIVE Urine Occult Blood NEGATIVE Urine Nitrite NEGATIVE Urine Bilirubin NEGATIVE Urine Urobilinogen 0.2 (NORMAL) Ur Leukocyte Esterase NEGATIVE Ur Microscopic Review NOT INDICATED Urine Culture Comments NOT INDICATED - Rads (name of study) CT head Radiology: Prelim report reviewed, See rad report CT cervical spine Radiology: Prelim report reviewed, See rad report CT chest Radiology: Prelim report reviewed, See rad report CT A/P Radiology: Prelim report reviewed, See rad report PD MEDICAL DECISION MAKING - ED course Complexity details: reviewed results, re-evaluated patient, considered differential, d/w patient, d/w family ED course: patient and family state patient takes a "blood thinner". The bedside list indicates warfarin; patient cannot confirm this, repeatedly tells me "whatever's on the list". INR is 1.1. Late in ED stay, patient tells me the list at the bedside is NOT updated, and that he was referring to a list that was entered (updated) into his PMD's computer yesterday and which patient assumed would then be available on my system ([facility]). I do note that [facility] lists Eliquis amongst patient's medications; when I mention this medication to him, he again says he cannot remember which medications he takes. He was more comfortable with repeated doses of morphine, but would have severe left chest wall pain with nearly any movement of back/trunk; we were unable to get him sitting up in bed due to pain, and he often had sudden waves of [id number] pain even when lying still. This pain correlates with the findings of [address] chest. He will need admission until his pain is better controlled when he can then be transitioned to PO medications Departure - Departure Disposition: ED Place in Observation Clinical Impression: Fall, Ribs, multiple fractures Condition: Stable Discharge Date/Time: 07/03/18 04:00
[2018-07-02] MEDS ORDERED: MORPHINE 2 MG/ML SYRINGE IVP STA (23:16)
[2018-07-02 23:29] LABS: BASOPHILS # (AUTO) 0.1 10^3/uL (0.0-0.1); EOSINOPHILS # (AUTO) 0.1 10^3/uL (0.0-0.7); EOSINOPHILS % (AUTO) 1.6 %; HGB - HEMOGLOBIN 15.4 g/dL (14.0-18.0); LYMPHOCYTES # (AUTO) 1.2 10^3/uL (1.5-3.5); LYMPHOCYTES % (AUTO) 14.8 %; MEAN CORPUSCULAR HGB CONC 32.9 g/dL (32.0-36.0); MEAN CORPUSCULAR VOLUME 88.2 fL (80.0-94.0); MEAN PLATELET VOLUME 7.8 fL (7.4-11.4); MONOCYTES # (AUTO) 0.6 10^3/uL (0.0-1.0); MONOCYTES % (AUTO) 7.2 %; NEUTROPHILS # (AUTO) 6.1 10^3/uL (1.5-6.6); NEUTROPHILS % (AUTO) 75.4 %; PLT - PLATELET COUNT 235 10^3/uL (130-450); RED BLOOD COUNT 5.29 10^6/uL (4.70-6.10); RED CELL DISTRIBUTION WIDTH 15.5 % (12.0-15.0); WHITE BLOOD COUNT 8.1 x10^3/uL (4.8-10.8)
[2018-07-02 23:41] LABS: ALBUMIN 4.4 g/dL (3.2-5.5); ALBUMIN/GLOBULIN RATIO 1.1 (1.0-2.2); CALCIUM 9.9 mg/dL (8.5-10.3); CREATININE 0.9 mg/dL (0.6-1.2); TOTAL PROTEIN 8.4 g/dL (6.7-8.2)
[2018-07-02 23:47] LABS: INR 1.1 (0.8-1.2); PT - PROTHROMBIN TIME 12.8 secs (9.9-12.6)
[2018-07-02] MEDS ORDERED: IOVERSOL 320 100 ML VIAL IVP ONE (23:47)
[2018-07-02 23:54] LABS: PARTIAL THROMBOPLASTIN TIME 27.3 secs (24.9-33.3)
[2018-07-03] MEDS ORDERED: IOVERSOL 320 100 ML VIAL IVP ONE (00:31)
--- NOTE | 2018-07-03 01:27 | CT Report ---
Reason: fall, chest and back pain Procedure Date: 07/03/2018 Accession Number: [id number] / [id number] Procedure: CT - CHEST W CPT Code: FULL RESULT: EXAM: CT CHEST EXAM DATE: 07/03/2018 12:32 AM. CLINICAL HISTORY: Fall. Pain after injury. COMPARISONS: 10/03/2017. TECHNIQUE: Routine helical CT imaging was performed through the chest. IV contrast: Nonionic. Reconstructions: Coronal and sagittal. In accordance with CT protocol optimization, one or more of the following dose reduction techniques were utilized for this exam: automated exposure control, adjustment of mA and/or KV based on patient size, or use of iterative reconstructive technique. FINDINGS: Lungs/Pleura: Emphysema. Possible pulmonary vascular congestion. There may be some interstitial fibrosis. Mild superimposed atelectasis, infiltrate, or edema. No pleural effusion. No pneumothorax. Mediastinum: Heart size normal to upper normal. Coronary artery calcifications. No lymphadenopathy. No mediastinal hematoma. Moderate atherosclerosis. No aneurysm or dissection seen. Bones: Osteopenia. Degenerative changes in the shoulders and spine. Old right rib fractures. Subtle nondisplaced fractures of the left eighth, ninth, and 10th ribs. Visualized Abdomen: See separate abdomen and pelvis CT report. Other: None. IMPRESSION: 1. Emphysema with probable interstitial fibrosis and mild superimposed atelectasis, infiltrate, or edema. 2. Coronary artery calcifications. 3. Subtle nondisplaced left eighth through 10th rib fractures. RADIA
--- NOTE | 2018-07-03 01:32 | CT Report ---
Reason: fall, abd./back pain Procedure Date: 07/03/2018 Accession Number: [id number] / [id number] Procedure: CT - Abdomen/Pelvis W CPT Code: FULL RESULT: EXAM: CT ABDOMEN AND PELVIS EXAM DATE: 07/03/2018 12:32 AM. CLINICAL HISTORY: Fall, abdominal/back pain. COMPARISONS: 07/25/2016. TECHNIQUE: Routine helical CT imaging was performed through the abdomen and pelvis. IV contrast: 100ML OPTIRAY 320. Enteric contrast: No. Reconstructions: Coronal and sagittal. In accordance with CT protocol optimization, one or more of the following dose reduction techniques were utilized for this exam: automated exposure control, adjustment of mA and/or KV based on patient size, or use of iterative reconstructive technique. FINDINGS: Lung Bases: See separate chest CT report. Liver: Possible fatty infiltration. Gallbladder/Bile Ducts: Small calcified stones in the gallbladder. No obvious cholecystitis. Spleen: Normal. Pancreas: Moderate fatty replacement. Adrenal Glands: Normal. Kidneys: Small bilateral cysts. No masses or hydronephrosis. Peritoneal Cavity/Bowel: Anastomosis in the sigmoid colon. Colonic diverticula. No diverticulitis identified. No bowel obstruction. No acute bowel injury. No free air or free fluid. No lymphadenopathy. Appendix appears normal. Pelvic Organs: Normal. The bladder and visualized pelvic organs are within normal limits. Vasculature: Moderate atherosclerosis. No aortic aneurysm. Bones: Osteopenia. Subtle nondisplaced fractures in the left eighth through 10th ribs. Degenerative changes in the spine with spinal stenosis. Other: None. IMPRESSION: 1. Possible fatty liver. 2. Cholelithiasis with no definite cholecystitis. 3. Colonic diverticulosis. No diverticulitis identified. 4. Nondisplaced left eighth through 10th rib fractures. 5. Degenerative changes in the spine with spinal stenosis. RADIA
[2018-07-03] MEDS ORDERED: MORPHINE 2 MG/ML SYRINGE IVP STA ×2 (01:41→03:07)
--- NOTE | 2018-07-03 02:30 | CT Report ---
Reason: fall, on warfarin Procedure Date: 07/03/2018 Accession Number: [id number] / [id number] Procedure: CT - HEAD WO CPT Code: FULL RESULT: EXAM: CT HEAD EXAM DATE: 07/03/2018. CLINICAL HISTORY: Fall, on warfarin. COMPARISON: CG 01/12/2018. TECHNIQUE: Multiaxial CT images were obtained from the foramen magnum to the vertex. Reformats: Sagittal and coronal. IV contrast: None. In accordance with CT protocol optimization, one or more of the following dose reduction techniques were utilized for this exam: automated exposure control, adjustment of mA and/or KV based on patient size, or use of iterative reconstructive technique. FINDINGS: Parenchyma: No intraparenchymal hemorrhage. No evidence of mass, midline shift, or CT findings of acute infarction. Herrera-white differentiation is distinct. Diffuse chronic microangiopathic white matter changes are evident. Extraaxial Spaces: Normal for age. No subdural or epidural collections identified. Ventricles: The ventricles and cortical sulci are enlarged, consistent with age-related tissue loss. Sinuses and orbits: Imaged paranasal sinuses, orbits, and mastoids show no significant abnormality. Bones: No evidence of fracture or calvarial defect. Other: There are prominent vascular calcifications. There is an apparent high right posterior frontal scalp laceration. IMPRESSION: Generalized age-related cortical atrophic changes without evidence of acute intracranial abnormality. RADIA
--- NOTE | 2018-07-03 02:34 | CT Report ---
Reason: fall, neck pain Procedure Date: 07/03/2018 Accession Number: [id number] / [id number] Procedure: CT - CERVICAL SPINE WO CPT Code: FULL RESULT: EXAM: CT CERVICAL SPINE WITHOUT CONTRAST DATE: 07/03/2018 12:45 AM. HISTORY: Fall, neck pain. COMPARISONS: CERVICAL SPINE W/O 05/31/2017 12:50 PM. TECHNIQUE: Thin-section axial images were acquired of the cervical spine without contrast. Post-processing: Coronal and sagittal reformats. Other: None. In accordance with CT protocol optimization, one or more of the following dose reduction techniques were utilized for this exam: automated exposure control, adjustment of mA and/or KV based on patient size, or use of iterative reconstructive technique. FINDINGS: Alignment: No scoliosis or spondylolisthesis. Bones: No fracture or bone lesion. Interspace Levels/Facets: C1-C2: Unremarkable. C2-C3: Mild left and moderate right facet hypertrophy. Moderate right neural foraminal narrowing. C3-C4: Moderate left facet hypertrophy. Moderate left neural foraminal narrowing. C4-C5: Unremarkable. C5-C6: Disk osteophyte complex with mild central canal narrowing. Mild right neural foraminal narrowing. C6-C7: Disk height loss and disk osteophyte complex with moderate central canal narrowing. Mild bilateral neural foraminal narrowing. C7-T1: Unremarkable. Musculature: Normal. No fatty atrophy. Other: The paravertebral and prevertebral soft tissues are unremarkable. The lung apices are clear. IMPRESSION: No evidence of cervical spine fracture. RADIA
[2018-07-03 02:52] LABS: BILIRUBIN,URINE NEGATIVE (NEGATIVE); GLUCOSE, URINE (UA) NEGATIVE (NEGATIVE); KETONES,URINE (UA) NEGATIVE (NEGATIVE); LEUKOCYTE ESTERASE, URINE NEGATIVE (NEGATIVE); NITRITE,URINE NEGATIVE (NEGATIVE); OCCULT BLOOD,URINE NEGATIVE (NEGATIVE); PH,URINE 5.5 PH (5.0-7.5); PROTEIN,URINE TRACE mg/dL (NEGATIVE); UROBILINOGEN,URINE 0.2 (NORMAL) E.U./dL (NORMAL)
[2018-07-03 02:54] LABS: CLARITY,URINE CLEAR (CLEAR)
[2018-07-03] MEDS ORDERED: HYDROcod/ACETAM 5/325 MG TABLET PO PRN (03:37)
[2018-07-03] MEDS ORDERED: SODIUM CHLORIDE FLUSH 0.9% 10 ML SYRINGE IVP PRN (03:37)
--- NOTE | 2018-07-03 05:38 | HISTORY & PHYSICAL EXAMINATION ---
Chief Complaint - Chief Complaint Chief Complaint: mechanical fall History of Present Illness - Admitted From Admitted From:: [facility] ED - History Obtained From Records Reviewed: yes History obtained from: patient - History of Present Illness HPI Comment/Other: Patient seen on 07/03/18 at 05:00am Patient is an 82 y/o male who presented to the ED via EMS after a mechanical fall. He tried to lift his wheelchair 1 step unto another level in his house when he lost his balance and fell unto an exercise bike that was next to him, hitting his left side. He did not hit his head or black out. He sustained a couple of skin tears on his hand. He denies chest pain, MANISH abd pain, nausea, vomiting, fever or chills. However he would occassionaly shout out in pain due to spasms. Work up included CT of the head, chest, abdomen, pelvis and spine. They were unremarkable except to subtle left 8-10 rib fractures. It is reported that he is on an anticoagulant. It is not clear whether it is coumadin or eliquis. His INR is 1.1 Due to severe pain, he is being admitted for better pain control History - Past Medical History Cardiovascular: reports: Coronary artery disease Respiratory: reports: Sleep apnea, CPAP use Neuro: reports: CVA Endocrine/Autoimmune: reports: None GI: reports: Diverticulitis : reports: None Psych: reports: None Musculoskeletal: reports: Osteoarthritis, Chronic back pain Derm: reports: None MRSA Hx?: No - Past Surgical History General: reports: Bowel surgery Ortho: reports: Knee replacement, Spine surgery Cardiovascular: reports: Coronary stent Derm: reports: Skin cancer surgery - Family & Social History Family History: Mother: , Father: Family History Comment/Other: Patient's mother of pneumonia when he was 14. Patient's father of cancer at age 83. Patient was an only child, no known history of heart disease, COPD, or diabetes in the family. Living arrangement: At home Living Situation: With family Social History Notes: The patient describes himself as a "moderate" drinker. No tobacco or illicit drug use - Substance History Use: Uses substance without health or social issues: Alcohol - POLST Patient has POLST: No POLST Status: DNR Meds/Allgy - Home Medications Home Medications: Ambulatory Orders Medication Instructions Recorded Confirmed Omeprazole [PriLOSEC] 20 mg PO BID 08/01/12 04/11/18 Losartan [Cozaar] 50 mg PO DAILY 09/02/14 04/11/18 Aspirin [Aspirin EC] 81 mg PO DAILY 12/20/14 04/11/18 Cholecalciferol (Vitamin D3) 5,000 units PO DAILY 02/21/16 04/11/18 [Vitamin D3] Albuterol Sulfate [Proair Hfa 2 puffs INH Q4H PRN 08/23/17 04/11/18 Inhaler] Tiotropium [place] [Spiriva] 1 inh IH DAILY 08/23/17 04/11/18 Darifenacin Hydrobromide 7.5 mg PO DAILY 01/12/18 04/11/18 [Darifenacin ER] Diclofenac Sodium [Voltaren] 2 - 4 gm TOP QID PRN 01/12/18 04/11/18 Acetaminophen [Tylenol] 650 mg PO Q4HR PRN tablet 01/14/18 04/11/18 Apixaban [Eliquis] 5 mg PO BID #60 tablet 01/14/18 04/11/18 Atorvastatin [Lipitor] 40 mg PO DAILY #30 tablet 01/14/18 04/11/18 Furosemide 20 mg ORAL DAILY #30 tablet 01/14/18 04/11/18 Metoprolol Succinate [Toprol Xl] 25 mg PO DAILY #30 tablet 01/14/18 04/11/18 Spironolactone [Aldactone] 25 mg PO DAILY #30 tablet 01/14/18 04/11/18 Hydrocodone/Acetaminophen 1 - 2 each PO Q6H PRN #14 tablet 04/21/18 [Hydrocodon-Acetaminophen 5-325] - Allergies Allergies/Adverse Reactions: Allergies Allergy/AdvReac Type Severity Reaction Status Date / Time Influenza Virus Vaccines Allergy Rash Verified 04/21/18 02:33 bacitracin AdvReac Rash Verified 07/02/18 22:27 neomycin AdvReac Rash Verified 07/02/18 22:27 polymyxin B AdvReac Rash Verified 07/02/18 22:27 Review of Systems - Constitutional Constitutional: denies: Fever, Chills, Malaise, Weakness - Eyes Eyes: denies: Blurred vision, Vision loss, Dipolpia - Ears, Nose & Throat Ears, Nose & Throat: denies: Nasal pain, Nasal discharge, Sore throat, Hoarseness - Cardiovascular Cariovascular: denies: Irregular heart rate, Palpitations, Chest pain, Edema, Lightheadedness, Syncope - Respiratory Respiratory: reports: Pleuritic pain. denies: Cough, Sputum production, Wheezing, Snoring, Orthopnea, SOB at rest, SOB with exertion - Gastrointestinal Gastrointestinal: denies: Abdominal pain, Abdominal distention, Constipation, Diarrhea, Nausea, Vomiting - Genitourinary Genitourinary: denies: Dysuria, Frequency, Urgency, Hematuria - Musculoskeletal Musculoskeletal: reports: Other (left ribs pain) - Integumentary Integumentary: denies: Rash, Pruritis, Lesions, Dryness - Neurological Neurological: denies: General weakness, Focal weakness, Headache, Dizziness - Psychiatric Psychiatric: denies: Depression, Anxiety - Endocrine Endocrine: denies: Polyuria, Polydypsia - Hematologic/Lymphatic Hematologic/Lymphatic: reports: Bruising Prior Level of Functionality: Patient lives with his son and [id number]. Exam - Vital Signs Vital Signs: Vital Signs x48h Temp Pulse Pulse Resp BP BP Pulse Ox 07/03/18 04:34 36.3 C L 96 20 152/83 H 94 07/03/18 03:58 36.5 C 98 16 169/96 H 20 L 07/03/18 03:00 96 07/03/18 01:50 97 19 168/88 H 95 07/03/18 01:40 98 26 H 95 07/03/18 01:09 96 19 190/96 H 96 07/03/18 00:52 96 24 96 07/03/18 00:45 89 18 156/92 H 93 07/02/18 22:34 36.4 C L 98 18 210/84 H 98 07/02/18 22:28 36.4 C L 98 18 210/84 H 98 - Physical Exam General Appearance: positive: Alert, Severe distress Eyes Bilateral: positive: Normal inspection, PERRL, EOMI ENT: positive: ENT inspection nml, No signs of dehydration Neck: positive: Nml inspection, No JVD, Trachea midline Respiratory: positive: Chest non-tender. negative: Wheezes, Rales, Rhonchi Cardiovascular: positive: Tachycardia, Systolic murmur Abdomen: positive: Non-tender, Nml bowel sounds, No distention. negative: Guarding, Rebound Back: positive: Nml inspection, Other (left ribs/side pain) Skin: positive: Color nml, Warm, Dry Extremities: positive: Non-tender, Nml appearance, No pedal edema Neurologic/Psychiatric: positive: Oriented x3 Conclusion/Plan - Problem List (1) Ribs, multiple fractures Conclusion/Plan: Left ribs 8-10 s/p mechanical fall Pain management with morphine and/or norco Encouraged and educated on Incentive Spirometer use Qualifiers: Encounter type: initial encounter Fracture type: closed Laterality: left Qualified Code(s): S22.42XA - Multiple fractures of ribs, left side, initial encounter for closed fracture (2) Emphysema lung Conclusion/Plan: At baseline Will order duonebs On Oxygen via nasal canula Qualifiers: Emphysema type: unspecified Qualified Code(s): J43.9 - Emphysema, unspecified (3) History of pulmonary embolus (PE) Conclusion/Plan: Anticoagulant is yet to be verified Patient reports seeing PCP yesterday and medication list updated INR is 1.1. Please resume once verified (4) HTN (hypertension) Conclusion/Plan: On losartan and metoprolol (5) HLD (hyperlipidemia) Conclusion/Plan: On atorvastatin (6) History of congestive heart failure Conclusion/Plan: On spironolactone, lasix metoprolol and losartan. Resume when verified (7) Gastroesophageal reflux disease Conclusion/Plan: Protonix ordered (8) Coronary artery disease Conclusion/Plan: On aspirin, metoprolol (9) THOMAS on CPAP Conclusion/Plan: [facility] - Lab Results Fish Bones: 07/02/18 23:18 07/02/18 23:18 Core Measures - Anticipated LOS I expect patient to be DC'd or transferred within 96 hours.: Yes - DVT/VTE - Prophylaxis VTE/DVT Device ordered at admit?: Yes VTE/DVT Prophylaxis med ordered at admit?: Yes
[2018-07-03 05:49] LABS: BASOPHILS % (AUTO) 0.6 %; EOSINOPHILS % (AUTO) 0.5 %; HGB - HEMOGLOBIN 14.4 g/dL (14.0-18.0); LYMPHOCYTES % (AUTO) 12.3 %; MEAN CORPUSCULAR HEMOGLOBIN 29.2 pg (27.0-31.0); MEAN CORPUSCULAR HGB CONC 32.7 g/dL (32.0-36.0); MEAN CORPUSCULAR VOLUME 89.3 fL (80.0-94.0); MEAN PLATELET VOLUME 7.9 fL (7.4-11.4); MONOCYTES # (AUTO) 0.6 10^3/uL (0.0-1.0); MONOCYTES % (AUTO) 7.2 %; NEUTROPHILS # (AUTO) 6.4 10^3/uL (1.5-6.6); NEUTROPHILS % (AUTO) 79.4 %; PLT - PLATELET COUNT 203 10^3/uL (130-450); RED BLOOD COUNT 4.94 10^6/uL (4.70-6.10); WHITE BLOOD COUNT 8.1 x10^3/uL (4.8-10.8)
[2018-07-03 05:59] LABS: CALCIUM 9.4 mg/dL (8.5-10.3); CREATININE 0.8 mg/dL (0.6-1.2)
[2018-07-03] MEDS ORDERED: IPRATROPIUM/ALBUTEROL 3 ML NEB INH PRN (06:21)
[2018-07-03] MEDS: MORPHINE 2 MG/ML SYRINGE IVP PRN ×2 (06:22→09:21)
[2018-07-03] MEDS ORDERED: PANTOPRAZOLE 40 MG TABLET PO SCH (07:00)
[2018-07-03] MEDS ORDERED: SODIUM CHLORIDE FLUSH 0.9% 10 ML SYRINGE IVP SCH (09:00)
[2018-07-03] MEDS ORDERED: BACLOFEN 10 MG TABLET PO SCH (09:00)
[2018-07-03] MEDS ORDERED: POLYETHYLENE GLYCOL 3350 17 GM PACKET PO SCH (09:00)
[2018-07-03] MEDS: oxyCODONE 5 MG TABLET PO PRN ×2 (09:10→13:33)
[2018-07-03 12:16] VITALS: BP 150/80
--- NOTE | 2018-07-03 12:27 | Discharge Plan ---
Discharge Plan Disposition: Home, Self Care Condition: Poor Prescriptions: oxyCODONE [Roxicodone] 5 mg PO Q4HR PRN #25 tablet PRN Reason: Pain Baclofen [Lioresal] 10 mg PO TID PRN #15 tablet PRN Reason: Spasms Diet: Regular Activity Restrictions: Activity as Tolerated Shower Restrictions: No (fall precaution, caregiver closlely monitor) Instruction Topics: Baclofen tablets, Oxycodone tablets or capsules Additional Instructions or Follow Up instructions: you may followup your PCP in one week. CT of chest reveals 8th, 9th, and 10th rib fractures. pain medication is prescribed, please followup your PCP for further pain management. Please contact ER, or call 911 for further assistance if you needs. No Smoking: If you smoke, Please STOP! Call for help. Follow-up with: Kuldeep Naranjo MD [Primary Care Provider] -
--- NOTE | 2018-07-03 12:37 | DISCHARGE SUMMARY ---
Discharge Summary Discharge Date: 07/03/18 Discharging Provider: CARDOZA Primary Care Provider: Dr. Naranjo Condition at Discharge: Poor Discharge Disposition: 01 Home, Self Care Discharge Facility Name: home - DIAGNOSES Admission Diagnoses: (1) Ribs, multiple fractures (2) Emphysema lung (3) History of pulmonary embolus (PE) (4) HTN (hypertension) (5) HLD (hyperlipidemia) (6) History of congestive heart failure (7) Gastroesophageal reflux disease (8) Coronary artery disease (9) THOMAS on CPAP Discharge Diagnoses with Status of Each Condition: 1) Ribs, multiple fractures (2) Emphysema lung (3) History of pulmonary embolus (PE) (4) HTN (hypertension) (5) HLD (hyperlipidemia) (6) History of congestive heart failure (7) Gastroesophageal reflux disease (8) Coronary artery disease (9) THOMAS on CPAP - HPI History of Present Illness: refer from Dr. Santiago's HPI on Patient seen on 07/03/18 at 05:00am Patient is an 82 y/o male who presented to the ED via EMS after a mechanical fall. He tried to lift his wheelchair 1 step unto another level in his house when he lost his balance and fell unto an exercise bike that was next to him, hitting his left side. He did not hit his head or black out. He sustained a couple of skin tears on his hand. He denies chest pain, MANISH abd pain, nausea, vomiting, fever or chills. However he would occassionaly shout out in pain due to spasms. Work up included CT of the head, chest, abdomen, pelvis and spine. They were unremarkable except to subtle left 8-10 rib fractures. It is reported that he is on an anticoagulant. It is not clear whether it is coumadin or eliquis. His INR is 1.1 Due to severe pain, he is being admitted for better pain control - HOSPITAL COURSE Hospital Course: 1) Ribs, multiple fractures image CT of chest study reveals pt had 8-10 rib fracture from his fall. CT of head, spinal, abdomen/pelvis are unremarkable. pt is prescribed pain meds (2) Emphysema lung stable (3) History of pulmonary embolus (PE) stable, continue home meds (4) HTN (hypertension) stable (5) HLD (hyperlipidemia) stable (6) History of congestive heart failure stable, continue home meds (7) Gastroesophageal reflux disease stable (8) Coronary artery disease stable (9) THOMAS on CPAP stable. - ALLERGIES Allergies/Adverse Reactions: Allergies Allergy/AdvReac Type Severity Reaction Status Date / Time Influenza Virus Vaccines Allergy Rash Verified 04/21/18 02:33 bacitracin AdvReac Rash Verified 07/02/18 22:27 neomycin AdvReac Rash Verified 07/02/18 22:27 polymyxin B AdvReac Rash Verified 07/02/18 22:27 - MEDICATIONS Home Medications: Ambulatory Orders Medication Instructions Recorded Confirmed Omeprazole [PriLOSEC] 20 mg PO BID 08/01/12 07/03/18 Losartan [Cozaar] 50 mg PO DAILY 09/02/14 07/03/18 Aspirin [Aspirin EC] 81 mg PO DAILY 12/20/14 07/03/18 Cholecalciferol (Vitamin D3) 5,000 units PO DAILY 02/21/16 07/03/18 [Vitamin D3] Albuterol Sulfate [Proair Hfa 2 puffs INH Q4H PRN 08/23/17 07/03/18 Inhaler] Tiotropium [place] [Spiriva] 1 puffs INH DAILY 08/23/17 07/03/18 Darifenacin Hydrobromide 7.5 mg PO DAILY 01/12/18 07/03/18 [Darifenacin ER] Diclofenac Sodium [Voltaren] 2 - 4 gm TOP QID PRN 01/12/18 07/03/18 Apixaban [Eliquis] 5 mg PO BID #60 tablet 01/14/18 07/03/18 Spironolactone [Aldactone] 25 mg PO DAILY #30 tablet 01/14/18 07/03/18 Atorvastatin [Lipitor] 40 mg PO QPM 07/03/18 07/03/18 Baclofen [Lioresal] 10 mg PO TID PRN #15 tablet 07/03/18 Furosemide 20 mg PO DAILY 07/03/18 07/03/18 Metoprolol Succinate [Toprol Xl] 25 mg PO BID 07/03/18 07/03/18 Sertraline [Zoloft] 50 mg PO QPM 07/03/18 07/03/18 Tamsulosin [Flomax] 0.4 mg PO DAILY 07/03/18 07/03/18 oxyCODONE [Roxicodone] 5 mg PO Q4HR PRN #25 tablet 07/03/18 - PHYSICAL EXAM AT DISCHARGE General Appearance: positive: No acute distress, Alert. negative: Lethargic Eyes Bilateral: positive: Normal inspection, PERRL, No lid inflammation, Conjunctivae nml ENT: positive: ENT inspection nml, Pharynx nml, No signs of dehydration. negative: Purulent nasal drainage, Pharyngeal erythema, Oral lesions Neck: positive: Nml inspection, Thyroid nml, No JVD, Trachea midline. negative: Thyromegaly, Lymphadenopathy (R), Lymphadenopathy (L), Stiff neck, Swelling/bruising, Tracheal deviation Respiratory: positive: Chest non-tender, No respiratory distress, Breath sounds nml. negative: Wheezes, Rales, Rhonchi Cardiovascular: positive: Regular rate & rhythm, No murmur, No gallop. ne gative: Irregularly irregular, Extrasystoles, Tachycardia, Bradycardia, JVD present, Systolic murmur, Diastolic murmur Peripheral Pulses: positive: 2+ Abdomen: positive: Non-tender, No organomegaly, Nml bowel sounds, No distention. negative: Tenderness, Guarding, Rebound Back: positive: Nml inspection. negative: CVA tenderness (R), CVA tenderness (L) Skin: positive: Color nml, No rash, Warm, Dry. negative: Cyanosis, Diaphoresis, Pallor Extremities: positive: Non-tender, Full ROM, Nml appearance. negative: Calf tenderness, Jasen's sign/cords Neurologic/Psychiatric: positive: Oriented x3, Sensation nml, Mood/affect nml. negative: Weakness, Sensory loss, Facial droop, Slurred/abnml speech, Depressed mood/affect - LABS Result Diagrams: 07/03/18 05:05 07/03/18 05:05 - FOLLOW UP Follow Up: you may followup your PCP in one week. CT of chest reveals 8th, 9th, and 10th rib fractures. pain medication is prescribed, please followup your PCP for further pain management. Please contact ER, or call 911 for further assistance if you needs. - TIME SPENT Time Spent in Discharge (Minutes): 50
== END 2018-07-03 14:23 | disposition home or self-care (01) ==
LOC: EDUNIT# → ED 22:21 → OBS 07-03 03:37
PROVIDERS: ADMIT Internal Medicine; ATTEND Nurse Practitioner Gerontology
DX: S22.42XA Multiple fractures of ribs, left side, initial encounter for closed fracture (principal); J43.9 Emphysema, unspecified; G47.33 Obstructive sleep apnea (adult) (pediatric); I11.0 Hypertensive heart disease with heart failure; I50.9 Heart failure, unspecified; W18.30XA Fall on same level, unspecified, initial encounter; Y92.009 Unspecified place in unspecified non-institutional (private) residence as the place of occurrence of the external cause; S61.419A Laceration without foreign body of unspecified hand, initial encounter; I25.10 Atherosclerotic heart disease of native coronary artery without angina pectoris; E78.5 Hyperlipidemia, unspecified; K21.9 Gastro-esophageal reflux disease without esophagitis; G89.29 Other chronic pain; M54.9 Dorsalgia, unspecified; M19.90 Unspecified osteoarthritis, unspecified site; M85.80 Other specified disorders of bone density and structure, unspecified site; M47.819 Spondylosis without myelopathy or radiculopathy, site unspecified; M48.00 Spinal stenosis, site unspecified; Z66 Do not resuscitate; R32 Unspecified urinary incontinence; Z79.82 Long term (current) use of aspirin; Z79.51 Long term (current) use of inhaled steroids; Z79.01 Long term (current) use of anticoagulants; Z79.891 Long term (current) use of opiate analgesic; Z86.711 Personal history of pulmonary embolism; Z86.73 Personal history of transient ischemic attack (TIA), and cerebral infarction without residual deficits; Z96.659 Presence of unspecified artificial knee joint; Z85.828 Personal history of other malignant neoplasm of skin; Z95.5 Presence of coronary angioplasty implant and graft
CPT/HCPCS: 36415; 70450; 71260; 72125; 74177; 80048; 80053; 81003; 83690; 85025; 85610; 85730; 93005; 96374; 96376; 99284; A9270; G0378; J2270; Q9967; 81001; 87086; 99285

== ENCOUNTER 2018-07-04 10:37 | Outpatient (CLI) | payer MEDICARE, OTHER | END 2018-07-04 10:38 | disposition critical access hospital (66) | LOC: EMS 10:37 | PROVIDERS: ATTEND Surgery | DX: R07.81 Pleurodynia (principal) | CPT/HCPCS: A0425; A0429 ==

== ENCOUNTER 2018-07-04 13:09 | Inpatient (IN) | payer MEDICARE, OTHER ==
--- NOTE | 2018-07-04 14:34 | XRAY Report ---
Reason: L sided chest pain rhonchi Procedure Date: 07/04/2018 Accession Number: [id number] / [id number] Procedure: XR - Chest 2 View X-Ray CPT Code: 58651 FULL RESULT: EXAM: CHEST RADIOGRAPHY EXAM DATE: 07/04/2018 02:25 PM. CLINICAL HISTORY: Left-sided chest pain rhonchi. COMPARISON: CHEST 1 VIEW 01/12/2018 9:13 AM. TECHNIQUE: 2 views. FINDINGS: Lungs/Pleura: No focal opacities evident. No pleural effusion. No pneumothorax. Interval decrease in lung volumes, low volumes. Lung bases are not well evaluated. Mediastinum: Redemonstration of cardiomegaly with calcified aortic arch. Other: The bones are qualitatively osteopenic; this limits evaluation for underlying fractures or masses. IMPRESSION: Limited study with no definite airspace disease detected. RADIA
[2018-07-04] MEDS ORDERED: KETOROLAC 30 MG/ML VIAL IVP STA (14:47)
[2018-07-04] MEDS ORDERED: LIDOCAINE PATCH 5% TOP STA (14:47)
[2018-07-04 14:56] LABS: BASOPHILS # (AUTO) 0.1 10^3/uL (0.0-0.1); BASOPHILS % (AUTO) 0.9 %; EOSINOPHILS # (AUTO) 0.1 10^3/uL (0.0-0.7); EOSINOPHILS % (AUTO) 0.7 %; HGB - HEMOGLOBIN 13.6 g/dL (14.0-18.0); MEAN CORPUSCULAR HGB CONC 32.8 g/dL (32.0-36.0); MEAN CORPUSCULAR VOLUME 88.4 fL (80.0-94.0); MEAN PLATELET VOLUME 7.8 fL (7.4-11.4); MONOCYTES # (AUTO) 0.9 10^3/uL (0.0-1.0); MONOCYTES % (AUTO) 9.9 %; NEUTROPHILS # (AUTO) 6.9 10^3/uL (1.5-6.6); NEUTROPHILS % (AUTO) 77.5 %; PLT - PLATELET COUNT 198 10^3/uL (130-450); RED BLOOD COUNT 4.68 10^6/uL (4.70-6.10); RED CELL DISTRIBUTION WIDTH 15.8 % (12.0-15.0); WHITE BLOOD COUNT 8.9 x10^3/uL (4.8-10.8)
[2018-07-04 15:08] LABS: ALBUMIN 3.8 g/dL (3.2-5.5); ALBUMIN/GLOBULIN RATIO 1.1 (1.0-2.2); BILIRUBIN,TOTAL 1.1 mg/dL (0.2-1.0); CALCIUM 9.5 mg/dL (8.5-10.3); CREATININE 0.7 mg/dL (0.6-1.2); TOTAL PROTEIN 7.3 g/dL (6.7-8.2)
[2018-07-04] MEDS ORDERED: IOVERSOL 320 100 ML VIAL IVP ONE ×2 (15:21→15:26)
--- NOTE | 2018-07-04 15:44 | CT Report ---
Reason: multiple rib fractures intolerable pain Procedure Date: 07/04/2018 Accession Number: [id number] / [id number] Procedure: CT - CHEST W CPT Code: FULL RESULT: EXAM: CT CHEST EXAM DATE: 07/04/2018 03:23 PM. CLINICAL HISTORY: Multiple rib fractures intolerable pain. COMPARISONS: CHEST W/ 07/03/2018 12:16 AM ABDOMEN/PELVIS W/ 07/03/2018 12:16 AM. TECHNIQUE: Routine helical CT imaging was performed through the chest. IV contrast: 80 mL Optiray 320. Reconstructions: Coronal and sagittal. In accordance with CT protocol optimization, one or more of the following dose reduction techniques were utilized for this exam: automated exposure control, adjustment of mA and/or KV based on patient size, or use of iterative reconstructive technique. FINDINGS: Lungs/Pleura: Bilateral emphysema and interstitial thickening is again seen, similar to yesterday. There are no new pulmonary findings. There is no new pleural effusion or pneumothorax. Mediastinum: There are moderate to severe three-vessel coronary calcifications. The aorta is mildly atherosclerotic. There is no evidence of trauma to the great vessels. There is no pericardial effusion. Bones: Fractures of the left 8th through 10th ribs, minimally displaced and acute are again seen. No new fractures are detected. Visualized Abdomen: Vascular calcifications, a right renal cyst and perinephric fat stranding are noted. Other: None. IMPRESSION: No evidence of delayed complications of the recent trauma. Redemonstration of known rib fractures. Redemonstration of emphysema, vascular disease and interstitial pulmonary thickening. RADIA
--- NOTE | 2018-07-04 15:46 | ED Physician Documentation ---
History of Present Illness - Stated complaint Stated Complaint: RIB pain - Chief complaint Chief Complaint: General - History obtained from History obtained from: Patient, Family - History of Present Illness Timing: How many days ago (2) - Additonal information Additional information: 82 y/o male With history of coronary artery disease CVA diverticulitis and ch ronic back pain has had a fall in his wheelchair at home in the inpatient coder yesterday. He was evaluated here in the emergency department and kept in the hospital overnight for pain control with 3 broken ribs. He left the hospital in a lot of pain and he has not been able to control the pain. He has intolerable pain and he has returned to the emergency department. Review of Systems Constitutional: denies: Fever Eyes: denies: Decreased vision Ears: denies: Ear pain, Drainage/discharge Nose: denies: Rhinorrhea / runny nose, Congestion Throat: denies: Sore throat Cardiac: reports: Chest pain / pressure, Pedal edema. denies: Palpitations Respiratory: reports: Dyspnea. denies: Cough, Wheezing GI: denies: Abdominal Pain, Nausea, Vomiting : denies: Dysuria, Frequency PD PAST MEDICAL HISTORY - Past Medical History Cardiovascular: Coronary artery disease Respiratory: Sleep apnea, CPAP use Neuro: CVA Endocrine/Autoimmune: None GI: Diverticulitis : None Psych: None Musculoskeletal: Osteoarthritis, Chronic back pain Derm: None - Past Surgical History Past Surgical History: Yes General: Bowel surgery Ortho: Knee replacement, Spine surgery Cardiovascular: Coronary stent Derm: Skin cancer surgery - Present Medications Home Medications: Ambulatory Orders Medication Instructions Recorded Confirmed Omeprazole [PriLOSEC] 20 mg PO BID 08/01/12 07/03/18 Losartan [Cozaar] 50 mg PO DAILY 09/02/14 07/03/18 Aspirin [Aspirin EC] 81 mg PO DAILY 12/20/14 07/03/18 Cholecalciferol (Vitamin D3) 5,000 units PO DAILY 02/21/16 07/03/18 [Vitamin D3] Albuterol Sulfate [Proair Hfa 2 puffs INH Q4H PRN 08/23/17 07/03/18 Inhaler] Tiotropium [place] [Spiriva] 1 puffs INH DAILY 08/23/17 07/03/18 Darifenacin Hydrobromide 7.5 mg PO DAILY 01/12/18 07/03/18 [Darifenacin ER] Diclofenac Sodium [Voltaren] 2 - 4 gm TOP QID PRN 01/12/18 07/03/18 Apixaban [Eliquis] 5 mg PO BID #60 tablet 01/14/18 07/03/18 Spironolactone [Aldactone] 25 mg PO DAILY #30 tablet 01/14/18 07/03/18 Atorvastatin [Lipitor] 40 mg PO QPM 07/03/18 07/03/18 Baclofen [Lioresal] 10 mg PO TID PRN #15 tablet 07/03/18 Furosemide 20 mg PO DAILY 07/03/18 07/03/18 Metoprolol Succinate [Toprol Xl] 25 mg PO BID 07/03/18 07/03/18 Sertraline [Zoloft] 50 mg PO QPM 07/03/18 07/03/18 Tamsulosin [Flomax] 0.4 mg PO DAILY 07/03/18 07/03/18 oxyCODONE [Roxicodone] 5 mg PO Q4HR PRN #25 tablet 07/03/18 - Allergies Allergies/Adverse Reactions: Allergies Allergy/AdvReac Type Severity Reaction Status Date / Time Influenza Virus Vaccines Allergy Rash Verified 04/21/18 02:33 bacitracin AdvReac Rash Verified 07/02/18 22:27 neomycin AdvReac Rash Verified 07/02/18 22:27 polymyxin B AdvReac Rash Verified 07/02/18 22:27 - Social History Does the pt smoke?: No Smoking Status: Former smoker Does the pt drink ETOH?: Yes Does the pt have substance abuse?: No - Immunizations Immunizations are current?: Yes Immunizations: TDAP >10years/unknown - POLST Patient has POLST: No POLST Status: DNR PD ED PE NORMAL - Vitals Vital signs reviewed: Yes (hypertensive ) - General General: Alert and oriented X 3, Well developed/nourished, Other (appears to be in pain ) - HEENT HEENT: Atraumatic, PERRL, EOMI - Neck Neck: Supple, no meningeal sign, No bony TTP - Cardiac Cardiac: RRR, No murmur - Respiratory Respiratory: No respiratory distress, Other (bibasilar rhonchi marked tenderness to the left lower anterior chest wall. ) - Abdomen Abdomen: Soft, Non tender - Back Back: No CVA TTP, No spinal TTP - Derm Derm: Normal color, Warm and dry, No rash - Extremities Extremities: No deformity, No edema - Neuro Neuro: Alert and oriented X 3, beater out leveling machine 2-12 intact, No motor deficit, No sensory deficit, Normal speech Eye Opening: Spontaneous Motor: Obeys Commands Verbal: Oriented GCS Score: 15 - Psych Psych: Normal mood, Normal affect Results - Vitals Vitals: Vital Signs - 24 hr 07/04/18 07/04/18 07/04/18 13:14 14:29 15:10 Temperature 36.8 C Heart Rate 94 85 83 Respiratory 19 18 16 Rate Blood Pressure 140/90 H 136/88 H 155/97 H O2 Saturation 92 92 98 07/04/18 16:24 Temperature Heart Rate 74 Respiratory 13 Rate Blood Pressure 149/76 H O2 Saturation 95 Oxygen O2 Source Nasal cannula - EKG (time done) 1610 Rate: Rate (enter#) (81) Rhythm: NSR Intervals: Prolonged CA, Other (WPW delta wave) Ischemia: Normal ST segments Compare to prior EKG: Changed from prior EKG ([facility] 07-03-18 rate has decreased) Computer interpretation: Agree with computer - Labs Labs: Laboratory Tests 07/04/18 07/04/18 07/04/18 14:40 14:40 14:40 WBC 8.9 RBC 4.68 L Hgb 13.6 L Hct 41.4 L MCV 88.4 MCH 29.0 MCHC 32.8 RDW 15.8 H Plt Count 198 MPV 7.8 Neut # (Auto) 6.9 H Lymph # (Auto) 1.0 L Karnes # (Auto) 0.9 Eos # (Auto) 0.1 Baso # (Auto) 0.1 Absolute Nucleated RBC 0.00 Nucleated RBC % 0.0 Sodium 134 L Potassium 4.0 Chloride 99 L Carbon Dioxide 25 Anion Gap 10.0 BUN 16 Creatinine 0.7 Estimated GFR (MDRD) 107 Glucose 138 H Calcium 9.5 Total Bilirubin 1.1 H AST 23 ALT 21 Alkaline Phosphatase 54 Troponin I 0.11 Total Protein 7.3 Albumin 3.8 Globulin 3.5 Albumin/Globulin Ratio 1.1 Lipase 18 L 07/04/18 16:38 WBC RBC Hgb Hct MCV MCH MCHC RDW Plt Count MPV Neut # (Auto) Lymph # (Auto) Karnes # (Auto) Eos # (Auto) Baso # (Auto) Absolute Nucleated RBC Nucleated RBC % Sodium Potassium Chloride Carbon Dioxide Anion Gap BUN Creatinine Estimated GFR (MDRD) Glucose Calcium Total Bilirubin AST ALT Alkaline Phosphatase Troponin I 0.14 Total Protein Albumin Globulin Albumin/Globulin Ratio Lipase - Rads (name of study) Chest CT with Radiology: Prelim report reviewed (Impression: No evidence of delayed complications of the recent trauma. Redemonstration of known rib fractures. Redemonstration of emphysema, vascular disease and interstitial pulmonary thickening.), EMP read indepedently, See rad report PD MEDICAL DECISION MAKING - ED course Complexity details: reviewed old records, reviewed results, re-evaluated patient, considered differential, d/w patient, d/w family ED course: 82-year-old male with a fall in his home 3 days ago spent the night in the hospital with 3 broken ribs and he was discharged home yesterday afternoon and had a very poor night at home. He did not tolerate the pain and had difficulty getting in and out of bed. His family is set up at home to care for him with a chair lift and hospital bed and despite this they are unable to help the patient. He presents today with persistent pain and no specific complication is noted on CT scanning of the chest. We were able to treat him with toradal and a lidocaine patch with some improvement in the pain but he is still not able to move around. The patient is hosted here in the emergency department for several hours and it is obvious he we will continue to have some difficulty with pain and pain control. He does have some minor elevation of his troponin and this will need to be followed as well. Dr. Blair is consulted in the case and graciously agrees to admit the patient to the hospital. Departure - Departure Disposition: [facility] DC/Xfer Clinical Impression: Ribs, multiple fractures Qualifiers: Encounter type: initial encounter Fracture type: closed Laterality: left Qualified Code(s): S22.42XA - Multiple fractures of ribs, left side, initial encounter for closed fracture Condition: Stable
[2018-07-04] MEDS ORDERED: ONDANSETRON 4 MG/2 ML VIAL IVP PRN (17:53)
[2018-07-04] MEDS ORDERED: SODIUM CHLORIDE FLUSH 0.9% 10 ML SYRINGE IVP PRN (17:53)
--- NOTE | 2018-07-04 18:00 | HISTORY & PHYSICAL EXAMINATION ---
Chief Complaint - Chief Complaint Chief Complaint: chest pain History of Present Illness - History of Present Illness HPI Comment/Other: Mr. Rodas is a 82-year-old gentleman with a history significant for emphysema and pulmonary emboli with Coumadin, HTN and HLD, who presents to the emergency department with complains of uncontrolled left rib pain. pt is alert but pt was easy fall into sleep when I asked question. I can not get significant history fr om him. pt was d/c for a mechanical fall when He tried to lift his wheelchair, with left 8-10 rib fracture on last admission. Pt had no complications on discharge. pt was prescribed pain medication, which was he took at hospital and control of his pain. Unfortunately pt still continue to have uncontrolled pain at home. today CT of chest did not reveal complication from recent trauma. However pt had elevated Troponin 0.11, 0.14 today in ER without treatment. Pt is admitted for above medical reason. History - Past Medical History Cardiovascular: reports: Coronary artery disease Respiratory: reports: Sleep apnea, CPAP use Neuro: reports: CVA Endocrine/Autoimmune: reports: None GI: reports: Diverticulitis : reports: None Psych: reports: None Musculoskeletal: reports: Osteoarthritis, Chronic back pain Derm: reports: None MRSA Hx?: No - Past Surgical History General: reports: Bowel surgery Ortho: reports: Knee replacement, Spine surgery Cardiovascular: reports: Coronary stent Derm: reports: Skin cancer surgery - Family & Social History Family History: Mother: , Father: Family History Comment/Other: Patient's mother of pneumonia when he was 14. Patient's father of cancer at age 83. Patient was an only child, no known history of heart disease, COPD, or diabetes in the family. Social History Notes: The patient describes himself as a "moderate" drinker. No tobacco or illicit drug use - Substance History Use: Uses substance without health or social issues: Alcohol - POLST Patient has POLST: No POLST Status: DNR Meds/Allgy - Home Medications Home Medications: Ambulatory Orders Medication Instructions Recorded Confirmed Omeprazole [PriLOSEC] 20 mg PO BID 08/01/12 07/03/18 Losartan [Cozaar] 50 mg PO DAILY 09/02/14 07/03/18 Aspirin [Aspirin EC] 81 mg PO DAILY 12/20/14 07/03/18 Cholecalciferol (Vitamin D3) 5,000 units PO DAILY 02/21/16 07/03/18 [Vitamin D3] Albuterol Sulfate [Proair Hfa 2 puffs INH Q4H PRN 08/23/17 07/03/18 Inhaler] Tiotropium [place] [Spiriva] 1 puffs INH DAILY 08/23/17 07/03/18 Darifenacin Hydrobromide 7.5 mg PO DAILY 01/12/18 07/03/18 [Darifenacin ER] Diclofenac Sodium [Voltaren] 2 - 4 gm TOP QID PRN 01/12/18 07/03/18 Apixaban [Eliquis] 5 mg PO BID #60 tablet 01/14/18 07/03/18 Spironolactone [Aldactone] 25 mg PO DAILY #30 tablet 01/14/18 07/03/18 Atorvastatin [Lipitor] 40 mg PO QPM 07/03/18 07/03/18 Baclofen [Lioresal] 10 mg PO TID PRN #15 tablet 07/03/18 Furosemide 20 mg PO DAILY 07/03/18 07/03/18 Metoprolol Succinate [Toprol Xl] 25 mg PO BID 07/03/18 07/03/18 Sertraline [Zoloft] 50 mg PO QPM 07/03/18 07/03/18 Tamsulosin [Flomax] 0.4 mg PO DAILY 07/03/18 07/03/18 oxyCODONE [Roxicodone] 5 mg PO Q4HR PRN #25 tablet 07/03/18 - Allergies Allergies/Adverse Reactions: Allergies Allergy/AdvReac Type Severity Reaction Status Date / Time Influenza Virus Vaccines Allergy Rash Verified 04/21/18 02:33 bacitracin AdvReac Rash Verified 07/02/18 22:27 neomycin AdvReac Rash Verified 07/02/18 22:27 polymyxin B AdvReac Rash Verified 07/02/18 22:27 Review of Systems - Constitutional Constitutional: reports: Fatigue. denies: Fever, Chills - Eyes Eyes: denies: Pain, Field loss, Vision loss - Ears, Nose & Throat Ears, Nose & Throat: denies: Hearing loss, Hearing aids, Vertigo, Sore throat - Cardiovascular Cariovascular: denies: Irregular heart rate, Palpitations, Syncope, Exertional dyspnea - Respiratory Respiratory: denies: Cough, Sputum production, Wheezing, SOB at rest, SOB with exertion - Gastrointestinal Gastrointestinal: denies: Abdominal pain, Rectal bleeding, Black stools, Bloody stools - Musculoskeletal Musculoskeletal: denies: Muscle pain, Muscle aches - Neurological Neurological: denies: Focal weakness, Seizures, Incoordination, Slurred speech - Hematologic/Lymphatic Hematologic/Lymphatic: denies: Bruising - Other Findings Other Findings: pt is very easy to fall sleep, cough not get enough information Exam - Vital Signs Reviewed Vital Signs: Yes Vital Signs: Vital Signs x48h Temp Pulse Resp BP Pulse Ox 07/04/18 17:41 77 16 132/62 H 95 07/04/18 16:24 74 13 149/76 H 95 07/04/18 15:10 83 16 155/97 H 98 07/04/18 14:29 85 18 136/88 H 92 07/04/18 13:14 36.8 C 94 19 140/90 H 92 - Physical Exam General Appearance: positive: No acute distress, Alert. negative: Lethargic Eyes Bilateral: positive: Normal inspection, PERRL. negative: No lid inflammation, Conjunctivae nml ENT: positive: ENT inspection nml, Pharynx nml, No signs of dehydration. negative: Purulent nasal drainage, Pharyngeal erythema, Oral lesions Neck: positive: Nml inspection, Thyroid nml, No JVD. negative: Trachea midline, Thyromegaly, Lymphadenopathy (R), Lymphadenopathy (L), Stiff neck, Swelling/bruising, Tracheal deviation Respiratory: positive: Chest non-tender, No respiratory distress, Breath sounds nml. negative: Wheezes, Rales, Rhonchi Cardiovascular: positive: Regular rate & rhythm, No murmur, No gallop. negative: Irregularly irregular, Extrasystoles, Tachycardia, Bradycardia, JVD present, Systolic murmur, Diastolic murmur Peripheral Pulses: positive: 2+ Abdomen: positive: Non-tender, No organomegaly, Nml bowel sounds, No distention. negative: Tenderness, Guarding, Rebound Back: positive: Nml inspection. negative: CVA tenderness (R), CVA tenderness (L) Skin: positive: Color nml, No rash, Warm, Dry. negative: Cyanosis, Diaphoresis, Pallor Extremities: positive: Nml appearance. negative: Calf tenderness, Joint swelling, Jasen's sign/cords Neurologic/Psychiatric: negative: Sensory loss, Facial droop, Depressed mood/aff ect Sepsis Event Note (H) - Evaluation Current Stage of Sepsis: Ruled out Conclusion/Plan - Problem List (1) Left rib fracture Conclusion/Plan: CT reveals without delayed complication. order incentive spirometry pain control with Morphine and Oxycodon (2) Elevated troponin Conclusion/Plan: pt had elevated troponin 0.11 and 0.14. EKG reveals slight ST depression from previous study continue serial troponin add Aspirin 325 continue home meds Eliquis tele and vital monitor (3) Hx of pulmonary embolus Conclusion/Plan: pt has hx of PE, stable, continue Eliquis (4) Hx of coronary artery disease Conclusion/Plan: on tele and add aspirin tele and vital monitor (5) History of COPD Conclusion/Plan: stable, resume home Albuterol, Duoneb PRN (6) HTN (hypertension) Conclusion/Plan: stable, resume BP meds - Lab Results Fish Bones: 07/04/18 14:40 07/04/18 14:40 Core Measures - Anticipated LOS I expect patient to be DC'd or transferred within 96 hours.: Yes - DVT/VTE - Prophylaxis VTE/DVT Device ordered at admit?: Yes VTE/DVT Prophylaxis med ordered at admit?: Yes
[2018-07-04] MEDS ORDERED: NON FORMULARY MED (Albuterol Sulfate [Proair Hfa Inhaler] 2 PUFFS) INH PRN (18:10)
[2018-07-04] MEDS ORDERED: IPRATROPIUM/ALBUTEROL 3 ML NEB INH PRN (18:12)
[2018-07-04] MEDS ORDERED: ALBUTEROL NEB 2.5 MG/3 ML INH PRN (18:13)
[2018-07-04] MEDS ORDERED: NITROGLYCERIN SL 0.4 MG TABLET SL PRN (18:35)
[2018-07-04] MEDS ORDERED: ASPIRIN 325 MG TABLET PO ONE (19:30)
[2018-07-04] MEDS: FAMOTIDINE 20 MG TABLET PO SCH (21:19)
[2018-07-04] MEDS: APIXABAN 5 MG TABLET PO SCH (21:19)
[2018-07-04] MEDS: METOPROLOL SUCCINATE 25 MG TABLET PO SCH (21:19)
[2018-07-04] MEDS: ATORVASTATIN 40 MG TABLET PO SCH (21:19)
[2018-07-04] MEDS: ACETAMINOPHEN 325 MG TABLET PO PRN (22:45)
[2018-07-04] MEDS: oxyCODONE 5 MG TABLET PO PRN (22:46)
[2018-07-05] MEDS: MORPHINE 2 MG/ML SYRINGE IVP PRN ×3 (00:54→16:30)
[2018-07-05] MEDS: SODIUM CHLORIDE FLUSH 0.9% 10 ML SYRINGE IVP SCH ×3 (00:54→16:33)
[2018-07-05 05:50] LABS: BASOPHILS # (AUTO) 0.1 10^3/uL (0.0-0.1); BASOPHILS % (AUTO) 1.1 %; EOSINOPHILS # (AUTO) 0.1 10^3/uL (0.0-0.7); EOSINOPHILS % (AUTO) 2.3 %; HGB - HEMOGLOBIN 13.5 g/dL (14.0-18.0); LYMPHOCYTES # (AUTO) 1.2 10^3/uL (1.5-3.5); LYMPHOCYTES % (AUTO) 17.9 %; MEAN CORPUSCULAR HEMOGLOBIN 29.2 pg (27.0-31.0); MEAN CORPUSCULAR VOLUME 88.6 fL (80.0-94.0); MEAN PLATELET VOLUME 7.9 fL (7.4-11.4); MONOCYTES # (AUTO) 0.6 10^3/uL (0.0-1.0); MONOCYTES % (AUTO) 9.8 %; NEUTROPHILS # (AUTO) 4.6 10^3/uL (1.5-6.6); NEUTROPHILS % (AUTO) 68.9 %; PLT - PLATELET COUNT 179 10^3/uL (130-450); RED BLOOD COUNT 4.62 10^6/uL (4.70-6.10); RED CELL DISTRIBUTION WIDTH 15.6 % (12.0-15.0); WHITE BLOOD COUNT 6.6 x10^3/uL (4.8-10.8)
[2018-07-05 06:02] LABS: CALCIUM 9.6 mg/dL (8.5-10.3); CREATININE 0.7 mg/dL (0.6-1.2)
[2018-07-05] MEDS ORDERED: SODIUM CHLORIDE 0.9% 1,000 ML IV SCH (07:00)
[2018-07-05] MEDS: oxyCODONE 5 MG TABLET PO PRN ×2 (08:36→13:10)
[2018-07-05] MEDS: METOPROLOL SUCCINATE 25 MG TABLET PO SCH (08:52)
[2018-07-05] MEDS: LOSARTAN 50 MG TABLET PO SCH (08:52)
[2018-07-05] MEDS: FAMOTIDINE 20 MG TABLET PO SCH ×2 (08:52→20:41)
[2018-07-05] MEDS: POLYETHYLENE GLYCOL 3350 17 GM PACKET PO SCH (08:52)
[2018-07-05] MEDS: SPIRONOLACTONE 25 MG TABLET PO SCH (08:52)
[2018-07-05] MEDS: APIXABAN 5 MG TABLET PO SCH ×2 (08:52→20:41)
[2018-07-05] MEDS ORDERED: ENOXAPARIN 40 MG/0.4 ML SYRINGE SUBQ SCH (09:00)
--- NOTE | 2018-07-05 10:42 | PROVIDER PROGRESS NOTE ---
Subjective - Prog Note Date Prog Note Date: 07/05/18 - Subjective Pt reports feeling: Improved Subjective: pt report his pain is better control, but when he move, then his pain appear suddenly. Order incentive SP Q1H to prevention lung collapse. pt denies palpitation, fever, chill, shortness of breath. Current Medications - Current Medications Current Medications: Active Medications Acetaminophen (Tylenol) 650 mg PO Q4HR PRN PRN Reason: Pain 1 to 4 Last Admin: 07/04/18 22:45 Dose: 650 mg Albuterol () 2.5 mg INH RTQ4H PRN PRN Reason: Wheezing Albuterol/Ipratropium (Duoneb) 3 ml INH Q4HR PRN PRN Reason: Wheezing Apixaban (Eliquis) 5 mg PO BID [facility] Last Admin: 07/05/18 08:52 Dose: 5 mg Atorvastatin Calcium (Lipitor) 40 mg PO QPM [facility] Last Admin: 07/04/18 21:19 Dose: 40 mg Baclofen (Lioresal) 10 mg PO TID [facility] Last Admin: 07/05/18 13:14 Dose: Not Given Famotidine (Pepcid) 20 mg PO BID [facility] Last Admin: 07/05/18 08:52 Dose: 20 mg Losartan Potassium (Cozaar) 50 mg PO DAILY [facility] Last Admin: 07/05/18 08:52 Dose: 50 mg Metoprolol Succinate (Toprol Xl) 25 mg PO DAILY [facility] Morphine Sulfate (Morphine) 2 mg IVP Q2H PRN PRN Reason: Pain 8 to 10 Last Admin: 07/05/18 16:30 Dose: 2 mg Nitroglycerin (Nitrostat) 0.4 mg SL Q5MIN PRN PRN Reason: Chest Pain Ondansetron HCl (Zofran Inj) 4 mg IVP Q6HR PRN PRN Reason: Nausea / Vomiting Oxycodone HCl (Roxicodone) 10 mg PO Q4HR PRN PRN Reason: Pain 8 to 10 Last Admin: 07/05/18 13:10 Dose: 10 mg Polyethylene Glycol (Miralax) 17 gm PO DAILY [facility] Last Admin: 07/05/18 08:52 Dose: 17 gm Sodium Chloride (Normal Saline Flush 0.9%) 10 ml IVP PRN PRN PRN Reason: NEEDED PER PROVIDER ORDERS Sodium Chloride (Normal Saline Flush 0.9%) 10 ml IVP 0100,0900,1700 [facility] Last Admin: 07/05/18 16:33 Dose: 10 ml Spironolactone (Aldactone) 25 mg PO DAILY [facility] Last Admin: 07/05/18 08:52 Dose: 25 mg Zolpidem Tartrate (Ambien) 5 mg PO QPM PRN PRN Reason: Insomnia Omeprazole [PriLOSEC] 20 mg PO BID 08/01/12 Losartan [Cozaar] 50 mg PO DAILY 09/02/14 Cholecalciferol (Vitamin D3) [Vitamin D3] 5,000 units PO DAILY 02/21/16 Albuterol Sulfate [Proair Hfa Inhaler] 2 puffs INH Q4H PRN 08/23/17 Tiotropium [place] [Spiriva] 1 puffs INH DAILY 08/23/17 Darifenacin Hydrobromide [Darifenacin ER] 7.5 mg PO DAILY 01/12/18 Atorvastatin [Lipitor] 40 mg PO QPM 07/03/18 Furosemide 20 mg PO DAILY 07/03/18 Metoprolol Succinate [Toprol Xl] 25 mg PO DAILY 07/03/18 Sertraline [Zoloft] 50 mg PO QPM 07/03/18 Tamsulosin [Flomax] 0.4 mg PO DAILY 07/03/18 Apixaban [Eliquis] 5 mg PO BID 07/05/18 Objective - Vital Signs/Intake & Output Reviewed Vital Signs: Yes Vital Signs: Vital Signs x48h Pulse Resp BP Pulse Ox 07/05/18 07:03 72 18 122/72 95 Intake & Output: Intake & Output 07/02/18 07/03/18 07/04/18 07/05/18 23:59 23:59 23:59 23:59 Intake Total 300 200 Output Total 200 Balance 100 200 - Objective General Appearance: positive: No acute distress, Alert. negative: Lethargic Eyes Bilateral: positive: Normal inspection, PERRL, No lid inflammation, Conjunctivae nml ENT: positive: ENT inspection nml, Pharynx nml, No signs of dehydration. negative: Purulent nasal drainage, Pharyngeal erythema, Oral lesions Neck: positive: Nml inspection, Thyroid nml, No JVD, Trachea midline. negative: Thyromegaly, Lymphadenopathy (R), Lymphadenopathy (L), Stiff neck, Swelling/bruising, Tracheal deviation Respiratory: positive: Chest non-tender, No respiratory distress, Breath sounds nml. negative: Wheezes, Rales, Rhonchi Cardiovascular: positive: Regular rate & rhythm, No murmur, No gallop. negative: Irregularly irregular, Extrasystoles, Tachycardia, Bradycardia, JVD present, Systolic murmur, Diastolic murmur Peripheral Pulses: 2+ Radial (R), 2+ Radial (L), 2+ Dorsalis pedis (R), 2+ Dorsalis pedis (L) Abdomen: positive: Non-tender, No organomegaly, Nml bowel sounds, No distention. negative: Tenderness, Guarding, Rebound Back: positive: Nml inspection. negative: CVA tenderness (R), CVA tenderness (L) Skin: positive: Color nml, No rash, Warm, Dry. negative: Cyanosis, Diaphoresis, Pallor Extremities: positive: Non-tender, Full ROM, Nml appearance. negative: Calf tenderness, Joint swelling, Jasen's sign/cords Neurologic/Psychiatric: positive: Oriented x3, Sensation nml, Mood/affect nml. negative: Weakness, Sensory loss, Facial droop, Slurred/abnml speech, Depressed mood/affect - Lab Results Fish Bones: 07/05/18 05:17 07/05/18 05:17 Other Labs: Lab Results x24hrs 07/05/18 07/05/18 07/04/18 Range/Units 05:17 05:17 22:05 WBC 6.6 (4.8-10.8) x10^3/uL RBC 4.62 L (4.70-6.10) 10^6/uL Hgb 13.5 L (14.0-18.0) g/dL Hct 40.9 L (42.0-52.0) % MCV 88.6 (80.0-94.0) fL MCH 29.2 (27.0-31.0) pg MCHC 33.0 (32.0-36.0) g/dL RDW 15.6 H (12.0-15.0) % Plt Count 179 (130-450) 10^3/uL MPV 7.9 (7.4-11.4) fL Neut # (Auto) 4.6 (1.5-6.6) 10^3/uL Lymph # (Auto) 1.2 L (1.5-3.5) 10^3/uL [place] # (Auto) 0.6 (0.0-1.0) 10^3/uL Eos # (Auto) 0.1 (0.0-0.7) 10^3/uL Baso # (Auto) 0.1 (0.0-0.1) 10^3/uL Absolute Nucleated RBC 0.00 x10^3/uL Nucleated RBC % 0.1 /100WBC Sodium 137 (135-145) mmol/L Potassium 3.7 (3.5-5.0) mmol/L Chloride 102 (101-111) mmol/L Carbon Dioxide 24 (21-32) mmol/L Anion Gap 11.0 (6-13) BUN 18 (6-20) mg/dL Creatinine 0.7 (0.6-1.2) mg/dL Estimated GFR (MDRD) 107 (>89) Glucose 125 H (70-100) mg/dL Calcium 9.6 (8.5-10.3) mg/dL Total Bilirubin (0.2-1.0) mg/dL AST (10-42) IU/L ALT (10-60) IU/L Alkaline Phosphatase (42-121) IU/L Troponin I 0.13 (<0.49) ng/mL Total Protein (6.7-8.2) g/dL Albumin (3.2-5.5) g/dL Globulin (2.1-4.2) g/dL Albumin/Globulin Ratio (1.0-2.2) Lipase (22-51) U/L 07/04/18 07/04/18 07/04/18 Range/Units 16:38 14:40 14:40 WBC (4.8-10.8) x10^3/uL RBC (4.70-6.10) 10^6/uL Hgb (14.0-18.0) g/dL Hct (42.0-52.0) % MCV (80.0-94.0) fL MCH (27.0-31.0) pg MCHC (32.0-36.0) g/dL RDW (12.0-15.0) % Plt Count (130-450) 10^3/uL MPV (7.4-11.4) fL Neut # (Auto) (1.5-6.6) 10^3/uL Lymph # (Auto) (1.5-3.5) 10^3/uL [place] # (Auto) (0.0-1.0) 10^3/uL Eos # (Auto) (0.0-0.7) 10^3/uL Baso # (Auto) (0.0-0.1) 10^3/uL Absolute Nucleated RBC x10^3/uL Nucleated RBC % /100WBC Sodium 134 L (135-145) mmol/L Potassium 4.0 (3.5-5.0) mmol/L Chloride 99 L (101-111) mmol/L Carbon Dioxide 25 (21-32) mmol/L Anion Gap 10.0 (6-13) BUN 16 (6-20) mg/dL Creatinine 0.7 (0.6-1.2) mg/dL Estimated GFR (MDRD) 107 (>89) Glucose 138 H (70-100) mg/dL Calcium 9.5 (8.5-10.3) mg/dL Total Bilirubin 1.1 H (0.2-1.0) mg/dL AST 23 (10-42) IU/L ALT 21 (10-60) IU/L Alkaline Phosphatase 54 (42-121) IU/L Troponin I 0.14 0.11 (<0.49) ng/mL Total Protein 7.3 (6.7-8.2) g/dL Albumin 3.8 (3.2-5.5) g/dL Globulin 3.5 (2.1-4.2) g/dL Albumin/Globulin Ratio 1.1 (1.0-2.2) Lipase 18 L (22-51) U/L // Range/Units 14:40 WBC 8.9 (4.8-10.8) x10^3/uL RBC 4.68 L (4.70-6.10) 10^6/uL Hgb 13.6 L (14.0-18.0) g/dL Hct 41.4 L (42.0-52.0) % MCV 88.4 (80.0-94.0) fL MCH 29.0 (27.0-31.0) pg MCHC 32.8 (32.0-36.0) g/dL RDW 15.8 H (12.0-15.0) % Plt Count 198 (130-450) 10^3/uL MPV 7.8 (7.4-11.4) fL Neut # (Auto) 6.9 H (1.5-6.6) 10^3/uL Lymph # (Auto) 1.0 L (1.5-3.5) 10^3/uL [place] # (Auto) 0.9 (0.0-1.0) 10^3/uL Eos # (Auto) 0.1 (0.0-0.7) 10^3/uL Baso # (Auto) 0.1 (0.0-0.1) 10^3/uL Absolute Nucleated RBC 0.00 x10^3/uL Nucleated RBC % 0.0 /100WBC Sodium (135-145) mmol/L Potassium (3.5-5.0) mmol/L Chloride (101-111) mmol/L Carbon Dioxide (21-32) mmol/L Anion Gap (6-13) BUN (6-20) mg/dL Creatinine (0.6-1.2) mg/dL Estimated GFR (MDRD) (>89) Glucose (70-100) mg/dL Calcium (8.5-10.3) mg/dL Total Bilirubin (0.2-1.0) mg/dL AST (10-42) IU/L ALT (10-60) IU/L Alkaline Phosphatase (42-121) IU/L Troponin I (<0.49) ng/mL Total Protein (6.7-8.2) g/dL Albumin (3.2-5.5) g/dL Globulin (2.1-4.2) g/dL Albumin/Globulin Ratio (1.0-2.2) Lipase (22-51) U/L ABX Reporting Has patient been on IV antibiotics over the past 48 hours?: No Sepsis Event Note (H) - Evaluation Current Stage of Sepsis: Ruled out Assessment/Plan - Problem List (1) Left rib fracture Impression: 07/05 when pt moves, he still has. continue pain control continue incentive spirometer Q1H to prevention lung collapse. CT of chest reveals without complication. tele and vital closely monitor PT/OT CT reveals without delayed complication. order incentive spirometry pain control with Morphine and Oxycodon (2) Elevated troponin Conclusion/Plan: Troponin is stable at 0.13 at the third one. has no palpitation or other cardiac complaint reconcile pt's home meds Eliquis tele and vital monitor pt had elevated troponin 0.11 and 0.14. EKG reveals slight ST depression from previous study continue serial troponin add Aspirin 325 continue home meds Eliquis tele and vital monitor (3) Hx of pulmonary embolus Conclusion/Plan: pt has hx of PE, stable, continue Eliquis (4) Hx of coronary artery disease Conclusion/Plan: on tele and add aspirin tele and vital monitor (5) History of COPD Conclusion/Plan: stable, resume home Albuterol, Duoneb PRN (6) HTN (hypertension) Conclusion/Plan: stable, resume BP meds (7) systolic CHF stage 3 reconcile pt's home meds [place], metoprolol, and Spironolacton continue tele and vital (8)hx of stroke stable, continue Eilquis
[2018-07-05] MEDS ORDERED: ZOLPIDEM 5 MG TABLET PO PRN (10:48)
[2018-07-05] MEDS: BACLOFEN 10 MG TABLET PO SCH ×3 (13:10→22:14)
[2018-07-05] MEDS: ATORVASTATIN 40 MG TABLET PO SCH (20:41)
[2018-07-06] MEDS: SODIUM CHLORIDE FLUSH 0.9% 10 ML SYRINGE IVP SCH ×3 (01:23→21:33)
[2018-07-06] MEDS: oxyCODONE 5 MG TABLET PO PRN ×3 (01:37→12:59)
[2018-07-06 05:22] LABS: BASOPHILS % (AUTO) 0.4 %; EOSINOPHILS # (AUTO) 0.1 10^3/uL (0.0-0.7); EOSINOPHILS % (AUTO) 0.8 %; HGB - HEMOGLOBIN 13.6 g/dL (14.0-18.0); LYMPHOCYTES % (AUTO) 15.3 %; MEAN CORPUSCULAR HEMOGLOBIN 29.4 pg (27.0-31.0); MEAN CORPUSCULAR HGB CONC 33.2 g/dL (32.0-36.0); MEAN CORPUSCULAR VOLUME 88.4 fL (80.0-94.0); MEAN PLATELET VOLUME 7.6 fL (7.4-11.4); MONOCYTES # (AUTO) 0.6 10^3/uL (0.0-1.0); NEUTROPHILS # (AUTO) 5.1 10^3/uL (1.5-6.6); NEUTROPHILS % (AUTO) 74.5 %; PLT - PLATELET COUNT 192 10^3/uL (130-450); RED BLOOD COUNT 4.62 10^6/uL (4.70-6.10); RED CELL DISTRIBUTION WIDTH 15.4 % (12.0-15.0); WHITE BLOOD COUNT 6.8 x10^3/uL (4.8-10.8)
[2018-07-06 05:26] LABS: CALCIUM 9.2 mg/dL (8.5-10.3); CREATININE 0.6 mg/dL (0.6-1.2)
[2018-07-06] MEDS: BACLOFEN 10 MG TABLET PO SCH (07:10)
[2018-07-06] MEDS: LOSARTAN 50 MG TABLET PO SCH (07:56)
[2018-07-06] MEDS: POLYETHYLENE GLYCOL 3350 17 GM PACKET PO SCH (07:56)
[2018-07-06] MEDS: SPIRONOLACTONE 25 MG TABLET PO SCH (07:56)
[2018-07-06] MEDS: APIXABAN 5 MG TABLET PO SCH ×2 (07:56→21:33)
[2018-07-06] MEDS: FAMOTIDINE 20 MG TABLET PO SCH ×2 (07:56→21:33)
[2018-07-06] MEDS: METOPROLOL SUCCINATE 25 MG TABLET PO SCH (08:03)
[2018-07-06] MEDS: TAMSULOSIN 0.4 MG CAPSULE PO SCH (08:03)
[2018-07-06] MEDS ORDERED: hydrALAZINE INJ 20 MG/ML VIAL IVP PRN (08:11)
[2018-07-06] MEDS: CHOLECALCIFEROL 5,000 UNIT CAPSULE PO SCH (11:22)
[2018-07-06] MEDS: TOLTERODINE LA 2 MG CAPSULE PO SCH (11:22)
[2018-07-06] MEDS: FUROSEMIDE 20 MG TABLET PO SCH (11:22)
--- NOTE | 2018-07-06 13:55 | PROVIDER PROGRESS NOTE ---
Subjective - Prog Note Date Prog Note Date: 07/06/18 - Subjective Pt reports feeling: Improved Subjective: pt report his pain is slight improved. it seems work to pt to keep Oxycodon only. Try to find the balance to keep pt's pain in the control and not sedated to pt. encourage pt work with PT/OT, and RT with incentive spirometer Current Medications - Current Medications Current Medications: Active Medications Acetaminophen (Tylenol) 650 mg PO Q4HR PRN PRN Reason: Pain 1 to 4 Last Admin: 07/04/18 22:45 Dose: 650 mg Albuterol () 2.5 mg INH RTQ4H PRN PRN Reason: Wheezing Albuterol/Ipratropium (Duoneb) 3 ml INH Q4HR PRN PRN Reason: Wheezing Apixaban (Eliquis) 5 mg PO BID [facility] Last Admin: 07/06/18 07:56 Dose: 5 mg Atorvastatin Calcium (Lipitor) 40 mg PO QPM [facility] Last Admin: 07/05/18 20:41 Dose: 40 mg Cholecalciferol (Vitamin D3) 5,000 unit PO DAILY [facility] Last Admin: 07/06/18 11:22 Dose: 5,000 unit Famotidine (Pepcid) 20 mg PO BID [facility] Last Admin: 07/06/18 07:56 Dose: 20 mg Furosemide (Lasix) 20 mg PO DAILY [facility] Last Admin: 07/06/18 11:22 Dose: 20 mg Hydralazine HCl (Apresoline Inj) 10 mg IVP QID PRN PRN Reason: Hypertensive Emergency Ipratropium [place] (Atrovent) 0.5 mg INH RTQID [facility] Losartan Potassium (Cozaar) 50 mg PO DAILY [facility] Last Admin: 07/06/18 07:56 Dose: 50 mg Metoprolol Succinate (Toprol Xl) 25 mg PO DAILY [facility] Last Admin: 07/06/18 08:03 Dose: 25 mg Nitroglycerin (Nitrostat) 0.4 mg SL Q5MIN PRN PRN Reason: Chest Pain Ondansetron HCl (Zofran Inj) 4 mg IVP Q6HR PRN PRN Reason: Nausea / Vomiting Oxycodone HCl (Roxicodone) 10 mg PO Q4HR PRN PRN Reason: Pain 8 to 10 Last Admin: 07/06/18 12:59 Dose: 10 mg Polyethylene Glycol (Miralax) 17 gm PO DAILY [facility] Last Admin: 07/06/18 07:56 Dose: 17 gm Sertraline HCl (Zoloft) 50 mg PO QPM [facility] Sodium Chloride (Normal Saline Flush 0.9%) 10 ml IVP PRN PRN PRN Reason: NEEDED PER PROVIDER ORDERS Sodium Chloride (Normal Saline Flush 0.9%) 10 ml IVP 0100,0900,1700 [facility] Last Admin: 07/06/18 08:04 Dose: 10 ml Spironolactone (Aldactone) 25 mg PO DAILY [facility] Last Admin: 07/06/18 07:56 Dose: 25 mg Tamsulosin HCl (Flomax) 0.4 mg PO DAILY [facility] Last Admin: 07/06/18 08:03 Dose: 0.4 mg Tolterodine Tartrate (Detrol [place]) 2 mg PO DAILY [facility] Last Admin: 07/06/18 11:22 Dose: 2 mg Omeprazole [PriLOSEC] 20 mg PO BID 08/01/12 Losartan [Cozaar] 50 mg PO DAILY 09/02/14 Cholecalciferol (Vitamin D3) [Vitamin D3] 5,000 units PO DAILY 02/21/16 Albuterol Sulfate [Proair Hfa Inhaler] 2 puffs INH Q4H PRN 08/23/17 Tiotropium [place] [Spiriva] 1 puffs INH DAILY 08/23/17 Darifenacin Hydrobromide [Darifenacin ER] 7.5 mg PO DAILY 01/12/18 Atorvastatin [Lipitor] 40 mg PO QPM 07/03/18 Furosemide 20 mg PO DAILY 07/03/18 Metoprolol Succinate [Toprol Xl] 25 mg PO DAILY 07/03/18 Sertraline [Zoloft] 50 mg PO QPM 07/03/18 Tamsulosin [Flomax] 0.4 mg PO DAILY 07/03/18 Apixaban [Eliquis] 5 mg PO BID 07/05/18 Objective - Vital Signs/Intake & Output Reviewed Vital Signs: Yes Vital Signs: Vital Signs x48h Temp Pulse Pulse Pulse Resp Resp BP 07/06/18 12:00 75 20 146/69 H 07/06/18 11:45 75 75 18 07/06/18 07:44 36.7 C 82 18 161/88 H BP BP Pulse Ox Pulse Ox 07/06/18 12:00 94 07/06/18 11:45 133/65 H 133/65 H 91 L 07/06/18 07:44 94 Intake & Output: Intake & Output 07/03/18 07/04/18 07/05/18 07/06/18 23:59 23:59 23:59 23:59 Intake Total 300 1300 400 Output Total 200 750 200 Balance 100 550 200 - Objective General Appearance: positive: No acute distress, Alert. negative: Lethargic Eyes Bilateral: positive: Normal inspection, PERRL. negative: No lid inflammation, Conjunctivae nml ENT: positive: ENT inspection nml, Pharynx nml, No signs of dehydration. nega tive: Purulent nasal drainage, Pharyngeal erythema, Oral lesions Neck: positive: Nml inspection, Thyroid nml, No JVD, Trachea midline. negative: Thyromegaly, Lymphadenopathy (R), Lymphadenopathy (L), Stiff neck, Swelling/bruising, Tracheal deviation Respiratory: positive: Chest non-tender, No respiratory distress, Breath sounds nml. negative: Wheezes, Rales, Rhonchi Cardiovascular: positive: Regular rate & rhythm, No murmur, No gallop. negative: Irregularly irregular, Extrasystoles, Tachycardia, Bradycardia, JVD present, Systolic murmur, Diastolic murmur Peripheral Pulses: 2+ Radial (R), 2+ Radial (L), 2+ Dorsalis pedis (R), 2+ Dorsalis pedis (L) Abdomen: positive: Non-tender, No organomegaly, Nml bowel sounds, No distention. negative: Tenderness, Guarding, Rebound Back: positive: Nml inspection. negative: CVA tenderness (R), CVA tenderness (L) Skin: positive: Color nml, No rash, Warm, Dry. negative: Cyanosis, Diaphoresis, Pallor Extremities: positive: Non-tender, Nml appearance. negative: Calf tenderness, Joint swelling, Jasen's sign/cords Neurologic/Psychiatric: positive: Oriented x3, Sensation nml, Mood/affect nml. negative: Weakness, Sensory loss, Facial droop, Slurred/abnml speech, Depressed mood/affect - Lab Results Fish Bones: 07/06/18 05:07 07/06/18 05:07 Other Labs: Lab Results x24hrs 07/06/18 07/06/18 Range/Units 05:07 05:07 WBC 6.8 (4.8-10.8) x10^3/uL RBC 4.62 L (4.70-6.10) 10^6/uL Hgb 13.6 L (14.0-18.0) g/dL Hct 40.9 L (42.0-52.0) % MCV 88.4 (80.0-94.0) fL MCH 29.4 (27.0-31.0) pg MCHC 33.2 (32.0-36.0) g/dL RDW 15.4 H (12.0-15.0) % Plt Count 192 (130-450) 10^3/uL MPV 7.6 (7.4-11.4) fL Neut # (Auto) 5.1 (1.5-6.6) 10^3/uL Lymph # (Auto) 1.0 L (1.5-3.5) 10^3/uL [place] # (Auto) 0.6 (0.0-1.0) 10^3/uL Eos # (Auto) 0.1 (0.0-0.7) 10^3/uL Baso # (Auto) 0.0 (0.0-0.1) 10^3/uL Absolute Nucleated RBC 0.00 x10^3/uL Nucleated RBC % 0.0 /100WBC Sodium 135 (135-145) mmol/L Potassium 3.6 (3.5-5.0) mmol/L Chloride 101 (101-111) mmol/L Carbon Dioxide 24 (21-32) mmol/L Anion Gap 10.0 (6-13) BUN 15 (6-20) mg/dL Creatinine 0.6 (0.6-1.2) mg/dL Estimated GFR (MDRD) 128 (>89) Glucose 129 H (70-100) mg/dL Calcium 9.2 (8.5-10.3) mg/dL ABX Reporting Has patient been on IV antibiotics over the past 48 hours?: No Sepsis Event Note (H) - Evaluation Current Stage of Sepsis: Ruled out Assessment/Plan - Problem List (1) Left rib fracture Impression: 07/06 it seems Oxycodone 10 mg Q4H PRN is working for pt. try to find the balance for pt to have pain control, but not sedated. continue PT/OT continue RT with incentive spirometer 07/05 when pt moves, he still has. continue pain control continue incentive spirometer Q1H to prevention lung collapse. CT of chest reveals without complication. tele and vital closely monitor PT/OT CT reveals without delayed complication. order incentive spirometry pain control with Morphine and Oxycodon (2) Elevated troponin Conclusion/Plan: 07/06 stable, continue home Eliquis Troponin is stable at 0.13 at the third one. has no palpitation or other cardiac complaint reconcile pt's home meds Eliquis tele and vital monitor pt had elevated troponin 0.11 and 0.14. EKG reveals slight ST depression from previous study continue serial troponin add Aspirin 325 continue home meds Eliquis tele and vital monitor (3) Hx of pulmonary embolus Conclusion/Plan: pt has hx of PE, stable, continue Eliquis (4) Hx of coronary artery disease Conclusion/Plan: on tele and add aspirin tele and vital monitor (5) History of COPD Conclusion/Plan: stable, resume home Albuterol, Duoneb PRN (6) HTN (hypertension) Conclusion/Plan: stable, resume BP meds (7) systolic CHF stage 3 reconcile pt's home meds [place], metoprolol, and Spironolacton continue tele and vital (8)hx of stroke stable, continue Eilquis
[2018-07-06] MEDS: ATORVASTATIN 40 MG TABLET PO SCH (21:33)
[2018-07-06] MEDS: SERTRALINE 50 MG TABLET PO SCH (21:33)
[2018-07-06] MEDS: SODIUM CHLORIDE 0.9% 1,000 ML IV SCH (22:53)
[2018-07-07] MEDS: oxyCODONE 5 MG TABLET PO PRN ×2 (00:48→13:52)
--- NOTE | 2018-07-07 02:10 | XRAY Report ---
Reason: left elbow pain, recent fall Procedure Date: 07/07/2018 Accession Number: [id number] / [id number] Procedure: XR - Elbow 3 View LT CPT Code: FULL RESULT: EXAM: LEFT ELBOW RADIOGRAPHY EXAM DATE: 07/07/2018 01:26 AM. CLINICAL HISTORY: Left elbow pain, recent fall. COMPARISON: ELBOW 2 VIEW LT 01/17/2018 3:20 PM. TECHNIQUE: 3 views. FINDINGS: Bones: No acute fracture seen. Old ossicle proximal to the olecranon process, unchanged. Joints: There is no true lateral view. No obvious dislocation identified. There is degenerative joint disease. Soft Tissues: Mild soft tissue swelling. IMPRESSION: 1. Nonstandard positioning with no true lateral view. No acute fracture or dislocation identified. 2. Degenerative joint disease. 3. Old ossicle again seen proximal to the olecranon process. This could be an intra-articular loose body. RADIA
[2018-07-07] MEDS: SODIUM CHLORIDE FLUSH 0.9% 10 ML SYRINGE IVP SCH ×3 (02:52→16:54)
[2018-07-07 04:58] LABS: BASOPHILS % (AUTO) 0.5 %; EOSINOPHILS % (AUTO) 0.1 %; HGB - HEMOGLOBIN 13.6 g/dL (14.0-18.0); LYMPHOCYTES # (AUTO) 0.7 10^3/uL (1.5-3.5); LYMPHOCYTES % (AUTO) 7.1 %; MEAN CORPUSCULAR HEMOGLOBIN 29.3 pg (27.0-31.0); MEAN CORPUSCULAR HGB CONC 32.7 g/dL (32.0-36.0); MEAN CORPUSCULAR VOLUME 89.6 fL (80.0-94.0); MEAN PLATELET VOLUME 7.9 fL (7.4-11.4); MONOCYTES # (AUTO) 1.2 10^3/uL (0.0-1.0); MONOCYTES % (AUTO) 12.7 %; NEUTROPHILS # (AUTO) 7.4 10^3/uL (1.5-6.6); NEUTROPHILS % (AUTO) 79.6 %; PLT - PLATELET COUNT 201 10^3/uL (130-450); RED BLOOD COUNT 4.63 10^6/uL (4.70-6.10); RED CELL DISTRIBUTION WIDTH 15.4 % (12.0-15.0); WHITE BLOOD COUNT 9.2 x10^3/uL (4.8-10.8)
[2018-07-07 05:08] LABS: CREATININE 0.6 mg/dL (0.6-1.2)
[2018-07-07] MEDS: ACETAMINOPHEN 325 MG TABLET PO PRN ×3 (06:41→19:08)
[2018-07-07] MEDS: FUROSEMIDE 20 MG TABLET PO SCH (08:40)
[2018-07-07] MEDS: FAMOTIDINE 20 MG TABLET PO SCH ×2 (08:40→21:34)
[2018-07-07] MEDS: METOPROLOL SUCCINATE 25 MG TABLET PO SCH (08:41)
[2018-07-07] MEDS: LOSARTAN 50 MG TABLET PO SCH (08:41)
[2018-07-07] MEDS: APIXABAN 5 MG TABLET PO SCH ×2 (08:41→21:34)
[2018-07-07] MEDS: TOLTERODINE LA 2 MG CAPSULE PO SCH (08:41)
[2018-07-07] MEDS: SPIRONOLACTONE 25 MG TABLET PO SCH (08:42)
[2018-07-07] MEDS: TAMSULOSIN 0.4 MG CAPSULE PO SCH (08:42)
[2018-07-07] MEDS: CHOLECALCIFEROL 5,000 UNIT CAPSULE PO SCH (08:42)
[2018-07-07] MEDS: POLYETHYLENE GLYCOL 3350 17 GM PACKET PO SCH (08:53)
[2018-07-07] MEDS: IPRATROPIUM 0.2 MG/ML NEB INH SCH ×5 (08:53→19:47)
[2018-07-07] MEDS: SODIUM CHLORIDE 0.9% 1,000 ML IV SCH (11:31)
[2018-07-07] MEDS ORDERED: FLUOCINONIDE 0.05% CREAM 15 GM TUBE TOP PRN (11:39)
[2018-07-07] MEDS ORDERED: LIDOCAINE JELLY 2% 5 ML TUBE TOP ONE (13:00)
[2018-07-07] MEDS: ATORVASTATIN 40 MG TABLET PO SCH (21:34)
[2018-07-07] MEDS: SERTRALINE 50 MG TABLET PO SCH (21:35)
[2018-07-07] MEDS ORDERED: oxyCODONE 5 MG TABLET PO PRN (23:46)
[2018-07-08] MEDS: SODIUM CHLORIDE FLUSH 0.9% 10 ML SYRINGE IVP SCH ×2 (00:49→09:00)
[2018-07-08] MEDS: SODIUM CHLORIDE 0.9% 1,000 ML IV SCH (02:04)
[2018-07-08] MEDS: IPRATROPIUM 0.2 MG/ML NEB INH SCH (02:11)
[2018-07-08 04:43] LABS: BASOPHILS # (AUTO) 0.1 10^3/uL (0.0-0.1); BASOPHILS % (AUTO) 0.7 %; EOSINOPHILS # (AUTO) 0.1 10^3/uL (0.0-0.7); LYMPHOCYTES # (AUTO) 0.8 10^3/uL (1.5-3.5); LYMPHOCYTES % (AUTO) 9.7 %; MEAN CORPUSCULAR HEMOGLOBIN 29.4 pg (27.0-31.0); MEAN CORPUSCULAR VOLUME 89.2 fL (80.0-94.0); MEAN PLATELET VOLUME 7.8 fL (7.4-11.4); MONOCYTES % (AUTO) 11.6 %; NEUTROPHILS # (AUTO) 6.7 10^3/uL (1.5-6.6); PLT - PLATELET COUNT 191 10^3/uL (130-450); RED BLOOD COUNT 4.08 10^6/uL (4.70-6.10); RED CELL DISTRIBUTION WIDTH 15.2 % (12.0-15.0); WHITE BLOOD COUNT 8.7 x10^3/uL (4.8-10.8)
[2018-07-08 04:52] LABS: CALCIUM 8.7 mg/dL (8.5-10.3); CREATININE 0.6 mg/dL (0.6-1.2)
[2018-07-08] MEDS: ACETAMINOPHEN 325 MG TABLET PO PRN (07:27)
[2018-07-08 08:11] VITALS: BP 137/72
[2018-07-08] MEDS: LOSARTAN 50 MG TABLET PO SCH (08:58)
[2018-07-08] MEDS: APIXABAN 5 MG TABLET PO SCH (08:58)
[2018-07-08] MEDS: METOPROLOL SUCCINATE 25 MG TABLET PO SCH (08:58)
[2018-07-08] MEDS: CHOLECALCIFEROL 5,000 UNIT CAPSULE PO SCH (08:59)
[2018-07-08] MEDS: FAMOTIDINE 20 MG TABLET PO SCH (08:59)
[2018-07-08] MEDS: SPIRONOLACTONE 25 MG TABLET PO SCH (08:59)
[2018-07-08] MEDS: TOLTERODINE LA 2 MG CAPSULE PO SCH (08:59)
[2018-07-08] MEDS: TAMSULOSIN 0.4 MG CAPSULE PO SCH (08:59)
[2018-07-08] MEDS: FUROSEMIDE 20 MG TABLET PO SCH (08:59)
[2018-07-08] MEDS: POLYETHYLENE GLYCOL 3350 17 GM PACKET PO SCH (09:00)
--- NOTE | 2018-07-08 09:15 | PROVIDER PROGRESS NOTE ---
Subjective - Prog Note Date Prog Note Date: 07/07/18 Prog Note Time: 08:00 - Subjective Pt reports feeling: Improved Subjective: Arnel is lethargic during his exam, although is in his chair and has a food tray in front of him. He denies pain or shortness of breath. Current Medications - Current Medications Current Medications: Active Medications: Acetaminophen (Tylenol) 650 mg PO Q4HR PRN Albuterol 2.5 mg INH RTQ4H PRN Albuterol/Ipratropium (Duoneb) 3 ml INH Q4HR PRN Apixaban (Eliquis) 5 mg PO BID LAZARO Atorvastatin Calcium (Lipitor) 40 mg PO QPM LAZARO Cholecalciferol (Vitamin D3) 5,000 unit PO DAILY LAZARO Famotidine (Pepcid) 20 mg PO BID LAZARO Furosemide (Lasix) 20 mg PO DAILY LAZARO Hydralazine HCl (Apresoline Inj) 10 mg IVP QID PRN Sodium Chloride (Normal Saline 0.9%) 1,000 mls @ 75 mls/hr IV .[id number] LAZARO Ipratropium [place] (Atrovent) 0.5 mg INH RTQID LAZARO Losartan Potassium (Cozaar) 50 mg PO DAILY LAZARO Metoprolol Succinate (Toprol Xl) 25 mg PO DAILY LAZARO Nitroglycerin (Nitrostat) 0.4 mg SL Q5MIN PRN Ondansetron HCl (Zofran Inj) 4 mg IVP Q6HR PRN Oxycodone HCl (Roxicodone) 5 mg PO Q4HR PRN Polyethylene Glycol (Miralax) 17 gm PO DAILY LAZARO Sertraline HCl (Zoloft) 50 mg PO QPM LAZARO Spironolactone (Aldactone) 25 mg PO DAILY LAZARO Tamsulosin HCl (Flomax) 0.4 mg PO DAILY LAZARO Tolterodine Tartrate (Detrol La) 2 mg PO DAILY LAZARO Omeprazole [PriLOSEC] 20 mg PO BID 08/01/12 Losartan [Cozaar] 50 mg PO DAILY 09/02/14 Cholecalciferol (Vitamin D3) [Vitamin D3] 5,000 units PO DAILY 02/21/16 Albuterol Sulfate [Proair Hfa Inhaler] 2 puffs INH Q4H PRN 08/23/17 Tiotropium [place] [Spiriva] 1 puffs INH DAILY 08/23/17 Darifenacin Hydrobromide [Darifenacin ER] 7.5 mg PO DAILY 01/12/18 Atorvastatin [Lipitor] 40 mg PO QPM 07/03/18 Furosemide 20 mg PO DAILY 07/03/18 Metoprolol Succinate [Toprol Xl] 25 mg PO DAILY 07/03/18 Sertraline [Zoloft] 50 mg PO QPM 07/03/18 Tamsulosin [Flomax] 0.4 mg PO DAILY 07/03/18 Apixaban [Eliquis] 5 mg PO BID 07/05/18 Objective - Vital Signs/Intake & Output Reviewed Vital Signs: Yes Vital Signs: Vital Signs x48h Temp Pulse Resp BP Pulse Ox 07/08/18 07:59 36.4 C L 76 18 137/72 H 96 Intake & Output: Intake & Output 07/05/18 07/06/18 07/07/18 07/08/18 23:59 23:59 23:59 23:59 Intake Total 3791 848 2740.5 1912.5 Output Total 750 950 400 Balance 550 -550 1297.5 1912.5 - Objective General Appearance: positive: Moderate distress, Lethargic Eyes: OU Lid inflammation ENT: positive: Pharynx nml, Dry mucous membranes Neck: positive: Thyroid nml, No JVD, Trachea midline Respiratory: positive: Chest non-tender, Rhonchi Cardiovascular: positive: No gallop, Irregularly irregular, Systolic murmur, Decreased pulse(s) Peripheral Pulses: 1+ Radial (R), 1+ Radial (L) Abdomen: positive: Non-tender, Nml bowel sounds, Other (rounded, obese, soft) Back: positive: Nml inspection Skin: positive: No rash, Warm, Dry Extremities: positive: Non-tender, Pedal edema, Joint swelling Neurologic/Psychiatric: positive: Disoriented to place, Disoriented to time, Weakness, Sensory loss, Slurred/abnml speech, Depressed mood/affect Reflexes: Bicep (R): 2+, Bicep (L): 2+ - Lab Results Fish Bones: 07/08/18 04:36 07/08/18 04:36 Other Labs: Lab Results x24hrs 07/08/18 07/08/18 Range/Units 04:36 04:36 WBC 8.7 (4.8-10.8) x10^3/uL RBC 4.08 L (4.70-6.10) 10^6/uL Hgb 12.0 L (14.0-18.0) g/dL Hct 36.4 L (42.0-52.0) % MCV 89.2 (80.0-94.0) fL MCH 29.4 (27.0-31.0) pg MCHC 33.0 (32.0-36.0) g/dL RDW 15.2 H (12.0-15.0) % Plt Count 191 (130-450) 10^3/uL MPV 7.8 (7.4-11.4) fL Neut # (Auto) 6.7 H (1.5-6.6) 10^3/uL Lymph # (Auto) 0.8 L (1.5-3.5) 10^3/uL [place] # (Auto) 1.0 (0.0-1.0) 10^3/uL Eos # (Auto) 0.1 (0.0-0.7) 10^3/uL Baso # (Auto) 0.1 (0.0-0.1) 10^3/uL Absolute Nucleated RBC 0.00 x10^3/uL Nucleated RBC % 0.0 /100WBC Sodium 135 (135-145) mmol/L Potassium 3.7 (3.5-5.0) mmol/L Chloride 102 (101-111) mmol/L Carbon Dioxide 24 (21-32) mmol/L Anion Gap 9.0 (6-13) BUN 16 (6-20) mg/dL Creatinine 0.6 (0.6-1.2) mg/dL Estimated GFR (MDRD) 128 (>89) Glucose 116 H (70-100) mg/dL Calcium 8.7 (8.5-10.3) mg/dL - Diagnostic Imaging Diagnostic Imaging Results: positive: Final report reviewed ABX Reporting Has patient been on IV antibiotics over the past 48 hours?: No Sepsis Event Note (H) - Evaluation Current Stage of Sepsis: Ruled out Assessment/Plan - Problem List (1) Ribs, multiple fractures Impression: - CT chest found no new fracture since his discharge 1 day prior, no pneumothorax - Rib # 8,9, & 10 are still fractured Plan: Continue respiratory cares, treat acute pain, use incentive spirometer, await PT final recommendations regarding placement Qualifiers: Encounter type: initial encounter Fracture type: closed Laterality: left Qualified Code(s): S22.42XA - Multiple fractures of ribs, left side, initial encounter for closed fracture (2) Uncontrolled pain Impression: - Initial admitting diagnosis, since being discharged prematurely - Now maybe getting too much narcotic since being found lethargic on exam Plan: Continue to treat acute pain, encourage incentive spirometer, reduce dosing if appropriate (3) HTN (hypertension) Impression: - Takes ARB, BB, statin, diuretic, and eliquis at home - B/P 128/66 Plan: Continue medications, monitor vital signs Qualifiers: Hypertension type: essential hypertension Qualified Code(s): I10 - Essential (primary) hypertension (4) Elevated troponin Impression: - Peaked troponin of 0.14 and stayed flat - EKG without changes - In January 2018 an echo showed that his last EF was only 35% - Likely related to demand ischemia in the setting of respiratory distress- multiple rib fractures - No complaints of chest pain on exam and per nursing Plan: Continue to monitor for symptoms (5) Chronic systolic heart failure, ACC/AHA stage C Impression: - Echo from 01/2018 showed an EF of 35% - Exam revealed chronic BLE edema, abdominal edema, systolic murmur, and no JVD Plan: Continue meds, use IV fluids sparingly, continue most medications (6) Back pain with sciatica Impression: - Chronic in nature - Now exacerbated by new rib fractures - Also notes pain in right hip that shoots down his legs and in his low back Plan: Continue treatment of rib fractures, encourage activity, up to the chair for meals
[2018-07-08] MEDS ORDERED: FUROSEMIDE 20 MG/2 ML VIAL IVP SCH (09:22)
--- NOTE | 2018-07-08 09:26 | Discharge Plan ---
"Discharge Plan for SNF / [facility] - Discharge Plan And Transition Orders Disposition: 03 SNF DC/Xfer Condition: Good Allergies and Adverse Reactions: Allergies Allergy/AdvReac Type Severity Reaction Status Date / Time Influenza Virus Vaccines Allergy Rash Verified 04/21/18 02:33 baclofen AdvReac Severe Hallucinati Verified 07/07/18 23:19 ons bacitracin AdvReac Rash Verified 07/02/18 22:27 neomycin AdvReac Rash Verified 07/02/18 22:27 polymyxin B AdvReac Rash Verified 07/02/18 22:27 - SNF / [facility] Transition Orders Admit to (Facility): [facility] Under the care of (Name): Larry Naranjo Discharge Diagnosis: Multiple rib fractures (S22.49XA) 2nd admission for this, ongoing pain control issues Elevated troponin (R74.8) resolved, peaked at 0.13, stable Hypertension (I10) chronic, stable Chronic systolic heart failure, ACC/AHA stage C (I50.22) chronic, stable 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 Notify PCP of admission and forward orders to primary provider for signature. Weight on admission and: Weekly Medication Orders: PLEASE REFER TO THE DISCHARGE MEDICATION LIST. - Medications New Prescriptions: oxyCODONE [Roxicodone] 5 mg PO Q4HR PRN #21 tablet PRN Reason: Pain 8 to 10 - Diet Type: Geriatric Texture: Regular Liquids: Thin May have monthly special meal: Yes - Therapies | Activity Therapy: Evaluation | Treat if indicated: PT, OT Rehabilitation Potential: Maximize functional status, Return to independent living Activity: Activity as Tolerated Weight Bearing: Full Weight Assistance Devices: Wheelchair, Walker"
[2018-07-08] MEDS ORDERED: FUROSEMIDE 40 MG TABLET PO SCH (10:00)
[2018-07-08] MEDS ORDERED: FUROSEMIDE 20 MG TABLET PO SCH (10:42)
--- NOTE | 2018-07-08 14:25 | DISCHARGE SUMMARY ---
Discharge Summary Admit Date: 07/04/18 Discharge Date: 07/08/18 Discharging Provider: DORA Lester Primary Care Provider: Larry Naranjo Code Status: Do Not Attempt Resuscitation Condition at Discharge: Good Discharge Disposition: 03 SNF DC/Xfer Discharge Facility Name: [facility] - DIAGNOSES Admission Diagnoses: Left rib fracture Elevated troponin Hx of pulmonary embolus Hx of coronary artery disease History of COPD HTN (hypertension) Discharge Diagnoses with Status of Each Condition: Multiple rib fractures (S22.49XA) 2nd admission for this, ongoing pain control issues Elevated troponin (R74.8) resolved, peaked at 0.13, stable Hypertension (I10) chronic, stable Chronic systolic heart failure, ACC/AHA stage C (I50.22) chronic, stable 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 He presented to the emergency department for the second time in 2 days after falling three days ago, resulting in fractured ribs on left side (rib # 8, 9, & 10). He was discharged home with pain meds, but family states pain meds have been unable to control pain and "they could not understand their discharging provider", who in their opinion sent the patient home too early. The patient also noted that he could not take deep breaths despite taking medication. Upon arrival in the ED he was hypoxic, and improved to 94% on 4L nasal cannula. During his initial interview by the admitting provider, he was noted to be very sleepy. A chest CT revealed no changes, no pneumothorax, pleural effusions, or pneumonia. Labs showed an elevated Troponin 0.11, 0.14, and no follow up troponins, or further work up. There were no other significant lab abnormalities and the patient was re- admitted for further pain management, a physical therapy evaluation, and routine respiratory care. - CONSULTS | PROCEDURES Consultations: There was no attempt to consult Cardiology for unknown reasons - HOSPITAL COURSE Hospital Course: The patient had returned to the ED after being prematurely discharged after falling and fracturing his left ribs #8,9, & 10. His pain was managed and was evaluated by PT who recommended residential facility for further physical therapy. His elevated troponin reached a peak of 0.14, but no further testing was completed and his last known EF was 35%. He was medically stable and transported to [facility] to undergo further PT for his current debilitated state a nd profound weakness caused by his fall resulting in his rib fractures. - ALLERGIES Allergies/Adverse Reactions: Allergies Allergy/AdvReac Type Severity Reaction Status Date / Time Influenza Virus Vaccines Allergy Rash Verified 04/21/18 02:33 baclofen AdvReac Severe Hallucinati Verified 07/07/18 23:19 ons bacitracin AdvReac Rash Verified 07/02/18 22:27 neomycin AdvReac Rash Verified 07/02/18 22:27 polymyxin B AdvReac Rash Verified 07/02/18 22:27 - MEDICATIONS Home Medications: Ambulatory Orders Medication Instructions Recorded Confirmed Omeprazole [PriLOSEC] 20 mg PO BID 08/01/12 07/05/18 Losartan [Cozaar] 50 mg PO DAILY 09/02/14 07/05/18 Cholecalciferol (Vitamin D3) 5,000 units PO DAILY 02/21/16 07/05/18 [Vitamin D3] Albuterol Sulfate [Proair Hfa 2 puffs INH Q4H PRN 08/23/17 07/05/18 Inhaler] Tiotropium [place] [Spiriva] 1 puffs INH DAILY 08/23/17 07/05/18 Darifenacin Hydrobromide 7.5 mg PO DAILY 01/12/18 07/05/18 [Darifenacin ER] Spironolactone [Aldactone] 25 mg PO DAILY #30 tablet 01/14/18 07/05/18 Atorvastatin [Lipitor] 40 mg PO QPM 07/03/18 07/05/18 Furosemide 20 mg PO DAILY 07/03/18 07/05/18 Metoprolol Succinate [Toprol Xl] 25 mg PO DAILY 07/03/18 07/05/18 Sertraline [Zoloft] 50 mg PO QPM 07/03/18 07/05/18 Tamsulosin [Flomax] 0.4 mg PO DAILY 07/03/18 07/05/18 Apixaban [Eliquis] 5 mg PO BID 07/05/18 07/05/18 oxyCODONE [Roxicodone] 5 mg PO Q4HR PRN #21 tablet 07/08/18 - PHYSICAL EXAM AT DISCHARGE General Appearance: positive: Alert, Mild distress Eyes Bilateral: positive: PERRL ENT: positive: Pharynx nml, No signs of dehydration Neck: positive: Thyroid nml, No JVD, Trachea midline Respiratory: positive: Chest non-tender, No respiratory distress, Other (diminished, more on right, scattered crackles with inspiration) Cardiovascular: positive: No gallop, Irregularly irregular, Systolic murmur, Decreased pulse(s) Peripheral Pulses: positive: 1+ Abdomen: positive: Non-tender, Nml bowel sounds, Hepatomegaly, Other (rounded, soft) Back: positive: Nml inspection, CVA tenderness (R) Skin: positive: No rash, Warm, Dry, Pallor Extremities: positive: Non-tender, Pedal edema (chronic BLE edema, abdominal edema), Joint swelling Neurologic/Psychiatric: positive: CN's nml (2-12), Disoriented to time, Weakness, Sensory loss, Slurred/abnml speech, Depressed mood/affect Reflexes: Bicep (R): 2+, Bicep (L): 2+ - LABS Result Diagrams: 07/08/18 04:36 07/08/18 04:36 - DIAGNOSTIC IMAGING Diagnostic Imaging Results: Final report reviewed Diagnostic Imaging Results Comments: EXAM: CT CHEST EXAM DATE: 07/04/2018 03:23 PM. FINDINGS: Lungs/Pleura: Bilateral emphysema and interstitial thickening is again seen, similar to yesterday. There are no new pulmonary findings. There is no new pleural effusion or pneumothorax. Mediastinum: There are moderate to severe three-vessel coronary calcifications. The aorta is mildly atherosclerotic. There is no evidence of trauma to the great vessels. There is no pericardial effusion. Bones: Fractures of the left 8th through 10th ribs, minimally displaced and acute are again seen. No new fractures are detected. Visualized Abdomen: Vascular calcifications, a right renal cyst and perinephric fat stranding are noted. Other: None. IMPRESSION: No evidence of delayed complications of the recent trauma. Redemonstration of known rib fractures. Redemonstration of emphysema, vascular disease and interstitial pulmonary th ickening.
== END 2018-07-08 10:50 | DRG 560 ==
LOC: EDUNIT# → ED 13:09 → MS3 17:53 → OBSVTOIN 17:53
PROVIDERS: ADMIT Nurse Practitioner Gerontology; ATTEND Nurse Practitioner
DX: S22.42XD Multiple fractures of ribs, left side, subsequent encounter for fracture with routine healing (principal); W05.0XXD Fall from non-moving wheelchair, subsequent encounter; I50.22 Chronic systolic (congestive) heart failure; X50.0XXD Overexertion from strenuous movement or load, subsequent encounter; I11.0 Hypertensive heart disease with heart failure; Z99.3 Dependence on wheelchair; I25.10 Atherosclerotic heart disease of native coronary artery without angina pectoris; Z95.5 Presence of coronary angioplasty implant and graft; Z86.73 Personal history of transient ischemic attack (TIA), and cerebral infarction without residual deficits; G89.29 Other chronic pain; G47.30 Sleep apnea, unspecified; Z87.891 Personal history of nicotine dependence; Z96.659 Presence of unspecified artificial knee joint; Z79.82 Long term (current) use of aspirin; Z66 Do not resuscitate; M19.90 Unspecified osteoarthritis, unspecified site; R74.8 Abnormal levels of other serum enzymes; M54.30 Sciatica, unspecified side; E78.5 Hyperlipidemia, unspecified; G47.33 Obstructive sleep apnea (adult) (pediatric); J44.9 Chronic obstructive pulmonary disease, unspecified; N40.1 Benign prostatic hyperplasia with lower urinary tract symptoms; N39.498 Other specified urinary incontinence; Z86.711 Personal history of pulmonary embolism; F03.90 Unspecified dementia, unspecified severity, without behavioral disturbance, psychotic disturbance, mood disturbance, and anxiety; H91.90 Unspecified hearing loss, unspecified ear; R09.02 Hypoxemia; R53.81 Other malaise; Z88.7 Allergy status to serum and vaccine
CPT/HCPCS: 36415; 71046; 71260; 73080; 80048; 80053; 83690; 84484; 85025; 93005; 96361; 96374; 96376; 97162; 97166; 97530; 99284; 99285; A9270; G0378; J2270; J3490; Q9967

== ENCOUNTER 2018-11-16 19:50 | Outpatient (CLI) | payer MEDICARE, OTHER | END 2018-11-16 19:51 | disposition critical access hospital (66) | LOC: EMS 19:50 | PROVIDERS: ATTEND Surgery | DX: R07.9 Chest pain, unspecified (principal) | CPT/HCPCS: A0425; A0427 ==

== ENCOUNTER 2018-11-16 20:03 | Emergency (ER) | payer MEDICARE, OTHER ==
[2018-11-16 20:23] LABS: BASOPHILS # (AUTO) 0.1 10^3/uL (0.0-0.1); BASOPHILS % (AUTO) 0.9 %; EOSINOPHILS # (AUTO) 0.2 10^3/uL (0.0-0.7); EOSINOPHILS % (AUTO) 2.9 %; HGB - HEMOGLOBIN 14.5 g/dL (14.0-18.0); LYMPHOCYTES # (AUTO) 1.8 10^3/uL (1.5-3.5); LYMPHOCYTES % (AUTO) 21.4 %; MEAN CORPUSCULAR HEMOGLOBIN 28.6 pg (27.0-31.0); MEAN CORPUSCULAR HGB CONC 32.7 g/dL (32.0-36.0); MEAN CORPUSCULAR VOLUME 87.6 fL (80.0-94.0); MEAN PLATELET VOLUME 9.3 fL (7.4-11.4); MONOCYTES # (AUTO) 0.7 10^3/uL (0.0-1.0); MONOCYTES % (AUTO) 8.1 %; NEUTROPHILS # (AUTO) 5.4 10^3/uL (1.5-6.6); NEUTROPHILS % (AUTO) 66.2 %; PLT - PLATELET COUNT 218 10^3/uL (130-450); RED BLOOD COUNT 5.07 10^6/uL (4.70-6.10); RED CELL DISTRIBUTION WIDTH 14.2 % (12.0-15.0); WHITE BLOOD COUNT 8.2 x10^3/uL (4.8-10.8)
--- NOTE | 2018-11-16 20:24 | ED Physician Documentation ---
PD HPI CHEST PAIN - Stated complaint Stated Complaint: CP - Chief complaint Chief Complaint: Cardiac - History obtained from History obtained from: Patient, EMS - History of Present Illness Timing - onset: How many hours ago (1) Timing - onset during: Light activity Timing - duration: Minutes Timing - details: Intermittant Pain level max: 1 Pain level now: 0 Quality: Other (Slight discomfort.) Location: Left chest Worsened by: Movement Associated symptoms: No: Shortness of air, Diaphoresis, Nausea, Vomiting Similar symptoms before: Has not had sx before - Treatment prior to arrival Treatment prior to arrival: Medics administered 4 baby aspirin and one SL NTG. - Additional information Additional information: The patient is an 83-year-old male who arrives via ambulance after an episode of mild left anterior chest pain. The chest pain started about 1 hour prior to arrival when he twisted while walking out of the bathroom. It lasted for a few minutes but has recurred intermittently since that time. He says it is worse with movement. At its worst he rates it at 1 out of 10 in severity, and currently it is totally resolved. He denies any associated shortness of breath, diaphoresis, nausea or vomiting. Medics administered 4 baby aspirin. He had a brief episode of discomfort in the ambulance, and the medics administered 1 sublingual nitroglycerin. They report that his brief discomfort was gone before the nitroglycerin had dissolved. The patient denies history of similar symptoms in the past. His past medical history is significant for coronary artery disease, status post stent placement. He has history of systolic congestive heart failure with an ejection fraction of 35%. He has history of COPD and sleep apnea on CPAP. He was hospitalized in June 2018 with multiple rib fractures associated with mechanical fall. He has history of pulmonary embolus and dementia. Review of Systems Constitutional: denies: Fever Nose: denies: Congestion Throat: denies: Sore throat Cardiac: reports: Chest pain / pressure. denies: Palpitations Respiratory: denies: Dyspnea, Cough GI: denies: Abdominal Pain, Nausea, Vomiting : denies: Dysuria Skin: denies: Rash Musculoskeletal: denies: Extremity pain Neurologic: denies: Focal weakness, Numbness, Headache PD PAST MEDICAL HISTORY - Past Medical History Cardiovascular: Coronary artery disease Respiratory: Sleep apnea, CPAP use Neuro: CVA Endocrine/Autoimmune: None GI: Diverticulitis : None Psych: None Musculoskeletal: Osteoarthritis, Chronic back pain Derm: None - Past Surgical History Past Surgical History: Yes General: Bowel surgery Ortho: Knee replacement, Spine surgery Cardiovascular: Coronary stent Derm: Skin cancer surgery - Present Medications Home Medications: Ambulatory Orders Medication Instructions Recorded Confirmed Omeprazole [PriLOSEC] 20 mg PO BID 08/01/12 07/05/18 Losartan [Cozaar] 50 mg PO DAILY 09/02/14 07/05/18 Cholecalciferol (Vitamin D3) 5,000 units PO DAILY 02/21/16 07/05/18 [Vitamin D3] Albuterol Sulfate [Proair Hfa 2 puffs INH Q4H PRN 08/23/17 07/05/18 Inhaler] Tiotropium [place] [Spiriva] 1 puffs INH DAILY 08/23/17 07/05/18 Darifenacin Hydrobromide 7.5 mg PO DAILY 01/12/18 07/05/18 [Darifenacin ER] Spironolactone [Aldactone] 25 mg PO DAILY #30 tablet 01/14/18 07/05/18 Atorvastatin [Lipitor] 40 mg PO QPM 07/03/18 07/05/18 Furosemide 20 mg PO DAILY 07/03/18 07/05/18 Metoprolol Succinate [Toprol Xl] 25 mg PO DAILY 07/03/18 07/05/18 Sertraline [Zoloft] 50 mg PO QPM 07/03/18 07/05/18 Tamsulosin [Flomax] 0.4 mg PO DAILY 07/03/18 07/05/18 Apixaban [Eliquis] 5 mg PO BID 07/05/18 07/05/18 oxyCODONE [Roxicodone] 5 mg PO Q4HR PRN #21 tablet 07/08/18 - Allergies Allergies/Adverse Reactions: Allergies Allergy/AdvReac Type Severity Reaction Status Date / Time Influenza Virus Vaccines Allergy Rash Verified 04/21/18 02:33 baclofen AdvReac Severe Hallucinati Verified 07/07/18 23:19 ons bacitracin AdvReac Rash Verified 07/02/18 22:27 neomycin AdvReac Rash Verified 07/02/18 22:27 polymyxin B AdvReac Rash Verified 07/02/18 22:27 - Social History Does the pt smoke?: No Smoking Status: Former smoker Does the pt drink ETOH?: Yes Does the pt have substance abuse?: No - Immunizations Immunizations are current?: Yes Immunizations: TDAP >10years/unknown - POLST Patient has POLST: No POLST Status: DNR PD ED PE NORMAL - Vitals Vital signs reviewed: Yes (normal) - General General: Alert and oriented X 3, Well developed/nourished - HEENT HEENT: Atraumatic, Other (poor dentition) - Neck Neck: No adenopathy, No JVD - Cardiac Cardiac: RRR - Respiratory Respiratory: No respiratory distress, Clear bilaterally - Abdomen Abdomen: Soft, Non tender - Back Back: No CVA TTP - Derm Derm: No rash - Extremities Extremities: No edema, No calf tenderness / cord - Neuro Neuro: Alert and oriented X 3, No motor deficit, Normal speech Results - Vitals Vitals: Vital Signs - 24 hr 11/16/18 11/16/18 11/16/18 20:11 20:37 21:02 Temperature 36.4 C L Heart Rate 74 68 68 Respiratory 17 17 17 Rate Blood Pressure 104/70 120/61 120/61 O2 Saturation 95 99 97 11/16/18 21:04 Temperature Heart Rate 67 Respiratory 17 Rate Blood Pressure 122/98 H O2 Saturation 96 Oxygen O2 Source [] Nasal cannula O2 Source Nasal cannula - EKG (time done) 20:05 Rate: Rate (enter#) (76) Rhythm: NSR, Other (PVC's) [place]: Normal Intervals: Prolonged MT Ischemia: Non specific changes Compare to prior EKG: Unchanged from prior EKG Computer interpretation: Agree with computer - Labs Labs: Laboratory Tests 11/16/18 11/16/18 11/16/18 20:15 20:15 20:15 WBC 8.2 RBC 5.07 Hgb 14.5 Hct 44.4 MCV 87.6 MCH 28.6 MCHC 32.7 RDW 14.2 Plt Count 218 MPV 9.3 Neut # (Auto) 5.4 Lymph # (Auto) 1.8 [place] # (Auto) 0.7 Eos # (Auto) 0.2 Baso # (Auto) 0.1 Absolute Nucleated RBC 0.00 Nucleated RBC % 0.0 Sodium 136 Potassium 4.1 Chloride 102 Carbon Dioxide 24 Anion Gap 10.0 BUN 16 Creatinine 0.8 Estimated GFR (MDRD) 92 Glucose 124 H Calcium 9.8 Total Bilirubin 0.5 AST 23 ALT 21 Alkaline Phosphatase 63 Troponin I High Sens 306.0 H* Total Protein 7.4 Albumin 3.8 Globulin 3.6 Albumin/Globulin Ratio 1.1 Lipase 23 - Rads (name of study) 1-view CXR Radiology: Prelim report reviewed, EMP read contemporaneously, See rad report (No acute findings.) PD MEDICAL DECISION MAKING - ED course Complexity details: reviewed old records, reviewed results, re-evaluated patie nt, considered differential, d/w patient, d/w family, d/w operations consultant ED course: The patient's presentation is most consistent with non-STEMI, with chest pain and elevated high-sensitivity troponin level at 306. He was pain-free at the time of arrival in the emergency department after having received aspirin and 1 sublingual nitroglycerin by the medics. His electrocardiogram reveals wide QRS, but no acute changes other than PVCs when compared to prior EKG from June 2018. Treatment in the emergency department included administration of Nitropaste 1 inch topically, Lopressor 25 mg orally, and heparin bolus and drip as per cardiac protocol. The patient remained pain-free with stable vital signs. I discussed his condition with Dr. Hsieh who is on-call for the patient's stockroom attendant, Dr. Monet. He agrees with transfer to [facility] in [place]. I discussed his condition with Dr. Ev Miguel, hospitalist at [facility], who accepts him in transfer. He is being transported by ALS ambulance. Transfer forms were completed. I discussed CODE STATUS with the patient and his daughter. They expressed wishes for full code. Departure - Departure Disposition: 02 Transfer Acute Care Hosp Clinical Impression: Chest pain due to CAD, Elevated troponin I level Condition: Stable
--- NOTE | 2018-11-16 20:38 | XRAY Report ---
Reason: chest pain Procedure Date: 11/16/2018 Accession Number: [id number] / [id number] Procedure: XR - Chest 1 View X-Ray CPT Code: 01989 FULL RESULT: EXAM: CHEST RADIOGRAPHY EXAM DATE: 11/16/2018 08:22 PM. CLINICAL HISTORY: Chest pain. COMPARISON: CHEST 2 VIEW 07/04/2018 2:14 PM. TECHNIQUE: 1 view. FINDINGS: Lungs/Pleura: No focal consolidation. Low expansion with crowding of bronchovascular structures and exaggeration of interstitial markings. No definite edema. No pleural effusion. No pneumothorax. Mediastinum: Within exam limitations, the cardiomediastinal contour is normal. Other: None. IMPRESSION: No acute findings. RADIA
[2018-11-16 20:42] LABS: ALBUMIN 3.8 g/dL (3.2-5.5); ALBUMIN/GLOBULIN RATIO 1.1 (1.0-2.2); BILIRUBIN,TOTAL 0.5 mg/dL (0.2-1.0); CALCIUM 9.8 mg/dL (8.5-10.3); CREATININE 0.8 mg/dL (0.6-1.2); TOTAL PROTEIN 7.4 g/dL (6.7-8.2)
[2018-11-16] MEDS ORDERED: METOPROLOL TARTRATE 50 MG TABLET PO STA (20:55)
[2018-11-16] MEDS ORDERED: NITROGLYCERIN 2% PASTE TOP STA (20:55)
[2018-11-16] MEDS ORDERED: HEPARIN 25000UNITS/500ML (D5W) 25,000 UNIT/500 ML BAG IV STA (21:20)
[2018-11-16 22:35] VITALS: BP 119/77
== END 2018-11-16 23:23 | disposition short-term general hospital (02) ==
LOC: EDUNIT# → ED 20:03
DX: R07.9 Chest pain, unspecified (principal); R74.8 Abnormal levels of other serum enzymes; I25.10 Atherosclerotic heart disease of native coronary artery without angina pectoris; Z87.891 Personal history of nicotine dependence; Z66 Do not resuscitate
CPT/HCPCS: 36415; 71045; 80053; 83690; 84484; 85025; 85730; 93005; 96374; 99284; A9270

== ENCOUNTER 2018-11-19 17:47 | Outpatient (CLI) | payer MEDICARE, OTHER | END 2018-11-19 17:48 | disposition short-term general hospital (02) | LOC: EMS 17:47 | PROVIDERS: ATTEND Surgery | DX: M79.622 Pain in left upper arm (principal) | CPT/HCPCS: A0425; A0427 ==

== ENCOUNTER 2019-02-18 21:08 | Outpatient (CLI) | payer MEDICARE, OTHER | END 2019-02-18 23:59 | disposition critical access hospital (66) | LOC: EMS 21:08 | PROVIDERS: ATTEND Surgery | DX: R07.9 Chest pain, unspecified (principal); M25.512 Pain in left shoulder; R06.02 Shortness of breath; R42 Dizziness and giddiness | CPT/HCPCS: A0425; A0429 ==

== ENCOUNTER 2019-02-18 21:28 | Emergency (ER) | payer MEDICARE, OTHER ==
--- NOTE | 2019-02-18 21:32 | ED Physician Documentation ---
History of Present Illness - Stated complaint Stated Complaint: DYPSNEA - Additonal information Additional information: This is an 83-year-old male with history of CAD, hypertension, sleep apnea, hyperlipidemia, past CVA, who presents with a resolved episode of lightheadedness and dyspnea associated with some chest pain. Patient states around 1/2-hour prior to arrival he walked out to his car and upon arriving to his car he began to feel lightheaded and short of breath and he had chest pain which was moderate in severity located over the left lateral side of his chest radiating towards his left shoulder and his left neck. EMS was called, and en route his symptoms all completely resolved. He currently is feeling well. He states he is had a catheterization in the past but has never had stents. He follows with his g[place] professor Dr. Monte in [place]. Review of Systems Constitutional: denies: Fever Cardiac: reports: Chest pain / pressure Respiratory: reports: Dyspnea GI: denies: Abdominal Pain : denies: Dysuria Musculoskeletal: reports: Neck pain Immunocompromised: denies: Immunocompromised PD PAST MEDICAL HISTORY - Past Medical History Cardiovascular: Coronary artery disease Respiratory: Sleep apnea, CPAP use Neuro: CVA Endocrine/Autoimmune: None GI: Diverticulitis : None Psych: None Musculoskeletal: Osteoarthritis, Chronic back pain Derm: None - Past Surgical History Past Surgical History: Yes General: Bowel surgery Ortho: Knee replacement, Spine surgery Cardiovascular: Coronary stent Derm: Skin cancer surgery - Present Medications Home Medications: Ambulatory Orders Medication Instructions Recorded Confirmed Omeprazole [PriLOSEC] 20 mg PO BID 08/01/12 07/05/18 Losartan [Cozaar] 50 mg PO DAILY 09/02/14 07/05/18 Cholecalciferol (Vitamin D3) 5,000 units PO DAILY 02/21/16 07/05/18 [Vitamin D3] Albuterol Sulfate [Proair Hfa 2 puffs INH Q4H PRN 08/23/17 07/05/18 Inhaler] Tiotropium [place] [Spiriva] 1 puffs INH DAILY 08/23/17 07/05/18 Darifenacin Hydrobromide 7.5 mg PO DAILY 01/12/18 07/05/18 [Darifenacin ER] Spironolactone [Aldactone] 25 mg PO DAILY #30 tablet 01/14/18 07/05/18 Atorvastatin [Lipitor] 40 mg PO QPM 07/03/18 07/05/18 Furosemide 20 mg PO DAILY 07/03/18 07/05/18 Metoprolol Succinate [Toprol Xl] 25 mg PO DAILY 07/03/18 07/05/18 Sertraline [Zoloft] 50 mg PO QPM 07/03/18 07/05/18 Tamsulosin [Flomax] 0.4 mg PO DAILY 07/03/18 07/05/18 Apixaban [Eliquis] 5 mg PO BID 07/05/18 07/05/18 oxyCODONE [Roxicodone] 5 mg PO Q4HR PRN #21 tablet 07/08/18 - Allergies Allergies/Adverse Reactions: Allergies Allergy/AdvReac Type Severity Reaction Status Date / Time Influenza Virus Vaccines Allergy Rash Verified 02/18/19 21:31 baclofen AdvReac Severe Hallucinati Verified 02/18/19 21:31 ons bacitracin AdvReac Rash Verified 02/18/19 21:31 neomycin AdvReac Rash Verified 02/18/19 21:31 polymyxin B AdvReac Rash Verified 02/18/19 21:31 - Social History Does the pt smoke?: No Smoking Status: Former smoker Does the pt drink ETOH?: Yes Does the pt have substance abuse?: No - Immunizations Immunizations are current?: Yes Immunizations: TDAP >10years/unknown - POLST Patient has POLST: No POLST Status: DNR PD ED PE NORMAL - Vitals Vital signs reviewed: Yes - General General: Alert and oriented X 3, No acute distress - HEENT HEENT: PERRL - Neck Neck: Supple, no meningeal sign - Cardiac Cardiac: RRR, No murmur - Respiratory Respiratory: No respiratory distress, Clear bilaterally - Abdomen Abdomen: Soft, Non tender, Non distended - Derm Derm: Warm and dry - Extremities Extremities: No deformity - Neuro Neuro: Alert and oriented X 3, time 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 2-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, No motor deficit, No sensory deficit, Normal speech - Psych Psych: Normal mood, Normal affect Results - Vitals Vitals: Vital Signs - 24 hr 02/18/19 02/18/19 02/18/19 21:31 21:34 23:34 Temperature 36.5 C Heart Rate 79 76 90 Respiratory 14 14 16 Rate Blood Pressure 135/83 H 135/83 H 146/111 H O2 Saturation 94 94 94 02/19/19 02/19/19 02/19/19 00:14 01:00 03:00 Temperature Heart Rate 73 85 89 Respiratory 18 14 24 Rate Blood Pressure 164/86 H 149/90 H O2 Saturation 93 94 Oxygen O2 Source [] Nasal cannula O2 Source Room air - EKG (time done) 21:39 Other comments: Other comments (Rate 80, rhythm sinus with first-degree AV block, and PVCs. There is a left bundle branch block. No STEMI by sgarbossa criteria.) 2:49 Other comments: Other comments (Rate 90, rhythm sinus with a first-degree AV block. There is a left bundle branch block. No STEMI by scar Bosa criteria. P attern is unchanged from EKG earlier today.) - Labs Labs: Laboratory Tests 02/18/19 02/18/19 02/18/19 21:56 21:56 21:56 WBC 8.0 RBC 4.67 L Hgb 12.9 L Hct 41.0 L MCV 87.8 MCH 27.6 MCHC 31.5 L RDW 15.7 H Plt Count 205 MPV 9.6 Neut # (Auto) 6.0 Lymph # (Auto) 1.2 L [place] # (Auto) 0.6 Eos # (Auto) 0.1 Baso # (Auto) 0.1 Absolute Nucleated RBC 0.00 Nucleated RBC % 0.0 Sodium 137 Potassium 4.0 Chloride 102 Carbon Dioxide 24 Anion Gap 11.0 BUN 17 Creatinine 1.0 Estimated GFR (MDRD) 71 L Glucose 125 H Calcium 9.6 Total Bilirubin 0.7 AST 17 ALT 15 Alkaline Phosphatase 63 Troponin I High Sens 42.7 H* B-Natriuretic Peptide Total Protein 7.7 Albumin 4.1 Globulin 3.6 Albumin/Globulin Ratio 1.1 Lipase 24 02/18/19 02/19/19 21:56 01:25 WBC RBC Hgb Hct MCV MCH MCHC RDW Plt Count MPV Neut # (Auto) Lymph # (Auto) [place] # (Auto) Eos # (Auto) Baso # (Auto) Absolute Nucleated RBC Nucleated RBC % Sodium Potassium Chloride Carbon Dioxide Anion Gap BUN Creatinine Estimated GFR (MDRD) Glucose Calcium Total Bilirubin AST ALT Alkaline Phosphatase Troponin I High Sens 116.5 H* B-Natriuretic Peptide 629 H Total Protein Albumin Globulin Albumin/Globulin Ratio Lipase - Rads (name of study) CXR Radiology: Other (No acute abnormality) PD MEDICAL DECISION MAKING - ED course ED course: Patient arrived to the emergency department he was asymptomatic, he is hypertensive. EKG looks stable from prior, he has a a left bundle branch block and first-degree AV block. No STEMI by Sgarbossa criteria. He has already received 324 mg of aspirin. His first High-sensitivity troponin is slightly elevated In the 40s. His BNP is also elevated at 629. His chest x-ray shows no acute process. Plan most concerned for ACS given patient's concerning history of pain rating to his neck and his shoulder, as well as his known coronary artery disease. I spoke with Dr. Oswaldo Martin of cardiology at [facility], who states patient has a L circumflex lesion that calcified And is unable to be stented with the typical PCI. He discussed that this could be treated with a laser which should be done at [facility] but has significant risk. The alternative is medical therapy with aspirin, Plavix, heparin. He thinks that medical therapy sounds like the more reasonable option at this time. I discussed this with the patient, and explained that we could transfer him to [facility] for further discussion of the intervention of his coronary artery, or admit him for medical therapy. Patient is continues to be symptom-free at this time and he would prefer medical therapy. I spoke with our hospitalist who was not comfortable admitting the patient here Since we do not have cardiology, so he will be transferred to [place] for further work-up He was started on heparin. He is on Eliquis, but did not take his medication tonight so starting heparin appears safe. Patient was given one dose of 40mg prednisone by mistake here, I do not think this single dose will have any adverse outcome on him, but I did discuss this with him and apologized. He was understanding. Patient remained hemodynamically stable and symptom-free at the time of transfer via ALS to [facility] Departure - Departure Disposition: 02 Transfer Acute Care Hosp Clinical Impression: NSTEMI (non-ST elevated myocardial infarction) Condition: Good Discharge Date/Time: 02/19/19 03:44
[2019-02-18 22:03] LABS: BASOPHILS # (AUTO) 0.1 10^3/uL (0.0-0.1); BASOPHILS % (AUTO) 0.6 %; EOSINOPHILS # (AUTO) 0.1 10^3/uL (0.0-0.7); HGB - HEMOGLOBIN 12.9 g/dL (14.0-18.0); LYMPHOCYTES # (AUTO) 1.2 10^3/uL (1.5-3.5); LYMPHOCYTES % (AUTO) 14.9 %; MEAN CORPUSCULAR HEMOGLOBIN 27.6 pg (27.0-31.0); MEAN CORPUSCULAR HGB CONC 31.5 g/dL (32.0-36.0); MEAN CORPUSCULAR VOLUME 87.8 fL (80.0-94.0); MEAN PLATELET VOLUME 9.6 fL (7.4-11.4); MONOCYTES # (AUTO) 0.6 10^3/uL (0.0-1.0); MONOCYTES % (AUTO) 7.7 %; NEUTROPHILS % (AUTO) 75.2 %; PLT - PLATELET COUNT 205 10^3/uL (130-450); RED BLOOD COUNT 4.67 10^6/uL (4.70-6.10); RED CELL DISTRIBUTION WIDTH 15.7 % (12.0-15.0)
[2019-02-18 22:16] LABS: ALBUMIN 4.1 g/dL (3.2-5.5); ALBUMIN/GLOBULIN RATIO 1.1 (1.0-2.2); BILIRUBIN,TOTAL 0.7 mg/dL (0.2-1.0); CALCIUM 9.6 mg/dL (8.5-10.3); TOTAL PROTEIN 7.7 g/dL (6.7-8.2)
--- NOTE | 2019-02-18 22:23 | XRAY Report ---
Reason: Chest Pain Procedure Date: 02/18/2019 Accession Number: [id number] / [id number] Procedure: XR - Chest 1 View X-Ray CPT Code: 19109 Final Report FULL RESULT: EXAM: CHEST RADIOGRAPHY EXAM DATE: 02/18/2019 09:56 PM. CLINICAL HISTORY: Left chest pain radiating into left arm. Lightheaded. COMPARISON: CHEST 1 VIEW 11/16/2018 8:08 PM. TECHNIQUE: 1 view. FINDINGS: Lungs/Pleura: No focal opacities evident. No pleural effusion. No pneumothorax. Mediastinum: Within exam limitations, the cardiomediastinal contour is normal. Calcified aortic arch. Other: None. IMPRESSION: No acute abnormality or interval change. RADIA
[2019-02-18] MEDS ORDERED: predniSONE 20 MG TABLET PO STA (23:55)
[2019-02-18] MEDS ORDERED: IPRATROPIUM/ALBUTEROL 3 ML NEB INH STA (23:55)
--- NOTE | 2019-02-19 01:23 | XRAY Report ---
Reason: cough Procedure Date: 02/19/2019 Accession Number: [id number] / [id number] Procedure: XR - Chest 2 View X-Ray CPT Code: 53697 Final Report FULL RESULT: EXAM: CHEST RADIOGRAPHY EXAM DATE: 02/19/2019 12:47 AM CLINICAL HISTORY: Cough. COMPARISON: CHEST 1 VIEW 02/18/2019 9:38 PM, CERVICAL SPINE W/O 07/03/2018 12:07 AM. TECHNIQUE: 2 views. FINDINGS: Lungs/Pleura: Prominent interstitial opacities similar to the comparison exam. There is no confluent lung consolidation. No pleural effusion or pneumothorax. Mediastinum: Normal heart size. Aortic arch calcifications noted. Other: None. IMPRESSION: No acute cardiopulmonary process. RADIA
[2019-02-19] MEDS ORDERED: HEPARIN 25000UNITS/500ML (D5W) 25,000 UNIT/500 ML BAG IV STA (02:08)
[2019-02-19] MEDS ORDERED: HEPARIN 5,000 UNIT/ML VIAL IVP STA (02:08)
[2019-02-19 03:09] VITALS: BP 149/90
== END 2019-02-19 03:44 | disposition short-term general hospital (02) ==
LOC: EDUNIT# → SUPCPDRO 21:28 → ED 21:28
DX: I21.4 Non-ST elevation (NSTEMI) myocardial infarction (principal); I10 Essential (primary) hypertension; Z79.01 Long term (current) use of anticoagulants; Z87.891 Personal history of nicotine dependence
CPT/HCPCS: 36415; 71045; 71046; 80053; 83690; 83880; 84484; 85025; 93005; 94640; 96374; 99284; 99285; J7512

== ENCOUNTER 2019-02-19 03:48 | Outpatient (CLI) | payer MEDICARE, OTHER | END 2019-02-19 03:49 | disposition short-term general hospital (02) | LOC: EMS 03:48 | PROVIDERS: ATTEND Surgery | DX: I21.4 Non-ST elevation (NSTEMI) myocardial infarction (principal); Z95.5 Presence of coronary angioplasty implant and graft | CPT/HCPCS: A0425; A0426 ==

== ENCOUNTER 2019-03-13 16:38 | Outpatient (CLI) | payer MEDICARE, OTHER | END 2019-03-13 16:39 | disposition critical access hospital (66) | LOC: EMS 16:38 | PROVIDERS: ATTEND Surgery | DX: R39.89 Other symptoms and signs involving the genitourinary system (principal); R19.8 Other specified symptoms and signs involving the digestive system and abdomen; R10.30 Lower abdominal pain, unspecified | CPT/HCPCS: A0425; A0429 ==

== ENCOUNTER 2019-03-13 16:51 | Emergency (ER) | payer MEDICARE, OTHER ==
[2019-03-13 17:15] VITALS: BP 140/77
--- NOTE | 2019-03-13 17:20 | ED Physician Documentation ---
History of Present Illness - Stated complaint Stated Complaint: DIFFICULTY URINATING - Chief complaint Chief Complaint: Abd Pain - History obtained from History obtained from: Patient - History of Present Illness Timing: Today Pain level max: 0 Pain level now: 0 - Additonal information Additional information: 83-year-old male presents to the emergency department with complaint of urinating too frequently. He is on Lasix and spironolactone at home. Nothing makes this better or worse. Has a history of urge incontinence as well. Review of Systems Constitutional: denies: Fever, Chills Cardiac: denies: Chest pain / pressure Respiratory: denies: Dyspnea GI: denies: Nausea, Vomiting, Diarrhea Skin: denies: Rash Musculoskeletal: denies: Neck pain, Back pain Neurologic: denies: Headache PD PAST MEDICAL HISTORY - Past Medical History Cardiovascular: Coronary artery disease Respiratory: Sleep apnea, CPAP use Neuro: CVA Endocrine/Autoimmune: None GI: Diverticulitis : None Psych: None Musculoskeletal: Osteoarthritis, Chronic back pain Derm: None - Past Surgical History Past Surgical History: Yes General: Bowel surgery Ortho: Knee replacement, Spine surgery Cardiovascular: Coronary stent Derm: Skin cancer surgery - Present Medications Home Medications: Ambulatory Orders Medication Instructions Recorded Confirmed Omeprazole [PriLOSEC] 20 mg PO BID 08/01/12 07/05/18 Losartan [Cozaar] 50 mg PO DAILY 09/02/14 07/05/18 Cholecalciferol (Vitamin D3) 5,000 units PO DAILY 02/21/16 07/05/18 [Vitamin D3] Albuterol Sulfate [Proair Hfa 2 puffs INH Q4H PRN 08/23/17 07/05/18 Inhaler] Tiotropium [place] [Spiriva] 1 puffs INH DAILY 08/23/17 07/05/18 Darifenacin Hydrobromide 7.5 mg PO DAILY 01/12/18 07/05/18 [Darifenacin ER] Spironolactone [Aldactone] 25 mg PO DAILY #30 tablet 01/14/18 07/05/18 Atorvastatin [Lipitor] 40 mg PO QPM 07/03/18 07/05/18 Furosemide 20 mg PO DAILY 07/03/18 07/05/18 Metoprolol Succinate [Toprol Xl] 25 mg PO DAILY 07/03/18 07/05/18 Sertraline [Zoloft] 50 mg PO QPM 07/03/18 07/05/18 Tamsulosin [Flomax] 0.4 mg PO DAILY 07/03/18 07/05/18 Apixaban [Eliquis] 5 mg PO BID 07/05/18 07/05/18 oxyCODONE [Roxicodone] 5 mg PO Q4HR PRN #21 tablet 07/08/18 Cephalexin [Keflex] 500 mg PO Q6H #28 capsule 03/13/19 - Allergies Allergies/Adverse Reactions: Allergies Allergy/AdvReac Type Severity Reaction Status Date / Time Influenza Virus Vaccines Allergy Rash Verified 03/13/19 17:14 baclofen AdvReac Severe Hallucinati Verified 03/13/19 17:14 ons bacitracin AdvReac Rash Verified 03/13/19 17:14 neomycin AdvReac Rash Verified 03/13/19 17:14 polymyxin B AdvReac Rash Verified 03/13/19 17:14 - Social History Does the pt smoke?: No Smoking Status: Former smoker Does the pt drink ETOH?: Yes Does the pt have substance abuse?: No - Immunizations Immunizations are current?: Yes Immunizations: TDAP >10years/unknown - POLST Patient has POLST: No POLST Status: DNR PD ED PE NORMAL - Vitals Vital signs reviewed: Yes - General General: Alert and oriented X 3, No acute distress, Well developed/nourished - HEENT HEENT: Moist mucous membranes - Neck Neck: Supple, no meningeal sign - Cardiac Cardiac: RRR, Strong equal pulses - Respiratory Respiratory: No respiratory distress, Clear bilaterally - Abdomen Abdomen: Soft, Non tender, Non distended - Back Back: No CVA TTP - Derm Derm: Warm and dry, No rash - Extremities Extremities: No edema - Neuro Neuro: Alert and oriented X 3 - Psych Psych: Normal mood, Normal affect Results - Vitals Vitals: Vital Signs - 24 hr 03/13/19 03/13/19 17:11 17:14 Temperature 37.1 C Heart Rate 92 92 Respiratory 18 18 Rate Blood Pressure 140/77 H 140/77 H O2 Saturation 91 L 91 L Oxygen O2 Source [Without Activity] Nasal cannula O2 Source Room air - Labs Labs: Laboratory Tests 03/13/19 03/13/19 03/13/19 17:06 17:19 17:19 WBC 12.4 H RBC 4.91 Hgb 13.7 L Hct 42.1 MCV 85.7 MCH 27.9 MCHC 32.5 RDW 16.5 H Plt Count 216 MPV 9.3 Neut # (Auto) 10.3 H Lymph # (Auto) 0.9 L [place] # (Auto) 1.0 Eos # (Auto) 0.1 Baso # (Auto) 0.1 Absolute Nucleated RBC 0.00 Nucleated RBC % 0.0 Sodium 131 L Potassium 4.2 Chloride 97 L Carbon Dioxide 23 Anion Gap 11.0 BUN 9 Creatinine 0.8 Estimated GFR (MDRD) 92 Glucose 124 H Calcium 9.4 Total Bilirubin 1.1 H AST 22 ALT 18 Alkaline Phosphatase 82 B-Natriuretic Peptide Total Protein 8.1 Albumin 3.9 Globulin 4.2 Albumin/Globulin Ratio 0.9 L Lipase 23 Urine Color YELLOW Urine Clarity CLEAR Urine pH 7.5 Ur Specific [place] 1.015 Urine Protein TRACE Urine Glucose (UA) NEGATIVE Urine Ketones NEGATIVE Urine Occult Blood SMALL H Urine Nitrite NEGATIVE Urine Bilirubin NEGATIVE Urine Urobilinogen 0.2 (NORMAL) Ur Leukocyte Esterase NEGATIVE Urine RBC 6-10 H Urine WBC 11-25 H Urine WBC Clumps PRESENT Ur Squamous Epith Cells RARE Squamous Urine Bacteria Few Ur Microscopic Review INDICATED Urine Culture Comments INDICATED 03/13/19 17:19 WBC RBC Hgb Hct MCV MCH MCHC RDW Plt Count MPV Neut # (Auto) Lymph # (Auto) [place] # (Auto) Eos # (Auto) Baso # (Auto) Absolute Nucleated RBC Nucleated RBC % Sodium Potassium Chloride Carbon Dioxide Anion Gap BUN Creatinine Estimated GFR (MDRD) Glucose Calcium Total Bilirubin AST ALT Alkaline Phosphatase B-Natriuretic Peptide 561 H Total Protein Albumin Globulin Albumin/Globulin Ratio Lipase Urine Color Urine Clarity Urine pH Ur Specific [place] Urine Protein Urine Glucose (UA) Urine Ketones Urine Occult Blood Urine Nitrite Urine Bilirubin Urine Urobilinogen Ur Leukocyte Esterase Urine RBC Urine WBC Urine WBC Clumps Ur Squamous Epith Cells Urine Bacteria Ur Microscopic Review Urine Culture Comments PD MEDICAL DECISION MAKING - ED course Complexity details: reviewed old records, reviewed results, re-evaluated patient, considered differential, d/w patient ED course: Patient is found to have a UTI. His BNP is at his baseline. No significant hypoxia. Initially was 91% on room air, but quickly improved to 94 to 95% while in the bed. Given Rocephin. Will place him on antibiotic for home. Post-void residuals around 200. Patient counseled regarding signs and symptoms for which I believe and urgent re-evaluation would be necessary. Patient with good understanding of and agreement to plan and is comfortable going home at this time This document was made in part using voice recognition software. While efforts are made to proofread this document, sound alike and grammatical errors may occur. Departure - Departure Disposition: Home, Self Care Clinical Impression: UTI (urinary tract infection) Qualifiers: Urinary tract infection type: acute cystitis Hematuria presence: without hematuria Qualified Code(s): N30.00 - Acute cystitis without hematuria Condition: Good Instructions: ED UTI Cystitis Male Follow-Up: your,doctor in 1 week [Other] Prescriptions: Cephalexin [Keflex] 500 mg PO Q6H #28 capsule Comments: Take all antibiotics until gone. Return if you worsen. Follow-up with your doctor for further care. Discharge Date/Time: 03/13/19 18:35
[2019-03-13 17:24] LABS: BASOPHILS # (AUTO) 0.1 10^3/uL (0.0-0.1); BASOPHILS % (AUTO) 0.6 %; EOSINOPHILS # (AUTO) 0.1 10^3/uL (0.0-0.7); EOSINOPHILS % (AUTO) 0.6 %; HGB - HEMOGLOBIN 13.7 g/dL (14.0-18.0); LYMPHOCYTES # (AUTO) 0.9 10^3/uL (1.5-3.5); LYMPHOCYTES % (AUTO) 7.6 %; MEAN CORPUSCULAR HEMOGLOBIN 27.9 pg (27.0-31.0); MEAN CORPUSCULAR HGB CONC 32.5 g/dL (32.0-36.0); MEAN CORPUSCULAR VOLUME 85.7 fL (80.0-94.0); MEAN PLATELET VOLUME 9.3 fL (7.4-11.4); MONOCYTES % (AUTO) 7.9 %; NEUTROPHILS # (AUTO) 10.3 10^3/uL (1.5-6.6); NEUTROPHILS % (AUTO) 82.7 %; PLT - PLATELET COUNT 216 10^3/uL (130-450); RED BLOOD COUNT 4.91 10^6/uL (4.70-6.10); RED CELL DISTRIBUTION WIDTH 16.5 % (12.0-15.0); WHITE BLOOD COUNT 12.4 x10^3/uL (4.8-10.8)
[2019-03-13 17:25] LABS: BILIRUBIN,URINE NEGATIVE (NEGATIVE); GLUCOSE, URINE (UA) NEGATIVE (NEGATIVE); KETONES,URINE (UA) NEGATIVE (NEGATIVE); LEUKOCYTE ESTERASE, URINE NEGATIVE (NEGATIVE); NITRITE,URINE NEGATIVE (NEGATIVE); OCCULT BLOOD,URINE SMALL (NEGATIVE); PH,URINE 7.5 PH (5.0-7.5); PROTEIN,URINE TRACE mg/dL (NEGATIVE); UROBILINOGEN,URINE 0.2 (NORMAL) E.U./dL (NORMAL)
[2019-03-13 17:31] LABS: CLARITY,URINE CLEAR (CLEAR)
[2019-03-13 17:37] LABS: ALBUMIN 3.9 g/dL (3.2-5.5); ALBUMIN/GLOBULIN RATIO 0.9 (1.0-2.2); BILIRUBIN,TOTAL 1.1 mg/dL (0.2-1.0); CALCIUM 9.4 mg/dL (8.5-10.3); CREATININE 0.8 mg/dL (0.6-1.2); TOTAL PROTEIN 8.1 g/dL (6.7-8.2)
[2019-03-13 17:53] LABS: BACTERIA,URINE Few /HPF (None Seen); SQUAMOUS EPITHELIAL CELL,UR RARE Squamous (<= Few); WBC CLUMPS,URINE PRESENT
[2019-03-13] MEDS ORDERED: cefTRIAXone 1 GM VIAL IM STA (17:54)
[2019-03-13] MEDS ORDERED: LIDOCAINE 1% 2 ML VIAL MC ONE (17:54)
== END 2019-03-13 18:35 | disposition home or self-care (01) ==
LOC: EDUNIT# → ED 16:51
DX: N30.00 Acute cystitis without hematuria (principal); I25.10 Atherosclerotic heart disease of native coronary artery without angina pectoris; Z95.5 Presence of coronary angioplasty implant and graft; Z86.73 Personal history of transient ischemic attack (TIA), and cerebral infarction without residual deficits; Z79.01 Long term (current) use of anticoagulants; Z87.891 Personal history of nicotine dependence
CPT/HCPCS: 36415; 51798; 80053; 81001; 81003; 83690; 83880; 85025; 87086; 96372; 99283; 99284

== ENCOUNTER 2019-03-24 01:21 | Outpatient (CLI) | payer MEDICARE, OTHER | END 2019-03-24 01:22 | disposition critical access hospital (66) | LOC: EMS 01:21 | PROVIDERS: ATTEND Surgery | DX: R07.81 Pleurodynia (principal); W18.39XA Other fall on same level, initial encounter; Y92.008 Other place in unspecified non-institutional (private) residence as the place of occurrence of the external cause | CPT/HCPCS: A0425; A0429 ==

== ENCOUNTER 2019-03-24 01:36 | Emergency (ER) | payer MEDICARE, OTHER ==
--- NOTE | 2019-03-24 02:15 | ED Physician Documentation ---
PD HPI TRUNK INJURY - Stated complaint Stated Complaint: FALL/PAIN - Chief complaint Chief Complaint: Trauma Ch/Bk - History obtained from History obtained from: Patient, EMS - History of Present Illness Location: Posterior chest, Left chest Type of injury: Fall Timing - onset: How many days ago (2) Timing - duration: Days (2) Timing - details: Gradual onset, Still present Quality: Pain, Spasm, Sharp, Similar to prior episodes Improved by: Rest, Meds Worsened by: Moving, Palpating Associated symtptoms: No: Weakness, Numbness, Tingling, Swelling, Discoloration, Feel faint, Syncope Contributing factors: Anticoagulated Where injury occured: Home Similar symptoms before: Diagnosis (rib fracture) Recently seen: Emergency Dept - Additional information Additional information: 83-year-old male with a history of coronary artery disease pulmonary embolism COPD sleep apnea congestive heart failure and prior left sided broken ribs has recently had a pacemaker placed about 1 month ago. He had a fall onto his back on his deck 2 days ago, with pain in the left ribs and he denies hitting his head. Tonight he has pain that woke him from sleep he feels that this started when he twisted getting in and out of his wheelchair he has taken some hydrocodone at about 1230am and now is comfortable with the amount of pain that he has. He has had prior fractures to his ribs and spent time both in the hospital and in the skilled nursing. He has vague recollections of what happened during the hospitalization as he was on a lot of pain medication. Review of Systems Constitutional: denies: Fever, Chills, Myalgias Eyes: denies: Decreased vision Ears: denies: Ear pain Nose: denies: Rhinorrhea / runny nose, Congestion Throat: denies: Sore throat Cardiac: reports: Chest pain / pressure. denies: Palpitations, Pedal edema, Calf pain Respiratory: denies: Dyspnea, Cough GI: denies: Abdominal Pain, Nausea, Vomiting : denies: Dysuria PD PAST MEDICAL HISTORY - Past Medical History Cardiovascular: Coronary artery disease Respiratory: Sleep apnea, CPAP use Neuro: CVA Endocrine/Autoimmune: None GI: Diverticulitis : None Psych: None Musculoskeletal: Osteoarthritis, Chronic back pain Derm: None - Past Surgical History Past Surgical History: Yes General: Bowel surgery Ortho: Knee replacement, Spine surgery Cardiovascular: Coronary stent, Pacemaker Derm: Skin cancer surgery - Present Medications Home Medications: Ambulatory Orders Medication Instructions Recorded Confirmed Omeprazole [PriLOSEC] 20 mg PO BID 08/01/12 07/05/18 Losartan [Cozaar] 50 mg PO DAILY 09/02/14 07/05/18 Cholecalciferol (Vitamin D3) 5,000 units PO DAILY 02/21/16 07/05/18 [Vitamin D3] Albuterol Sulfate [Proair Hfa 2 puffs INH Q4H PRN 08/23/17 07/05/18 Inhaler] Tiotropium [place] [Spiriva] 1 puffs INH DAILY 08/23/17 07/05/18 Darifenacin Hydrobromide 7.5 mg PO DAILY 01/12/18 07/05/18 [Darifenacin ER] Spironolactone [Aldactone] 25 mg PO DAILY #30 tablet 01/14/18 07/05/18 Atorvastatin [Lipitor] 40 mg PO QPM 07/03/18 07/05/18 Furosemide 20 mg PO DAILY 07/03/18 07/05/18 Metoprolol Succinate [Toprol Xl] 25 mg PO DAILY 07/03/18 07/05/18 Sertraline [Zoloft] 50 mg PO QPM 07/03/18 07/05/18 Tamsulosin [Flomax] 0.4 mg PO DAILY 07/03/18 07/05/18 Apixaban [Eliquis] 5 mg PO BID 07/05/18 07/05/18 oxyCODONE [Roxicodone] 5 mg PO Q4HR PRN #21 tablet 07/08/18 Cephalexin [Keflex] 500 mg PO Q6H #28 capsule 03/13/19 Hydrocodone/Acetaminophen 1 - 2 each PO Q6H PRN #14 tablet 03/24/19 [Hydrocodon-Acetaminophen 5-325] - Allergies Allergies/Adverse Reactions: Allergies Allergy/AdvReac Type Severity Reaction Status Date / Time Influenza Virus Vaccines Allergy Rash Verified 03/13/19 17:14 baclofen AdvReac Severe Hallucinati Verified 03/13/19 17:14 ons bacitracin AdvReac Rash Verified 03/13/19 17:14 neomycin AdvReac Rash Verified 03/13/19 17:14 polymyxin B AdvReac Rash Verified 03/13/19 17:14 - Social History Does the pt smoke?: No Smoking Status: Never smoker Does the pt drink ETOH?: Yes Does the pt have substance abuse?: No - Immunizations Immunizations are current?: Yes Immunizations: TDAP >10years/unknown - POLST Patient has POLST: No POLST Status: DNR PD ED PE NORMAL - Vitals Vital signs reviewed: Yes (hypertensive mild ) - General General: No acute distress, Well developed/nourished - HEENT HEENT: Atraumatic (The entire head is palpated deeply without tenderness or bruises noted. ), PERRL, EOMI - Neck Neck: Supple, no meningeal sign, No bony TTP - Cardiac Cardiac: RRR, No murmur - Respiratory Respiratory: No respiratory distress, Clear bilaterally, Other (There is specific pain to the left posterior chest wall to palpation. 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1 MCHC 32.3 RDW 16.2 H Plt Count 265 MPV 9.2 Neut # (Auto) 4.0 Lymph # (Auto) 1.5 [place] # (Auto) 0.6 Eos # (Auto) 0.1 Baso # (Auto) 0.1 Absolute Nucleated RBC 0.00 Nucleated RBC % 0.0 Sodium 136 Potassium 4.3 Chloride 103 Carbon Dioxide 22 Anion Gap 11.0 BUN 20 Creatinine 0.7 Estimated GFR (MDRD) 107 Glucose 127 H Calcium 10.0 Total Bilirubin 0.6 AST 20 ALT 19 Alkaline Phosphatase 61 B-Natriuretic Peptide 376 H Total Protein 7.6 Albumin 3.8 Globulin 3.8 Albumin/Globulin Ratio 1.0 Lipase 28 - Rads (name of study) CT chest w Radiology: Prelim report reviewed (Impression: 1. Chronic changes within the lungs including emphysema and interstitial changes/fibrosis. 2. No acute pulmonary contusions. No hemo-pneumothorax. 3. Enlarged heart and extensive atherosclerotic vascular calcifications. 4. Cholelithiasis.), EMP read indepedently, See rad report PD MEDICAL DECISION MAKING - ED course Complexity details: reviewed old records, reviewed results, re-evaluated patient, considered differential, d/w patient ED course: 83-year-old male with a prior history of rib fractures and a prolonged hospital stay below resulting from that has had a fall and he is injured his chest on the same side he had his rib fractures 9 months ago. Today there is no evidence of rib fracture on the CT scan and the patient has had adequate pain relief with use of hydrocodone taken before he came to the hospital. Here in the emergency department he is administered Toradol and dexamethasone and I will provide a prescription for some hydrocodone. Departure - Departure Disposition: 01 Home, Self Care Clinical Impression: Contusion of rib on left side Qualifiers: Encounter type: initial encounter Qualified Code(s): S20.212A - Contusion of left front wall of thorax, initial encounter Condition: Stable Instructions: ED Contusion Rib Follow-Up: Kuldeep Naranjo MD [Provider Admit Priv/Credential] - Prescriptions: Hydrocodone/Acetaminophen [Hydrocodon-Acetaminophen 5-325] 1 - 2 each PO Q6H PRN #14 tablet PRN Reason: pain
[2019-03-24] MEDS ORDERED: IOVERSOL 320 100 ML VIAL IVP ONE ×2 (02:31→03:41)
[2019-03-24 02:45] LABS: BASOPHILS # (AUTO) 0.1 10^3/uL (0.0-0.1); BASOPHILS % (AUTO) 1.4 %; EOSINOPHILS # (AUTO) 0.1 10^3/uL (0.0-0.7); EOSINOPHILS % (AUTO) 1.1 %; LYMPHOCYTES # (AUTO) 1.5 10^3/uL (1.5-3.5); LYMPHOCYTES % (AUTO) 24.2 %; MEAN CORPUSCULAR HEMOGLOBIN 27.1 pg (27.0-31.0); MEAN CORPUSCULAR HGB CONC 32.3 g/dL (32.0-36.0); MEAN CORPUSCULAR VOLUME 83.8 fL (80.0-94.0); MEAN PLATELET VOLUME 9.2 fL (7.4-11.4); MONOCYTES # (AUTO) 0.6 10^3/uL (0.0-1.0); MONOCYTES % (AUTO) 9.7 %; PLT - PLATELET COUNT 265 10^3/uL (130-450); RED CELL DISTRIBUTION WIDTH 16.2 % (12.0-15.0); WHITE BLOOD COUNT 6.4 x10^3/uL (4.8-10.8)
[2019-03-24 02:55] LABS: ALBUMIN 3.8 g/dL (3.2-5.5); BILIRUBIN,TOTAL 0.6 mg/dL (0.2-1.0); CREATININE 0.7 mg/dL (0.6-1.2); TOTAL PROTEIN 7.6 g/dL (6.7-8.2)
[2019-03-24] MEDS ORDERED: CHERRY SYRUP 10 ML UDC PO ONE (03:45)
[2019-03-24] MEDS ORDERED: DEXAMETHASONE 10 MG/ML VIAL PO STA (03:45)
[2019-03-24] MEDS ORDERED: KETOROLAC 30 MG/ML VIAL IVP STA (03:50)
[2019-03-24] MEDS ORDERED: HYDROcod/ACET 5/325 Prepack 4 PO STA (03:55)
--- NOTE | 2019-03-24 04:21 | CT Report ---
Reason: chest trauma Procedure Date: 03/24/2019 Accession Number: [id number] / [id number] Procedure: CT - CHEST W CPT Code: Final Report FULL RESULT: EXAM: CT CHEST EXAM DATE: 03/24/2019 03:43 AM. CLINICAL HISTORY: Chest trauma. COMPARISONS: CHEST W/ 07/04/2018 3:20 PM. TECHNIQUE: Routine helical CT imaging was performed through the chest. IV contrast: None. Reconstructions: Coronal and sagittal. In accordance with CT protocol optimization, one or more of the following dose reduction techniques were utilized for this exam: automated exposure control, adjustment of mA and/or KV based on patient size, or use of iterative reconstructive technique. FINDINGS: Lungs/Pleura: As noted on the prior study there are emphysematous changes of the lungs and there are chronic interstitial infiltrative changes/fibrosis. There are marked bullae and blebs tickly near the left lung base. There are no acute pulmonary contusions. No evidence for hemopneumothoraces. Mediastinum: The heart is enlarged and there are prominent atherosclerotic vascular calcifications of the coronary arteries. Bones: Unremarkable. Visualized Abdomen: Limited views to the upper abdomen demonstrate cholelithiasis and small renal cysts. Other: None. IMPRESSION: 1. Chronic changes within the lungs including emphysema and interstitial changes/fibrosis. 2. No acute pulmonary contusions. No hemopneumothorax. 3. Enlarged heart and extensive atherosclerotic vascular calcifications. 4. Cholelithiasis. RADIA
[2019-03-24 05:12] VITALS: BP 142/85
== END 2019-03-24 05:12 | disposition home or self-care (01) ==
LOC: EDUNIT# → ED 01:36
DX: S20.212A Contusion of left front wall of thorax, initial encounter (principal); W18.30XA Fall on same level, unspecified, initial encounter; Y93.89 Activity, other specified; Y92.008 Other place in unspecified non-institutional (private) residence as the place of occurrence of the external cause; Z66 Do not resuscitate
CPT/HCPCS: 36415; 71260; 80053; 83690; 83880; 85025; 96374; 99284; A9270; Q9967

== ENCOUNTER 2019-04-09 07:49 | Outpatient (CLI) | payer MEDICARE, OTHER | END 2019-04-09 07:50 | disposition critical access hospital (66) | LOC: EMS 07:49 | PROVIDERS: ATTEND Surgery | DX: R10.9 Unspecified abdominal pain (principal); R11.10 Vomiting, unspecified | CPT/HCPCS: A0425; A0427 ==

== ENCOUNTER 2019-04-09 08:04 | Inpatient (IN) | payer MEDICARE, OTHER ==
--- NOTE | 2019-04-09 08:46 | ED Physician Documentation ---
PD HPI ABD PAIN - Stated complaint Stated Complaint: ABD PX - Chief complaint Chief Complaint: Abd Pain - History of Present Illness Timing - onset: Last night Timing - duration: Days (1/2) Timing - details: Abrupt onset, Still present Quality: Cramping, Aching, Fullness/distended, Pain Location: Other (mostly upper abd fullness and pain.) Radiation: Right flank. No: Lower back, Upper back Improved by: Vomiting, Position (sitting up) Worsened by: Position (bending over) Associated symptoms: Nausea, Vomiting. No: Fever, Diarrhea, Constipation, Dysuria Similar symptoms before: Has not had sx before Recently seen: Not recently seen Review of Systems Constitutional: reports: Myalgias. denies: Fever, Chills Nose: denies: Rhinorrhea / runny nose, Congestion Throat: denies: Sore throat Cardiac: denies: Chest pain / pressure Respiratory: denies: Cough GI: reports: Abdominal Pain, Abdominal Swelling, Nausea, Vomiting. denies: Constipation, Diarrhea, Hematemesis, Bloody / black stool : denies: Dysuria, Frequency Skin: denies: Rash, Lesions Neurologic: reports: Generalized weakness. denies: Near syncope, Altered mental status, Headache PD PAST MEDICAL HISTORY - Past Medical History Cardiovascular: Coronary artery disease Respiratory: Sleep apnea, CPAP use Neuro: CVA Endocrine/Autoimmune: None GI: Diverticulitis : None Psych: None Musculoskeletal: Osteoarthritis, Chronic back pain Derm: None - Past Surgical History Past Surgical History: Yes General: Bowel surgery Ortho: Knee replacement, Spine surgery Cardiovascular: Coronary stent, Pacemaker Derm: Skin cancer surgery - Present Medications Home Medications: Ambulatory Orders Medication Instructions Recorded Confirmed Omeprazole [PriLOSEC] 20 mg PO BID 08/01/12 04/09/19 Losartan [Cozaar] 50 mg PO DAILY 09/02/14 04/09/19 Cholecalciferol (Vitamin D3) 5,000 units PO DAILY 02/21/16 04/09/19 [Vitamin D3] Albuterol Sulfate [Proair Hfa 2 puffs INH Q4H PRN 08/23/17 04/09/19 Inhaler] Tiotropium [place] [Spiriva] 1 puffs INH DAILY 08/23/17 04/09/19 Spironolactone [Aldactone] 25 mg PO DAILY #30 tablet 01/14/18 04/09/19 Atorvastatin [Lipitor] 40 mg PO QPM 07/03/18 04/09/19 Furosemide 20 mg PO DAILY 07/03/18 04/09/19 Metoprolol Succinate [Toprol Xl] 25 mg PO BID 07/03/18 04/09/19 Sertraline [Zoloft] 50 mg PO QPM 07/03/18 04/09/19 Apixaban [Eliquis] 5 mg PO BID 07/05/18 04/09/19 Alfuzosin HCl [Alfuzosin HCl ER] 10 mg PO QDDINNER 04/09/19 04/09/19 Isosorbide Mononitrate ER [Imdur] 30 mg PO DAILY 04/09/19 04/09/19 Nitroglycerin [Nitrostat] 0.4 mg SL Q5MIN PRN 04/09/19 04/09/19 - Allergies Allergies/Adverse Reactions: Allergies Allergy/AdvReac Type Severity Reaction Status Date / Time Influenza Virus Vaccines Allergy Rash Verified 04/09/19 08:11 baclofen AdvReac Severe Hallucinati Verified 04/09/19 08:11 ons bacitracin AdvReac Rash Verified 04/09/19 08:11 neomycin AdvReac Rash Verified 04/09/19 08:11 polymyxin B AdvReac Rash Verified 04/09/19 08:11 - Social History Does the pt smoke?: No Smoking Status: Never smoker Does the pt drink ETOH?: Yes Does the pt have substance abuse?: No - Immunizations Immunizations are current?: Yes Immunizations: TDAP >10years/unknown - POLST Patient has POLST: No POLST Status: DNR PD ED PE NORMAL - Vitals Vital signs reviewed: Yes - General General: Alert and oriented X 3, No acute distress (seems comfortable from iv meds by ems enroute.), Well developed/nourished - HEENT HEENT: Moist mucous membranes, Pharynx benign - Neck Neck: Supple, no meningeal sign, No adenopathy - Cardiac Cardiac: RRR, No murmur - Respiratory Respiratory: Clear bilaterally - Abdomen Abdomen: Soft, No organomegaly, Other (upp er abd fullness with increased bowel sounds. Tender mid to upper abd. No percussion tenderness. Lower abd not tender. Surgical scars noted lower abd midline. ) - Derm Derm: Normal color, Warm and dry - Extremities Extremities: No edema, No calf tenderness / cord - Neuro Neuro: Alert and oriented X 3, No motor deficit, Normal speech Results - Vitals Vitals: Vital Signs - 24 hr 04/09/19 04/09/19 04/09/19 08:06 08:47 10:11 Temperature 36.3 C L 36.0 C L Heart Rate 90 83 91 Respiratory 20 18 14 Rate Blood Pressure 161/85 H 139/71 H 159/88 H O2 Saturation 92 98 93 04/09/19 12:00 Temperature Heart Rate 88 Respiratory 17 Rate Blood Pressure 156/96 H O2 Saturation 96 Oxygen O2 Source [Without Activity] Nasal cannula O2 Source Room air - Labs Labs: Laboratory Tests 04/09/19 04/09/19 04/09/19 08:50 08:50 08:50 WBC 12.3 H RBC 5.60 Hgb 15.5 Hct 47.8 MCV 85.4 MCH 27.7 MCHC 32.4 RDW 19.3 H Plt Count 193 MPV 9.4 Neut # (Auto) 10.7 H Lymph # (Auto) 0.6 L [place] # (Auto) 0.8 Eos # (Auto) 0.1 Baso # (Auto) 0.1 Absolute Nucleated RBC 0.00 Nucleated RBC % 0.0 PT 14.3 H INR 1.3 H APTT 31.4 Sodium 134 L Potassium 4.9 Chloride 96 L Carbon Dioxide 23 Anion Gap 15.0 H BUN 14 Creatinine 0.8 Estimated GFR (MDRD) 92 Glucose 143 H Lactic Acid Calcium 10.0 Magnesium 1.6 L Total Bilirubin 0.7 AST 22 ALT 21 Alkaline Phosphatase 70 Total Protein 8.3 H Albumin 4.4 Globulin 3.9 Albumin/Globulin Ratio 1.1 Lipase 24 Urine Color Urine Clarity Urine pH Ur Specific [place] Urine Protein Urine Glucose (UA) Urine Ketones Urine Occult Blood Urine Nitrite Urine Bilirubin Urine Urobilinogen Ur Leukocyte Esterase Urine RBC Urine WBC Ur Squamous Epith Cells Urine Bacteria Ur Microscopic Review Urine Culture Comments 04/09/19 04/09/19 09:45 09:55 WBC RBC Hgb Hct MCV MCH MCHC RDW Plt Count MPV Neut # (Auto) Lymph # (Auto) [place] # (Auto) Eos # (Auto) Baso # (Auto) Absolute Nucleated RBC Nucleated RBC % PT INR APTT Sodium Potassium Chloride Carbon Dioxide Anion Gap BUN Creatinine Estimated GFR (MDRD) Glucose Lactic Acid 2.2 Calcium Magnesium Total Bilirubin AST ALT Alkaline Phosphatase Total Protein Albumin Globulin Albumin/Globulin Ratio Lipase Urine Color DARK YELLOW Urine Clarity CLEAR Urine pH 5.5 Ur Specific [place] >=1.030 H Urine Protein 30 H Urine Glucose (UA) NEGATIVE Urine Ketones NEGATIVE Urine Occult Blood NEGATIVE Urine Nitrite NEGATIVE Urine Bilirubin NEGATIVE Urine Urobilinogen 0.2 (NORMAL) Ur Leukocyte Esterase NEGATIVE Urine RBC 0-5 Urine WBC 0-3 Ur Squamous Epith Cells RARE Squamous Urine Bacteria Rare Ur Microscopic Review INDICATED Urine Culture Comments NOT INDICATED - Rads (name of study) abd/pelvic CT Radiology: Prelim report reviewed (small bowel partial obstruction with transition mid small bowel. 2 stones in gallbladder without signs of inflammation. ), See rad report PD MEDICAL DECISION MAKING - ED course Complexity details: reviewed results, re-evaluated patient, considered differential (pain returning in ER soon after rrival. Gave more pain meds. Exam concerning so will get CT. ), d/w patient, d/w bath design sales consultant Departure - Departure Disposition: 66 [facility] DC/Xfer Clinical Impression: Upper abdominal pain Nausea and vomiting Qualifiers: Vomiting type: unspecified Vomiting Intractability: non-intractable Qualified Code(s): R11.2 - Nausea with vomiting, unspecified Partial bowel obstruction Qualifiers: Intestinal obstruction type: obstruction due to adhesions Qualified Code(s): K56.51 - Intestinal adhesions [bands], with partial obstruction Condition: Stable Record reviewed to determine appropriate education?: Yes Discharge Date/Time: 04/09/19 13:10
[2019-04-09] MEDS ORDERED: MORPHINE 10 MG/ML VIAL IVP STA (08:58)
[2019-04-09] MEDS ORDERED: MAG HYDROX/AL HYDROX/SIMETH 30 ML UDC PO STA (08:58)
[2019-04-09] MEDS ORDERED: SODIUM CHLORIDE 0.9% 1,000 ML IV ONE ×2 (08:58→12:00)
[2019-04-09] MEDS ORDERED: FAMOTIDINE 20 MG/2 ML VIAL IVP STA (08:58)
[2019-04-09 09:18] LABS: BASOPHILS # (AUTO) 0.1 10^3/uL (0.0-0.1); BASOPHILS % (AUTO) 0.5 %; EOSINOPHILS # (AUTO) 0.1 10^3/uL (0.0-0.7); EOSINOPHILS % (AUTO) 0.7 %; HGB - HEMOGLOBIN 15.5 g/dL (14.0-18.0); LYMPHOCYTES # (AUTO) 0.6 10^3/uL (1.5-3.5); LYMPHOCYTES % (AUTO) 4.6 %; MEAN CORPUSCULAR HEMOGLOBIN 27.7 pg (27.0-31.0); MEAN CORPUSCULAR HGB CONC 32.4 g/dL (32.0-36.0); MEAN CORPUSCULAR VOLUME 85.4 fL (80.0-94.0); MEAN PLATELET VOLUME 9.4 fL (7.4-11.4); MONOCYTES # (AUTO) 0.8 10^3/uL (0.0-1.0); MONOCYTES % (AUTO) 6.8 %; NEUTROPHILS # (AUTO) 10.7 10^3/uL (1.5-6.6); NEUTROPHILS % (AUTO) 86.9 %; PLT - PLATELET COUNT 193 10^3/uL (130-450); RED CELL DISTRIBUTION WIDTH 19.3 % (12.0-15.0); WHITE BLOOD COUNT 12.3 x10^3/uL (4.8-10.8)
[2019-04-09 09:24] LABS: INR 1.3 (0.8-1.2); PT - PROTHROMBIN TIME 14.3 secs (9.9-12.6)
[2019-04-09 09:25] LABS: ALBUMIN 4.4 g/dL (3.2-5.5); ALBUMIN/GLOBULIN RATIO 1.1 (1.0-2.2); BILIRUBIN,TOTAL 0.7 mg/dL (0.2-1.0); CREATININE 0.8 mg/dL (0.6-1.2); MAGNESIUM 1.6 mg/dL (1.7-2.8); TOTAL PROTEIN 8.3 g/dL (6.7-8.2)
[2019-04-09 09:31] LABS: PARTIAL THROMBOPLASTIN TIME 31.4 secs (24.9-33.3)
[2019-04-09 09:49] LABS: BILIRUBIN,URINE NEGATIVE (NEGATIVE); GLUCOSE, URINE (UA) NEGATIVE (NEGATIVE); KETONES,URINE (UA) NEGATIVE (NEGATIVE); LEUKOCYTE ESTERASE, URINE NEGATIVE (NEGATIVE); NITRITE,URINE NEGATIVE (NEGATIVE); OCCULT BLOOD,URINE NEGATIVE (NEGATIVE); PH,URINE 5.5 PH (5.0-7.5); PROTEIN,URINE 30 mg/dL (NEGATIVE); UROBILINOGEN,URINE 0.2 (NORMAL) E.U./dL (NORMAL)
[2019-04-09 09:54] LABS: CLARITY,URINE CLEAR (CLEAR)
[2019-04-09] MEDS ORDERED: IOVERSOL 320 100 ML VIAL IVP ONE ×2 (09:54→13:18)
[2019-04-09 10:12] LABS: RBC,URINE 0-5 /HPF (0-5); SQUAMOUS EPITHELIAL CELL,UR RARE Squamous (<= Few)
[2019-04-09 10:13] LABS: BACTERIA,URINE Rare /HPF (None Seen)
--- NOTE | 2019-04-09 10:43 | CT Report ---
Reason: upper abd pain and vomiting since last evening Procedure Date: 04/09/2019 Accession Number: [id number] / [id number] Procedure: CT - Abdomen/Pelvis W CPT Code: Final Report FULL RESULT: EXAM: CT ABDOMEN AND PELVIS EXAM DATE: 04/09/2019 10:29 AM. CLINICAL HISTORY: Upper abd pain and vomiting since last evening. COMPARISONS: ABDOMEN/PELVIS W/ 07/03/2018 12:11 AM. TECHNIQUE: Routine helical CT imaging was performed through the abdomen and pelvis. IV contrast: OPTI 320 100ML. Enteric contrast: No. Reconstructions: Coronal and sagittal. In accordance with CT protocol optimization, one or more of the following dose reduction techniques were utilized for this exam: automated exposure control, adjustment of mA and/or KV based on patient size, or use of iterative reconstructive technique. FINDINGS: Lung Bases: Unremarkable. Liver: Normal. No masses. Gallbladder/Bile Ducts: 2 calcified stones in the gallbladder Spleen: Normal. Pancreas: Normal. Adrenal Glands: Normal. Kidneys: Normal. No masses or hydronephrosis. Peritoneal Cavity/Bowel: Multiple loops of air and fluid filled dilated small bowel with a transition point in the anterior midabdomen with an abrupt angulation of the bowel at this location. No mass. Partial colectomy with patent anastomosis in the pelvis. The appendix is well visualized and normal. Pelvic Organs: Normal. The bladder and visualized pelvic organs are within normal limits. Vasculature: No aneurysms or other significant abnormality. Bones: No significant abnormality. Other: None. IMPRESSION: 1. Small bowel obstruction likely secondary to adhesive disease. 2. Partial colectomy with patent anastomosis in the pelvis. RADIA
--- NOTE | 2019-04-09 11:54 | HISTORY & PHYSICAL EXAMINATION ---
Chief Complaint - Chief Complaint Chief Complaint: abdominal pain History of Present Illness - History of Present Illness HPI Comment/Other: Mr. 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 pt is a poor historian, and his history is not consistent. pt report at early this morning, he had abdominal pain at right middle of quadrant. pt is sharp, and on and off. he report nausea but he denies vomiting. He report he had bowel surgery in the past but he cannot remember exactly what it was. CT scan revealed a bowel obstruction, at least partial, with a transition zone in the anterior mid abdomen. Route lab test is unremarkable except slight elevated WBC. pt denies fever, chill, chest pain. he report he has chronic back pain which limits his ability to walk. Dr. Chavez was called for surgeon consult for small bowel obstruction. pt is admitted for above medical reason. pt clear request to me and nurse he want to have DNR/DNI for his code status. History - Past Medical History Cardiovascular: reports: Coronary artery disease Respiratory: reports: Sleep apnea, CPAP use Neuro: reports: CVA Endocrine/Autoimmune: reports: None GI: reports: Diverticulitis : reports: None Psych: reports: None Musculoskeletal: reports: Osteoarthritis, Chronic back pain Derm: reports: None MRSA Hx?: No - Past Surgical History General: reports: Bowel surgery Ortho: reports: Knee replacement, Spine surgery Cardiovascular: reports: Coronary stent, Pacemaker Derm: reports: Skin cancer surgery - Family & Social History Family History: Mother: , Father: Family History Comment/Other: Patient's mother of pneumonia when he was 14. Patient's father of cancer at age 83. Patient was an only child, no known history of heart disease, COPD, or diabetes in the family. Social History Notes: The patient describes himself as a "moderate" drinker. No tobacco or illicit drug use - Substance History Use: Uses substance without health or social issues: Alcohol - POLST Patient has POLST: No POLST Status: DNR Meds/Allgy - Home Medications Home Medications: Ambulatory Orders Medication Instructions Recorded Confirmed Omeprazole [PriLOSEC] 20 mg PO BID 08/01/12 04/09/19 Losartan [Cozaar] 50 mg PO DAILY 09/02/14 04/09/19 Cholecalciferol (Vitamin D3) 5,000 units PO DAILY 02/21/16 04/09/19 [Vitamin D3] Albuterol Sulfate [Proair Hfa 2 puffs INH Q4H PRN 08/23/17 04/09/19 Inhaler] Tiotropium [place] [Spiriva] 1 puffs INH DAILY 08/23/17 04/09/19 Spironolactone [Aldactone] 25 mg PO DAILY #30 tablet 01/14/18 04/09/19 Atorvastatin [Lipitor] 40 mg PO QPM 07/03/18 04/09/19 Furosemide 20 mg PO DAILY 07/03/18 04/09/19 Metoprolol Succinate [Toprol Xl] 25 mg PO BID 07/03/18 04/09/19 Sertraline [Zoloft] 50 mg PO QPM 07/03/18 04/09/19 Apixaban [Eliquis] 5 mg PO BID 07/05/18 04/09/19 Alfuzosin HCl [Alfuzosin HCl ER] 10 mg PO QDDINNER 04/09/19 04/09/19 Isosorbide Mononitrate ER [Imdur] 30 mg PO DAILY 04/09/19 04/09/19 Nitroglycerin [Nitrostat] 0.4 mg SL Q5MIN PRN 04/09/19 04/09/19 - Allergies Allergies/Adverse Reactions: Allergies Allergy/AdvReac Type Severity Reaction Status Date / Time Influenza Virus Vaccines Allergy Rash Verified 04/09/19 08:11 baclofen AdvReac Severe Hallucinati Verified 04/09/19 08:11 ons bacitracin AdvReac Rash Verified 04/09/19 08:11 neomycin AdvReac Rash Verified 04/09/19 08:11 polymyxin B AdvReac Rash Verified 04/09/19 08:11 Review of Systems - Constitutional Constitutional: denies: Fatigue, Fever, Chills, Malaise, Weakness, Poor appetite, Diaphoresis, Night sweats - Eyes Eyes: denies: Pain, Irritation, Amaurosis, Blurred vision, Spots in vision, Field loss, Vision loss - Ears, Nose & Throat Ears, Nose & Throat: denies: Ear pain, Hearing loss, Hearing aids, Tinnitus, Vertigo, Nasal pain, Nasal discharge, Nosebleeds, Nasal obstruction, Nasal congestion, Postnasal drainage, Dentures, Hoarseness, Bleeding gums - Cardiovascular Cariovascular: denies: Irregular heart rate, Palpitations, Chest pain, Edema, Lightheadedness, Syncope, Exertional dyspnea, Decr. exercise tolerance - Respiratory Respiratory: denies: Cough, Sputum production, Wheezing, Snoring, Hemoptysis, Orthopnea, SOB at rest, SOB with exertion - Gastrointestinal Gastrointestinal: reports: Abdominal pain, Nausea, Vomiting. denies: Abdominal distention, Constipation, Diarrhea, Change in bowel habits, Rectal bleeding, Black stools, Bloody stools, Bile emesis, [place] blood emesis, Coffee grounds emesis - Genitourinary Genitourinary: denies: Dysuria, Frequency, Urgency, Hematuria, Incontinence, Flank pain, Nocturia, Urethral discharge - Musculoskeletal Musculoskeletal: denies: Muscle pain, Back pain, Muscle aches, Stiffness, Limited range of motion, Muscle weakness, Gout, Joint pain - Integumentary Integumentary: denies: Rash, Dryness, Lumps, Acne, Pigment changes, Nail changes - Neurological Neurological: denies: General weakness, Focal weakness, Headache, Dizziness, Numbness, Abnormal gait, Seizures, Incoordination, Slurred speech - Psychiatric Psychiatric: denies: Depression, Anxiety, Suicidal, Delusions, Hallucinations, Homicidal - Endocrine Endocrine: denies: Polyuria, Polydypsia, Polyphagia, Intolerance to cold - Hematologic/Lymphatic Hematologic/Lymphatic: denies: Anemia, Bruising, Petechiae, Blood clots, Lymphadenopathy, Bleeding tendencies Exam - Vital Signs Reviewed Vital Signs: Yes Vital Signs: Vital Signs x48h Temp Pulse Resp BP Pulse Ox 04/09/19 10:11 36.0 C L 91 14 159/88 H 93 04/09/19 08:47 83 18 139/71 H 98 04/09/19 08:06 36.3 C L 90 20 161/85 H 92 - Physical Exam General Appearance: positive: No acute distress, Alert. negative: Lethargic Eyes Bilateral: positive: Normal inspection, PERRL, No lid inflammation ENT: positive: ENT inspection nml, Pharynx nml, No signs of dehydration. negative: Purulent nasal drainage Neck: positive: Nml inspection, Thyroid nml, No JVD, Trachea midline. negative: Thyromegaly, Lymphadenopathy (R), Lymphadenopathy (L), Stiff neck, Tracheal deviation Respiratory: positive: Chest non-tender, No respiratory distress, Breath sounds nml. negative: Wheezes, Rales, Rhonchi Cardiovascular: positive: Regular rate & rhythm, No murmur, No gallop. negative: Irregularly irregular, Extrasystoles, Tachycardia, Bradycardia, JVD present, Systolic murmur, Diastolic murmur Peripheral Pulses: positive: 2+ Abdomen: positive: No organomegaly, No distention, Tenderness, Other (slight reduced bowel sound at lower quadrant). negative: Guarding, Rebound Back: positive: Nml inspection Skin: positive: Color nml, No rash, Warm, Dry. negative: Cyanosis, Diaphoresis, Pallor Extremities: positive: Non-tender, Nml appearance. negative: Calf tenderness, Jasen's sign/cords Neurologic/Psychiatric: positive: Oriented x3, Sensation nml, Mood/affect nml. negative: Weakness, Sensory loss, Facial droop, Slurred/abnml speech, Depressed mood/affect Sepsis Event Note (H) - Evaluation Current Stage of Sepsis: Ruled out Conclusion/Plan - Problem List (1) Small bowel obstruction due to adhesions Conclusion/Plan: pt present abdominal pain, nausea, per pt report he has no vomiting, CT of abdomen reveals small bowel obstruction consult with surgeon NPO fo bowel rest will put NG tube if pt has vomiting. I discussed with nurse, and nurse had the order of NG from Dr. Scott MURRY with D5 NS pain control encourage pt walk. discussed with pt about the care plan, if pt could resolve SBO by his self, is best option, otherwise pt is high risk for surgery. pt understood this and agreed to walk with nurse safely (2) Systolic and diastolic CHF, chronic Conclusion/Plan: pt has EF at 35% on last year , and with moderate right heart impaired. order new ECHO. it is high risk for operation. discussed with pt and encourage pt safely walk, hope he can resolved this problem by himself. (3) HTN (hypertension) Conclusion/Plan: stable, pt is NPO. add IV of Metoprolol and hydralazine PRN (4) Hx of coronary artery disease Conclusion/Plan: pt has hx of CAD, pt has Eliquis in him meds list. will resume home meds after resolved SBO, because pt is on NPO, will hold home meds. start PRN metoprolol and hydralazine tele and vital monitor order ECHO, will followup the ECHO result. (5) COPD (chronic obstructive pulmonary disease) Conclusion/Plan: stable, order Albuterol and Duoneb PRN (6) Chronic back pain Conclusion/Plan: pt complaint hx of lower back pain, encourage pt ambulate, and pain control (7) Alcohol abuse Conclusion/Plan: pt denies he has alcohol abuse history " I have no issue for alcohol." but he told with moderate alcohol drink daily. agree put CINE protocol now. - Lab Results Fish Bones: 04/09/19 08:50 04/09/19 08:50 Core Measures - Anticipated LOS I expect patient to be DC'd or transferred within 96 hours.: Yes - DVT/VTE - Prophylaxis VTE/DVT Device ordered at admit?: Yes VTE/DVT Prophylaxis med ordered at admit?: Yes
[2019-04-09] MEDS ORDERED: MORPHINE 2 MG/ML CARPUJECT IVP STA (12:00)
[2019-04-09] MEDS ORDERED: ACETAMINOPHEN 325 MG TABLET PO PRN (12:24)
[2019-04-09] MEDS ORDERED: MORPHINE 2 MG/ML CARPUJECT IVP PRN (12:24)
[2019-04-09] MEDS ORDERED: ONDANSETRON 4 MG/2 ML VIAL IVP PRN (12:24)
[2019-04-09] MEDS ORDERED: SODIUM CHLORIDE FLUSH 0.9% 10 ML SYRINGE IVP PRN (12:24)
[2019-04-09] MEDS ORDERED: METOPROLOL 5 MG/5 ML VIAL IVP PRN (12:31)
[2019-04-09] MEDS ORDERED: hydrALAZINE INJ 20 MG/ML VIAL IVP PRN (12:33)
--- NOTE | 2019-04-09 12:47 | PHARMACY PROGRESS NOTE ---
- Best Possible Medication History Admit Date and Time: Patient in ED Medication History completed: Yes Patient Interview: Pt unable to participate Secondary Source(s): Physician records, Pharmacy records, Insurance records As the person ultimately responsible for medication therapy, providers are able to order a medication from an existing home medication list in [facility] via the "Reconcile Routine" prior to Confirmation of that medication by direct support staff member. Such practice is discouraged except when the physician, in their clinical judgment, deems that a medical need exists for a medication without regard to previous use.
[2019-04-09] MEDS ORDERED: SODIUM CHLORIDE 0.9% 1,000 ML IV SCH ×2 (13:00)
--- NOTE | 2019-04-09 14:37 | CONSULTATION NOTE ---
Referring Provider Name of Referring Provider:: Meza Consult Date: 04/09/19 Chief Complaint - Chief Complaint Chief Complaint: Nausea and vomiting History of Present Illness - Admitted From Admitted From:: ED - History Obtained From Records Reviewed: Prior admissions History obtained from: Patient Exam Limitations: None - History of Present Illness HPI Comment/Other: Mr. Ríos is a pleasant gentleman who presented to the ED this morning after approximately 12 hours of abdominal pain with nausea and vomiting. He reports he was in his usual state of health when he felt a sharp pain across his mid abdomen at around 9:00 last night.Says the pain continued and sort of a crampy fashion until he began to have associated nausea and vomited multiple times. He says he tried Tylenol but it did not seem to be of any help and so eventually decided he needed to come to the emergency room.He was seen and evaluated there by Dr. Noriega. His labs are reassuring but CT scan revealed a bowel obstruction, at least partial, with a transition zone in the anterior mid abdomen.He has been admitted to the medicine service for watchful waiting and I have been consulted regarding the bowel obstruction.Mr. Ríos has been admitted through our emergency room multiple times in the past. 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 He says it was a long time ago. He does not recall ever being told he had cancer.A staple line in the colon is visible on CT and appears to be patent.He denies any sick contacts that he is aware of. He was in our hospital just a few weeks ago after a fall.He is never had similar symptoms. Wally does not think he had fever at home. He reports that 1 minute he was his usual self and the next minute his belly was hurting.He says it is not hurting now and has been much better since he was admitted to the hospital. It is notable that he just vomited a large amount as soon as he was placed in his bed on the MedSurg unit. History - Past Medical History Cardiovascular: reports: Coronary artery disease Respiratory: reports: Sleep apnea, CPAP use Neuro: reports: CVA Endocrine/Autoimmune: reports: None GI: reports: Diverticulitis : reports: None Psych: reports: None Musculoskeletal: reports: Osteoarthritis, Chronic back pain Derm: reports: None MRSA Hx?: No - Past Surgical History General: reports: Bowel surgery Ortho: reports: Knee replacement, Spine surgery Cardiovascular: reports: Coronary stent, Pacemaker Derm: reports: Skin cancer surgery - Family & Social History Family History: Mother: , Father: Family History Comment/Other: Patient's mother of pneumonia when he was 14. Patient's father of cancer at age 83. Patient was an only child, no known history of heart disease, COPD, or diabetes in the family. Social History Notes: The patient describes himself as a "moderate" drinker. No tobacco or illicit drug use - Substance History Use: Uses substance without health or social issues: Alcohol - POLST Patient has POLST: No POLST Status: DNR Meds/Allgy - Home Medications Home Medications: Ambulatory Orders Medication Instructions Recorded Confirmed Omeprazole [PriLOSEC] 20 mg PO BID 08/01/12 04/09/19 Losartan [Cozaar] 50 mg PO DAILY 09/02/14 04/09/19 Cholecalciferol (Vitamin D3) 5,000 units PO DAILY 02/21/16 04/09/19 [Vitamin D3] Albuterol Sulfate [Proair Hfa 2 puffs INH Q4H PRN 08/23/17 04/09/19 Inhaler] Tiotropium [place] [Spiriva] 1 puffs INH DAILY 08/23/17 04/09/19 Spironolactone [Aldactone] 25 mg PO DAILY #30 tablet 01/14/18 04/09/19 Atorvastatin [Lipitor] 40 mg PO QPM 07/03/18 04/09/19 Furosemide 20 mg PO DAILY 07/03/18 04/09/19 Metoprolol Succinate [Toprol Xl] 25 mg PO BID 07/03/18 04/09/19 Sertraline [Zoloft] 50 mg PO QPM 07/03/18 04/09/19 Apixaban [Eliquis] 5 mg PO BID 07/05/18 04/09/19 Alfuzosin HCl [Alfuzosin HCl ER] 10 mg PO QDDINNER 04/09/19 04/09/19 Isosorbide Mononitrate ER [Imdur] 30 mg PO DAILY 04/09/19 04/09/19 Nitroglycerin [Nitrostat] 0.4 mg SL Q5MIN PRN 04/09/19 04/09/19 - Allergies Allergies/Adverse Reactions: Allergies Allergy/AdvReac Type Severity Reaction Status Date / Time Influenza Virus Vaccines Allergy Rash Verified 04/09/19 08:11 baclofen AdvReac Severe Hallucinati Verified 04/09/19 08:11 ons bacitracin AdvReac Rash Verified 04/09/19 08:11 neomycin AdvReac Rash Verified 04/09/19 08:11 polymyxin B AdvReac Rash Verified 04/09/19 08:11 Review of Systems - Constitutional Constitutional: reports: Fatigue. denies: Fever, Chills - Eyes Eyes: denies: Pain, Irritation - Ears, Nose & Throat Ears, Nose & Throat: denies: Ear pain, Tinnitus, Vertigo - Cardiovascular Cariovascular: reports: Lightheadedness. denies: Irregular heart rate, Palpitations, Chest pain - Respiratory Respiratory: denies: Cough, Sputum production, Wheezing - Gastrointestinal Gastrointestinal: reports: Abdominal pain, Nausea, Vomiting. denies: Abdominal distention, Constipation, Diarrhea, Rectal bleeding, Black stools - Genitourinary Genitourinary: denies: Dysuria, Frequency - Musculoskeletal Musculoskeletal: reports: Muscle pain, Back pain, Muscle aches, Stiffness, Joint pain - Integumentary Integumentary: denies: Rash - Neurological Neurological: denies: General weakness, Focal weakness - Hematologic/Lymphatic Hematologic/Lymphatic: reports: Bruising. denies: Blood clots - All Other Systems All Other Systems: reports: Reviewed and negative Exam - Vital Signs Reviewed Vital Signs: Yes Vital Signs: Vital Signs x48h Temp Pulse Pulse Resp BP BP Pulse Ox 04/09/19 14:11 36.3 C L 97 21 123/86 H 94 04/09/19 12:48 92 20 153/90 H 95 04/09/19 12:00 88 17 156/96 H 96 04/09/19 10:11 36.0 C L 91 14 159/88 H 93 04/09/19 08:47 83 18 139/71 H 98 04/09/19 08:06 36.3 C L 90 20 161/85 H 92 - Physical Exam General Appearance: positive: No acute distress Eyes Bilateral: positive: Normal inspection, PERRL, EOMI, Conjunctivae nml, No scleral icterus ENT: positive: ENT inspection nml, Pharynx nml, No signs of dehydration Neck: positive: Nml inspection, Trachea midline Respiratory: positive: Chest non-tender, No respiratory distress, Other (Breath sounds decreased at the bases bilaterally) Cardiovascular: positive: Regular rate & rhythm Peripheral Pulses: positive: 0, Other (Bilateral lower extremity edema with nonpalpable pulses) Abdomen: positive: Tenderness (Very mild tenderness to palpation over the mid abdomen. There is a well-healed midline incision consistent with prior surgery.), Abnml bowel sounds (Hypoactive). negative: Guarding, Rebound Back: negative: CVA tenderness (R), CVA tenderness (L) Skin: positive: Dry, Pallor Extremities: positive: Non-tender Neurologic/Psychiatric: positive: Oriented x3 Conclusion and Plan - Lab Results Laboratory Results 04/09/19 09:55: Lactic Acid 2.2 04/09/19 09:45: Urine Color DARK YELLOW, Urine Clarity CLEAR, Urine pH 5.5, Ur Specific Early >=1.030 H, Urine Protein 30 H, Urine Glucose (UA) NEGATIVE, Urine Ketones NEGATIVE, Urine Occult Blood NEGATIVE, Urine Nitrite NEGATIVE, Urine Bilirubin NEGATIVE, Urine Urobilinogen 0.2 (NORMAL), Ur Leukocyte Esterase NEGATIVE, Urine RBC 0-5, Urine WBC 0-3, Ur Squamous Epith Cells RARE Squamous, Urine Bacteria Rare, Ur Microscopic Review INDICATED, Urine Culture Comments NOT INDICATED 04/09/19 08:50: PT 14.3 H, INR 1.3 H, APTT 31.4 04/09/19 08:50: Sodium 134 L, Potassium 4.9, Chloride 96 L, Carbon Dioxide 23, Anion Gap 15.0 H, BUN 14, Creatinine 0.8, Estimated GFR (MDRD) 92, Glucose 143 H, Calcium 10.0, Magnesium 1.6 L, Total Bilirubin 0.7, AST 22, ALT 21, Alkaline Phosphatase 70, Total Protein 8.3 H, Albumin 4.4, Globulin 3.9, Albumin/Globulin Ratio 1.1, Lipase 24 04/09/19 08:50: WBC 12.3 H, RBC 5.60, Hgb 15.5, Hct 47.8, MCV 85.4, MCH 27.7, MCHC 32.4, RDW 19.3 H, Plt Count 193, MPV 9.4, Neut # (Auto) 10.7 H, Lymph # (Auto) 0.6 L, [place] # (Auto) 0.8, Eos # (Auto) 0.1, Baso # (Auto) 0.1, Absolute Nucleated RBC 0.00, Nucleated RBC % 0.0 - Diagnostic Imaging Results Diagnostic Imaging Results: positive: Final report reviewed Diagnostic Imaging Results Comments: PT NAME: WALLY RÍOS MR#: [id number] REG ER/ED AGE: 83 CI DT/TM: 04/09/19 PCP: Kuldeep Naranjo MD : 1935 ATT: SEX: M ORD: Joel Noriega MD EXAM: [id number] CT/ABPEW ([id number]) Reason: upper abd pain and vomiting since last evening Procedure Date: 04/09/2019 Accession Number: [id number] / [id number] Procedure: CT - Abdomen/Pelvis W CPT Code: Final Report FULL RESULT: EXAM: CT ABDOMEN AND PELVIS EXAM DATE: 04/09/2019 10:29 AM. CLINICAL HISTORY: Upper abd pain and vomiting since last evening. COMPARISONS: ABDOMEN/PELVIS W/ 07/03/2018 12:11 AM. TECHNIQUE: Routine helical CT imaging was performed through the abdomen and pelvis. IV contrast: OPTI 320 100ML. Enteric contrast: No. Reconstructions: Coronal and sagittal. In accordance with CT protocol optimization, one or more of the following dose reduction techniques were utilized for this exam: automated exposure control, adjustment of mA and/or KV based on patient size, or use of iterative reconstructive technique. FINDINGS: Lung Bases: Unremarkable. Liver: Normal. No masses. Gallbladder/Bile Ducts: 2 calcified stones in the gallbladder Spleen: Normal. Pancreas: Normal. Adrenal Glands: Normal. Kidneys: Normal. No masses or hydronephrosis. Peritoneal Cavity/Bowel: Multiple loops of air and fluid filled dilated small bowel with a transition point in the anterior midabdomen with an abrupt angulation of the bowel at this location. No mass. Partial colectomy with patent anastomosis in the pelvis. The appendix is well visualized and normal. Pelvic Organs: Normal. The bladder and visualized pelvic organs are within normal limits. Vasculature: No aneurysms or other significant abnormality. Bones: No significant abnormality. Other: None. IMPRESSION: 1. Small bowel obstruction likely secondary to adhesive disease. 2. Partial colectomy with patent anastomosis in the pelvis. [facility] Helium Arc Welder: Reading Radiologist: Georgina Lucas MD Releasing Radiologist: Georgina Lucas MD Released Date Time: 04/09/191034 Report [id number] cc: Kuldeep Naranjo MD; Joel Noriega MD Principal Senior Mainframe Programmer Analyst Name: Georgina Lucas Provider ID: [id number] - Diagnosis Diagnosis: Partial small bowel obstruction most likely related to adhesions - Plan Plan: Unfortunately, Mr. Lo is a poor surgical candidate with a high risk of serious complication from any surgical intervention. 1. NGT for bowel decompression 2. Watchful waiting and serial abdominal examinations 3. CIWA protocol as patient describes himself as a moderate drinker at home
[2019-04-09] MEDS ORDERED: LORazepam 2 MG/ML VIAL IVP PRN (15:22)
[2019-04-09] MEDS ORDERED: IPRATROPIUM/ALBUTEROL 3 ML NEB INH PRN (15:39)
[2019-04-09] MEDS ORDERED: ALBUTEROL NEB 2.5 MG/3 ML INH PRN (15:39)
[2019-04-09] MEDS ORDERED: LORazepam 100MG/100ML D5W 100 ML IV SCH (16:00)
[2019-04-09] MEDS ORDERED: DEXTROSE 5%-0.9% NACL 1,000 ML IV SCH (16:00)
[2019-04-09] MEDS ORDERED: MAGNESIUM SULFATE 2 GRAM 2 GM/50 ML BAG IV ONE (16:00)
[2019-04-09] MEDS ORDERED: NITROGLYCERIN SL 0.4 MG TABLET SL PRN (16:19)
[2019-04-09] MEDS: SODIUM CHLORIDE FLUSH 0.9% 10 ML SYRINGE IVP SCH (19:52)
[2019-04-09] MEDS: DEXTROSE 5%-0.9% NACL 1,000 ML IV SCH (19:52)
[2019-04-09] MEDS: NYSTATIN CREAM 15 GM TUBE TOP SCH (22:38)
[2019-04-10] MEDS: SODIUM CHLORIDE FLUSH 0.9% 10 ML SYRINGE IVP SCH ×2 (01:30→08:40)
[2019-04-10 05:31] LABS: BASOPHILS % (AUTO) 0.4 %; EOSINOPHILS % (AUTO) 2.1 %; HGB - HEMOGLOBIN 12.9 g/dL (14.0-18.0); LYMPHOCYTES % (AUTO) 17.7 %; MEAN CORPUSCULAR HEMOGLOBIN 26.9 pg (27.0-31.0); MEAN PLATELET VOLUME 9.9 fL (7.4-11.4); MONOCYTES % (AUTO) 10.8 %; NEUTROPHILS % (AUTO) 68.6 %; PLT - PLATELET COUNT 161 10^3/uL (130-450); RED CELL DISTRIBUTION WIDTH 18.9 % (12.0-15.0); WHITE BLOOD COUNT 5.4 x10^3/uL (4.8-10.8)
[2019-04-10] MEDS: DEXTROSE 5%-0.9% NACL 1,000 ML IV SCH (05:32)
[2019-04-10 05:40] LABS: CALCIUM 8.7 mg/dL (8.5-10.3); CREATININE 0.6 mg/dL (0.6-1.2); MAGNESIUM 1.9 mg/dL (1.7-2.8)
[2019-04-10 05:44] LABS: ABNORMAL LYMPHS % (MANUAL) 0 %
[2019-04-10 06:18] LABS: BAND NEUTROPHILS % (MANUAL) 4 %; DIFFERENTIAL COMMENT MANUAL DIFFERENTIAL; EOSINOPHILS # (MANUAL) 0.4 10^3/uL (0-0.7); LYMPHOCYTES # (MANUAL) 0.5 10^3/uL (1.5-3.5); LYMPHOCYTES % (MANUAL) 10 %; MONOCYTES # (MANUAL) 0.1 10^3/uL (0.0-1.0); PLATELET ESTIMATE, MANUAL NORMAL (130-450,000) (NORMAL); RBC MORPHOLOGY (MULTIPLE) NORMAL APPEARANCE (NORMAL)
[2019-04-10] MEDS ORDERED: PANTOPRAZOLE 40 MG VIAL IVP SCH (07:00)
[2019-04-10] MEDS: NYSTATIN CREAM 15 GM TUBE TOP SCH (08:40)
[2019-04-10] MEDS ORDERED: MULTIVITAMIN IV SCH (09:00)
[2019-04-10] MEDS ORDERED: FOLIC ACID IV SCH (09:00)
[2019-04-10] MEDS ORDERED: [UNRECOGNIZED DRUG - OTHER] IV SCH (09:00)
[2019-04-10] MEDS ORDERED: ENOXAPARIN 40 MG/0.4 ML SYRINGE SUBQ SCH (09:00)
[2019-04-10] MEDS ORDERED: THIAMINE IV SCH (09:00)
--- NOTE | 2019-04-10 09:25 | XRAY Report ---
Reason: if still SBO, pt had bowel movements Procedure Date: 04/10/2019 Accession Number: [id number] / [id number] Procedure: XR - Abdomen 2 View X-Ray CPT Code: 44694 Final Report FULL RESULT: EXAM: ABDOMEN RADIOGRAPHY EXAM DATE: 04/10/2019 09:09 AM. CLINICAL HISTORY: Small bowel obstruction. COMPARISON: ABDOMEN 2 VIEW 01/17/2016 12:52 AM ABDOMEN/PELVIS W/ 04/09/2019 10:09 AM. TECHNIQUE: 2 views. FINDINGS: Lung Bases: Unremarkable. Bowel Gas Pattern: Nonobstructive bowel gas pattern is demonstrated. Free Air: None. Other: None. IMPRESSION: Nonobstructive bowel gas pattern demonstrated. [facility]
[2019-04-10] MEDS ORDERED: SPIRONOLACTONE 25 MG TABLET PO SCH (10:00)
[2019-04-10] MEDS ORDERED: METOPROLOL SUCCINATE 25 MG TABLET PO SCH ×2 (10:03→11:00)
[2019-04-10] MEDS ORDERED: ISOSORBIDE MONONITRATE ER 30 MG TABLET PO SCH ×2 (10:03→11:00)
[2019-04-10] MEDS ORDERED: APIXABAN 5 MG TABLET PO SCH (11:00)
[2019-04-10 11:58] VITALS: BP 150/64
--- NOTE | 2019-04-10 13:00 | Discharge Plan ---
Discharge Plan Problem Reviewed?: Yes Disposition: Home, Self Care Condition: Poor Diet: Regular Activity Restrictions: Activity as Tolerated Shower Restrictions: No (fall precaution, caregiver closely monitor) Assistance Devices: Walker Instruction Topics: Obstruction Sm Bowel Health Concerns: small bowel obstruction Plan of Treatment: after treated in hospital, you have bowel movements, you tolerate the diet, you have no pain or nausea or vomiting, Xray of abdomen reveals your small bowel obstruction is resolved. advise you followup principal java software engineer's instruction, keep safely active as you can in your home. Care Goals: stabilization and improvement of your medical conditions. Assessment: discussed with you about the care plan, you understood. Additional Instructions or Follow Up instructions: you may followup your PCP in one week. Should your symptom return or worsen, you may present ER or call 911 for help. No Smoking: If you smoke, Please STOP! Call for help. Follow-up with: Kuldeep Naranjo MD [Primary Care Provider] -
--- NOTE | 2019-04-10 13:09 | DISCHARGE SUMMARY ---
"Discharge Summary Admit Date: 04/09/19 Discharge Date: 04/10/19 Discharging Provider: Jackson Britt Primary Care Provider: Dr. Naranjo Condition at Discharge: Poor Discharge Disposition: Home, Self Care Discharge Facility Name: home - DIAGNOSES Admission Diagnoses: (1) Small bowel obstruction due to adhesions (2) Systolic and diastolic CHF, chronic (3) HTN (hypertension) (4) Hx of coronary artery disease (5) COPD (chronic obstructive pulmonary disease) (6) Chronic back pain (7) Alcohol abuse Discharge Diagnoses with Status of Each Condition: (1) Small bowel obstruction due to adhesions resolved. pt had two large bowel movement. pt tolerate diet without nausea or vomiting. pt has no abdominal pain. pt's Xray of abdomen reveal no SBO pattern. (2) Systolic and diastolic CHF, chronic stable (3) HTN (hypertension) stable (4) Hx of coronary artery disease stable (5) COPD (chronic obstructive pulmonary disease) stable (6) Chronic back pain stable (7) Alcohol abuse stable - HPI History of Present Illness: Mr. 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 pt is a poor historian, and his history is not consistent. pt report at early this morning, he had abdominal pain at right middle of quadrant. pt is sharp, and on and off. he report nausea but he denies vomiting. He report he had bowel surgery in the past but he cannot remember exactly what it was. CT scan revealed a bowel obstruction, at least partial, with a transition zone in the anterior mid abdomen. Route lab test is unremarkable except slight elevated WBC. pt denies fever, chill, chest pain. he report he has chronic back pain which limits his ability to walk. Dr. Chavez was called for surgeon consult for small bowel obstruction. pt is admitted for above medical reason. pt clear request to me and nurse he want to have DNR/DNI for his code status. - CONSULTS | PROCEDURES Consultations: Dr. hCavez Procedures: no procedure - HOSPITAL COURSE Hospital Course: pt was admitted for abdominal pain and small bowel obstruction. surgeon was consulted. after bowel rest, encourage pt ambulate, hold opiates, pt's bowel obstruction was resolved without surgical intervention. pt has no more abdominal pain, pt tolerate diet without nausea, vomiting. Xray of abdomen reveal no small bowel obstruction pattern. pt had two large bowel movements. the detail hospital course is as the below. (1) Small bowel obstruction due to adhesions resolved. pt had two large bowel movement. pt tolerate diet without nausea or vomiting. pt has no abdominal pain. pt's Xray of abdomen reveal no SBO pattern. (2) Systolic and diastolic CHF, chronic stable (3) HTN (hypertension) stable (4) Hx of coronary artery disease stable (5) COPD (chronic obstructive pulmonary disease) stable (6) Chronic back pain stable (7) Alcohol abuse stable - ALLERGIES Allergies/Adverse Reactions: Allergies Allergy/AdvReac Type Severity Reaction Status Date / Time Influenza Virus Vaccines Allergy Rash Verified 04/09/19 08:11 baclofen AdvReac Severe Hallucinati Verified 04/09/19 08:11 ons bacitracin AdvReac Rash Verified 04/09/19 08:11 neomycin AdvReac Rash Verified 04/09/19 08:11 polymyxin B AdvReac Rash Verified 04/09/19 08:11 - MEDICATIONS Home Medications: Ambulatory Orders Medication Instructions Recorded Confirmed Omeprazole [PriLOSEC] 20 mg PO BID 08/01/12 04/09/19 Losartan [Cozaar] 50 mg PO DAILY 09/02/14 04/09/19 Cholecalciferol (Vitamin D3) 5,000 units PO DAILY 02/21/16 04/09/19 [Vitamin D3] Albuterol Sulfate [Proair Hfa 2 puffs INH Q4H PRN 08/23/17 04/09/19 Inhaler] Tiotropium [place] [Spiriva] 1 puffs INH DAILY 08/23/17 04/09/19 Spironolactone [Aldactone] 25 mg PO DAILY #30 tablet 01/14/18 04/09/19 Atorvastatin [Lipitor] 40 mg PO QPM 07/03/18 04/09/19 Furosemide 20 mg PO DAILY 07/03/18 04/09/19 Metoprolol Succinate [Toprol Xl] 25 mg PO BID 07/03/18 04/09/19 Sertraline [Zoloft] 50 mg PO QPM 07/03/18 04/09/19 Apixaban [Eliquis] 5 mg PO BID 07/05/18 04/09/19 Alfuzosin HCl [Alfuzosin HCl ER] 10 mg PO QDDINNER 04/09/19 04/09/19 Isosorbide Mononitrate ER [Imdur] 30 mg PO DAILY 04/09/19 04/09/19 Nitroglycerin [Nitrostat] 0.4 mg SL Q5MIN PRN 04/09/19 04/09/19 - PHYSICAL EXAM AT DISCHARGE General Appearance: positive: No acute distress, Alert. negative: Lethargic Eyes Bilateral: positive: Normal inspection, PERRL, No lid inflammation ENT: positive: ENT inspection nml, Pharynx nml, No signs of dehydration. negative: Purulent nasal drainage Neck: positive: Nml inspection, Thyroid nml, No JVD, Trachea midline. negative: Thyromegaly, Lymphadenopathy (R), Lymphadenopathy (L), Stiff neck, Tracheal deviation Respiratory: positive: Chest non-tender, No respiratory distress, Breath sounds nml. negative: Wheezes, Rales, Rhonchi Cardiovascular: positive: Regular rate & rhythm, No murmur, No gallop. negative: Irregularly irregular, Extrasystoles, Tachycardia, Bradycardia, JVD present, Systolic murmur, Diastolic murmur Peripheral Pulses: positive: 2+ Abdomen: positive: Non-tender, No organomegaly, Nml bowel sounds, No distention. negative: Tenderness, Guarding, Rebound Back: positive: Nml inspection. negative: CVA tenderness (R), CVA tenderness (L) Skin: positive: Color nml, No rash, Warm, Dry. negative: Cyanosis, Diaphoresis, Pallor Extremities: positive: Non-tender, Full ROM, Nml appearance. negative: Calf tenderness, Jasen's sign/cords Neurologic/Psychiatric: positive: Oriented x3, Motor nml, Sensation nml, Mood/affect nml. negative: Weakness, Sensory loss, Facial droop, Slurred/abnml speech, Depressed mood/affect - LABS Result Diagrams: 04/10/19 05:05 04/10/19 05:05 - SEPSIS Current Stage of Sepsis: Ruled out - FOLLOW UP Follow Up: after treated in hospital, you have bowel movements, you tolerate the diet, you have no pain or nausea or vomiting, Xray of abdomen reveals your small bowel obstruction is resolved. advise you followup lockstitch waistband setter's instruction, keep safely active as you can in your home. you may followup your PCP in one week. Should your symptom return or worsen, you may present ER or call 911 for help. - TIME SPENT Time Spent in Discharge (Minutes): 40"
[2019-04-10] MEDS ORDERED: FUROSEMIDE 20 MG TABLET PO SCH (13:33)
[2019-04-11] MEDS ORDERED: FUROSEMIDE 20 MG TABLET PO SCH (09:00)
[2019-04-11] MEDS ORDERED: LOSARTAN 50 MG TABLET PO SCH (09:00)
== END 2019-04-10 14:10 | disposition home or self-care (01) | DRG 389 ==
LOC: EDUNIT# → ED 08:04 → MS2 12:24
PROVIDERS: ADMIT Nurse Practitioner Gerontology; ATTEND Nurse Practitioner Gerontology
DX: K56.51 Intestinal adhesions [bands], with partial obstruction (principal); I50.42 Chronic combined systolic (congestive) and diastolic (congestive) heart failure; I11.0 Hypertensive heart disease with heart failure; I27.20 Pulmonary hypertension, unspecified; F10.10 Alcohol abuse, uncomplicated; J43.9 Emphysema, unspecified; I25.10 Atherosclerotic heart disease of native coronary artery without angina pectoris; E78.5 Hyperlipidemia, unspecified; G89.29 Other chronic pain; M54.9 Dorsalgia, unspecified; M19.90 Unspecified osteoarthritis, unspecified site; G47.30 Sleep apnea, unspecified; Z66 Do not resuscitate; Z96.659 Presence of unspecified artificial knee joint; Z90.49 Acquired absence of other specified parts of digestive tract; Z79.01 Long term (current) use of anticoagulants; Z79.51 Long term (current) use of inhaled steroids; I25.2 Old myocardial infarction; Z86.711 Personal history of pulmonary embolism; Z95.0 Presence of cardiac pacemaker; Z95.5 Presence of coronary angioplasty implant and graft; Z85.828 Personal history of other malignant neoplasm of skin; Z86.73 Personal history of transient ischemic attack (TIA), and cerebral infarction without residual deficits; Z87.19 Personal history of other diseases of the digestive system; Z91.81 History of falling
CPT/HCPCS: 36415; 74019; 74177; 80048; 80053; 81001; 83605; 83690; 83735; 83880; 85025; 85610; 85730; 93306; 94640; 96361; 96374; 96375; 96376; 99284; 99285; A9270; J1650; J3411; Q9967; 81003; 87086

== ENCOUNTER 2019-06-05 08:00 | Outpatient (CLI) | payer MEDICARE, OTHER | END 2019-06-05 23:59 | disposition home or self-care (01) | LOC: LAB.WCP 08:00 | PROVIDERS: ATTEND Family Medicine | DX: R35.0 Frequency of micturition (principal) | CPT/HCPCS: 81002 ==

== ENCOUNTER 2019-06-05 08:00 | Outpatient (CLI) | payer MEDICARE, OTHER | END 2019-06-05 23:59 | disposition home or self-care (01) | LOC: LAB.R 08:00 | PROVIDERS: ATTEND Nurse Practitioner Family | DX: R35.0 Frequency of micturition (principal) | CPT/HCPCS: 87086 ==

== ENCOUNTER 2019-11-24 04:07 | Outpatient (CLI) | payer MEDICARE, OTHER | END 2019-11-24 04:08 | disposition EMS.NT | LOC: EMS 04:07 | PROVIDERS: ATTEND Surgery | DX: Z03.89 Encounter for observation for other suspected diseases and conditions ruled out (principal) ==

== ENCOUNTER 2019-12-18 21:25 | Outpatient (CLI) | payer MEDICARE, OTHER | END 2019-12-18 21:26 | disposition EMS.NT | LOC: EMS 21:25 | PROVIDERS: ATTEND Surgery | DX: Z03.89 Encounter for observation for other suspected diseases and conditions ruled out (principal) ==

== ENCOUNTER 2020-01-05 11:42 | Outpatient (CLI) | payer MEDICARE, OTHER | END 2020-01-05 11:43 | disposition critical access hospital (66) | LOC: EMS 11:42 | PROVIDERS: ATTEND Surgery | DX: R07.9 Chest pain, unspecified (principal); R41.0 Disorientation, unspecified | CPT/HCPCS: A0425; A0427 ==

== ENCOUNTER 2020-01-05 11:56 | Emergency (ER) | payer MEDICARE, OTHER ==
--- NOTE | 2020-01-05 12:32 | XRAY Report ---
PROCEDURE: Chest 1 View X-Ray INDICATIONS: Chest pain TECHNIQUE: One view of the chest was acquired. COMPARISON: 10/14/2019, 10/16/2019 FINDINGS: Surgical changes and devices: None. Lungs and pleura: No pleural effusions or pneumothorax. Lungs are clear. Mediastinum: Mediastinal contours appear normal. Heart size is normal. Calcification is seen of th e aortic arch. Bones and chest wall: No suspicious bony lesions. Age-appropriate degenerative changes are seen. Overlying soft tissues appear unremarkable. IMPRESSION: No definite, acute abnormality is seen. Postoperative and degenerative changes are seen. Reviewed by: Derick Pretty MD on 01/05/2020 11:31 AM [facility] Approved by: Derick Pretty MD on 01/05/2020 11:31 AM ISI Station ID: [id number]
[2020-01-05 12:33] LABS: BASOPHILS # (AUTO) 0.1 10^3/uL (0.0-0.1); BASOPHILS % (AUTO) 0.7 %; EOSINOPHILS # (AUTO) 0.2 10^3/uL (0.0-0.7); EOSINOPHILS % (AUTO) 2.1 %; HGB - HEMOGLOBIN 13.5 g/dL (14.0-18.0); LYMPHOCYTES # (AUTO) 1.2 10^3/uL (1.5-3.5); LYMPHOCYTES % (AUTO) 16.6 %; MEAN CORPUSCULAR HEMOGLOBIN 29.8 pg (27.0-31.0); MEAN CORPUSCULAR HGB CONC 32.7 g/dL (32.0-36.0); MEAN CORPUSCULAR VOLUME 91.2 fL (80.0-94.0); MEAN PLATELET VOLUME 9.9 fL (7.4-11.4); MONOCYTES # (AUTO) 0.5 10^3/uL (0.0-1.0); MONOCYTES % (AUTO) 7.2 %; NEUTROPHILS # (AUTO) 5.4 10^3/uL (1.5-6.6); NEUTROPHILS % (AUTO) 72.7 %; PLT - PLATELET COUNT 170 10^3/uL (130-450); RED BLOOD COUNT 4.53 10^6/uL (4.70-6.10); RED CELL DISTRIBUTION WIDTH 16.2 % (12.0-15.0); WHITE BLOOD COUNT 7.5 x10^3/uL (4.8-10.8)
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
[2020-01-05 12:44] LABS: ALBUMIN 3.8 g/dL (3.2-5.5); ALBUMIN/GLOBULIN RATIO 1.2 (1.0-2.2); CALCIUM 9.6 mg/dL (8.5-10.3); CREATININE 0.8 mg/dL (0.6-1.2)
--- NOTE | 2020-01-05 13:20 | CT Report ---
PROCEDURE: HEAD WO INDICATIONS: Syncope. 4 days ago TECHNIQUE: Noncontrast 4.5 mm thick angled axial sections acquired from the foramen magnum to the vertex. For r adiation dose reduction, the following was used: automated exposure control, adjustment of mA and/or kV according to patient size. COMPARISON: None. FINDINGS: Image quality: Excellent. CSF spaces: Basal cisterns are patent. No extra-axial fluid collections. Ventricles are normal in size and shape. Brain: No midline shift. No intracranial masses or hemorrhage. Herrera-white matter interface is norm al. Atherosclerotic calcific indications of the cavernous carotid arteries and both vertebral arterie s. Skull and face: Calvarium and visualized facial bones are intact, without suspicious lesions. Sinuses: Visualized sinuses and mastoids are clear. IMPRESSION: No acute intracranial finding. Global cerebral volume loss with chronic microvascular ischemic changes. Bilateral cavernous carotid and vertebral artery calcification. Correlate for vertebrobasilar syndrom e. Reviewed by: Srinivasan Loza MD on 01/05/2020 1:18 PM PDT Approved by: Srinivasan Loza MD on 01/05/2020 1:18 PM PDT Station ID: [id number]
[2020-01-05 16:02] VITALS: BP 116/88
== END 2020-01-05 17:35 | disposition short-term general hospital (02) ==
LOC: EDSEX → ED 11:56
DX: I48.91 Unspecified atrial fibrillation (principal); Z79.01 Long term (current) use of anticoagulants; I11.0 Hypertensive heart disease with heart failure; I50.9 Heart failure, unspecified; Z95.5 Presence of coronary angioplasty implant and graft; Z95.0 Presence of cardiac pacemaker; Z66 Do not resuscitate; Z86.79 Personal history of other diseases of the circulatory system
CPT/HCPCS: 36415; 70450; 71045; 80053; 83690; 83880; 84484; 85025; 93005; 99285

== ENCOUNTER 2020-02-25 16:27 | Outpatient (CLI) | payer MEDICARE, OTHER | END 2020-02-25 16:28 | disposition critical access hospital (66) | LOC: EMS 16:27 | PROVIDERS: ATTEND Surgery | DX: R42 Dizziness and giddiness (principal) | CPT/HCPCS: A0425; A0429 ==

== ENCOUNTER 2020-02-25 16:44 | Emergency (ER) | payer MEDICARE, OTHER ==
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
[2020-02-25 17:10] LABS: BASOPHILS # (AUTO) 0.1 10^3/uL (0.0-0.1); BASOPHILS % (AUTO) 0.8 %; EOSINOPHILS # (AUTO) 0.1 10^3/uL (0.0-0.7); EOSINOPHILS % (AUTO) 1.5 %; HGB - HEMOGLOBIN 15.5 g/dL (14.0-18.0); LYMPHOCYTES # (AUTO) 1.8 10^3/uL (1.5-3.5); MEAN CORPUSCULAR HEMOGLOBIN 29.6 pg (27.0-31.0); MEAN CORPUSCULAR HGB CONC 32.3 g/dL (32.0-36.0); MEAN CORPUSCULAR VOLUME 91.8 fL (80.0-94.0); MEAN PLATELET VOLUME 9.8 fL (7.4-11.4); MONOCYTES # (AUTO) 0.7 10^3/uL (0.0-1.0); MONOCYTES % (AUTO) 8.6 %; NEUTROPHILS # (AUTO) 5.6 10^3/uL (1.5-6.6); NEUTROPHILS % (AUTO) 66.9 %; PLT - PLATELET COUNT 207 10^3/uL (130-450); RED BLOOD COUNT 5.23 10^6/uL (4.70-6.10); RED CELL DISTRIBUTION WIDTH 16.5 % (12.0-15.0); WHITE BLOOD COUNT 8.4 x10^3/uL (4.8-10.8)
[2020-02-25 17:18] LABS: INR 1.5 (0.8-1.2)
[2020-02-25 17:22] LABS: BILIRUBIN,TOTAL 0.9 mg/dL (0.2-1.0); CALCIUM 9.8 mg/dL (8.5-10.3); CREATININE 0.7 mg/dL (0.6-1.2); MAGNESIUM 1.9 mg/dL (1.7-2.8); TOTAL PROTEIN 7.9 g/dL (6.7-8.2)
[2020-02-25 17:25] LABS: PARTIAL THROMBOPLASTIN TIME 29.7 secs (24.9-33.3)
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
--- NOTE | 2020-02-25 17:44 | XRAY Report ---
PROCEDURE: Chest 1 View X-Ray INDICATIONS: 01/05/2020; pacemaker TECHNIQUE: One view of the chest was acquired. COMPARISON: 01/05/2020 FINDINGS: Surgical changes and devices: Left chest wall cardiac pacing device again noted. Lungs and pleura: No pleural effusions or pneumothorax. Lungs are clear. Mediastinum: Mediastinal contours appear normal. Borderline cardiomegaly similar to the prior study. Aortic knob calcifications. Bones and chest wall: No suspicious bony lesions. Overlying soft tissues appear unremarkable. IMPRESSION: No acute finding or significant interval change. Reviewed by: Srinivasan Loza MD on 02/25/2020 4:42 PM [facility] Approved by: Srinivasan Loza MD on 02/25/2020 4:42 PM [facility] Station ID: [id number]
[2020-02-25] MEDS ORDERED: SODIUM CHLORIDE 0.9% 500 ML IV STA (17:48)
[2020-02-25 19:54] VITALS: BP 112/86
== END 2020-02-25 19:54 | disposition home or self-care (01) ==
LOC: EDBD → EDUNIT# → ED 16:44
DX: I95.9 Hypotension, unspecified (principal); R55 Syncope and collapse; S00.83XA Contusion of other part of head, initial encounter; W18.39XA Other fall on same level, initial encounter; Y93.01 Activity, walking, marching and hiking; Y92.007 Garden or yard of unspecified non-institutional (private) residence as the place of occurrence of the external cause; I25.10 Atherosclerotic heart disease of native coronary artery without angina pectoris; Z95.5 Presence of coronary angioplasty implant and graft; Z95.0 Presence of cardiac pacemaker; Z86.73 Personal history of transient ischemic attack (TIA), and cerebral infarction without residual deficits; Z79.01 Long term (current) use of anticoagulants; Z79.82 Long term (current) use of aspirin; Z66 Do not resuscitate
CPT/HCPCS: 70450; 72125; 80053; 80320; 83735; 83880; 85025; 85610; 85730; 93005; 96360; 99284

== ENCOUNTER 2020-04-29 12:15 | Outpatient (CLI) | payer MEDICARE, OTHER | END 2020-04-29 12:16 | disposition EMS.NT | LOC: EMS 12:15 | DX: Z03.89 Encounter for observation for other suspected diseases and conditions ruled out (principal) ==

== ENCOUNTER 2020-04-30 04:14 | Outpatient (CLI) | payer MEDICARE, OTHER | END 2020-04-30 04:15 | disposition critical access hospital (66) | LOC: EMS 04:14 | PROVIDERS: ATTEND Emergency Medicine | DX: M25.512 Pain in left shoulder (principal); M25.522 Pain in left elbow; S00.01XA Abrasion of scalp, initial encounter; W06.XXXA Fall from bed, initial encounter; Y93.89 Activity, other specified; Y92.003 Bedroom of unspecified non-institutional (private) residence as the place of occurrence of the external cause | CPT/HCPCS: A0425; A0429 ==

== ENCOUNTER 2020-04-30 04:28 | Emergency (ER) | payer MEDICARE, OTHER ==
--- NOTE | 2020-04-30 04:41 | ED Physician Documentation ---
PD HPI Fall - Stated complaint Stated Complaint: GLF, HEAD LAC, LEFT SHOULDER/ELBOW PAIN - History obtained from History obtained from: Patient, EMS - History of Present Illness Mechanism of injury: Slipped (he says he was getting into bed from his wheelchair to bed, lost balance and slid/fell to the floor onto left side.) Fall distance: Sitting position Where injury occurred: Home Timing - onset: How many hours ago (about 4 hours [employer]OR[employer], he says he fell to the floor getting into bed and lay there for few hours, feling too weak to get up but not having any notable injuries other than left shoulder hurting ROM (a good part of what limited him getting back up). He was finally able to make it to his home alert button.) Injury(ies) location: Face (left upper forehead.), Neck (somewhat sore with ROM.), Left Uppper Extremity (shoulder mostly with some pain at the elbow as well.). No: Head, Chest, Abdomen, Back Associated symptoms: No: LOC, AMS, Weakness (has chronic leg weakness both sides and getting PT at home for it.) Contributing factors: Anticoagulated (for atrial fib; has pacemaker as well.) Similar symptoms before: Diagnosis (chronic leg weakness and uses walker or wheelchair at home. 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 denies: Numbness, Altered mental status, Headache PD PAST MEDICAL HISTORY - Past Medical History Cardiovascular: Coronary artery disease Respiratory: Sleep apnea, CPAP use Neuro: CVA Endocrine/Autoimmune: None GI: Diverticulitis : None Psych: None Musculoskeletal: Osteoarthritis, Chronic back pain Derm: None - Past Surgical History Past Surgical History: Yes General: Bowel surgery Ortho: Knee replacement, Spine surgery Cardiovascular: Coronary stent, Pacemaker Derm: Skin cancer surgery - Present Medications Home Medications: Ambulatory Orders Medication Instructions Recorded Confirmed Cholecalciferol (Vitamin D3) 5,000 units PO DAILY 02/21/16 02/25/20 [Vitamin D3] Spironolactone [Aldactone] 25 mg PO DAILY #30 tablet 01/14/18 02/25/20 Atorvastatin [Lipitor] 40 mg PO QPM 07/03/18 02/25/20 Metoprolol Succinate [Toprol Xl] 25 mg PO BID 07/03/18 02/25/20 Sertraline [Zoloft] 50 mg PO QPM 07/03/18 02/25/20 Apixaban [Eliquis] 5 mg PO BID 07/05/18 02/25/20 Nitroglycerin [Nitrostat] 0.4 mg SL Q5MIN PRN 04/09/19 02/25/20 Isosorbide Mononitrate ER [Imdur] 60 mg PO DAILY #7 tablet 10/14/19 02/25/20 Aspirin [Aspirin EC] 81 mg PO DAILY 02/25/20 02/25/20 - Allergies Allergies/Adverse Reactions: Allergies Allergy/AdvReac Type Severity Reaction Status Date / Time Influenza Virus Vaccines Allergy Rash Verified 04/30/20 04:47 baclofen AdvReac Severe Hallucinati Verified 04/30/20 04:47 ons bacitracin AdvReac Rash Verified 04/30/20 04:47 neomycin AdvReac Rash Verified 04/30/20 04:47 polymyxin B AdvReac Rash Verified 04/30/20 04:47 - Social History Does the pt smoke?: No Smoking Status: Never smoker Does the pt drink ETOH?: Yes Does the pt have substance abuse?: No - Immunizations Immunizations are current?: Yes Immunizations: TDAP >10years/unknown - POLST Patient has POLST: No POLST Status: DNR PD ED PE NORMAL - Vitals Vital signs reviewed: Yes - General General: No acute distress, Well developed/nourished, Other (mild tenderness left hinduism area with small 1/2 cm laceration. No hematoma noted. ) - HEENT HEENT: Moist mucous membranes, Pharynx benign - Neck Neck: Supple, no meningeal sign, No adenopathy, Other (mild tenderness lower right posterior neck in muscles. No noted palpable deformity. ) - Cardiac Cardiac: No: RRR (irrregular but rate controlled. Pacemaker pouch left chest without tenderness/redness. ) - Respiratory Respiratory: Clear bilaterally, Other (no chestwall tenderness. ) - Abdomen Abdomen: Soft, Non tender - Back Back: No spinal TTP - Derm Derm: Normal color, Warm and dry - Extremities Extremities: Other (left shoulder with some lateral tenderness. No noted deformity. Passive ROM with minimal discomfort. Active ROM hurts with passive ROM hurting much less. Left elbow with good ROM, no effusion. Small bruising laterally. ) - Neuro Neuro: Alert and oriented X 3, No motor deficit, No sensory deficit, Normal speech Eye Opening: Spontaneous Motor: Obeys Commands Verbal: Oriented GCS Score: 15 Results - Vitals Vitals: Vital Signs - 24 hr 04/30/20 04/30/20 04/30/20 04:37 05:02 05:33 Temperature 36.4 C L Heart Rate 84 78 78 Respiratory 18 19 17 Rate Blood Pressure 112/72 O2 Saturation 89 L 94 98 04/30/20 05:36 Temperature Heart Rate 79 Respiratory 18 Rate Blood Pressure 124/72 O2 Saturation 98 Oxygen O2 Source [Without Activity] Nasal cannula O2 Source Nasal cannula Oxygen Flow Rate 3 - Labs Labs: Laboratory Tests 04/30/20 04/30/20 04/30/20 04:38 04:38 04:38 WBC 8.7 RBC 5.23 Hgb 15.7 Hct 49.3 MCV 94.3 H MCH 30.0 MCHC 31.8 L RDW 15.7 H Plt Count 174 MPV 9.8 Neut # (Auto) 6.7 H Lymph # (Auto) 1.3 L [place] # (Auto) 0.5 Eos # (Auto) 0.1 Baso # (Auto) 0.1 Absolute Nucleated RBC 0.00 Nucleated RBC % 0.0 PT 17.0 H INR 1.6 H APTT 29.5 Sodium 131 L Potassium 3.9 Chloride 98 L Carbon Dioxide 19 L Anion Gap 14.0 H BUN 15 Creatinine 0.7 Estimated GFR (MDRD) 107 Glucose 142 H Calcium 9.5 Ethyl Alcohol 84.0 - Rads (name of study) head CT Radiology: Prelim report reviewed (no ICH; no acute findings. Chronic involutional and microvascular changes. ), See rad report cervical CT Radiology: Prelim report reviewed (arthritic changes; no fractures. Unchanged from prior. ), See rad report left shoulder xray Radiology: Prelim report reviewed (no fractures. ), See rad report PD MEDICAL DECISION MAKING - ED course Complexity details: reviewed results, re-evaluated patient (he denies need for pain meds other than tylenol. ), considered differential (fall to floor. No concussive symptoms. Denies fainting/syncope. ), d/w patient Departure - Departure Disposition: 01 Home, Self Care Clinical Impression: Anticoagulant long-term use Head contusion Qualifiers: Encounter type: initial encounter Contusion of head detail: scalp Qualified Code(s): S00.03XA - Contusion of scalp, initial encounter Fall from slip, trip, or stumble Qualifiers: Encounter type: initial encounter Qualified Code(s): W01.0XXA - Fall on same level from slipping, tripping and stumbling without subsequent striking against object, initial encounter Shoulder contusion Qualifiers: Encounter type: initial encounter Laterality: left Qualified Code(s): S40.012A - Contusion of left shoulder, initial encounter Condition: Stable Record reviewed to determine appropriate education?: Yes Instructions: ED Contusion Shoulder Comments: His CT of your head and neck are without any acute bleeding fractures or abnormality. There are some arthritic changes in your neck that of been present. You likely have some soreness of your neck as well as your shoulder from the fall. There are no fractures or dislocation seen on the shoulder x- ray. Again some arthritis is noted. Tylenol every 4 hours if needed for pains. Continue usual medications otherwise. Moderation in alcohol amount. Activity as able.
[2020-04-30 04:45] LABS: BASOPHILS # (AUTO) 0.1 10^3/uL (0.0-0.1); BASOPHILS % (AUTO) 0.6 %; EOSINOPHILS # (AUTO) 0.1 10^3/uL (0.0-0.7); EOSINOPHILS % (AUTO) 0.8 %; HGB - HEMOGLOBIN 15.7 g/dL (14.0-18.0); LYMPHOCYTES # (AUTO) 1.3 10^3/uL (1.5-3.5); LYMPHOCYTES % (AUTO) 15.5 %; MEAN CORPUSCULAR HGB CONC 31.8 g/dL (32.0-36.0); MEAN CORPUSCULAR VOLUME 94.3 fL (80.0-94.0); MEAN PLATELET VOLUME 9.8 fL (7.4-11.4); MONOCYTES # (AUTO) 0.5 10^3/uL (0.0-1.0); MONOCYTES % (AUTO) 5.7 %; NEUTROPHILS # (AUTO) 6.7 10^3/uL (1.5-6.6); NEUTROPHILS % (AUTO) 76.9 %; PLT - PLATELET COUNT 174 10^3/uL (130-450); RED BLOOD COUNT 5.23 10^6/uL (4.70-6.10); RED CELL DISTRIBUTION WIDTH 15.7 % (12.0-15.0); WHITE BLOOD COUNT 8.7 x10^3/uL (4.8-10.8)
[2020-04-30 04:49] LABS: INR 1.6 (0.8-1.2)
[2020-04-30 04:53] LABS: CALCIUM 9.5 mg/dL (8.5-10.3); CREATININE 0.7 mg/dL (0.6-1.2)
[2020-04-30 04:56] LABS: PARTIAL THROMBOPLASTIN TIME 29.5 secs (24.9-33.3)
[2020-04-30] MEDS ORDERED: ACETAMINOPHEN 325 MG TABLET PO STA (05:25)
[2020-04-30 06:21] VITALS: BP 108/64
--- NOTE | 2020-04-30 10:02 | XRAY Report ---
PROCEDURE: Shoulder 3 View LT INDICATIONS: fall to left side/shoulder TECHNIQUE: 3 views of the shoulder were acquired. COMPARISON: 01/17/2018 FINDINGS: Bones: No fractures or dislocations. No suspicious bony lesions. Visualized ribs appear intact. Degenerative changes are seen, including moderate subacromial spurring and humeral head spurring. Soft tissues: No suspicious soft tissue calcifications. A left-sided pacer is seen. The visualized lung demonstrates a normal appearance. IMPRESSION: No acute fracture or dislocation can be seen. Degenerative changes are seen, which have progressed compared to the prior. Pacer device seen. Note: No significant discrepancy from the preliminary report. Reviewed by: Derick Pretty MD on 04/30/2020 9:[address] [facility] Approved by: Derick Pretty MD on 04/30/2020 9:[address] [facility] Station ID: [id number]
--- NOTE | 2020-04-30 10:06 | CT Report ---
PROCEDURE: HEAD WO INDICATIONS: fall from bed/chair to left side; pain neck/head TECHNIQUE: Noncontrast 4.5 mm thick angled axial sections acquired from the foramen magnum to the vertex. For r adiation dose reduction, the following was used: automated exposure control, adjustment of mA and/or kV according to patient size. COMPARISON: 02/25/2020, 01/05/2020, 07/02/2018, and 01/12/2018. Correlation is also made with the [facility] cervical spine CT, 04/30/2020. FINDINGS: Image quality: Excellent. CSF spaces: Basal cisterns are patent. No extra-axial fluid collections. Ventricles are normal in size and shape. Brain: No midline shift. No intracranial masses or hemorrhage. Herrera-white matter interface is norm al. Skull and face: Calvarium and visualized facial bones are intact, without suspicious lesions. Sinuses: Visualized sinuses and mastoids are clear. IMPRESSION: No intracranial hemorrhage is seen. No significant intracranial abnormality is seen. Age-appropriate brain parenchymal volume loss and chronic small vessel ischemic change can be seen. Note: No significant discrepancy from the preliminary report. Reviewed by: Derick Pretty MD on 04/30/2020 9:05 AM [facility] Approved by: Derick Pretty MD on 04/30/2020 9:05 AM [facility] Station ID: [id number]
--- NOTE | 2020-04-30 10:09 | CT Report ---
PROCEDURE: CERVICAL SPINE WO INDICATIONS: fall from bed/chair to left side; pain neck/head TECHNIQUE: Noncontrast 3 mm thick sections acquired from the skull base to the T4 level. Sagittal and coronal r eformats were then constructed. For radiation dose reduction, the following was used: automated exp osure control, adjustment of mA and/or kV according to patient size. COMPARISON: 02/25/2020, 07/02/2018, 05/31/2017. Correlation is also made with the accompanying head CT , 04/30/2020 FINDINGS: Image quality: Excellent. Bones: No fractures or dislocations. Visualized superior ribs are intact. Degenerative changes are seen, with at least moderate disc space narrowing at C5-C6 and moderate to s evere disc space narrowing at C6-C7 and C7-T1. At least partially bridging anterior osteophytes are s een C5-T2. Focal degenerative change can also be seen involving the C1-C2 interface anteriorly. Milde r degenerative changes are seen elsewhere. Soft tissues: Prevertebral soft tissues are normal in thickness. No paravertebral hematomas. No ap ical pneumothoraces. Extensive vascular calcification can be seen, particularly involving the caroti d bifurcations. There is partial visualization of left-sided pacer leads. IMPRESSION: No acute fracture can be seen. Extensive degenerative changes are seen, which are most prominent inferiorly. Incidental note is made of: Extensive carotid indication calcification Pacer leads Note: No significant discrepancy from the preliminary report. Reviewed by: Derick Pretty MD on 04/30/2020 9:07 AM [facility] Approved by: Derick Pretty MD on 04/30/2020 9:07 AM [facility] Station ID: [id number]
== END 2020-04-30 07:56 | disposition home or self-care (01) ==
LOC: EDUNIT# → ED 04:28
DX: S00.03XA Contusion of scalp, initial encounter (principal); S40.012A Contusion of left shoulder, initial encounter; W01.0XXA Fall on same level from slipping, tripping and stumbling without subsequent striking against object, initial encounter; Y93.89 Activity, other specified; Y92.003 Bedroom of unspecified non-institutional (private) residence as the place of occurrence of the external cause
CPT/HCPCS: 36415; 70450; 72125; 73030; 80048; 85025; 85610; 85730; 93005; 99284; A9270; G0480; 80320

== ENCOUNTER 2020-06-06 16:48 | Outpatient (CLI) | payer MEDICARE, OTHER ==
--- NOTE | 2020-06-21 18:07 | XRAY Report ---
PROCEDURE: Lumbar Spine 2 View INDICATIONS: LUMBAR BACK PX TECHNIQUE: 2 views of the lumbar spine were acquired. COMPARISON: 03/26/2016 FINDINGS: Bones: 5 [id number] vertebrae are present. There is stable bony alignment with straightening o f normal lumbar lordosis. No acute vertebral body compression fractures. No suspicious bony lesions . Stable appearance of moderate multilevel spondylosis throughout the imaged spine to include the lo wer thoracic, thoracolumbar junction, and lumbar spine. There is also stable lumbosacral junction spo ndylosis. Degenerative changes evidenced by disc space loss, degenerative endplate changes, and promi nent endplate osteophyte formation throughout. Findings are most severe at L1-2, L2-3, L3-4, and L4-5 . Moderate multilevel facet arthropathy.. Soft tissues: Overlying bowel gas pattern is normal. No suspicious soft tissue calcifications. Mode rate atherosclerotic vascular calcifications. IMPRESSION: 1. 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 No acute compression fractures visualized. 2. Straightening of normal lumbar lordosis which may be in due to patient positioning and/or concurre nt muscle spasms. 3. Atherosclerosis. Reviewed by: Akash Oscar MD on 06/21/2020 6:06 PM PDT Approved by: Akash Oscar MD on 06/21/2020 6:06 PM PDT Station ID: [id number]
== END 2020-06-06 16:49 | disposition home or self-care (01) ==
LOC: DI.N 16:48
PROVIDERS: ATTEND Internal Medicine
DX: M47.816 Spondylosis without myelopathy or radiculopathy, lumbar region (principal); M47.814 Spondylosis without myelopathy or radiculopathy, thoracic region; I70.90 Unspecified atherosclerosis

== ENCOUNTER 2020-07-16 19:30 | Outpatient (CLI) | payer MEDICARE, OTHER | END 2020-07-16 19:31 | disposition EMS.NT | LOC: EMS 19:30 | DX: Z03.89 Encounter for observation for other suspected diseases and conditions ruled out (principal) ==

== ENCOUNTER 2020-07-16 20:51 | Outpatient (CLI) | payer MEDICARE, OTHER | END 2020-07-16 20:52 | disposition critical access hospital (66) | LOC: EMS 20:51 | DX: Z04.3 Encounter for examination and observation following other accident (principal) | CPT/HCPCS: A0425; A0429 ==

== ENCOUNTER 2020-07-16 21:05 | Emergency (ER) | payer MEDICARE, OTHER ==
[2020-07-16] MEDS ORDERED: BUFFERED LIDOCAINE 10 ML SYRINGE SUBQ STA (21:12)
[2020-07-16 21:15] VITALS: BP 113/74
[2020-07-16 21:24] LABS: BASOPHILS % (AUTO) 0.6 %; EOSINOPHILS # (AUTO) 0.1 10^3/uL (0.0-0.7); EOSINOPHILS % (AUTO) 1.9 %; HGB - HEMOGLOBIN 13.2 g/dL (14.0-18.0); LYMPHOCYTES # (AUTO) 1.3 10^3/uL (1.5-3.5); LYMPHOCYTES % (AUTO) 19.6 %; MEAN CORPUSCULAR VOLUME 93.9 fL (80.0-94.0); MEAN PLATELET VOLUME 9.3 fL (7.4-11.4); MONOCYTES # (AUTO) 0.6 10^3/uL (0.0-1.0); MONOCYTES % (AUTO) 9.1 %; NEUTROPHILS # (AUTO) 4.6 10^3/uL (1.5-6.6); NEUTROPHILS % (AUTO) 68.2 %; PLT - PLATELET COUNT 190 10^3/uL (130-450); RED BLOOD COUNT 4.26 10^6/uL (4.70-6.10); RED CELL DISTRIBUTION WIDTH 15.3 % (12.0-15.0); WHITE BLOOD COUNT 6.7 x10^3/uL (4.8-10.8)
[2020-07-16 21:32] LABS: INR 1.6 (0.8-1.2); PT - PROTHROMBIN TIME 17.2 secs (9.9-12.6)
[2020-07-16 21:37] LABS: ALBUMIN 3.9 g/dL (3.2-5.5); ALBUMIN/GLOBULIN RATIO 1.2 (1.0-2.2); BILIRUBIN,TOTAL 0.7 mg/dL (0.2-1.0); CALCIUM 9.1 mg/dL (8.5-10.3); CREATININE 0.8 mg/dL (0.6-1.2); POTASSIUM 3.9 mmol/L (3.5-5.0); TOTAL PROTEIN 7.1 g/dL (6.7-8.2)
[2020-07-16] MEDS ORDERED: TETANUS/DIPHTHERIA/PERTUSSIS 0.5 ML SYRINGE IM ONE (22:34)
--- NOTE | 2020-07-16 22:36 | ED Physician Documentation ---
PD HPI LOWER EXT INJURY - Stated complaint Stated Complaint: GLF/ R KNEE INJ - Chief complaint Chief Complaint: Trauma Ext - History obtained from History obtained from: Patient - History of Present Illness PD HPI LOW EXT INJURY LOCATION: Right, Knee Type of injury: Fall Where injury occurred: Home Timing - onset: Today Timing - duration: Minutes Timing - details: Abrupt onset, Still present Improved by: Rest, Immobilization Worsened by: Moving, Palpating Associated symptoms: No: Weakness, Numbness, Tingling, Swelling Contributing factors: Anticoagulated Similar symptoms before: Diagnosis (laceration) Recently seen: Not recently seen - Additional information Additional information: 84-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 He is on Coumadin he states he did not hit his head and he had no loss of consciousness and no neck pain or pain elsewhere in his body. He states he otherwise feels fine. Review of Systems Constitutional: denies: Fever Eyes: denies: Decreased vision Ears: denies: Loss of hearing, Ear pain Nose: denies: Congestion Throat: denies: Sore throat Cardiac: denies: Chest pain / pressure, Palpitations Respiratory: denies: Dyspnea, Cough GI: denies: Abdominal Pain, Nausea, Vomiting, Constipation, Diarrhea : denies: Dysuria, Frequency Skin: reports: Laceration (s). denies: Rash Musculoskeletal: denies: Neck pain, Back pain, Extremity pain PD PAST MEDICAL HISTORY - Past Medical History Past Medical History: Yes Cardiovascular: Coronary artery disease Respiratory: Sleep apnea, CPAP use Neuro: CVA Endocrine/Autoimmune: None GI: Diverticulitis : None HEENT: None Psych: None Musculoskeletal: Osteoarthritis, Chronic back pain Derm: None - Past Surgical History Past Surgical History: Yes General: Bowel surgery Ortho: Knee replacement, Spine surgery Cardiovascular: Coronary stent, Pacemaker Derm: Skin cancer surgery - Present Medications Home Medications: Ambulatory Orders Medication Instructions Recorded Confirmed Cholecalciferol (Vitamin D3) 5,000 units PO DAILY 02/21/16 02/25/20 [Vitamin D3] Spironolactone [Aldactone] 25 mg PO DAILY #30 tablet 01/14/18 02/25/20 Atorvastatin [Lipitor] 40 mg PO QPM 07/03/18 02/25/20 Metoprolol Succinate [Toprol Xl] 25 mg PO BID 07/03/18 02/25/20 Sertraline [Zoloft] 50 mg PO QPM 07/03/18 02/25/20 Apixaban [Eliquis] 5 mg PO BID 07/05/18 02/25/20 Nitroglycerin [Nitrostat] 0.4 mg SL Q5MIN PRN 04/09/19 02/25/20 Isosorbide Mononitrate ER [Imdur] 60 mg PO DAILY #7 tablet 10/14/19 02/25/20 Aspirin [Aspirin EC] 81 mg PO DAILY 02/25/20 02/25/20 - Allergies Allergies/Adverse Reactions: Allergies Allergy/AdvReac Type Severity Reaction Status Date / Time Influenza Virus Vaccines Allergy Rash Verified 07/16/20 21:27 baclofen AdvReac Severe Hallucinati Verified 07/16/20 21:27 ons bacitracin AdvReac Rash Verified 07/16/20 21:27 neomycin AdvReac Rash Verified 07/16/20 21:27 polymyxin B AdvReac Rash Verified 07/16/20 21:27 - Social History Does the pt smoke?: No Smoking Status: Never smoker Does the pt drink ETOH?: Yes Does the pt have substance abuse?: No - Immunizations Immunizations are current?: No Immunizations: TDAP >10years/unknown - POLST Patient has POLST: No POLST Status: DNR PD ED PE NORMAL - Vitals Vital signs reviewed: Yes (normal ) - General General: Alert and oriented X 3, No acute distress, Well developed/nourished - HEENT HEENT: Atraumatic (to deep palpation of the entire scalp.), PERRL, EOMI - Neck Neck: Supple, no meningeal sign, No bony TTP - Respiratory Respiratory: No respiratory distress - Derm Derm: Normal color, Warm and dry, No rash - Extremities Extremities: No deformity, No edema, Other (There is a 3 cm curved flap laceration to the right knee over the patella. It does not involve deeper structures and there is no foreign material in the wound.) - Neuro Neuro: Alert and oriented X 3, nurse technician 2-12 intact, No motor deficit, No sensory deficit, Normal speech Eye Opening: Spontaneous Motor: Obeys Commands Verbal: Oriented GCS Score: 15 - Psych Psych: Normal mood, Normal affect Results - Vitals Vitals: Vital Signs - 24 hr 07/16/20 07/16/20 07/16/20 21:11 21:15 22:45 Temperature 36.2 C L 36.2 C L Heart Rate 81 81 80 Respiratory 18 18 18 Rate Blood Pressure 113/74 113/74 O2 Saturation 92 92 95 Oxygen O2 Source [Without Activity] Nasal cannula O2 Source Room air - Labs Labs: Laboratory Tests 07/16/20 07/16/20 07/16/20 21:18 21:18 21:18 WBC 6.7 RBC 4.26 L Hgb 13.2 L Hct 40.0 L MCV 93.9 MCH 31.0 MCHC 33.0 RDW 15.3 H Plt Count 190 MPV 9.3 Neut # (Auto) 4.6 Lymph # (Auto) 1.3 L [place] # (Auto) 0.6 Eos # (Auto) 0.1 Baso # (Auto) 0.0 Absolute Nucleated RBC 0.00 Nucleated RBC % 0.0 PT 17.2 H INR 1.6 H Sodium 136 Potassium 3.9 Chloride 103 Carbon Dioxide 22 Anion Gap 11.0 BUN 12 Creatinine 0.8 Estimated GFR (MDRD) 92 Glucose 153 H Calcium 9.1 Total Bilirubin 0.7 AST 20 ALT 17 Alkaline Phosphatase 69 Total Protein 7.1 Albumin 3.9 Globulin 3.2 Albumin/Globulin Ratio 1.2 Lipase 45 Procedures - Laceration (location) Right knee Wound type: Curved, Flap Neurovascular status: Sensory intact, Motor intact, Vascular intact Anesthesia: Lidocaine 1%, With bicarb Wound preparation: Hibiclens, Irrigated copiously NS, Wound explored, To the base Skin layer closure: Nylon, Interrupted, Size #-0 - enter number (4-0) Other: Patient tolerated well, No complications, Neurovascular intact, Dressing applied, Tetanus booster given PD MEDICAL DECISION MAKING - ED course Complexity details: reviewed results, re-evaluated patient, considered differential, d/w patient ED course: 84-year-old male with a laceration to his right knee has repair made to the laceration and is discharged home.He is on Coumadin and he did have a fall but he did not hit his head and he does not have physical signs or evidence of intracranial injury. An INR was performed which came back at 3.2. Departure - Departure Disposition: 01 Home, Self Care Clinical Impression: Laceration of right knee Qualifiers: Encounter type: initial encounter Qualified Code(s): S81.011A - Laceration without foreign body, right knee, initial encounter Condition: Stable Instructions: ED Laceration Ext Sutr Stap Tape Follow-Up: Rajan Espinal MD [Primary Care Provider] - Comments: Sutures should be removed and 10 to 14 days. Discharge Date/Time: 07/16/20 23:00
== END 2020-07-16 23:00 | disposition home or self-care (01) ==
LOC: EDUNIT# → ED 21:05
DX: S81.011A Laceration without foreign body, right knee, initial encounter (principal); W19.XXXA Unspecified fall, initial encounter; Y92.002 Bathroom of unspecified non-institutional (private) residence as the place of occurrence of the external cause; Z86.73 Personal history of transient ischemic attack (TIA), and cerebral infarction without residual deficits; Z79.01 Long term (current) use of anticoagulants; Z95.0 Presence of cardiac pacemaker; Z66 Do not resuscitate
CPT/HCPCS: 12002; 36415; 80053; 83690; 85025; 85610; 99283; 99284

== ENCOUNTER 2020-07-23 17:37 | Outpatient (CLI) | payer MEDICARE, OTHER | END 2020-07-23 17:38 | disposition critical access hospital (66) | LOC: EMS 17:37 | DX: Z04.3 Encounter for examination and observation following other accident (principal) | CPT/HCPCS: A0425; A0429 ==

== ENCOUNTER 2020-07-23 17:50 | Emergency (ER) | payer MEDICARE, OTHER ==
--- NOTE | 2020-07-23 18:52 | CT Report ---
PROCEDURE: HEAD WO INDICATIONS: fall, head injury, +eliquis TECHNIQUE: Noncontrast 4.5 mm thick angled axial sections acquired from the foramen magnum to the vertex. For r adiation dose reduction, the following was used: automated exposure control, adjustment of mA and/or kV according to patient size. COMPARISON: None. FINDINGS: Image quality: Excellent. CSF spaces: The ventricles and extra-axial CSF spaces are mildly prominent consistent with cerebral v olume loss. No focal extra-axial fluid collection. Brain: No midline shift. No intracranial masses or hemorrhage. There is diffuse periventricular and deep white matter hypoattenuation consistent with microvascular ischemic changes. Herrera-white matter interface is normal. Vascular calcifications noted within the proximal intracranial vasculature. Skull and face: Calvarium and visualized facial bones are intact, without suspicious lesions. Sinuses: Visualized sinuses and mastoids are clear. IMPRESSION: Findings consistent with microvascular ischemic changes and cerebral volume loss without evidence of an acute intracranial abnormality. Reviewed by: Feng Castillo DO on 07/23/2020 5:51 PM [facility] Approved by: Feng Castillo DO on 07/23/2020 5:51 PM [facility] Station ID: [id number]
--- NOTE | 2020-07-23 18:57 | CT Report ---
PROCEDURE: CERVICAL SPINE WO INDICATIONS: fall, head injury, intoxicated TECHNIQUE: Noncontrast 3 mm thick sections acquired from the skull base to the T4 level. Sagittal and coronal r eformats were then constructed. For radiation dose reduction, the following was used: automated exp osure control, adjustment of mA and/or kV according to patient size. COMPARISON: None. FINDINGS: Image quality: Excellent. Bones: No fractures or dislocations. Visualized superior ribs are intact. There is multilevel cerv ical spinal degenerative changes. There is mild intervertebral disc space loss noted at C3-C4. There is near complete intervertebral disc space loss noted at C5-C6, C6-C7, and C7-T1. There are plate deg enerative changes. Diffuse uncovertebral joint hypertrophy as well as facet arthropathy which is wors e at C2-C3 and C3-C4. There is mild spinal canal stenosis posterior to C5-C6 and moderate spinal elizabeth l stenosis posterior to C6-C7. Multiple levels of mild to moderate bony neural foraminal stenosis. Soft tissues: Prevertebral soft tissues are normal in thickness. No paravertebral hematomas. No ap ical pneumothoraces. Nuchal calcifications. Diffuse carotid calcifications. IMPRESSION: Multilevel cervical spondylopathy without evidence of an acute fracture or metastatic subluxation. Reviewed by: Feng Castillo DO on 07/23/2020 5:55 PM [facility] Approved by: Feng Castillo DO on 07/23/2020 5:55 PM [facility] Station ID: [id number]
--- NOTE | 2020-07-23 19:03 | ED Physician Documentation ---
PD HPI HEAD INJURY - Stated complaint Stated Complaint: ETOH/GLF - Chief complaint Chief Complaint: Trauma Hd/Nk - History obtained from History obtained from: Patient, EMS - History of Present Illness Mechanism of head injury: Fell Where head injury occurred: Home Timing - onset: Today Pain level max: 0 Pain level now: 0 Location of injury: Left, Front Associated symptoms: No: LOC, Nausea / vomiting, Neck pain, Paresthesias, Seizures - Additional information Additional information: Patient is an 84-year-old male who was trying to get into his bed today when he tripped and fell, bruising the left side of his forehead. He takes Eliquis. States that there is no pain. No loss of consciousness. No vomiting. No neck or back pain. Nothing makes it better or worse. Review of Systems Ten Systems: 10 systems reviewed and negative Constitutional: denies: Fever GI: denies: Vomiting, Diarrhea Skin: denies: Rash Musculoskeletal: denies: Neck pain, Back pain Neurologic: denies: Headache PD PAST MEDICAL HISTORY - Past Medical History Cardiovascular: Coronary artery disease Respiratory: Sleep apnea, CPAP use Neuro: CVA Endocrine/Autoimmune: None GI: Diverticulitis : None HEENT: None Psych: None Musculoskeletal: Osteoarthritis, Chronic back pain Derm: None - Past Surgical History Past Surgical History: Yes General: Bowel surgery Ortho: Knee replacement, Spine surgery Cardiovascular: Coronary stent, Pacemaker Derm: Skin cancer surgery - Present Medications Home Medications: Ambulatory Orders Medication Instructions Recorded Confirmed Cholecalciferol (Vitamin D3) 5,000 units PO DAILY 02/21/16 02/25/20 [Vitamin D3] Spironolactone [Aldactone] 25 mg PO DAILY #30 tablet 01/14/18 02/25/20 Atorvastatin [Lipitor] 40 mg PO QPM 07/03/18 02/25/20 Metoprolol Succinate [Toprol Xl] 25 mg PO BID 07/03/18 02/25/20 Sertraline [Zoloft] 50 mg PO QPM 07/03/18 02/25/20 Apixaban [Eliquis] 5 mg PO BID 07/05/18 02/25/20 Nitroglycerin [Nitrostat] 0.4 mg SL Q5MIN PRN 04/09/19 02/25/20 Isosorbide Mononitrate ER [Imdur] 60 mg PO DAILY #7 tablet 10/14/19 02/25/20 Aspirin [Aspirin EC] 81 mg PO DAILY 02/25/20 02/25/20 - Allergies Allergies/Adverse Reactions: Allergies Allergy/AdvReac Type Severity Reaction Status Date / Time Influenza Virus Vaccines Allergy Rash Verified 07/23/20 18:01 baclofen AdvReac Severe Hallucinati Verified 07/23/20 18:01 ons bacitracin AdvReac Rash Verified 07/23/20 18:01 neomycin AdvReac Rash Verified 07/23/20 18:01 polymyxin B AdvReac Rash Verified 07/23/20 18:01 - Social History Does the pt smoke?: No Smoking Status: Never smoker Does the pt drink ETOH?: Yes Does the pt have substance abuse?: No - Immunizations Immunizations are current?: No Immunizations: TDAP >10years/unknown - POLST Patient has POLST: No POLST Status: DNR PD ED PE NORMAL - Vitals Vital signs reviewed: Yes - General General: Alert and oriented X 3, No acute distress - HEENT HEENT: PERRL, EOMI, Moist mucous membranes, Dentition benign, Other (Small ecchymosis to the left periorbital area. Small amount of dried blood. No laceration. No other evidence of trauma externally. 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, No motor deficit, No sensory deficit, Normal speech Eye Opening: Spontaneous Motor: Obeys Commands Verbal: Oriented GCS Score: 15 - Psych Psych: Normal mood, Normal affect Results - Vitals Vitals: Vital Signs - 24 hr 07/23/20 07/23/20 07/23/20 18:00 18:43 19:13 Temperature 36.1 C L 36.2 C L Heart Rate 76 55 L 60 Respiratory 18 19 18 Rate Blood Pressure 97/60 92/59 L 101/61 O2 Saturation 92 92 94 07/23/20 19:17 Temperature 36.2 C L Heart Rate 60 Respiratory 18 Rate Blood Pressure 101/61 O2 Saturation 94 Oxygen O2 Source [Without Activity] Nasal cannula O2 Source Room air - Rads (name of study) CT head Radiology: Prelim report reviewed, EMP read contemporaneously, See rad report (No acute abnormality) CT cervical spine Radiology: Prelim report reviewed, EMP read contemporaneously, See rad report (No acute abnormality) PD MEDICAL DECISION MAKING - ED course Complexity details: reviewed results, re-evaluated patient, considered differential, d/w patient, d/w family ED course: 84-year-old male with a trip and fall tonight. No acute findings on CT scans. We will have him follow-up with his doctor for further care. Ambulating without difficulty. Son is with him and will take him home. Patient and family counseled regarding signs and symptoms for which I believe and urgent re- evaluation would be necessary. Patient with good understanding of and agreement to plan and is comfortable going home at this time This document was made in part using voice recognition software. While efforts are made to proofread this document, sound alike and grammatical errors may occur. Departure - Departure Disposition: 01 Home, Self Care Clinical Impression: Facial contusion Qualifiers: Encounter type: initial encounter Qualified Code(s): S00.83XA - Contusion of other part of head, initial encounter Closed head injury Qualifiers: Encounter type: initial encounter Qualified Code(s): S09.90XA - Unspecified injury of head, initial encounter Condition: Good Instructions: ED Head Injury Closed Follow-Up: your,doctor in 1 week [Other] Comments: Your CT scans do not show any acute abnormalities today. Please follow-up with your doctor for further care. Return if you worsen. Discharge Date/Time: 07/23/20 19:17
[2020-07-23 19:17] VITALS: BP 101/61
== END 2020-07-23 19:17 | disposition home or self-care (01) ==
LOC: EDUNIT# → ED 17:50
DX: S00.83XA Contusion of other part of head, initial encounter (principal); S09.90XA Unspecified injury of head, initial encounter; W01.0XXA Fall on same level from slipping, tripping and stumbling without subsequent striking against object, initial encounter; Y93.01 Activity, walking, marching and hiking; Y92.003 Bedroom of unspecified non-institutional (private) residence as the place of occurrence of the external cause; M47.812 Spondylosis without myelopathy or radiculopathy, cervical region; Z86.73 Personal history of transient ischemic attack (TIA), and cerebral infarction without residual deficits; Z79.01 Long term (current) use of anticoagulants; Z79.82 Long term (current) use of aspirin
CPT/HCPCS: 99282; 99284

== ENCOUNTER 2020-09-06 00:45 | Outpatient (CLI) | payer MEDICARE, OTHER | END 2020-09-06 00:46 | disposition EMS.NT | LOC: EMS 00:45 | DX: Z03.89 Encounter for observation for other suspected diseases and conditions ruled out (principal) ==

== ENCOUNTER 2020-11-10 08:00 | Outpatient (CLI) | payer MEDICARE, OTHER ==
[2020-11-10 18:00] LABS: BILIRUBIN,URINE NEGATIVE (NEGATIVE); GLUCOSE, URINE (UA) NEGATIVE (NEGATIVE); KETONES,URINE (UA) NEGATIVE (NEGATIVE); LEUKOCYTE ESTERASE, URINE NEGATIVE (NEGATIVE); NITRITE,URINE NEGATIVE (NEGATIVE); OCCULT BLOOD,URINE NEGATIVE (NEGATIVE); PROTEIN,URINE NEGATIVE (NEGATIVE); UROBILINOGEN,URINE 0.2 (NORMAL) E.U./dL (NORMAL)
[2020-11-10 18:14] LABS: BACTERIA,URINE Many /HPF (None Seen); CLARITY,URINE CLEAR (CLEAR); RBC,URINE 0-5 /HPF (0-5); SQUAMOUS EPITHELIAL CELL,UR FEW Squamous (<= Few); WBC,URINE 0-3 /HPF (0-3)
== END 2020-11-10 23:59 | disposition home or self-care (01) ==
LOC: LAB.WCP 08:00
PROVIDERS: ATTEND Internal Medicine
DX: R35.0 Frequency of micturition (principal)
CPT/HCPCS: 81001; 87086

== ENCOUNTER 2020-11-30 16:28 | Outpatient (CLI) | payer MEDICARE, OTHER | END 2020-11-30 16:29 | disposition critical access hospital (66) | LOC: EMS 16:28 | DX: R53.1 Weakness (principal) | CPT/HCPCS: A0425; A0427 ==

== ENCOUNTER 2020-11-30 16:49 | Inpatient (IN) | payer MEDICARE, OTHER ==
[2020-11-30 17:11] LABS: BASOPHILS # (AUTO) 0.1 10^3/uL (0.0-0.1); BASOPHILS % (AUTO) 0.5 %; EOSINOPHILS % (AUTO) 0.1 %; HCT - HEMATOCRIT 38.1 % (42.0-52.0); HGB - HEMOGLOBIN 12.7 g/dL (14.0-18.0); LYMPHOCYTES # (AUTO) 0.6 10^3/uL (1.5-3.5); LYMPHOCYTES % (AUTO) 3.4 %; MEAN CORPUSCULAR HEMOGLOBIN 30.7 pg (27.0-31.0); MEAN CORPUSCULAR HGB CONC 33.3 g/dL (32.0-36.0); MEAN PLATELET VOLUME 9.4 fL (7.4-11.4); MONOCYTES # (AUTO) 1.2 10^3/uL (0.0-1.0); MONOCYTES % (AUTO) 7.3 %; NEUTROPHILS # (AUTO) 14.3 10^3/uL (1.5-6.6); NEUTROPHILS % (AUTO) 87.8 %; PLT - PLATELET COUNT 175 10^3/uL (130-450); RED BLOOD COUNT 4.14 10^6/uL (4.70-6.10); WHITE BLOOD COUNT 16.3 x10^3/uL (4.8-10.8)
[2020-11-30] MEDS ORDERED: SODIUM CHLORIDE 0.9% 1,000 ML IV STA (17:29)
[2020-11-30 17:33] LABS: BILIRUBIN,URINE NEGATIVE (NEGATIVE); GLUCOSE, URINE (UA) NEGATIVE (NEGATIVE); KETONES,URINE (UA) NEGATIVE (NEGATIVE); LEUKOCYTE ESTERASE, URINE SMALL (NEGATIVE); NITRITE,URINE POSITIVE (NEGATIVE); OCCULT BLOOD,URINE TRACE-LYSE (NEGATIVE); PH,URINE 5.5 PH (5.0-7.5); PROTEIN,URINE TRACE mg/dL (NEGATIVE); UROBILINOGEN,URINE 1 (NORMAL) E.U./dL (NORMAL)
[2020-11-30 17:36] LABS: BACTERIA,URINE Many /HPF (None Seen); CLARITY,URINE HAZY (CLEAR); RBC,URINE 0-5 /HPF (0-5); SQUAMOUS EPITHELIAL CELL,UR RARE Squamous (<= Few)
[2020-11-30] MEDS ORDERED: cefTRIAXone 2 GM in SODIUM CHLORIDE 0.9% MINIBAG 100 ML IV STA (17:40)
[2020-11-30 17:42] LABS: ALBUMIN 3.6 g/dL (3.2-5.5); ALBUMIN/GLOBULIN RATIO 1.1 (1.0-2.2); BILIRUBIN,TOTAL 1.4 mg/dL (0.2-1.0); CALCIUM 9.2 mg/dL (8.5-10.3); CREATININE 0.8 mg/dL (0.6-1.2); POTASSIUM 4.5 mmol/L (3.5-5.0)
--- NOTE | 2020-11-30 17:43 | ED Physician Documentation ---
History of Present Illness - Stated complaint Stated Complaint: WEAKNESS/DIARRHEA - Chief complaint Chief Complaint: Neuro - History obtained from History obtained from: Patient - Additonal information Additional information: This is an 85 yo M w/ pmh of CAD, pacemaker, THOMAS on cpap, and diverticulitis who presented with generalized weakness after 3 days of watery, non bloody diarrhea. Sx started after he ate a duran soup out at a restaurant. He had had frequent diarrhea, but no vomiting, and no abdominal pain. He tolerates po but doesn't have a big appetite. He denies any cough or URI sx, no cp, no dyspnea, no abd pain, no dysuria, no urg/freq. He felt so weak he couldn't stand which is why he called EMS. He was not aware he had a fever but on EMS arrival temp was > 103.0. No known sick contacts, no other household members are sick. Review of Systems Constitutional: reports: Fever, Other Eyes: reports: Reviewed and negative Ears: reports: Reviewed and negative Nose: reports: Reviewed and negative Throat: reports: Reviewed and negative Cardiac: reports: Reviewed and negative Respiratory: reports: Reviewed and negative GI: reports: Reviewed and negative : reports: Reviewed and negative Skin: reports: Reviewed and negative Musculoskeletal: reports: Reviewed and negative Neurologic: reports: Generalized weakness, Reviewed and negative, Other. denies: Focal weakness, Numbness, Difficulty speaking, Near syncope, Syncope, Seizure, Confused, Altered mental status, Unresponsive, Headache, Head injury, LOC Psychiatric: reports: Reviewed and negative Endocrine: reports: Reviewed and negative Immunocompromised: reports: Reviewed and negative PD PAST MEDICAL HISTORY - Past Medical History Cardiovascular: Coronary artery disease Respiratory: Sleep apnea, CPAP use Neuro: CVA Endocrine/Autoimmune: None GI: Diverticulitis : None HEENT: None Psych: None Musculoskeletal: Osteoarthritis, Chronic back pain Derm: None - Past Surgical History Past Surgical History: Yes General: Bowel surgery Ortho: Knee replacement, Spine surgery Cardiovascular: Coronary stent, Pacemaker Derm: Skin cancer surgery - Present Medications Home Medications: Ambulatory Orders Medication Instructions Recorded Confirmed Cholecalciferol (Vitamin D3) 5,000 units PO DAILY 02/21/16 02/25/20 [Vitamin D3] Spironolactone [Aldactone] 25 mg PO DAILY #30 tablet 01/14/18 02/25/20 Atorvastatin [Lipitor] 40 mg PO QPM 07/03/18 02/25/20 Metoprolol Succinate [Toprol Xl] 25 mg PO BID 07/03/18 02/25/20 Sertraline [Zoloft] 50 mg PO QPM 07/03/18 02/25/20 Apixaban [Eliquis] 5 mg PO BID 07/05/18 02/25/20 Nitroglycerin [Nitrostat] 0.4 mg SL Q5MIN PRN 04/09/19 02/25/20 Isosorbide Mononitrate ER [Imdur] 60 mg PO DAILY #7 tablet 10/14/19 02/25/20 Aspirin [Aspirin EC] 81 mg PO DAILY 02/25/20 02/25/20 - Allergies Allergies/Adverse Reactions: Allergies Allergy/AdvReac Type Severity Reaction Status Date / Time Influenza Virus Vaccines Allergy Rash Verified 11/30/20 16:56 baclofen AdvReac Severe Hallucinati Verified 11/30/20 16:56 ons bacitracin AdvReac Rash Verified 11/30/20 16:56 neomycin AdvReac Rash Verified 11/30/20 16:56 polymyxin B AdvReac Rash Verified 11/30/20 16:56 - Social History Does the pt smoke?: No Smoking Status: Never smoker Does the pt drink ETOH?: Yes Does the pt have substance abuse?: No - Immunizations Immunizations are current?: No Immunizations: TDAP >10years/unknown - POLST Patient has POLST: No POLST Status: DNR PD ED PE NORMAL - Vitals Vital signs reviewed: Yes - General General: Alert and oriented X 3, No acute distress, Well developed/nourished - HEENT HEENT: Atraumatic, PERRL, Moist mucous membranes, Pharynx benign - Neck Neck: Supple, no meningeal sign, No JVD - Cardiac Cardiac: RRR, No murmur, No gallop, No rub - Respiratory Respiratory: No respiratory distress, Clear bilaterally - Abdomen Abdomen: Normal bowel sounds, Soft, Non tender, Non distended - Derm Derm: Normal color, Warm and dry, No rash - Extremities Extremities: No deformity, No tenderness to palpate, Normal ROM s pain, No keli ma, No calf tenderness / cord - Neuro Neuro: Alert and oriented X 3, No motor deficit, No sensory deficit, Normal speech Eye Opening: Spontaneous Motor: Obeys Commands Verbal: Oriented GCS Score: 15 - Psych Psych: Normal mood, Normal affect Results - Vitals Vitals: Vital Signs - 24 hr 11/30/20 11/30/20 11/30/20 16:52 17:33 17:35 Temperature 37.4 C Heart Rate 75 63 62 Respiratory 33 H 23 29 H Rate Blood Pressure 102/57 L 81/67 L 98/56 L O2 Saturation 92 93 95 11/30/20 11/30/20 18:09 18:30 Temperature 37.0 C Heart Rate 65 Respiratory 29 H Rate Blood Pressure 112/62 O2 Saturation 93 Oxygen O2 Source [Without Activity] Nasal cannula O2 Source Room air - Labs Labs: Laboratory Tests 11/30/20 11/30/20 11/30/20 17:03 17:03 17:03 WBC 16.3 H RBC 4.14 L Hgb 12.7 L Hct 38.1 L MCV 92.0 MCH 30.7 MCHC 33.3 RDW 15.0 Plt Count 175 MPV 9.4 Neut # (Auto) 14.3 H Lymph # (Auto) 0.6 L [place] # (Auto) 1.2 H Eos # (Auto) 0.0 Baso # (Auto) 0.1 Absolute Nucleated RBC 0.00 Nucleated RBC % 0.0 Sodium 128 L Potassium 4.5 Chloride 98 L Carbon Dioxide 20 L Anion Gap 10.0 BUN 22 H Creatinine 0.8 Estimated GFR (MDRD) 91 Glucose 158 H Lactic Acid 1.7 Calcium 9.2 Total Bilirubin 1.4 H AST 17 ALT 17 Alkaline Phosphatase 71 Total Protein 7.0 Albumin 3.6 Globulin 3.4 Albumin/Globulin Ratio 1.1 Urine Color Urine Clarity Urine pH Ur Specific [place] Urine Protein Urine Glucose (UA) Urine Ketones Urine Occult Blood Urine Nitrite Urine Bilirubin Urine Urobilinogen Ur Leukocyte Esterase Urine RBC Urine WBC Ur Squamous Epith Cells Urine Bacteria Urine Culture Comments Nasal Adenovirus (PCR) Nasal B. parapertussis DNA (PCR) Nasal Coronavir 229E PCR Nasal Coronavir HKU1 PCR Nasal Coronavir NL63 PCR Nasal Coronavir OC43 PCR Nasal Enterovir/Rhinovir PCR Nasal Influenza B PCR Nasal Influenza A PCR Nasal Parainfluen 1 PCR Nasal Parainfluen 2 PCR Nasal Parainfluen 3 PCR Nasal Parainfluen 4 PCR Nasal RSV (PCR) Nasal B.pertussis DNA PCR Nasal C.pneumoniae (PCR) Phuc Human Metapneumo PCR Nasal M.pneumoniae (PCR) Nasal SARS-CoV-2 (PCR) 11/30/20 11/30/20 17:10 17:56 WBC RBC Hgb Hct MCV MCH MCHC RDW Plt Count MPV Neut # (Auto) Lymph # (Auto) [place] # (Auto) Eos # (Auto) Baso # (Auto) Absolute Nucleated RBC Nucleated RBC % Sodium Potassium Chloride Carbon Dioxide Anion Gap BUN Creatinine Estimated GFR (MDRD) Glucose Lactic Acid Calcium Total Bilirubin AST ALT Alkaline Phosphatase Total Protein Albumin Globulin Albumin/Globulin Ratio Urine Color YELLOW Urine Clarity HAZY Urine pH 5.5 Ur Specific [place] 1.020 Urine Protein TRACE Urine Glucose (UA) NEGATIVE Urine Ketones NEGATIVE Urine Occult Blood TRACE-LYSE Urine Nitrite POSITIVE H Urine Bilirubin NEGATIVE Urine Urobilinogen 1 (NORMAL) Ur Leukocyte Esterase SMALL H Urine RBC 0-5 Urine WBC 11-25 H Ur Squamous Epith Cells RARE Squamous Urine Bacteria Many H Urine Culture Comments INDICATED Nasal Adenovirus (PCR) NOT DETECTED Nasal B. parapertussis DNA (PCR) NOT DETECTED Nasal Coronavir 229E PCR NOT DETECTED Nasal Coronavir HKU1 PCR NOT DETECTED Nasal Coronavir NL63 PCR NOT DETECTED Nasal Coronavir OC43 PCR NOT DETECTED Nasal Enterovir/Rhinovir PCR NOT DETECTED Nasal Influenza B PCR NOT DETECTED Nasal Influenza A PCR NOT DETECTED Nasal Parainfluen 1 PCR NOT DETECTED Nasal Parainfluen 2 PCR NOT DETECTED Nasal Parainfluen 3 PCR NOT DETECTED Nasal Parainfluen 4 PCR NOT DETECTED Nasal RSV (PCR) NOT DETECTED Nasal B.pertussis DNA PCR NOT DETECTED Nasal C.pneumoniae (PCR) NOT DETECTED Phuc Human Metapneumo PCR NOT DETECTED Nasal M.pneumoniae (PCR) NOT DETECTED Nasal SARS-CoV-2 (PCR) NOT DETECTED PD MEDICAL DECISION MAKING - ED course Complexity details: reviewed old records, reviewed results, re-evaluated patient, considered differential, d/w patient ED course: 85 yo M presented after generalized weakness at home as well as profuse diarrhea for several days. He was febrile upon EMS arrival therefore a sepsis workup was obtained here. He met sepsis criteria with fever, leukocytosis, and tachypnea. Workup significant for a UTI which has been sent for culture. He has a leukocytosis and mild hyponatremia. His lactate is 1.7. He was started on ceftriaxone for UTI pending culture results. He was started on NS at 150ml/hr. He had soft BP at times but recovered without the use of pressors. I have requested admit by the hospitalist service for sepsis with UTI. Departure - Departure Disposition: [facility] DC/Kamari
--- NOTE | 2020-11-30 18:26 | XRAY Report ---
PROCEDURE: Chest 1 View X-Ray INDICATIONS: chest pain TECHNIQUE: One view of the chest was acquired. COMPARISON: Chest radiographs 02/25/2020 FINDINGS: Surgical changes and devices: A cardiac pacemaker is seen with pulse generator in the left chest. Lungs and pleura: No pleural effusions or pneumothorax. Nonspecific patchy opacities are seen in the lung bases, right greater than left. Is mild interstitial prominence bilaterally. Mediastinum: Mediastinal contours appear normal. Heart size is normal. Moderate aortic atheroscler otic calcifications. Bones and chest wall: No suspicious bony lesions. Overlying soft tissues appear unremarkable. IMPRESSION: Nonspecific mild patchy opacities in the bilateral lung bases may represent pneumonia, edema, or aspi ration. Reviewed by: Phoenix Carson MD on 11/30/2020 6:25 PM PDT Approved by: Phoenix Carson MD on 11/30/2020 6:25 PM PDT Station ID: [id number]
[2020-11-30 18:50] LABS: B. PARAPERTUSSIS- RESP PCR PAN NOT DETECTED; B. PERTUSSIS- RESP PCR PANEL NOT DETECTED; C. PNEUMONIAE- RESP PCR PANEL NOT DETECTED; CORONAVIRUS 229E-RESP PCR NOT DETECTED; CORONAVIRUS HKU1-RESP PCR NOT DETECTED; CORONAVIRUS NL63-RESP PCR NOT DETECTED; CORONAVIRUS OC43-RESP PCR NOT DETECTED; HUMAN METAPNEUMOVIRUS NOT DETECTED; INFLUENZA A- RESP PCR PANEL NOT DETECTED; INFLUENZA B - RESP PCR PANEL NOT DETECTED; M. PNEUMONIAE- RESP PCR PANEL NOT DETECTED; PARAINFLUENZA VIRUS 1 NOT DETECTED; PARAINFLUENZA VIRUS 2 NOT DETECTED; PARAINFLUENZA VIRUS 3 NOT DETECTED; PARAINFLUENZA VIRUS 4 NOT DETECTED; RHINOVIRUS/ENTEROVIRUS NOT DETECTED; RSV- RESP PCR PANEL NOT DETECTED; SARS-CoV-2 -RESP PCR PANEL NOT DETECTED
[2020-11-30] MEDS ORDERED: ONDANSETRON 4 MG/2 ML VIAL IVP PRN (19:54)
--- NOTE | 2020-11-30 20:17 | HISTORY & PHYSICAL EXAMINATION ---
Chief Complaint - Chief Complaint Chief Complaint: Too weak to get up History of Present Illness - Admitted From Admitted From:: ED - History Obtained From History obtained from: ED provider and the patient - History of Present Illness HPI Comment/Other: This is an 85 y/o white male who lives at [facility], with a Hx of sleep apnea on CPAP, CAD with stenting done 2010, chronic systolic heart failure with last Echo done in 03/2019 showing LVEF 35-40%, has a Pacemaker, also prior history of PE on Eliquis, BPH, prior falls and rib fractures after one of the falls. He called EMS today because he was too weak to get up independently. He described having 3 days of watery, non-bloody diarrhea after eating duran soup at a restaurant. He was found to have a fever of 103.4 F at the scene. In the ED, his BP was as low as 81/67 and respiratory rate elevated at 30. His work-up showed an elevated WBC of 16.7, normal Lactic Acid level of 1.7, low serum sodium of 128, CXR read as having bilateral haziness, COVID test was neg, U/A showed 25 WBC, (+) Nitrates and Many bacteria. The Hospitalist team was contacted for admission to treat sepsis, from apresumed UTI source, diarrhea of unknown cause and hypovolemic hyponatremia in a patient with "soft" BP and prior chronic systolic heart failure. He denies any respiratory sx such as cough, sputum production or shortness of breath, denies abdominal pain, cramping or bloody diarrhea. He did not know he had a fever. He denies sick contacts. He has been taking all his usual prescription medications throughout those 3 days (including his diuretic). He has called EMS for lift assist many times before. The patient has requested to be a DNR/DNI at the last hospitalization here and confirms he wants the same now. History - Past Medical History Cardiovascular: reports: Congestive heart failure (LVEF 35-40% by Echo done here in 03/2019), Coronary artery disease Respiratory: reports: Sleep apnea, CPAP use Neuro: reports: CVA Endocrine/Autoimmune: reports: None GI: reports: Diverticulitis : reports: Benign prostate hypertrophy HEENT: reports: None Psych: reports: None Musculoskeletal: reports: Osteoarthritis, Chronic back pain Derm: reports: None MRSA Hx?: No - Past Surgical History General: reports: Bowel surgery Ortho: reports: Knee replacement, Spine surgery Cardiovascular: reports: Coronary stent, Pacemaker Derm: reports: Skin cancer surgery - Family & Social History Family History: Mother: , Father: Family History Comment/Other: Patient's mother of pneumonia when he was 14. Patient's father of cancer at age 83. Patient was an only child, no known history of heart disease, COPD, or diabetes in the family. Living arrangement: Assisted living Living Situation: Alone Social History Notes: The patient previously had described himself as a "moderate" drinker. No tobacco use ever and no illicit drug use history. - Substance History Use: Uses substance without health or social issues: Alcohol - POLST Patient has POLST: No POLST Status: DNR Meds/Allgy - Home Medications Home Medications: Ambulatory Orders Medication Instructions Recorded Confirmed Cholecalciferol (Vitamin D3) 5,000 units PO DAILY 02/21/16 02/25/20 [Vitamin D3] Spironolactone [Aldactone] 25 mg PO DAILY #30 tablet 01/14/18 02/25/20 Atorvastatin [Lipitor] 40 mg PO QPM 07/03/18 02/25/20 Metoprolol Succinate [Toprol Xl] 25 mg PO BID 07/03/18 02/25/20 Sertraline [Zoloft] 50 mg PO QPM 07/03/18 02/25/20 Apixaban [Eliquis] 5 mg PO BID 07/05/18 02/25/20 Nitroglycerin [Nitrostat] 0.4 mg SL Q5MIN PRN 04/09/19 02/25/20 Isosorbide Mononitrate ER [Imdur] 60 mg PO DAILY #7 tablet 10/14/19 02/25/20 Aspirin [Aspirin EC] 81 mg PO DAILY 02/25/20 02/25/20 - Allergies Allergies/Adverse Reactions: Allergies Allergy/AdvReac Type Severity Reaction Status Date / Time Influenza Virus Vaccines Allergy Rash Verified 11/30/20 16:56 baclofen AdvReac Severe Hallucinati Verified 11/30/20 16:56 ons bacitracin AdvReac Rash Verified 11/30/20 16:56 neomycin AdvReac Rash Verified 11/30/20 16:56 polymyxin B AdvReac Rash Verified 11/30/20 16:56 Review of Systems - Constitutional Constitutional: reports: Weakness, Poor appetite - Gastrointestinal Gastrointestinal: reports: Diarrhea - Musculoskeletal Musculoskeletal: reports: Back pain, Stiffness - All Other Systems All Other Systems: reports: Reviewed and negative Exam - Vital Signs Vital Signs: Vital Signs x48h Temp Pulse Resp BP Pulse Ox 11/30/20 19:46 80 28 H 103/54 L 96 11/30/20 18:30 37.0 C 11/30/20 18:09 65 29 H 112/62 93 11/30/20 17:35 62 29 H 98/56 L 95 11/30/20 17:33 63 23 81/67 L 93 11/30/20 16:52 37.4 C 75 33 H 102/57 L 92 - Physical Exam General Appearance: positive: No acute distress, Alert, Other (Cheeks flushed) Eyes Bilateral: positive: Normal inspection, EOMI ENT: positive: ENT inspection nml, Dry mucous membranes Neck: positive: Nml inspection, Other (Has long viramontes, difficult to evaluate JVP) Respiratory: positive: No respiratory distress, Breath sounds nml Cardiovascular: positive: Regular rate & rhythm, No murmur Abdomen: positive: Non-tender, Nml bowel sounds, No distention, Other (Obese with pannus. Has redness in folds under pannus.) Skin: positive: Warm, Dry Extremities: positive: Other (Trace pretibial edema. R chronic knee scar (after replacement) is prominent) Neurologic/Psychiatric: positive: Oriented x3 (Non-focal) Sepsis Event Note (H) - Evaluation Current Stage of Sepsis: Sepsis - Sepsis Criteria Sepsis Criteria: Recorded Temperature greater than 38.3C or Less than 36C, Recorded Respiratory Rate greater than 20, WBC count greater than 12,000 or less than 4000, SBP less than 90 mmHg Conclusion/Plan - Problem List (1) Sepsis Conclusion/Plan: This patient meet sepsis criteria from fever, elevated white count, elevated respiratory rate and low blood pressure. The source appears to be a UTI and the UTI is suspected to be from 3 days of diarrhea. He received IV fluids in the ED but no bolus and no rapid rate because of having chronic systolic heart failure. Continue IV fluids at a moderate rate, and being careful to avoid volume overload. Follow white blood count daily. Continue with empiric IV Ceftriaxone and await results of urine culture and blood cultures. (2) UTI (urinary tract infection) Conclusion/Plan: UTI appears to be the source of his infection with his U/A containung WBC 25 (much greater than 10 per high-power field) and also with many bacteria seen on U/A. Continue empiric IV ceftriaxone. Duration of treatment will be 14 days or more in a male with UTI. Await urine culture results and blood culture results to adjust antibiotic. Give Tylenol for fever, reculture blood if his fever returns. If fever persists, consider a CT abd/pelvis or retroperitoneal US. Qualifiers: Urinary tract infection type: acute cystitis Hematuria presence: without hematuria Qualified Code(s): N30.00 - Acute cystitis without hematuria (3) Diarrhea Conclusion/Plan: Having 3 days of diarrhea may have caused the UTI. Will order bedside commode, as he currently has an urge to have BM already. We will send off stool samples for culture, for ova and parasites and also check for C. diff and Hepatitis A panel. Will order enteral contact precautions, which can be discontinued if his diarrhea non-infectious. Continue with IV fluids at a moderate rate to avoid dehydration. Hold his Spironolactone for several days while IV fluids are needed. Plan a BRAT pureed diet, advance as tolerated. Follow BMP daily. Follow magnesium daily as well Will consider abd/pelvis CT if diarrhea no better soon (4) Hyponatremia Conclusion/Plan: This appears to be hypovolemic hyponatremia since he is likely intravascular volume depleted from 3 days of diarrhea. Start IV fluids containing normal saline. Hold the Spironolactone Follow BMP daily. (5) Chronic systolic heart failure, ACC/AHA stage C Conclusion/Plan: Patient does not have hypoxia but we will hold his diuretics while he is needing IV fluids for the infection and diarrhea management. Continue with his home beta-dana dose. Telemetry ordered while BP is "soft". (6) THOMAS on CPAP Conclusion/Plan: His home CPAP device has been ordered to use while here (7) Hx of coronary artery disease Conclusion/Plan: Because of his low blood pressure, will not yet start his daily Isordil 60 mg daily dose. W e will continue with his beta-dana dose with holding parameters ordered. Lipitor to be restarted when diarrhea and his oral intake are better He can continue his daily baby aspirin. (8) History of pulmonary embolus (PE) Conclusion/Plan: His usual Eliquis dose can continue, since BUN/creat are stable - Lab Results Lab results reviewed: Yes Fish Bones: 11/30/20 17:03 11/30/20 17:03 - Diagnostic Imaging Results Diagnostic Imaging Results: positive: Final report reviewed
[2020-11-30] MEDS: DEXTROSE 5%-0.9% NACL 1,000 ML IV SCH (20:43)
[2020-11-30] MEDS: METOPROLOL SUCCINATE 25 MG TABLET PO SCH (22:06)
[2020-11-30] MEDS: SERTRALINE 50 MG TABLET PO SCH (22:06)
[2020-11-30] MEDS: APIXABAN 5 MG TABLET PO SCH (22:07)
[2020-11-30] MEDS ORDERED: MAGNESIUM SULFATE 2 GRAM 2 GM/50 ML BAG IV ONE (23:54)
[2020-12-01] MEDS: SODIUM CHLORIDE FLUSH 0.9% 10 ML SYRINGE IVP SCH ×4 (00:47→23:49)
[2020-12-01] MEDS: DEXTROSE 5%-0.9% NACL 1,000 ML IV SCH (05:17)
[2020-12-01 06:17] LABS: BASOPHILS # (AUTO) 0.1 10^3/uL (0.0-0.1); BASOPHILS % (AUTO) 0.4 %; EOSINOPHILS % (AUTO) 0.1 %; HCT - HEMATOCRIT 36.4 % (42.0-52.0); LYMPHOCYTES # (AUTO) 1.2 10^3/uL (1.5-3.5); LYMPHOCYTES % (AUTO) 7.4 %; MEAN CORPUSCULAR HEMOGLOBIN 30.4 pg (27.0-31.0); MEAN CORPUSCULAR VOLUME 92.2 fL (80.0-94.0); MEAN PLATELET VOLUME 10.1 fL (7.4-11.4); MONOCYTES # (AUTO) 1.1 10^3/uL (0.0-1.0); MONOCYTES % (AUTO) 6.9 %; NEUTROPHILS # (AUTO) 13.6 10^3/uL (1.5-6.6); NEUTROPHILS % (AUTO) 84.3 %; PLT - PLATELET COUNT 159 10^3/uL (130-450); RED BLOOD COUNT 3.95 10^6/uL (4.70-6.10); RED CELL DISTRIBUTION WIDTH 15.1 % (12.0-15.0); WHITE BLOOD COUNT 16.1 x10^3/uL (4.8-10.8)
[2020-12-01 06:23] LABS: CALCIUM 8.5 mg/dL (8.5-10.3); CREATININE 0.6 mg/dL (0.6-1.2); MAGNESIUM 2.2 mg/dL (1.7-2.8); POTASSIUM 3.9 mmol/L (3.5-5.0)
[2020-12-01] MEDS ORDERED: NITROGLYCERIN SL 0.4 MG TABLET SL PRN (08:06)
[2020-12-01] MEDS ORDERED: cefTRIAXone 1 GM VIAL ONE (09:00)
[2020-12-01] MEDS: METOPROLOL SUCCINATE 25 MG TABLET PO SCH ×2 (09:01→20:11)
[2020-12-01] MEDS: APIXABAN 5 MG TABLET PO SCH ×2 (09:01→20:11)
[2020-12-01] MEDS: ASPIRIN EC 81 MG TABLET PO SCH (09:01)
[2020-12-01] MEDS: cefTRIAXone 1 GM in SODIUM CHLORIDE 0.9% MINIBAG 100 ML IV SCH (09:02)
--- NOTE | 2020-12-01 09:10 | XRAY Report ---
PROCEDURE: Chest 1 View X-Ray INDICATIONS: sob TECHNIQUE: One view of the chest was acquired. COMPARISON: 11/30/2020 FINDINGS: Surgical changes and devices: Left-sided multi lead pacemaker. Monitoring wires overlie the lower [address] Lungs and pleura: Lower lung volumes compared to prior. Stable to increased thickening of the interst itial markings diffusely. Increasing confluence of right infrahilar alveolar opacity. No pneumothorax or pleural effusions visible. Mediastinum: Mediastinal contours appear normal. Atherosclerotic aortic arch. Heart size is stable, mildly enlarged. Bones and chest wall: No suspicious bony lesions. Overlying soft tissues appear unremarkable. IMPRESSION: 1. Increase in interstitial thickening is nonspecific and may be secondary to pulmonary edema or inte rstitial pneumonia. 2. Lower lung volumes. 3. Stable mild cardiomegaly. Reviewed by: Jennie Robbins MD on 12/01/2020 9:09 AM PDT Approved by: Jennie Robbins MD on 12/01/2020 9:09 AM PDT Station ID: [id number]
[2020-12-01] MEDS ORDERED: LOPERAMIDE 2 MG CAPSULE PO PRN (10:03)
--- NOTE | 2020-12-01 10:29 | PHARMACY PROGRESS NOTE ---
- Best Possible Medication History Admit Date and Time: 11/30/201953 Processed by: Pharmacy Medication History completed: Yes Patient Interview: Completed (MED LIST SENT OVER FROM [facility]) As the person ultimately responsible for medication therapy, providers are able to order a medication from an existing home medication list in [facility] via the "Reconcile Routine" prior to Confirmation of that medication by technical sales support specialist. Such practice is discouraged except when the physician, in their clinical judgment, deems that a medical need exists for a medication without regard to previous use.
--- NOTE | 2020-12-01 10:33 | PROVIDER PROGRESS NOTE ---
Assessment/Plan - Problem List (1) Sepsis Assessment/Plan: 12/01 Improved,Blood pressure is stable, patient has no fever, WBC is steady. Blood culture is pending. We will continue antibiotics. Hold IV fluids since patient blood pressure is stable in the normal range and patient present some shortness breathing. (2)shortness of breath 12/01 Patient presents some shortness of breathing. Chest x-ray show increases pulmonary edema or possible pneumonia. We will hold intravenous IV fluids, he will once low dosage of Lasix, Since patient oxygen saturation is slightly down, chest x-ray also indicated possible pneumonia, Add azithromycin plus Rocephin. Patient also have history of chronic systolic heart failure with EF between 35 to 40%, And pulmonary hypertension. (3) UTI (urinary tract infection) 12/01 We will continue antibiotics, blood culture and urine culture are pending. (4) Diarrhea Conclusion/Plan: , Patient still reported diarrhea but is reduced, C. difficile test is negative for C. difficile. stool samples for culture, for ova and parasites and Hepatitis A panel are pending. We will add Imodium as needed, We will continue laboratory and vital signs monitor (5) Hyponatremia Patient has normal creatinine, pt has chronic Hyponatremia. Better today sodium is 128. Patient has a history of chronic Systolic heart failure. pt is likely to have normalovolumia with Hyponatremia, we will give low dosage Lasix, Continue physical laboratory assistant. (6) Chronic systolic heart failure, ACC/AHA stage C Conclusion/Plan: Patient present shortness breathing now, chest x-ray show increased pulmonary edema, We will hold intravenous IV fluids, start low-dose Lasix once, Continue with his home beta-dana dose, Continue home aspirin, Eliquis. Incidentally found patient EKG changed, patient denies chest pain, patient hemodynamic is stable now, we will order troponin and EKG study (7) TOHMAS on CPAP Conclusion/Plan: His home CPAP device has been ordered to use while here (8) Hx of coronary artery disease Conclusion/Plan: Patient blood pressure is stable, we will resume home metoprolol, continue Imdur, Nitroglycerin as needed, continue aspirin, Eliquis, continue library monitor patient (9) History of pulmonary embolus (PE) Conclusion/Plan: His usual Eliquis dose can continue, since BUN/creat are stable (10)Weakness pt Present weakness, we will consult with physical therapist and occupational therapist - Current Meds Current Meds: Current Medications Generic Name Dose Route Start Last Admin Trade Name Juancarlos PRN Reason Stop Dose Admin Apixaban 5 mg 11/30/20 21:00 12/01/20 09:01 Apixaban 5 Mg Tablet PO 5 mg BID LAZARO Administration Aspirin 81 mg 12/01/20 09:00 12/01/20 09:01 Aspirin Ec 81 Mg Tablet PO 81 mg DAILY LAZARO Administration Ceftriaxone Sodium 1 gm/ 100 mls @ 200 mls/hr 12/01/20 09:00 12/01/20 09:51 Sodium Chloride IV Infused DAILY LAZARO Infusion Metoprolol Succinate 25 mg 11/30/20 21:00 12/01/20 09:01 Metoprolol Succinate 25 Mg Tablet PO 25 mg BID LAZARO Administration Sertraline HCl 50 mg 11/30/20 21:00 11/30/20 22:06 Sertraline 50 Mg Tablet PO 50 mg QPM LAZARO Administration Sodium Chloride 10 ml 12/01/20 01:00 12/01/20 09:02 Sodium Chloride Flush 0.9% 10 Ml Syringe IVP 10 ml 0100,0900,1700 LAZARO Administration - Lab Result Fish Bone Diagrams: 12/01/20 05:49 12/01/20 05:49 - Additional Planning My Orders: My Active Orders 12/01/20 Evaluate and Treat OT [OT] Routine Evaluate and Treat PT [PT] Routine 12/01/20 08:06 Nitroglycerin [Nitrostat] 0.4 mg SL Q5MIN PRN 12/01/20 10:03 Loperamide [Imodium] 2 mg PO QID PRN 12/01/20 10:10 TROPONIN I HIGH SENSITIVITY [IAI] Stat 12/01/20 10:11 EKG - Electrocardiogram [RC] .ONCE 12/01/20 11:00 Furosemide [Lasix] 20 mg PO ONCE 12/01/20 Lunch Soft Mechanical Diet [DIET] 12/01/20 17:00 Saccharomyces Boulardii [Florastor] 250 mg PO BIDWM 12/01/20 21:00 Atorvastatin [Lipitor] 40 mg PO QPM Subjective - Subjective Patient Reports: Feeling Better Objective Vital Signs: Vital Signs - 24 hr 11/30/20 11/30/20 11/30/20 16:52 17:33 17:35 Temperature 37.4 C Heart Rate 75 63 62 Heart Rate [ Brachial] Heart Rate [ Monitoring electrodes] Respiratory 33 H 23 29 H Rate Blood Pressure 102/57 L 81/67 L 98/56 L Blood Pressure [Right Brachial artery] O2 Saturation 92 93 95 11/30/20 11/30/20 11/30/20 18:09 18:30 19:46 Temperature 37.0 C Heart Rate 65 80 Heart Rate [ Brachial] Heart Rate [ Monitoring electrodes] Respiratory 29 H 28 H Rate Blood Pressure 112/62 103/54 L Blood Pressure [Right Brachial artery] O2 Saturation 93 96 11/30/20 11/30/20 11/30/20 20:00 21:00 23:53 Temperature 37.1 C 36.5 C Heart Rate 78 Heart Rate [ 80 78 Brachial] Heart Rate [ Monitoring electrodes] Respiratory 26 H 20 20 Rate Blood Pressure 99/62 Blood Pressure 117/51 L 119/52 L [Right Brachial artery] O2 Saturation 97 91 L 95 12/01/20 12/01/20 04:40 07:55 Temperature 36.6 C 36.6 C Heart Rate Heart Rate [ 81 Brachial] Heart Rate [ 93 Monitoring electrodes] Respiratory 24 20 Rate Blood Pressure Blood Pressure 121/56 L 114/53 L [Right Brachial artery] O2 Saturation 96 93 Oxygen O2 Source [Without Activity] Nasal cannula O2 Source Nasal cannula I&O (Last 24 Hrs): Intake and Output Totals x24h 11/29/20 11/30/20 12/01/20 23:59 23:59 23:59 Intake Total 840 2358.834 Output Total 250 Balance 840 2108.834 General: Alert, Oriented x3, Cooperative, No acute distress HEENT: Atraumatic, PERRLA Neck: Supple Lymphatic: no adenopathy Neuro: Alert, Non Focal, Oriented Times 3 Cardiovascular: Regular rate, Normal S1, Normal S2 Respiratory: Chest non-tender, Other (Patient present shortness of breathing.) Abdomen: Normal bowel sounds, Soft, No tenderness Extremities: Normal pulses - Results Results: Laboratory Results WBC 16.1 x10^3/uL (4.8-10.8) H 12/01/20 05:49 RBC 3.95 10^6/uL (4.70-6.10) L 12/01/20 05:49 Hgb 12.0 g/dL (14.0-18.0) L 12/01/20 05:49 Hct 36.4 % (42.0-52.0) L 12/01/20 05:49 MCV 92.2 fL (80.0-94.0) 12/01/20 05:49 MCH 30.4 pg (27.0-31.0) 12/01/20 05:49 MCHC 33.0 g/dL (32.0-36.0) 12/01/20 05:49 RDW 15.1 % (12.0-15.0) H 12/01/20 05:49 Plt Count 159 10^3/uL (130-450) 12/01/20 05:49 MPV 10.1 fL (7.4-11.4) 12/01/20 05:49 Neut # (Auto) 13.6 10^3/uL (1.5-6.6) H 12/01/20 05:49 Lymph # (Auto) 1.2 10^3/uL (1.5-3.5) L 12/01/20 05:49 [place] # (Auto) 1.1 10^3/uL (0.0-1.0) H 12/01/20 05:49 Eos # (Auto) 0.0 10^3/uL (0.0-0.7) 12/01/20 05:49 Baso # (Auto) 0.1 10^3/uL (0.0-0.1) 12/01/20 05:49 Absolute Nucleated RBC 0.00 x10^3/uL 12/01/20 05:49 Nucleated RBC % 0.0 /100WBC 12/01/20 05:49 Sodium 129 mmol/L (135-145) L 12/01/20 05:49 Potassium 3.9 mmol/L (3.5-5.0) 12/01/20 05:49 Chloride 100 mmol/L (101-111) L 12/01/20 05:49 Carbon Dioxide 21 mmol/L (21-32) 12/01/20 05:49 Anion Gap 8.0 (6-13) 12/01/20 05:49 BUN 15 mg/dL (6-20) 12/01/20 05:49 Creatinine 0.6 mg/dL (0.6-1.2) 12/01/20 05:49 Estimated GFR (MDRD) 127 (>89) 12/01/20 05:49 Glucose 164 mg/dL (70-100) H 12/01/20 05:49 Lactic Acid 1.7 mmol/L (0.5-2.2) 11/30/20 17:03 Calcium 8.5 mg/dL (8.5-10.3) 12/01/20 05:49 Magnesium 2.2 mg/dL (1.7-2.8) 12/01/20 05:49 Total Bilirubin 1.4 mg/dL (0.2-1.0) H 11/30/20 17:03 AST 17 IU/L (10-42) 11/30/20 17:03 ALT 17 IU/L (10-60) 11/30/20 17:03 Alkaline Phosphatase 71 IU/L (42-121) 11/30/20 17:03 Total Protein 7.0 g/dL (6.7-8.2) 11/30/20 17:03 Albumin 3.6 g/dL (3.2-5.5) 11/30/20 17:03 Globulin 3.4 g/dL (2.1-4.2) 11/30/20 17:03 Albumin/Globulin Ratio 1.1 (1.0-2.2) 11/30/20 17:03 Urine Color YELLOW 11/30/20 17:10 Urine Clarity HAZY (CLEAR) 11/30/20 17:10 Urine pH 5.5 PH (5.0-7.5) 11/30/20 17:10 Ur Specific [place] 1.020 (1.002-1.030) 11/30/20 17:10 Urine Protein TRACE mg/dL (NEGATIVE) 11/30/20 17:10 Urine Glucose (UA) NEGATIVE mg/dL (NEGATIVE) 11/30/20 17:10 Urine Ketones NEGATIVE mg/dL (NEGATIVE) 11/30/20 17:10 Urine Occult Blood TRACE-LYSE (NEGATIVE) 11/30/20 17:10 Urine Nitrite POSITIVE (NEGATIVE) H 11/30/20 17:10 Urine Bilirubin NEGATIVE (NEGATIVE) 11/30/20 17:10 Urine Urobilinogen 1 (NORMAL) E.U./dL (NORMAL) 11/30/20 17:10 Ur Leukocyte Esterase SMALL (NEGATIVE) H 11/30/20 17:10 Urine RBC 0-5 /HPF (0-5) 11/30/20 17:10 Urine WBC 11-25 /HPF (0-3) H 11/30/20 17:10 Ur Squamous Epith Cells RARE Squamous (<= Few) 11/30/20 17:10 Urine Bacteria Many /HPF (None Seen) H 11/30/20 17:10 Urine Culture Comments INDICATED 11/30/20 17:10 Nasal Adenovirus (PCR) NOT DETECTED 11/30/20 17:56 Nasal B. parapertussis DNA (PCR) NOT DETECTED 11/30/20 17:56 Nasal Coronavir 229E PCR NOT DETECTED 11/30/20 17:56 Nasal Coronavir HKU1 PCR NOT DETECTED 11/30/20 17:56 Nasal Coronavir NL63 PCR NOT DETECTED 11/30/20 17:56 Nasal Coronavir OC43 PCR NOT DETECTED 11/30/20 17:56 Nasal Enterovir/Rhinovir PCR NOT DETECTED 11/30/20 17:56 Nasal Influenza B PCR NOT DETECTED 11/30/20 17:56 Nasal Influenza A PCR NOT DETECTED 11/30/20 17:56 Nasal Parainfluen 1 PCR NOT DETECTED 11/30/20 17:56 Nasal Parainfluen 2 PCR NOT DETECTED 11/30/20 17:56 Nasal Parainfluen 3 PCR NOT DETECTED 11/30/20 17:56 Nasal Parainfluen 4 PCR NOT DETECTED 11/30/20 17:56 Nasal RSV (PCR) NOT DETECTED 11/30/20 17:56 Nasal B.pertussis DNA PCR NOT DETECTED 11/30/20 17:56 Nasal C.pneumoniae (PCR) NOT DETECTED 11/30/20 17:56 Phuc Human Metapneumo PCR NOT DETECTED 11/30/20 17:56 Nasal M.pneumoniae (PCR) NOT DETECTED 11/30/20 17:56 Nasal SARS-CoV-2 (PCR) NOT DETECTED 11/30/20 17:56 Stl C. diff Tox B Gene NEGATIVE (NEGATIVE) 11/30/20 22:13 - Procedures Procedures: Procedures CATARAC PHACOEMULS/ASPIR (01/20/14) INSERT LENS AT CATAR EXT (01/20/14) Sepsis Event Note (H) - Evaluation Current Stage of Sepsis: Resolved - Sepsis Criteria Sepsis Criteria: Recorded Temperature greater than 38.3C or Less than 36C, Recorded Respiratory Rate greater than 20, WBC count greater than 12,000 or less than 4000, SBP less than 90 mmHg ABX Reporting Has patient been on IV antibiotics over the past 48 hours?: Yes Current Medications - Current Medications Current Medications: Active Medications Acetaminophen (Acetaminophen 325 Mg Tablet) 650 mg PO Q4HR PRN PRN Reason: Pain or Fever > 38C (100.4F) Apixaban (Apixaban 5 Mg Tablet) 5 mg PO BID [facility] Last Admin: 12/01/20 09:01 Dose: 5 mg Documented by: Aspirin (Aspirin Ec 81 Mg Tablet) 81 mg PO DAILY [facility] Last Admin: 12/01/20 09:01 Dose: 81 mg Documented by: Atorvastatin Calcium (Atorvastatin 40 Mg Tablet) 40 mg PO QPM [facility] Atorvastatin Calcium (Atorvastatin 40 Mg Tablet) 40 mg PO QPM [facility] Azithromycin (Azithromycin 250 Mg Tablet) 250 mg PO DAILY [facility] Furosemide (Furosemide 20 Mg Tablet) 20 mg PO ONCE [facility] Stop: 12/01/20 11:30 Ceftriaxone Sodium 1 gm/ (Sodium Chloride) 100 mls @ 200 mls/hr IV DAILY [facility] Last Infusion: 12/01/20 09:51 Dose: Infused Documented by: Isosorbide Mononitrate (Isosorbide Mononitrate Er 30 Mg Tablet) 60 mg PO DAILY [facility] Loperamide HCl (Loperamide 2 Mg Capsule) 2 mg PO QID PRN PRN Reason: Diarrhea Metoprolol Succinate (Metoprolol Succinate 25 Mg Tablet) 25 mg PO BID [facility] Last Admin: 12/01/20 09:01 Dose: 25 mg Documented by: Nitroglycerin (Nitroglycerin Sl 0.4 Mg Tablet) 0.4 mg SL Q5MIN PRN PRN Reason: Chest Pain Non-Formulary Medication (Tiotropium Hutchinson [Spiriva]) 1 inh PO DAILY [facility] Ondansetron HCl (Ondansetron 4 Mg/2 Ml Vial) 4 mg IVP Q6HR PRN PRN Reason: Nausea / Vomiting Saccharomyces Boulardii (Saccharomyces Boulardii 250 Mg Capsule) 250 mg PO BIDWM [facility] Sertraline HCl (Sertraline 50 Mg Tablet) 50 mg PO QPM [facility] Last Admin: 11/30/20 22:06 Dose: 50 mg Documented by: Sodium Chloride (Sodium Chloride Flush 0.9% 10 Ml Syringe) 10 ml IVP PRN PRN PRN Reason: NEEDED PER PROVIDER ORDERS Sodium Chloride (Sodium Chloride Flush 0.9% 10 Ml Syringe) 10 ml IVP 0100, 0900,1700 LAZARO Last Admin: 12/01/20 09:02 Dose: 10 ml Documented by: Spironolactone (Spironolactone 25 Mg Tablet) 25 mg PO DAILY [facility] Tamsulosin HCl (Tamsulosin 0.4 Mg Capsule) 0.4 mg PO DAILY [facility] Cholecalciferol (Vitamin D3) [Vitamin D3] 5,000 units PO DAILY 02/21/16 Atorvastatin [Lipitor] 40 mg PO QPM 07/03/18 Metoprolol Succinate [Toprol Xl] 25 mg PO BID 07/03/18 Sertraline [Zoloft] 50 mg PO QPM 07/03/18 Apixaban [Eliquis] 5 mg PO BID 07/05/18 Nitroglycerin [Nitrostat] 0.4 mg SL Q5MIN PRN 04/09/19 Aspirin [Aspirin EC] 81 mg PO DAILY 02/25/20 Tamsulosin HCl [Flomax] 0.4 mg PO DAILY 12/01/20 Tiotropium Hutchinson [Spiriva] 1 inh PO DAILY 12/01/20
[2020-12-01] MEDS ORDERED: TIOTROPIUM BROMIDE 18 MCG PO SCH (10:45)
[2020-12-01] MEDS: AZITHROMYCIN 250 MG TABLET PO SCH (10:49)
[2020-12-01] MEDS ORDERED: FUROSEMIDE 20 MG TABLET PO SCH (11:00)
[2020-12-01] MEDS ORDERED: IPRATROPIUM 0.2 MG/ML NEB INH SCH (13:00)
[2020-12-01] MEDS: SACCHAROMYCES BOULARDII 250 MG CAPSULE PO SCH (16:46)
[2020-12-01] MEDS: ATORVASTATIN 40 MG TABLET PO SCH (20:11)
[2020-12-01] MEDS: SERTRALINE 50 MG TABLET PO SCH (20:11)
[2020-12-01] MEDS ORDERED: ATORVASTATIN 40 MG TABLET PO SCH (21:00)
[2020-12-02 05:45] LABS: BASOPHILS # (AUTO) 0.1 10^3/uL (0.0-0.1); BASOPHILS % (AUTO) 0.6 %; EOSINOPHILS # (AUTO) 0.1 10^3/uL (0.0-0.7); HCT - HEMATOCRIT 38.6 % (42.0-52.0); HGB - HEMOGLOBIN 12.9 g/dL (14.0-18.0); LYMPHOCYTES # (AUTO) 1.2 10^3/uL (1.5-3.5); LYMPHOCYTES % (AUTO) 8.1 %; MEAN CORPUSCULAR HEMOGLOBIN 30.7 pg (27.0-31.0); MEAN CORPUSCULAR HGB CONC 33.4 g/dL (32.0-36.0); MEAN CORPUSCULAR VOLUME 91.9 fL (80.0-94.0); MEAN PLATELET VOLUME 10.2 fL (7.4-11.4); MONOCYTES # (AUTO) 0.9 10^3/uL (0.0-1.0); MONOCYTES % (AUTO) 6.4 %; NEUTROPHILS # (AUTO) 11.9 10^3/uL (1.5-6.6); NEUTROPHILS % (AUTO) 82.9 %; PLT - PLATELET COUNT 172 10^3/uL (130-450); WHITE BLOOD COUNT 14.3 x10^3/uL (4.8-10.8)
[2020-12-02 06:17] LABS: CALCIUM 9.2 mg/dL (8.5-10.3); CREATININE 0.5 mg/dL (0.6-1.2); MAGNESIUM 1.8 mg/dL (1.7-2.8); POTASSIUM 3.9 mmol/L (3.5-5.0)
[2020-12-02] MEDS: SACCHAROMYCES BOULARDII 250 MG CAPSULE PO SCH ×2 (07:59→17:15)
[2020-12-02] MEDS ORDERED: FUROSEMIDE 20 MG/2 ML VIAL IVP ONE (08:00)
[2020-12-02] MEDS: SODIUM CHLORIDE FLUSH 0.9% 10 ML SYRINGE IVP SCH ×3 (08:00→23:38)
[2020-12-02] MEDS: cefTRIAXone 1 GM in SODIUM CHLORIDE 0.9% MINIBAG 100 ML IV SCH (09:02)
[2020-12-02] MEDS: ASPIRIN EC 81 MG TABLET PO SCH (09:04)
[2020-12-02] MEDS: TAMSULOSIN 0.4 MG CAPSULE PO SCH (09:04)
[2020-12-02] MEDS: SODIUM CHLORIDE FLUSH 0.9% 10 ML SYRINGE IVP PRN ×2 (09:04→23:38)
[2020-12-02] MEDS: SPIRONOLACTONE 25 MG TABLET PO SCH (09:05)
[2020-12-02] MEDS: ISOSORBIDE MONONITRATE ER 30 MG TABLET PO SCH (09:05)
[2020-12-02] MEDS: METOPROLOL SUCCINATE 25 MG TABLET PO SCH ×2 (09:06→20:57)
[2020-12-02] MEDS: AZITHROMYCIN 250 MG TABLET PO SCH (09:06)
[2020-12-02] MEDS: APIXABAN 5 MG TABLET PO SCH ×2 (09:06→20:57)
[2020-12-02] MEDS: IPRATROPIUM 0.2 MG/ML NEB INH SCH ×3 (10:01→20:04)
--- NOTE | 2020-12-02 11:20 | PROVIDER PROGRESS NOTE ---
Assessment/Plan - Problem List (1) Sepsis Assessment/Plan: 12/02, resolved. pt has no fever, blood culture is negative for bacteremia, BP is stable. WBC is trended down to 14, We will continue antibiotics 12/01 Improved,Blood pressure is stable, patient has no fever, WBC is steady. Blood culture is pending. We will continue antibiotics. Hold IV fluids since patient blood pressure is stable in the normal range and patient present some shortness breathing. (2)shortness of breath 12/02 Improved. pt has 93-99% O2 sat on room air. continue diuretics, continue with antibiotics 12/01 Patient presents some shortness of breathing. Chest x-ray show increases pulmonary edema or possible pneumonia. We will hold intravenous IV fluids, he will once low dosage of Lasix, Since patient oxygen saturation is slightly down, chest x-ray also indicated possible pneumonia, Add azithromycin plus Rocephin. Patient also have history of chronic systolic heart failure with EF between 35 to 40%, And pulmonary hypertension. (3) UTI (urinary tract infection) 12/02 UA culture show positive for [place], WBC is 14. continue antibiotics 12/01 We will continue antibiotics, blood culture and urine culture are pending. (4) Diarrhea Conclusion/Plan: 12/02, pt still has diarrhea, but C. difficile test is negative. Patient was ordered Imodium. 923, Patient still reported diarrhea but is reduced, C. difficile test is negative for C. difficile. stool samples for culture, for ova and parasites and Hepatitis A panel are pending. We will add Imodium as needed, We will continue laboratory and vital signs monitor (5) Hyponatremia 924 improved, sodium is 131 today. it is likely from hypervolvemia and hyponatremia, continue diuretics, lab and vital monitor Patient has normal creatinine, pt has chronic Hyponatremia. Better today sodium is 128. Patient has a history of chronic Systolic heart failure. 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 (6) Chronic systolic heart failure, ACC/AHA stage C Conclusion/Plan: Patient present shortness breathing now, chest x-ray show increased pulmonary edema, We will hold intravenous IV fluids, start low-dose Lasix once, Continue with his home beta-dana dose, Continue home aspirin, Eliquis. 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 (9) History of pulmonary embolus (PE) Conclusion/Plan: His usual Eliquis dose can continue, since BUN/creat are stable (10)Weakness pt Present weakness, we will consult with physical therapist and occupational therapist - Current Meds Current Meds: Current Medications Generic Name Dose Route Start Last Admin Trade Name Freq PRN Reason Stop Dose Admin Apixaban 5 mg 11/30/20 21:00 12/02/20 09:06 Apixaban 5 Mg Tablet PO 5 mg BID LAZARO Administration Aspirin 81 mg 12/01/20 09:00 12/02/20 09:04 Aspirin Ec 81 Mg Tablet PO 81 mg DAILY LAZARO Administration Atorvastatin Calcium 40 mg 12/01/20 21:00 12/01/20 20:11 Atorvastatin 40 Mg Tablet PO 40 mg QPM LAZARO Administration Azithromycin 250 mg 12/01/20 11:00 12/02/20 09:06 Azithromycin 250 Mg Tablet PO 250 mg DAILY LAZARO Administration Ceftriaxone Sodium 1 gm/ 100 mls @ 200 mls/hr 12/01/20 09:00 12/02/20 09:53 Sodium Chloride IV Infused DAILY LAZARO Infusion Ipratropium Holt 0.5 mg 12/02/20 11:00 12/02/20 10:01 Ipratropium 0.2 Mg/Ml Neb INH 0.5 mg RTQID LAZARO Administration Isosorbide Mononitrate 60 mg 12/02/20 09:00 12/02/20 09:05 Isosorbide Mononitrate Er 30 Mg Tablet PO 60 mg DAILY LAZARO Administration Loperamide HCl 2 mg 12/01/20 10:03 12/02/20 10:17 Loperamide 2 Mg Capsule PO 2 mg QID PRN Administration Diarrhea Metoprolol Succinate 25 mg 11/30/20 21:00 12/02/20 09:06 Metoprolol Succinate 25 Mg Tablet PO 25 mg BID LAZARO Administration Saccharomyces Boulardii 250 mg 12/01/20 17:00 12/02/20 07:59 Saccharomyces Boulardii 250 Mg Capsule PO 250 mg BIDWM LAZARO Administration Sertraline HCl 50 mg 11/30/20 21:00 12/01/20 20:11 Sertraline 50 Mg Tablet PO 50 mg QPM LAZARO Administration Sodium Chloride 10 ml 11/30/20 19:54 12/02/20 09:04 Sodium Chloride Flush 0.9% 10 Ml Syringe IVP 10 ml PRN PRN Administration NEEDED PER PROVIDER ORDERS Sodium Chloride 10 ml 12/01/20 01:00 12/02/20 08:00 Sodium Chloride Flush 0.9% 10 Ml Syringe IVP 10 ml 0100,0900,1700 LAZARO Administration Spironolactone 25 mg 12/02/20 09:00 12/02/20 09:05 Spironolactone 25 Mg Tablet PO 25 mg DAILY LAZARO Administration Tamsulosin HCl 0.4 mg 12/02/20 09:00 12/02/20 09:04 Tamsulosin 0.4 Mg Capsule PO 0.4 mg DAILY LAZARO Administration - Lab Result Fish Bone Diagrams: 12/02/20 04:54 12/02/20 06:00 - Additional Planning My Orders: My Active Orders 12/01/20 11:00 Azithromycin [Zithromax] 250 mg PO DAILY 12/01/20 Lunch Soft Mechanical Diet [DIET] 12/01/20 17:00 Saccharomyces Boulardii [Florastor] 250 mg PO BIDWM 12/01/20 21:00 Atorvastatin [Lipitor] 40 mg PO QPM 12/02/20 09:00 Isosorbide Mononitrate ER [Imdur] 60 mg PO DAILY Spironolactone [Aldactone] 25 mg PO DAILY Tamsulosin [Flomax] 0.4 mg PO DAILY Subjective - Subjective Patient Reports: Feeling Better Objective Vital Signs: Vital Signs - 24 hr 12/01/20 12/01/20 12/01/20 13:20 15:54 18:11 Temperature 36.9 C 36.9 C Heart Rate 77 Heart Rate [ 76 Activity] Heart Rate [ 77 Brachial] Heart Rate [ Monitoring electrodes] Respiratory 20 18 Rate Blood Pressure 127/62 [Activity] Blood Pressure 132/54 H [Right Brachial artery] O2 Saturation 93 92 12/01/20 12/01/20 12/02/20 20:09 23:40 05:00 Temperature 36.4 C L 36.7 C 36.5 C Heart Rate Heart Rate [ Activity] Heart Rate [ 79 78 Brachial] Heart Rate [ 91 Monitoring electrodes] Respiratory 20 24 24 Rate Blood Pressure [Activity] Blood Pressure 107/50 L 117/67 131/69 H [Right Brachial artery] O2 Saturation 93 95 93 12/02/20 12/02/20 08:38 10:05 Temperature 36.3 C L Heart Rate 80 Heart Rate [ Activity] Heart Rate [ 84 Brachial] Heart Rate [ Monitoring electrodes] Respiratory 20 20 Rate Blood Pressure [Activity] Blood Pressure 135/71 H [Right Brachial artery] O2 Saturation 99 Oxygen O2 Source [Without Activity] Nasal cannula O2 Source Room air I&O (Last 24 Hrs): Intake and Output Totals x24h 11/30/20 12/01/20 12/02/20 23:59 23:59 23:59 Intake Total 840 3318.834 580 Output Total 690 200 Balance 840 2628.834 380 General: Alert, Oriented x3, Cooperative, No acute distress HEENT: Atraumatic Neck: Supple Lymphatic: no adenopathy Neuro: Alert, Non Focal, Oriented Times 3 Cardiovascular: Regular rate, Normal S1, Normal S2 Respiratory: Chest non-tender, No respiratory distress Abdomen: Normal bowel sounds, Soft Extremities: Normal pulses - Results Results: Laboratory Results WBC 14.3 x10^3/uL (4.8-10.8) H 12/02/20 04:54 RBC 4.20 10^6/uL (4.70-6.10) L 12/02/20 04:54 Hgb 12.9 g/dL (14.0-18.0) L 12/02/20 04:54 Hct 38.6 % (42.0-52.0) L 12/02/20 04:54 MCV 91.9 fL (80.0-94.0) 12/02/20 04:54 MCH 30.7 pg (27.0-31.0) 12/02/20 04:54 MCHC 33.4 g/dL (32.0-36.0) 12/02/20 04:54 RDW 15.0 % (12.0-15.0) 12/02/20 04:54 Plt Count 172 10^3/uL (130-450) 12/02/20 04:54 MPV 10.2 fL (7.4-11.4) 12/02/20 04:54 Neut # (Auto) 11.9 10^3/uL (1.5-6.6) H 12/02/20 04:54 Lymph # (Auto) 1.2 10^3/uL (1.5-3.5) L 12/02/20 04:54 Miller # (Auto) 0.9 10^3/uL (0.0-1.0) 12/02/20 04:54 Eos # (Auto) 0.1 10^3/uL (0.0-0.7) 12/02/20 04:54 Baso # (Auto) 0.1 10^3/uL (0.0-0.1) 12/02/20 04:54 Absolute Nucleated RBC 0.00 x10^3/uL 12/02/20 04:54 Nucleated RBC % 0.0 /100WBC 12/02/20 04:54 Sodium 131 mmol/L (135-145) L 12/02/20 06:00 Potassium 3.9 mmol/L (3.5-5.0) 12/02/20 06:00 Chloride 99 mmol/L (101-111) L 12/02/20 06:00 Carbon Dioxide 20 mmol/L (21-32) L 12/02/20 06:00 Anion Gap 12.0 (6-13) 12/02/20 06:00 BUN 12 mg/dL (6-20) 12/02/20 06:00 Creatinine 0.5 mg/dL (0.6-1.2) L 12/02/20 06:00 Estimated GFR (MDRD) 157 (>89) 12/02/20 06:00 Glucose 125 mg/dL (70-100) H 12/02/20 06:00 Lactic Acid 1.7 mmol/L (0.5-2.2) 11/30/20 17:03 Calcium 9.2 mg/dL (8.5-10.3) 12/02/20 06:00 Magnesium 1.8 mg/dL (1.7-2.8) 12/02/20 06:00 Total Bilirubin 1.4 mg/dL (0.2-1.0) H 11/30/20 17:03 AST 17 IU/L (10-42) 11/30/20 17:03 ALT 17 IU/L (10-60) 11/30/20 17:03 Alkaline Phosphatase 71 IU/L (42-121) 11/30/20 17:03 Troponin I High Sens 36.1 ng/L (2.3-19.7) H* 12/01/20 05:49 Total Protein 7.0 g/dL (6.7-8.2) 11/30/20 17:03 Albumin 3.6 g/dL (3.2-5.5) 11/30/20 17:03 Globulin 3.4 g/dL (2.1-4.2) 11/30/20 17:03 Albumin/Globulin Ratio 1.1 (1.0-2.2) 11/30/20 17:03 Urine Color YELLOW 11/30/20 17:10 Urine Clarity HAZY (CLEAR) 11/30/20 17:10 Urine pH 5.5 PH (5.0-7.5) 11/30/20 17:10 Ur Specific [place] 1.020 (1.002-1.030) 11/30/20 17:10 Urine Protein TRACE mg/dL (NEGATIVE) 11/30/20 17:10 Urine Glucose (UA) NEGATIVE mg/dL (NEGATIVE) 11/30/20 17:10 Urine Ketones NEGATIVE mg/dL (NEGATIVE) 11/30/20 17:10 Urine Occult Blood TRACE-LYSE (NEGATIVE) 11/30/20 17:10 Urine Nitrite POSITIVE (NEGATIVE) H 11/30/20 17:10 Urine Bilirubin NEGATIVE (NEGATIVE) 11/30/20 17:10 Urine Urobilinogen 1 (NORMAL) E.U./dL (NORMAL) 11/30/20 17:10 Ur Leukocyte Esterase SMALL (NEGATIVE) H 11/30/20 17:10 Urine RBC 0-5 /HPF (0-5) 11/30/20 17:10 Urine WBC 11-25 /HPF (0-3) H 11/30/20 17:10 Ur Squamous Epith Cells RARE Squamous (<= Few) 11/30/20 17:10 Urine Bacteria Many /HPF (None Seen) H 11/30/20 17:10 Urine Culture Comments INDICATED 11/30/20 17:10 Nasal Adenovirus (PCR) NOT DETECTED 11/30/20 17:56 Nasal B. parapertussis DNA (PCR) NOT DETECTED 11/30/20 17:56 Nasal Coronavir 229E PCR NOT DETECTED 11/30/20 17:56 Nasal Coronavir HKU1 PCR NOT DETECTED 11/30/20 17:56 Nasal Coronavir NL63 PCR NOT DETECTED 11/30/20 17:56 Nasal Coronavir OC43 PCR NOT DETECTED 11/30/20 17:56 Nasal Enterovir/Rhinovir PCR NOT DETECTED 11/30/20 17:56 Nasal Influenza B PCR NOT DETECTED 11/30/20 17:56 Nasal Influenza A PCR NOT DETECTED 11/30/20 17:56 Nasal Parainfluen 1 PCR NOT DETECTED 11/30/20 17:56 Nasal Parainfluen 2 PCR NOT DETECTED 11/30/20 17:56 Nasal Parainfluen 3 PCR NOT DETECTED 11/30/20 17:56 Nasal Parainfluen 4 PCR NOT DETECTED 11/30/20 17:56 Nasal RSV (PCR) NOT DETECTED 11/30/20 17:56 Nasal B.pertussis DNA PCR NOT DETECTED 11/30/20 17:56 Nasal C.pneumoniae (PCR) NOT DETECTED 11/30/20 17:56 Phuc Human Metapneumo PCR NOT DETECTED 11/30/20 17:56 Nasal M.pneumoniae (PCR) NOT DETECTED 11/30/20 17:56 Nasal SARS-CoV-2 (PCR) NOT DETECTED 11/30/20 17:56 Stl C. diff Tox B Gene NEGATIVE (NEGATIVE) 11/30/20 22:13 - Procedures Procedures: Procedures CATARAC PHACOEMULS/ASPIR (01/20/14) INSERT LENS AT CATAR EXT (01/20/14) Sepsis Event Note (H) - Evaluation Current Stage of Sepsis: Resolved - Sepsis Criteria Sepsis Criteria: Recorded Temperature greater than 38.3C or Less than 36C, Recorded Respiratory Rate greater than 20, WBC count greater than 12,000 or less than 4000, SBP less than 90 mmHg ABX Reporting Has patient been on IV antibiotics over the past 48 hours?: Yes Current Medications - Current Medications Current Medications: Active Medications Acetaminophen (Acetaminophen 325 Mg Tablet) 650 mg PO Q4HR PRN PRN Reason: Pain or Fever > 38C (100.4F) Apixaban (Apixaban 5 Mg Tablet) 5 mg PO BID LAZARO Last Admin: 12/02/20 09:06 Dose: 5 mg Documented by: Aspirin (Aspirin Ec 81 Mg Tablet) 81 mg PO DAILY [facility] Last Admin: 12/02/20 09:04 Dose: 81 mg Documented by: Atorvastatin Calcium (Atorvastatin 40 Mg Tablet) 40 mg PO QPM [facility] Last Admin: 12/01/20 20:11 Dose: 40 mg Documented by: Azithromycin (Azithromycin 250 Mg Tablet) 250 mg PO DAILY [facility] Last Admin: 12/02/20 09:06 Dose: 250 mg Documented by: Ceftriaxone Sodium 1 gm/ (Sodium Chloride) 100 mls @ 200 mls/hr IV DAILY [facility] Last Infusion: 12/02/20 09:53 Dose: Infused Documented by: Ipratropium Holt (Ipratropium 0.2 Mg/Ml Neb) 0.5 mg INH RTQID [facility] Last Admin: 12/02/20 10:01 Dose: 0.5 mg Documented by: Isosorbide Mononitrate (Isosorbide Mononitrate Er 30 Mg Tablet) 60 mg PO DAILY [facility] Last Admin: 12/02/20 09:05 Dose: 60 mg Documented by: Loperamide HCl (Loperamide 2 Mg Capsule) 2 mg PO QID PRN PRN Reason: Diarrhea Last Admin: 12/02/20 10:17 Dose: 2 mg Documented by: Metoprolol Succinate (Metoprolol Succinate 25 Mg Tablet) 25 mg PO BID [facility] Last Admin: 12/02/20 09:06 Dose: 25 mg Documented by: Nitroglycerin (Nitroglycerin Sl 0.4 Mg Tablet) 0.4 mg SL Q5MIN PRN PRN Reason: Chest Pain Ondansetron HCl (Ondansetron 4 Mg/2 Ml Vial) 4 mg IVP Q6HR PRN PRN Reason: Nausea / Vomiting Saccharomyces Boulardii (Saccharomyces Boulardii 250 Mg Capsule) 250 mg PO BIDWM [facility] Last Admin: 12/02/20 07:59 Dose: 250 mg Documented by: Sertraline HCl (Sertraline 50 Mg Tablet) 50 mg PO QPM [facility] Last Admin: 12/01/20 20:11 Dose: 50 mg Documented by: Sodium Chloride (Sodium Chloride Flush 0.9% 10 Ml Syringe) 10 ml IVP PRN PRN PRN Reason: NEEDED PER PROVIDER ORDERS Last Admin: 12/02/20 09:04 Dose: 10 ml Documented by: Sodium Chloride (Sodium Chloride Flush 0.9% 10 Ml Syringe) 10 ml IVP 0100,0900,1700 [facility] Last Admin: 12/02/20 08:00 Dose: 10 ml Documented by: Spironolactone (Spironolactone 25 Mg Tablet) 25 mg PO DAILY [facility] Last Admin: 12/02/20 09:05 Dose: 25 mg Documented by: Tamsulosin HCl (Tamsulosin 0.4 Mg Capsule) 0.4 mg PO DAILY [facility] Last Admin: 12/02/20 09:04 Dose: 0.4 mg Documented by: Cholecalciferol (Vitamin D3) [Vitamin D3] 5,000 units PO DAILY 02/21/16 Atorvastatin [Lipitor] 40 mg PO QPM 07/03/18 Metoprolol Succinate [Toprol Xl] 25 mg PO BID 07/03/18 Sertraline [Zoloft] 50 mg PO QPM 07/03/18 Apixaban [Eliquis] 5 mg PO BID 07/05/18 Nitroglycerin [Nitrostat] 0.4 mg SL Q5MIN PRN 04/09/19 Aspirin [Aspirin EC] 81 mg PO DAILY 02/25/20 Tamsulosin HCl [Flomax] 0.4 mg PO DAILY 12/01/20 Tiotropium Holt [Spiriva] 1 inh PO DAILY 12/01/20
[2020-12-02 12:36] LABS: HEPATITIS A IGM NON-REACTIVE (NON-REACTIVE); HEPATITIS B CORE ANTIBODY IGM NON-REACTIVE (NON-REACTIVE); HEPATITIS B SURFACE ANTIGEN NON-REACTIVE (NON-REACTIVE); HEPATITIS C ANTIBODY NON-REACTIVE (NON-REACTIVE)
[2020-12-02] MEDS ORDERED: ALBUTEROL NEB 2.5 MG/3 ML INH PRN (13:36)
[2020-12-02] MEDS: IPRATROPIUM/ALBUTEROL 3 ML NEB INH PRN (20:05)
[2020-12-02] MEDS: ATORVASTATIN 40 MG TABLET PO SCH (20:57)
[2020-12-02] MEDS: SERTRALINE 50 MG TABLET PO SCH (20:57)
[2020-12-02] MEDS: ACETAMINOPHEN 325 MG TABLET PO PRN (23:59)
[2020-12-03 06:28] LABS: BASOPHILS # (AUTO) 0.1 10^3/uL (0.0-0.1); BASOPHILS % (AUTO) 0.7 %; EOSINOPHILS # (AUTO) 0.2 10^3/uL (0.0-0.7); HCT - HEMATOCRIT 36.6 % (42.0-52.0); HGB - HEMOGLOBIN 12.4 g/dL (14.0-18.0); LYMPHOCYTES # (AUTO) 0.9 10^3/uL (1.5-3.5); LYMPHOCYTES % (AUTO) 10.5 %; MEAN CORPUSCULAR HEMOGLOBIN 30.6 pg (27.0-31.0); MEAN CORPUSCULAR HGB CONC 33.9 g/dL (32.0-36.0); MEAN CORPUSCULAR VOLUME 90.4 fL (80.0-94.0); MEAN PLATELET VOLUME 10.2 fL (7.4-11.4); MONOCYTES # (AUTO) 0.6 10^3/uL (0.0-1.0); NEUTROPHILS # (AUTO) 7.1 10^3/uL (1.5-6.6); PLT - PLATELET COUNT 176 10^3/uL (130-450); RED BLOOD COUNT 4.05 10^6/uL (4.70-6.10); RED CELL DISTRIBUTION WIDTH 14.6 % (12.0-15.0)
[2020-12-03 06:37] LABS: CALCIUM 9.2 mg/dL (8.5-10.3); CREATININE 0.7 mg/dL (0.6-1.2); MAGNESIUM 1.6 mg/dL (1.7-2.8); POTASSIUM 3.6 mmol/L (3.5-5.0)
[2020-12-03] MEDS: IPRATROPIUM 0.2 MG/ML NEB INH SCH ×4 (07:09→19:42)
[2020-12-03] MEDS ORDERED: MAGNESIUM SULFATE 2 GRAM 2 GM/50 ML BAG IV ONE (07:26)
--- NOTE | 2020-12-03 07:28 | PROVIDER PROGRESS NOTE ---
Assessment/Plan - Problem List (1) Sepsis Assessment/Plan: Likely secondary to UTI. Blood cultures are no growth to date. However urine culture grew E. coli. Pansensitive. Patient has been on Rocephin. Anticipating discharge tomorrow 12/04/2020. Will prescribe 3 days of Cipro p.o. twice daily upon discharge (2) UTI (urinary tract infection) Qualifiers: Urinary tract infection type: acute cystitis Hematuria presence: without hematuria Qualified Code(s): N30.00 - Acute cystitis without hematuria Assessment/Plan: Urine culture grew E. coli. Pansensitive. Patient has been on Rocephin. Anticipating discharge tomorrow 12/04/2020. Will prescribe 3 days of Cipro p.o. twice daily upon discharge (3) Diarrhea Assessment/Plan: Improved/resolved. Test for C. difficile was negative. Imodium ordered as needed. Test for C. difficile was negative. Imodium ordered as needed. Probiotic ordered twice daily (4) Hyponatremia Assessment/Plan: Improved. Sodium level today was 134. Likely due to hypervolemia We will continue diuretic (5) Chronic systolic heart failure, ACC/AHA stage C Assessment/Plan: Not in exacerbation 2D echocardiogram done on 12/02/2020 showed Left ventricular wall thickness and left ventricular size is normal. Overall left ventricular systolic function is mild to moderate the globally impaired with an ejection fraction of 40 to 45%. Patient was given Lasix 20 mg IV daily. He is on spironolactone 25 mg p.o. daily, metoprolol succinate 25 mg p.o. twice daily Eliquis 5mg p.o. twice daily (6) History of pulmonary embolus (PE) Assessment/Plan: On Eliquis 5 mg p.o. twice daily (7) Hx of coronary artery disease Assessment/Plan: On metoprolol, baby aspirin, atorvastatin, Imdur (8) THOMAS on CPAP Assessment/Plan: Continue to use CPAP daily - Current Meds Current Meds: Current Medications Generic Name Dose Route Start Last Admin Trade Name Freq PRN Reason Stop Dose Admin Acetaminophen 650 mg 11/30/20 19:54 12/02/20 23:59 Acetaminophen 325 Mg Tablet PO 650 mg Q4HR PRN Administration Pain or Fever > 38C (100.4F) Albuterol/Ipratropium 3 ml 12/02/20 13:36 12/02/20 20:05 Ipratropium/Albuterol 3 Ml Neb INH 3 ml RTQID PRN Administration Shortness of Air/Wheezing Apixaban 5 mg 11/30/20 21:00 12/02/20 20:57 Apixaban 5 Mg Tablet PO 5 mg BID LAZARO Administration Aspirin 81 mg 12/01/20 09:00 12/02/20 09:04 Aspirin Ec 81 Mg Tablet PO 81 mg DAILY LAZARO Administration Atorvastatin Calcium 40 mg 12/01/20 21:00 12/02/20 20:57 Atorvastatin 40 Mg Tablet PO 40 mg QPM LAZARO Administration Azithromycin 250 mg 12/01/20 11:00 12/02/20 09:06 Azithromycin 250 Mg Tablet PO 250 mg DAILY LAZARO Administration Ceftriaxone Sodium 1 gm/ 100 mls @ 200 mls/hr 12/01/20 09:00 12/02/20 09:53 Sodium Chloride IV Infused DAILY LAZARO Infusion Ipratropium [place] 0.5 mg 12/02/20 11:00 12/03/20 07:09 Ipratropium 0.2 Mg/Ml Neb INH 0.5 mg RTQID LAZARO Administration Isosorbide Mononitrate 60 mg 12/02/20 09:00 12/02/20 09:05 Isosorbide Mononitrate Er 30 Mg Tablet PO 60 mg DAILY LAZARO Administration Loperamide HCl 2 mg 12/01/20 10:03 12/02/20 10:17 Loperamide 2 Mg Capsule PO 2 mg QID PRN Administration Diarrhea Metoprolol Succinate 25 mg 11/30/20 21:00 12/02/20 20:57 Metoprolol Succinate 25 Mg Tablet PO 25 mg BID LAZARO Administration Saccharomyces Boulardii 250 mg 12/01/20 17:00 12/02/20 17:15 Saccharomyces Boulardii 250 Mg Capsule PO 250 mg BIDWM LAZARO Administration Sertraline HCl 50 mg 11/30/20 21:00 12/02/20 20:57 Sertraline 50 Mg Tablet PO 50 mg QPM LAZARO Administration Sodium Chloride 10 ml 11/30/20 19:54 12/02/20 23:38 Sodium Chloride Flush 0.9% 10 Ml Syringe IVP 10 ml PRN PRN Administration NEEDED PER PROVIDER ORDERS Sodium Chloride 10 ml 12/01/20 01:00 12/02/20 23:38 Sodium Chloride Flush 0.9% 10 Ml Syringe IVP 10 ml [id number],1700 LAZARO Administration Spironolactone 25 mg 12/02/20 09:00 12/02/20 09:05 Spironolactone 25 Mg Tablet PO 25 mg DAILY LAZARO Administration Tamsulosin HCl 0.4 mg 12/02/20 09:00 12/02/20 09:04 Tamsulosin 0.4 Mg Capsule PO 0.4 mg DAILY LAZARO Administration - Lab Result Fish Bone Diagrams: 12/03/20 05:48 12/03/20 05:48 - Additional Planning My Orders: My Active Orders 12/02/20 11:00 Ipratropium [Atrovent] 0.5 mg INH RTQID 12/03/20 07:26 MAGNESIUM SULFATE 2 GRAMS IV X1 Magnesium Sulfate 2 Gram [Magnesium Sulfate] 2 gm in 50 ml IV ONCE Subjective - Subjective Patient Reports: Other (Patient was resting comfortably in bed. He denied any complaints. On room air his oxygen saturation was 96%. He has some mild crackles on the right lung base.) Objective Vital Signs: Vital Signs - 24 hr 12/02/20 12/02/20 12/02/20 08:38 10:05 13:00 Temperature 36.3 C L 36.7 C Heart Rate 80 Heart Rate [ 84 91 Brachial] Respiratory 20 20 20 Rate Blood Pressure 135/71 H 109/67 [Right Brachial artery] O2 Saturation 99 87 L 12/02/20 12/02/20 12/02/20 14:00 16:05 20:05 Temperature 36.5 C Heart Rate 100 94 Heart Rate [ 73 Brachial] Respiratory 18 18 20 Rate Blood Pressure 118/60 [Right Brachial artery] O2 Saturation 96 12/02/20 12/03/20 12/03/20 21:00 00:24 04:50 Temperature 36.4 C L 36.4 C L 36.5 C Heart Rate Heart Rate [ 95 94 92 Brachial] Respiratory 20 20 20 Rate Blood Pressure 142/57 H 114/69 128/69 [Right Brachial artery] O2 Saturation 93 94 97 12/03/20 07:09 Temperature Heart Rate 77 Heart Rate [ Brachial] Respiratory 18 Rate Blood Pressure [Right Brachial artery] O2 Saturation Oxygen O2 Source [Without Activity] Nasal cannula O2 Source Nasal cannula I&O (Last 24 Hrs): Intake and Output Totals x24h 12/01/20 12/02/20 12/03/20 23:59 23:59 23:59 Intake Total 3318.834 1680 240 Output Total 690 200 Balance 2628.834 1480 240 General: Alert, Oriented x3, No acute distress HEENT: PERRLA, EOMI Neck: Supple, No JVD Neuro: Alert, Non Focal, Oriented Times 3 Cardiovascular: Regular rate, No murmurs Respiratory: Chest non-tender, Other (Mild crackles on right lung base) Abdomen: Normal bowel sounds, Soft, No tenderness, No masses Extremities: No clubbing, No cyanosis, No edema Skin: No rashes, No breakdown, No significant lesion - Results Results: Laboratory Results WBC 9.0 x10^3/uL (4.8-10.8) 12/03/20 05:48 RBC 4.05 10^6/uL (4.70-6.10) L 12/03/20 05:48 Hgb 12.4 g/dL (14.0-18.0) L 12/03/20 05:48 Hct 36.6 % (42.0-52.0) L 12/03/20 05:48 MCV 90.4 fL (80.0-94.0) 12/03/20 05:48 MCH 30.6 pg (27.0-31.0) 12/03/20 05:48 MCHC 33.9 g/dL (32.0-36.0) 12/03/20 05:48 RDW 14.6 % (12.0-15.0) 12/03/20 05:48 Plt Count 176 10^3/uL (130-450) 12/03/20 05:48 MPV 10.2 fL (7.4-11.4) 12/03/20 05:48 Neut # (Auto) 7.1 10^3/uL (1.5-6.6) H 12/03/20 05:48 Lymph # (Auto) 0.9 10^3/uL (1.5-3.5) L 12/03/20 05:48 [place] # (Auto) 0.6 10^3/uL (0.0-1.0) 12/03/20 05:48 Eos # (Auto) 0.2 10^3/uL (0.0-0.7) 12/03/20 05:48 Baso # (Auto) 0.1 10^3/uL (0.0-0.1) 12/03/20 05:48 Absolute Nucleated RBC 0.00 x10^3/uL 12/03/20 05:48 Nucleated RBC % 0.0 /100WBC 12/03/20 05:48 Sodium 134 mmol/L (135-145) L 12/03/20 05:48 Potassium 3.6 mmol/L (3.5-5.0) 12/03/20 05:48 Chloride 100 mmol/L (101-111) L 12/03/20 05:48 Carbon Dioxide 21 mmol/L (21-32) 12/03/20 05:48 Anion Gap 13.0 (6-13) 12/03/20 05:48 BUN 15 mg/dL (6-20) 12/03/20 05:48 Creatinine 0.7 mg/dL (0.6-1.2) 12/03/20 05:48 Estimated GFR (MDRD) 107 (>89) 12/03/20 05:48 Glucose 145 mg/dL (70-100) H 12/03/20 05:48 Lactic Acid 1.7 mmol/L (0.5-2.2) 11/30/20 17:03 Calcium 9.2 mg/dL (8.5-10.3) 12/03/20 05:48 Magnesium 1.6 mg/dL (1.7-2.8) L 12/03/20 05:48 Total Bilirubin 1.4 mg/dL (0.2-1.0) H 11/30/20 17:03 AST 17 IU/L (10-42) 11/30/20 17:03 ALT 17 IU/L (10-60) 11/30/20 17:03 Alkaline Phosphatase 71 IU/L (42-121) 11/30/20 17:03 Troponin I High Sens 36.1 ng/L (2.3-19.7) H* 12/01/20 05:49 Total Protein 7.0 g/dL (6.7-8.2) 11/30/20 17:03 Albumin 3.6 g/dL (3.2-5.5) 11/30/20 17:03 Globulin 3.4 g/dL (2.1-4.2) 11/30/20 17:03 Albumin/Globulin Ratio 1.1 (1.0-2.2) 11/30/20 17:03 Urine Color YELLOW 11/30/20 17:10 Urine Clarity HAZY (CLEAR) 11/30/20 17:10 Urine pH 5.5 PH (5.0-7.5) 11/30/20 17:10 Ur Specific [place] 1.020 (1.002-1.030) 11/30/20 17:10 Urine Protein TRACE mg/dL (NEGATIVE) 11/30/20 17:10 Urine Glucose (UA) NEGATIVE mg/dL (NEGATIVE) 11/30/20 17:10 Urine Ketones NEGATIVE mg/dL (NEGATIVE) 11/30/20 17:10 Urine Occult Blood TRACE-LYSE (NEGATIVE) 11/30/20 17:10 Urine Nitrite POSITIVE (NEGATIVE) H 11/30/20 17:10 Urine Bilirubin NEGATIVE (NEGATIVE) 11/30/20 17:10 Urine Urobilinogen 1 (NORMAL) E.U./dL (NORMAL) 11/30/20 17:10 Ur Leukocyte Esterase SMALL (NEGATIVE) H 11/30/20 17:10 Urine RBC 0-5 /HPF (0-5) 11/30/20 17:10 Urine WBC 11-25 /HPF (0-3) H 11/30/20 17:10 Ur Squamous Epith Cells RARE Squamous (<= Few) 11/30/20 17:10 Urine Bacteria Many /HPF (None Seen) H 11/30/20 17:10 Urine Culture Comments INDICATED 11/30/20 17:10 Nasal Adenovirus (PCR) NOT DETECTED 11/30/20 17:56 Nasal B. parapertussis DNA (PCR) NOT DETECTED 11/30/20 17:56 Nasal Coronavir 229E PCR NOT DETECTED 11/30/20 17:56 Nasal Coronavir HKU1 PCR NOT DETECTED 11/30/20 17:56 Nasal Coronavir NL63 PCR NOT DETECTED 11/30/20 17:56 Nasal Coronavir OC43 PCR NOT DETECTED 11/30/20 17:56 Nasal Enterovir/Rhinovir PCR NOT DETECTED 11/30/20 17:56 Nasal Influenza B PCR NOT DETECTED 11/30/20 17:56 Nasal Influenza A PCR NOT DETECTED 11/30/20 17:56 Nasal Parainfluen 1 PCR NOT DETECTED 11/30/20 17:56 Nasal Parainfluen 2 PCR NOT DETECTED 11/30/20 17:56 Nasal Parainfluen 3 PCR NOT DETECTED 11/30/20 17:56 Nasal Parainfluen 4 PCR NOT DETECTED 11/30/20 17:56 Nasal RSV (PCR) NOT DETECTED 11/30/20 17:56 Nasal B.pertussis DNA PCR NOT DETECTED 11/30/20 17:56 Nasal C.pneumoniae (PCR) NOT DETECTED 11/30/20 17:56 Phuc Human Metapneumo PCR NOT DETECTED 11/30/20 17:56 Nasal M.pneumoniae (PCR) NOT DETECTED 11/30/20 17:56 Nasal SARS-CoV-2 (PCR) NOT DETECTED 11/30/20 17:56 Stl C. diff Tox B Gene NEGATIVE (NEGATIVE) 11/30/20 22:13 Hepatitis A IgM Ab NON-REACTIVE (NON-REACTIVE) 11/30/20 20:11 Hepatitis A IgM Ab NON-REACTIVE (NON-REACTIVE) 11/30/20 20:11 Hepatitis A Ab Total NON-REACTIVE (NON-REACTIVE) 11/30/20 20:11 Hep Bs Antigen NON-REACTIVE (NON-REACTIVE) 11/30/20 20:11 Hep B Core IgM Ab NON-REACTIVE (NON-REACTIVE) 11/30/20 20:11 Hepatitis C Antibody NON-REACTIVE (NON-REACTIVE) 11/30/20 20:11 Hep C Ab Signal/Cutoff 0.00 (<1.00) 11/30/20 20:11 Ova & Parasites SEE NOTE 11/30/20 22:13 - Procedures Procedures: Procedures CATARAC PHACOEMULS/ASPIR (01/20/14) INSERT LENS AT CATAR EXT (01/20/14) Sepsis Event Note (H) - Evaluation Current Stage of Sepsis: Resolved - Sepsis Criteria Sepsis Criteria: Recorded Temperature greater than 38.3C or Less than 36C, Re corded Respiratory Rate greater than 20, WBC count greater than 12,000 or less than 4000, SBP less than 90 mmHg ABX Reporting Has patient been on IV antibiotics over the past 48 hours?: Yes
[2020-12-03] MEDS: SACCHAROMYCES BOULARDII 250 MG CAPSULE PO SCH ×2 (08:01→16:18)
[2020-12-03] MEDS: SODIUM CHLORIDE FLUSH 0.9% 10 ML SYRINGE IVP SCH ×3 (08:02→23:29)
[2020-12-03] MEDS ORDERED: FUROSEMIDE 20 MG/2 ML VIAL IVP SCH (09:00)
[2020-12-03] MEDS: SPIRONOLACTONE 25 MG TABLET PO SCH (09:16)
[2020-12-03] MEDS: TAMSULOSIN 0.4 MG CAPSULE PO SCH (09:16)
[2020-12-03] MEDS: ASPIRIN EC 81 MG TABLET PO SCH (09:16)
[2020-12-03] MEDS: APIXABAN 5 MG TABLET PO SCH ×2 (09:16→21:29)
[2020-12-03] MEDS: SODIUM CHLORIDE FLUSH 0.9% 10 ML SYRINGE IVP PRN ×2 (09:16→10:59)
[2020-12-03] MEDS: AZITHROMYCIN 250 MG TABLET PO SCH (09:16)
[2020-12-03] MEDS: METOPROLOL SUCCINATE 25 MG TABLET PO SCH ×2 (09:16→21:29)
[2020-12-03] MEDS: ISOSORBIDE MONONITRATE ER 30 MG TABLET PO SCH (09:16)
[2020-12-03] MEDS: cefTRIAXone 1 GM in SODIUM CHLORIDE 0.9% MINIBAG 100 ML IV SCH (09:59)
[2020-12-03] MEDS: IPRATROPIUM/ALBUTEROL 3 ML NEB INH PRN (19:30)
[2020-12-03] MEDS: ATORVASTATIN 40 MG TABLET PO SCH (21:29)
[2020-12-03] MEDS: SERTRALINE 50 MG TABLET PO SCH (21:29)
[2020-12-03] MEDS: ACETAMINOPHEN 325 MG TABLET PO PRN (23:29)
[2020-12-04 06:54] LABS: BASOPHILS # (AUTO) 0.1 10^3/uL (0.0-0.1); BASOPHILS % (AUTO) 0.8 %; EOSINOPHILS # (AUTO) 0.2 10^3/uL (0.0-0.7); EOSINOPHILS % (AUTO) 3.4 %; HCT - HEMATOCRIT 37.7 % (42.0-52.0); HGB - HEMOGLOBIN 12.4 g/dL (14.0-18.0); LYMPHOCYTES # (AUTO) 1.1 10^3/uL (1.5-3.5); LYMPHOCYTES % (AUTO) 17.5 %; MEAN CORPUSCULAR HEMOGLOBIN 30.3 pg (27.0-31.0); MEAN CORPUSCULAR HGB CONC 32.9 g/dL (32.0-36.0); MEAN CORPUSCULAR VOLUME 92.2 fL (80.0-94.0); MEAN PLATELET VOLUME 9.8 fL (7.4-11.4); MONOCYTES # (AUTO) 0.6 10^3/uL (0.0-1.0); MONOCYTES % (AUTO) 9.5 %; NEUTROPHILS # (AUTO) 4.2 10^3/uL (1.5-6.6); NEUTROPHILS % (AUTO) 67.7 %; PLT - PLATELET COUNT 182 10^3/uL (130-450); RED BLOOD COUNT 4.09 10^6/uL (4.70-6.10); RED CELL DISTRIBUTION WIDTH 14.9 % (12.0-15.0); WHITE BLOOD COUNT 6.2 x10^3/uL (4.8-10.8)
[2020-12-04 07:09] LABS: CALCIUM 9.3 mg/dL (8.5-10.3); CREATININE 0.6 mg/dL (0.6-1.2)
[2020-12-04] MEDS: IPRATROPIUM 0.2 MG/ML NEB INH SCH ×4 (07:13→19:36)
--- NOTE | 2020-12-04 07:39 | PROVIDER PROGRESS NOTE ---
Assessment/Plan - Problem List (1) Sepsis Assessment/Plan: Likely secondary to UTI. Blood cultures are no growth to date. However urine culture grew E. coli. Pansensitive. Patient has been on Rocephin. Anticipating discharge tomorrow 12/04/2020. Will prescribe 3 days of Cipro p.o. twice daily upon discharge (2) UTI (urinary tract infection) Qualifiers: Urinary tract infection type: acute cystitis Hematuria presence: without hematuria Qualified Code(s): N30.00 - Acute cystitis without hematuria Assessment/Plan: Urine culture grew E. coli. Pansensitive. Patient has been on Rocephin. Anticipating discharge tomorrow 12/05/2020. Will prescribe 3 days of Cipro p.o. twice daily upon discharge (3) Diarrhea Assessment/Plan: Improved/resolved. Test for C. difficile was negative. Imodium ordered as needed. Test for C. difficile was negative. Imodium ordered as needed. Probiotic ordered twice daily (4) Hyponatremia Assessment/Plan: Resolved. Sodium level today was 137. Likely due to hypervolemia We will continue diuretic (5) Chronic systolic heart failure, ACC/AHA stage C Assessment/Plan: Not in exacerbation 2D echocardiogram done on 12/02/2020 showed Left ventricular wall thickness and left ventricular size is normal. Overall left ventricular systolic function is mild to moderate the globally impaired with an ejection fraction of 40 to 45%. Patient was given Lasix 20 mg IV daily. He is on spironolactone 25 mg p.o. daily, metoprolol succinate 25 mg p.o. twice daily Eliquis 5mg p.o. twice daily (6) History of pulmonary embolus (PE) Assessment/Plan: On Eliquis 5 mg p.o. twice daily (7) Hx of coronary artery disease Assessment/Plan: On metoprolol, baby aspirin, atorvastatin, Imdur (8) THOMAS on CPAP Assessment/Plan: Continue to use CPAP daily (9) Atrial flutter Assessment/Plan: On Eliquis and Metoprolol succinate (2) UTI (urinary tract infection) Qualifiers: Urinary tract infection type: acute cystitis Hematuria presence: without hematuria Qualified Code(s): N30.00 - Acute cystitis without hematuria - Current Meds Current Meds: Current Medications Generic Name Dose Route Start Last Admin Trade Name Freq PRN Reason Stop Dose Admin Acetaminophen 650 mg 09/22/21 19:54 12/03/20 23:29 Acetaminophen 325 Mg Tablet PO 650 mg Q4HR PRN Administration Pain or Fever > 38C (100.4F) Albuterol/Ipratropium 3 ml 12/02/20 13:36 12/03/20 19:30 Ipratropium/Albuterol 3 Ml Neb INH 3 ml RTQID PRN Administration Shortness of Air/Wheezing Apixaban 5 mg 11/30/20 21:00 12/03/20 21:29 Apixaban 5 Mg Tablet PO 5 mg BID LAZARO Administration Aspirin 81 mg 12/01/20 09:00 12/03/20 09:16 Aspirin Ec 81 Mg Tablet PO 81 mg DAILY LAZARO Administration Atorvastatin Calcium 40 mg 12/01/20 21:00 12/03/20 21:29 Atorvastatin 40 Mg Tablet PO 40 mg QPM LAZARO Administration Azithromycin 250 mg 12/01/20 11:00 12/03/20 09:16 Azithromycin 250 Mg Tablet PO 12/05/20 10:59 250 mg DAILY LAZARO Administration Ceftriaxone Sodium 1 gm/ 100 mls @ 200 mls/hr 12/01/20 09:00 12/03/20 10:35 Sodium Chloride IV 12/05/20 10:00 Infused DAILY LAZARO Infusion Ipratropium [place] 0.5 mg 12/02/20 11:00 12/04/20 07:13 Ipratropium 0.2 Mg/Ml Neb INH 0.5 mg RTQID LAZARO Administration Isosorbide Mononitrate 60 mg 12/02/20 09:00 12/03/20 09:16 Isosorbide Mononitrate Er 30 Mg Tablet PO 60 mg DAILY LAZARO Administration Loperamide HCl 2 mg 12/01/20 10:03 12/02/20 10:17 Loperamide 2 Mg Capsule PO 2 mg QID PRN Administration Diarrhea Metoprolol Succinate 25 mg 11/30/20 21:00 12/03/20 21:29 Metoprolol Succinate 25 Mg Tablet PO 25 mg BID LAZARO Administration Saccharomyces Boulardii 250 mg 12/01/20 17:00 12/03/20 16:18 Saccharomyces Boulardii 250 Mg Capsule PO 250 mg BIDWM LAZARO Administration Sertraline HCl 50 mg 11/30/20 21:00 12/03/20 21:29 Sertraline 50 Mg Tablet PO 50 mg QPM LAZARO Administration Sodium Chloride 10 ml 11/30/20 19:54 12/03/20 10:59 Sodium Chloride Flush 0.9% 10 Ml Syringe IVP 10 ml PRN PRN Administration NEEDED PER PROVIDER ORDERS Sodium Chloride 10 ml 12/01/20 01:00 12/03/20 23:29 Sodium Chloride Flush 0.9% 10 Ml Syringe IVP 10 ml 0100,0900,1700 LAZARO Administration Spironolactone 25 mg 12/02/20 09:00 12/03/20 09:16 Spironolactone 25 Mg Tablet PO 25 mg DAILY LAZARO Administration Tamsulosin HCl 0.4 mg 12/02/20 09:00 12/03/20 09:16 Tamsulosin 0.4 Mg Capsule PO 0.4 mg DAILY LAZARO Administration - Lab Result Fish Bone Diagrams: 12/04/20 06:17 12/04/20 06:17 Subjective - Subjective Patient Reports: Other (Patient is resting comfortably in bed. He denies any complaints.) Objective Vital Signs: Vital Signs - 24 hr 12/03/20 12/03/20 12/03/20 07:41 08:20 09:23 Temperature 36.4 C L Heart Rate Heart Rate [ 74 Brachial] Respiratory 20 Rate Blood Pressure [Left Brachial artery] Blood Pressure 120/68 [Right Brachial artery] O2 Saturation 96 94 89 L 12/03/20 12/03/20 12/03/20 09:26 11:10 11:41 Temperature Heart Rate 77 Heart Rate [ Brachial] Respiratory 20 Rate Blood Pressure [Left Brachial artery] Blood Pressure [Right Brachial artery] O2 Saturation 93 96 12/03/20 12/03/20 12/03/20 13:00 15:53 16:15 Temperature 36.5 C 36.4 C L Heart Rate 77 Heart Rate [ 83 80 Brachial] Respiratory 20 20 18 Rate Blood Pressure [Left Brachial artery] Blood Pressure 114/61 106/56 L [Right Brachial artery] O2 Saturation 92 92 12/03/20 12/03/20 12/03/20 19:30 20:26 23:43 Temperature 36.7 C 36.2 C L Heart Rate 71 Heart Rate [ 95 93 Brachial] Respiratory 20 18 20 Rate Blood Pressure 141/69 H [Left Brachial artery] Blood Pressure 126/62 [Right Brachial artery] O2 Saturation 90 L 93 12/04/20 12/04/20 04:12 07:18 Temperature 36.3 C L 36.3 C L Heart Rate Heart Rate [ 88 71 Brachial] Respiratory 20 16 Rate Blood Pressure [Left Brachial artery] Blood Pressure 127/73 135/77 H [Right Brachial artery] O2 Saturation 94 92 Oxygen O2 Source [Without Activity] Nasal cannula O2 Source Room air I&O (Last 24 Hrs): Intake and Output Totals x24h 12/02/20 12/03/20 12/04/20 23:59 23:59 23:59 Intake Total 1680 2140 250 Output Total 200 200 Balance 1480 1940 250 Comments/Notes: General: Alert, Oriented x3, No acute distress HEENT: PERRLA, EOMI Neck: Supple, No JVD Neuro: Alert, Non Focal, Oriented Times 3 Cardiovascular: Paced rhythm, No murmurs Respiratory: Chest non-tender, Other (Mild crackles on right lung base) Abdomen: Normal bowel sounds, Soft, No tenderness, No masses Extremities: No clubbing, No cyanosis, No edema Skin: No rashes, No breakdown, No significant lesion - Results Results: Laboratory Results WBC 6.2 x10^3/uL (4.8-10.8) 12/04/20 06:17 RBC 4.09 10^6/uL (4.70-6.10) L 12/04/20 06:17 Hgb 12.4 g/dL (14.0-18.0) L 12/04/20 06:17 Hct 37.7 % (42.0-52.0) L 12/04/20 06:17 MCV 92.2 fL (80.0-94.0) 12/04/20 06:17 MCH 30.3 pg (27.0-31.0) 12/04/20 06:17 MCHC 32.9 g/dL (32.0-36.0) 12/04/20 06:17 RDW 14.9 % (12.0-15.0) 12/04/20 06:17 Plt Count 182 10^3/uL (130-450) 12/04/20 06:17 MPV 9.8 fL (7.4-11.4) 12/04/20 06:17 Neut # (Auto) 4.2 10^3/uL (1.5-6.6) 12/04/20 06:17 Lymph # (Auto) 1.1 10^3/uL (1.5-3.5) L 12/04/20 06:17 [place] # (Auto) 0.6 10^3/uL (0.0-1.0) 12/04/20 06:17 Eos # (Auto) 0.2 10^3/uL (0.0-0.7) 12/04/20 06:17 Baso # (Auto) 0.1 10^3/uL (0.0-0.1) 12/04/20 06:17 Absolute Nucleated RBC 0.00 x10^3/uL 12/04/20 06:17 Nucleated RBC % 0.0 /100WBC 12/04/20 06:17 Sodium 137 mmol/L (135-145) 12/04/20 06:17 Potassium 4.0 mmol/L (3.5-5.0) 12/04/20 06:17 Chloride 103 mmol/L (101-111) 12/04/20 06:17 Carbon Dioxide 22 mmol/L (21-32) 12/04/20 06:17 Anion Gap 12.0 (6-13) 12/04/20 06:17 BUN 15 mg/dL (6-20) 12/04/20 06:17 Creatinine 0.6 mg/dL (0.6-1.2) 12/04/20 06:17 Estimated GFR (MDRD) 127 (>89) 12/04/20 06:17 Glucose 122 mg/dL (70-100) H 12/04/20 06:17 Lactic Acid 1.7 mmol/L (0.5-2.2) 11/30/20 17:03 Calcium 9.3 mg/dL (8.5-10.3) 12/04/20 06:17 Magnesium 1.6 mg/dL (1.7-2.8) L 12/03/20 05:48 Total Bilirubin 1.4 mg/dL (0.2-1.0) H 11/30/20 17:03 AST 17 IU/L (10-42) 11/30/20 17:03 ALT 17 IU/L (10-60) 11/30/20 17:03 Alkaline Phosphatase 71 IU/L (42-121) 11/30/20 17:03 Troponin I High Sens 36.1 ng/L (2.3-19.7) H* 12/01/20 05:49 Total Protein 7.0 g/dL (6.7-8.2) 11/30/20 17:03 Albumin 3.6 g/dL (3.2-5.5) 11/30/20 17:03 Globulin 3.4 g/dL (2.1-4.2) 11/30/20 17:03 Albumin/Globulin Ratio 1.1 (1.0-2.2) 11/30/20 17:03 Urine Color YELLOW 11/30/20 17:10 Urine Clarity HAZY (CLEAR) 11/30/20 17:10 Urine pH 5.5 PH (5.0-7.5) 11/30/20 17:10 Ur Specific [place] 1.020 (1.002-1.030) 11/30/20 17:10 Urine Protein TRACE mg/dL (NEGATIVE) 11/30/20 17:10 Urine Glucose (UA) NEGATIVE mg/dL (NEGATIVE) 11/30/20 17:10 Urine Ketones NEGATIVE mg/dL (NEGATIVE) 11/30/20 17:10 Urine Occult Blood TRACE-LYSE (NEGATIVE) 11/30/20 17:10 Urine Nitrite POSITIVE (NEGATIVE) H 11/30/20 17:10 Urine Bilirubin NEGATIVE (NEGATIVE) 11/30/20 17:10 Urine Urobilinogen 1 (NORMAL) E.U./dL (NORMAL) 11/30/20 17:10 Ur Leukocyte Esterase SMALL (NEGATIVE) H 11/30/20 17:10 Urine RBC 0-5 /HPF (0-5) 11/30/20 17:10 Urine WBC 11-25 /HPF (0-3) H 11/30/20 17:10 Ur Squamous Epith Cells RARE Squamous (<= Few) 11/30/20 17:10 Urine Bacteria Many /HPF (None Seen) H 11/30/20 17:10 Urine Culture Comments INDICATED 11/30/20 17:10 Nasal Adenovirus (PCR) NOT DETECTED 11/30/20 17:56 Nasal B. parapertussis DNA (PCR) NOT DETECTED 11/30/20 17:56 Nasal Coronavir 229E PCR NOT DETECTED 11/30/20 17:56 Nasal Coronavir HKU1 PCR NOT DETECTED 11/30/20 17:56 Nasal Coronavir NL63 PCR NOT DETECTED 11/30/20 17:56 Nasal Coronavir OC43 PCR NOT DETECTED 11/30/20 17:56 Nasal Enterovir/Rhinovir PCR NOT DETECTED 11/30/20 17:56 Nasal Influenza B PCR NOT DETECTED 11/30/20 17:56 Nasal Influenza A PCR NOT DETECTED 11/30/20 17:56 Nasal Parainfluen 1 PCR NOT DETECTED 11/30/20 17:56 Nasal Parainfluen 2 PCR NOT DETECTED 11/30/20 17:56 Nasal Parainfluen 3 PCR NOT DETECTED 11/30/20 17:56 Nasal Parainfluen 4 PCR NOT DETECTED 11/30/20 17:56 Nasal RSV (PCR) NOT DETECTED 11/30/20 17:56 Nasal B.pertussis DNA PCR NOT DETECTED 11/30/20 17:56 Nasal C.pneumoniae (PCR) NOT DETECTED 11/30/20 17:56 Phuc Human Metapneumo PCR NOT DETECTED 11/30/20 17:56 Nasal M.pneumoniae (PCR) NOT DETECTED 11/30/20 17:56 Nasal SARS-CoV-2 (PCR) NOT DETECTED 11/30/20 17:56 Stl C. diff Tox B Gene NEGATIVE (NEGATIVE) 11/30/20 22:13 Hepatitis A IgM Ab NON-REACTIVE (NON-REACTIVE) 11/30/20 20:11 Hepatitis A IgM Ab NON-REACTIVE (NON-REACTIVE) 11/30/20 20:11 Hepatitis A Ab Total NON-REACTIVE (NON-REACTIVE) 11/30/20 20:11 Hep Bs Antigen NON-REACTIVE (NON-REACTIVE) 11/30/20 20:11 Hep B Core IgM Ab NON-REACTIVE (NON-REACTIVE) 11/30/20 20:11 Hepatitis C Antibody NON-REACTIVE (NON-REACTIVE) 11/30/20 20:11 Hep C Ab Signal/Cutoff 0.00 (<1.00) 11/30/20 20:11 Ova & Parasites SEE NOTE 11/30/20 22:13 - Procedures Procedures: Procedures CATARAC PHACOEMULS/ASPIR (01/20/14) INSERT LENS AT CATAR EXT (01/20/14) Sepsis Event Note (H) - Evaluation Current Stage of Sepsis: Resolved - Sepsis Criteria Sepsis Criteria: Recorded Temperature greater than 38.3C or Less than 36C, Recorded Respiratory Rate greater than 20, WBC count greater than 12,000 or less than 4000, SBP less than 90 mmHg ABX Reporting Has patient been on IV antibiotics over the past 48 hours?: Yes
[2020-12-04] MEDS: SACCHAROMYCES BOULARDII 250 MG CAPSULE PO SCH ×2 (08:58→16:22)
[2020-12-04] MEDS: ISOSORBIDE MONONITRATE ER 30 MG TABLET PO SCH (08:58)
[2020-12-04] MEDS: TAMSULOSIN 0.4 MG CAPSULE PO SCH (08:58)
[2020-12-04] MEDS: AZITHROMYCIN 250 MG TABLET PO SCH (08:58)
[2020-12-04] MEDS: SPIRONOLACTONE 25 MG TABLET PO SCH (08:59)
[2020-12-04] MEDS: ASPIRIN EC 81 MG TABLET PO SCH (08:59)
[2020-12-04] MEDS: METOPROLOL SUCCINATE 25 MG TABLET PO SCH ×2 (08:59→22:11)
[2020-12-04] MEDS: SODIUM CHLORIDE FLUSH 0.9% 10 ML SYRINGE IVP SCH ×3 (09:00→23:27)
[2020-12-04] MEDS: APIXABAN 5 MG TABLET PO SCH ×2 (09:06→22:11)
[2020-12-04] MEDS: cefTRIAXone 1 GM in SODIUM CHLORIDE 0.9% MINIBAG 100 ML IV SCH (09:25)
[2020-12-04] MEDS: SENNA 8.6 MG TABLET PO SCH (10:42)
[2020-12-04] MEDS: SODIUM CHLORIDE FLUSH 0.9% 10 ML SYRINGE IVP PRN (10:42)
[2020-12-04] MEDS: DOCUSATE SODIUM 250 MG CAPSULE PO SCH (10:42)
[2020-12-04] MEDS: polyethylene glycoL 3350 17 GM PACKET PO SCH (10:44)
[2020-12-04] MEDS: BENZOCAINE/MENTHOL LOZENGE MM PRN ×3 (16:27→22:11)
[2020-12-04] MEDS: guaiFENesin/DEXTROMETHORPHAN 10 ML UDC PO PRN ×2 (17:04→23:25)
[2020-12-04] MEDS: IPRATROPIUM/ALBUTEROL 3 ML NEB INH PRN (19:30)
[2020-12-04] MEDS: SERTRALINE 50 MG TABLET PO SCH (22:11)
[2020-12-04] MEDS: ATORVASTATIN 40 MG TABLET PO SCH (22:11)
[2020-12-04 23:17] LABS: B. PARAPERTUSSIS- RESP PCR PAN NOT DETECTED; B. PERTUSSIS- RESP PCR PANEL NOT DETECTED; C. PNEUMONIAE- RESP PCR PANEL NOT DETECTED; CORONAVIRUS 229E-RESP PCR NOT DETECTED; CORONAVIRUS HKU1-RESP PCR NOT DETECTED; CORONAVIRUS NL63-RESP PCR NOT DETECTED; CORONAVIRUS OC43-RESP PCR NOT DETECTED; HUMAN METAPNEUMOVIRUS NOT DETECTED; INFLUENZA A- RESP PCR PANEL NOT DETECTED; INFLUENZA B - RESP PCR PANEL NOT DETECTED; M. PNEUMONIAE- RESP PCR PANEL NOT DETECTED; PARAINFLUENZA VIRUS 1 NOT DETECTED; PARAINFLUENZA VIRUS 2 NOT DETECTED; PARAINFLUENZA VIRUS 3 NOT DETECTED; PARAINFLUENZA VIRUS 4 NOT DETECTED; RHINOVIRUS/ENTEROVIRUS NOT DETECTED; RSV- RESP PCR PANEL NOT DETECTED; SARS-CoV-2 -RESP PCR PANEL NOT DETECTED
[2020-12-05] MEDS: ACETAMINOPHEN 325 MG TABLET PO PRN (01:33)
[2020-12-05] MEDS: BENZOCAINE/MENTHOL LOZENGE MM PRN ×3 (01:35→12:27)
[2020-12-05] MEDS: guaiFENesin/DEXTROMETHORPHAN 10 ML UDC PO PRN (06:49)
[2020-12-05] MEDS: ISOSORBIDE MONONITRATE ER 30 MG TABLET PO SCH (08:36)
[2020-12-05] MEDS: AZITHROMYCIN 250 MG TABLET PO SCH (08:36)
[2020-12-05] MEDS: SODIUM CHLORIDE FLUSH 0.9% 10 ML SYRINGE IVP SCH (08:36)
[2020-12-05] MEDS: SACCHAROMYCES BOULARDII 250 MG CAPSULE PO SCH (08:36)
[2020-12-05] MEDS: SPIRONOLACTONE 25 MG TABLET PO SCH (08:36)
[2020-12-05] MEDS: APIXABAN 5 MG TABLET PO SCH (08:36)
[2020-12-05] MEDS: ASPIRIN EC 81 MG TABLET PO SCH (08:36)
[2020-12-05] MEDS: METOPROLOL SUCCINATE 25 MG TABLET PO SCH (08:37)
[2020-12-05] MEDS: TAMSULOSIN 0.4 MG CAPSULE PO SCH (08:37)
[2020-12-05] MEDS: IPRATROPIUM 0.2 MG/ML NEB INH SCH ×2 (08:42→12:30)
[2020-12-05] MEDS: cefTRIAXone 1 GM in SODIUM CHLORIDE 0.9% MINIBAG 100 ML IV SCH (08:43)
[2020-12-05] MEDS: polyethylene glycoL 3350 17 GM PACKET PO SCH (08:49)
[2020-12-05] MEDS: SENNA 8.6 MG TABLET PO SCH (10:29)
[2020-12-05] MEDS: DOCUSATE SODIUM 250 MG CAPSULE PO SCH (10:29)
[2020-12-05] MEDS: SODIUM CHLORIDE FLUSH 0.9% 10 ML SYRINGE IVP PRN (10:31)
--- NOTE | 2020-12-05 12:27 | DISCHARGE SUMMARY ---
Discharge Summary Admit Date: 11/30/20 Discharge Date: 12/05/20 Discharging Provider: Honey Santiago Primary Care Provider: Rajan Espinal Code Status: Do Not Attempt Resuscitation Condition at Discharge: Stable Discharge Disposition: 03 SNF DC/Xfer Discharge Facility Name: [facility] - DIAGNOSES Admission Diagnoses: Sepsis UTI Hyponatremia Chronic systolic heart failure, ACC, AHA stage C Obstructive sleep apnea on CPAP History of coronary artery disease History of pulmonary embolism Discharge Diagnoses with Status of Each Condition: Sepsis: Acute. Resolved UTI: Acute. Resolved Hyponatremia: Acute. Resolved Chronic systolic heart failure, ACC, AHA stage C Obstructive sleep apnea on CPAP History of coronary artery disease History of pulmonary embolism A flutter: On Eliquis and metoprolol - HPI History of Present Illness: Per HPI: This is an 85 y/o white male who lives at [facility], with a Hx of sleep apnea on CPAP, CAD with stenting done 2010, chronic systolic heart failure with last Echo done in 03/2019 showing LVEF 35-40%, has a Pacemaker, also prior history of PE on Eliquis, BPH, prior falls and rib fractures after one of the falls. He called EMS today because he was too weak to get up independently. He described having 3 days of watery, non-bloody diarrhea after eating duran soup at a restaurant. He was found to have a fever of 103.4 F at the scene. In the ED, his BP was as low as 81/67 and respiratory rate elevated at 30. His work-up showed an elevated WBC of 16.7, normal Lactic Acid level of 1.7, low serum sodium of 128, CXR read as having bilateral haziness, COVID test was neg, U/A showed 25 WBC, (+) Nitrates and Many bacteria. The Hospitalist team was contacted for admission to treat sepsis, from apresumed UTI source, diarrhea of unknown cause and hypovolemic hyponatremia in a patient with "soft" BP and prior chronic systolic heart failure. He denies any respiratory sx such as cough, sputum production or shortness of breath, denies abdominal pain, cramping or bloody diarrhea. He did not know he had a fever. He denies sick contacts. He has been taking all his usual prescription medications throughout those 3 days (including his diuretic). He has called EMS for lift assist many times before. The patient has requested to be a DNR/DNI at the last hospitalization here and confirms he wants the same now. - HOSPITAL COURSE Hospital Course: Patient was admitted to the hospital started on IV hydration and Rocephin after urine and blood cultures have been obtained. Urine culture subsequently grew E. coli which was pansensitive. Patient was on Rocephin for total of 5 days. His hyponatremia was likely due to hypovolemic hyponatremia from dehydration. It improved with IV hydration and by the time of discharge his sodium level and renal function was back to normal. He was tested for C. difficile which was negative. His diarrhea resolved by the time of discharge. Patient has a pacemaker in place which is pseudopacing and needs reprogramming. He is to follow-up with a field clinical engineer for this purpose. It is expected that his primary care physician Dr. Naranjo will make a referral to cardiology for this. The underlying rhythm is a flutter. The patient is on metoprolol and Eliquis. He will follow up with his primary care physician as scheduled. - ALLERGIES Allergies/Adverse Reactions: Allergies Allergy/AdvReac Type Severity Reaction Status Date / Time Influenza Virus Vaccines Allergy Rash Verified 11/30/20 16:56 baclofen AdvReac Severe Hallucinati Verified 11/30/20 16:56 ons bacitracin AdvReac Rash Verified 11/30/20 16:56 neomycin AdvReac Rash Verified 11/30/20 16:56 polymyxin B AdvReac Rash Verified 11/30/20 16:56 - MEDICATIONS Home Medications: Ambulatory Orders Medication Instructions Recorded Confirmed Cholecalciferol (Vitamin D3) 5,000 units PO DAILY 02/21/16 12/01/20 [Vitamin D3] Spironolactone [Aldactone] 25 mg PO DAILY #30 tablet 01/14/18 12/01/20 Atorvastatin [Lipitor] 40 mg PO QPM 07/03/18 12/01/20 Metoprolol Succinate [Toprol Xl] 25 mg PO BID 07/03/18 12/01/20 Sertraline [Zoloft] 50 mg PO QPM 07/03/18 12/01/20 Apixaban [Eliquis] 5 mg PO BID 07/05/18 12/01/20 Nitroglycerin [Nitrostat] 0.4 mg SL Q5MIN PRN 04/09/19 12/01/20 Isosorbide Mononitrate ER [Imdur] 60 mg PO DAILY #7 tablet 10/14/19 12/01/20 Aspirin [Aspirin EC] 81 mg PO DAILY 02/25/20 12/01/20 Tamsulosin HCl [Flomax] 0.4 mg PO DAILY 12/01/20 12/01/20 Tiotropium [place] [Spiriva] 1 inh PO DAILY 12/01/20 12/01/20 - PHYSICAL EXAM AT DISCHARGE General Appearance: positive: No acute distress, Alert Eyes Bilateral: positive: PERRL, EOMI ENT: positive: No signs of dehydration Neck: positive: No JVD, Trachea midline Cardiovascular: positive: Irregularly irregular Abdomen: positive: Non-tender, No organomegaly, Nml bowel sounds, No distention. negative: Guarding, Rebound Back: positive: Nml inspection Skin: positive: Color nml, No rash, Warm, Dry Extremities: positive: Non-tender, Full ROM, Nml appearance Neurologic/Psychiatric: positive: Oriented x3, Mood/affect nml - LABS Result Diagrams: 12/04/20 06:17 12/04/20 06:17 - SEPSIS Current Stage of Sepsis: Resolved Sepsis Criteria: Recorded Temperature greater than 38.3C or Less than 36C, Recorded Respiratory Rate greater than 20, WBC count greater than 12,000 or less than 4000, SBP less than 90 mmHg - TIME SPENT Time Spent in Discharge (Minutes): 20
--- NOTE | 2020-12-05 12:32 | Discharge Plan ---
"Discharge Plan for SNF / [facility] - Discharge Plan And Transition Orders Problem Reviewed?: Yes Disposition: 03 SNF DC/Xfer Condition: Stable Allergies and Adverse Reactions: Allergies Allergy/AdvReac Type Severity Reaction Status Date / Time Influenza Virus Vaccines Allergy Rash Verified 11/30/20 16:56 baclofen AdvReac Severe Hallucinati Verified 11/30/20 16:56 ons bacitracin AdvReac Rash Verified 11/30/20 16:56 neomycin AdvReac Rash Verified 11/30/20 16:56 polymyxin B AdvReac Rash Verified 11/30/20 16:56 Health Concerns: 11/30/2020 with complaint of weakness. You had also been experiencing nonbloody diarrhea for 3 days. In the ED you were noted to have a fever with a temperature as high as 103.4 Fahrenheit and your blood pressure was 81/67. You were diagnosed with a urinary tract infection. You were started on IV antibiotics with Rocephin and was also given IV hydration. Blood and urine cultures were obtained. Your urine cultures subsequently grew E. coli which is sensitive to most antibiotics With Rocephin for total of 5 days while in the hospital. You are being discharged back to [facility] in stable condition. You may follow-up with your primary care physicians as needed - SNF / SENIOR CARE Transition Orders Admit to (Facility): [facility] Discharge Diagnosis: Sepsis: Acute. Resolved UTI: Acute. Resolved Diarrhea: Acute. Resolved Hyponatremia: Acute. Resolved Chronic systolic heart failure, ACC/AHA stage CStable Obstructive sleep apnea on CPAP History of coronary artery disease History of pulmonary embolus A flutter: On metoprolol and eliquis Medicare Certification Statement: I certify that Post Hospital fci care is medically necessary on a continuing basis for any of the conditions for which she/he is receiving care during hospitalization. Notify PCP of admission and forward orders to primary provider for signature. Other Notification Orders: Call PCP immediately if patient develops dyspnea, chest pain/tightness or edema. House Bowel Program: Yes Additional Bowel Program Orders: If no BM after 2 days, nurse may give M.O.M. 30ml PO PRN and/or ducolax Supp 1 OR and/or RONNELL 250mg P.O., and/or senna 1-2 tabs PO. On day 3 nurse may give repeat above order until residents constipation is resolved. Medication Orders: PLEASE REFER TO THE DISCHARGE MEDICATION LIST. - Diet Type: Cardiac Texture: Regular May have monthly special meal: Yes - Therapies | Activity Activity: Activity as Tolerated"
[2020-12-05 14:13] VITALS: BP 122/60
== END 2020-12-05 14:40 | DRG 872 ==
LOC: EDUNIT# → ED 16:49 → MS2 19:54
PROVIDERS: ADMIT Internal Medicine; ATTEND Internal Medicine
DX: A41.9 Sepsis, unspecified organism (principal); N39.0 Urinary tract infection, site not specified; N30.00 Acute cystitis without hematuria; E87.1 Hypo-osmolality and hyponatremia; I50.22 Chronic systolic (congestive) heart failure; I48.92 Unspecified atrial flutter; G47.33 Obstructive sleep apnea (adult) (pediatric); Z20.822 Contact with and (suspected) exposure to COVID-19; Z86.711 Personal history of pulmonary embolism; Z79.01 Long term (current) use of anticoagulants; I25.10 Atherosclerotic heart disease of native coronary artery without angina pectoris; Z95.5 Presence of coronary angioplasty implant and graft; Z95.0 Presence of cardiac pacemaker; Z91.81 History of falling; N40.0 Benign prostatic hyperplasia without lower urinary tract symptoms; Z66 Do not resuscitate; R19.7 Diarrhea, unspecified; I27.20 Pulmonary hypertension, unspecified; B96.20 Unspecified Escherichia coli [E. coli] as the cause of diseases classified elsewhere; R53.1 Weakness; E86.0 Dehydration
CPT/HCPCS: 36415; 71045; 80048; 80053; 80074; 81001; 81599; 83605; 83735; 84484; 85025; 86708; 86709; 87040; 87086; 87177; 87181; 87209; 87493; 87631; 93005; 93306; 94640; 96365; 97110; 97116; 97161; 97530; 99284; 99285; A9270; 0202U; 83690; 87045; 87046; 87427; 87449

== ENCOUNTER 2020-12-22 08:00 | Outpatient (CLI) | payer MEDICARE, OTHER ==
[2020-12-22 17:46] LABS: BASOPHILS # (AUTO) 0.1 10^3/uL (0.0-0.1); BASOPHILS % (AUTO) 0.8 %; EOSINOPHILS # (AUTO) 0.2 10^3/uL (0.0-0.7); EOSINOPHILS % (AUTO) 1.6 %; HCT - HEMATOCRIT 41.1 % (42.0-52.0); HGB - HEMOGLOBIN 13.3 g/dL (14.0-18.0); LYMPHOCYTES # (AUTO) 1.3 10^3/uL (1.5-3.5); LYMPHOCYTES % (AUTO) 13.5 %; MEAN CORPUSCULAR HEMOGLOBIN 30.3 pg (27.0-31.0); MEAN CORPUSCULAR HGB CONC 32.4 g/dL (32.0-36.0); MEAN CORPUSCULAR VOLUME 93.6 fL (80.0-94.0); MEAN PLATELET VOLUME 10.6 fL (7.4-11.4); MONOCYTES # (AUTO) 0.7 10^3/uL (0.0-1.0); MONOCYTES % (AUTO) 7.4 %; NEUTROPHILS # (AUTO) 7.5 10^3/uL (1.5-6.6); NEUTROPHILS % (AUTO) 75.9 %; PLT - PLATELET COUNT 246 10^3/uL (130-450); RED BLOOD COUNT 4.39 10^6/uL (4.70-6.10); RED CELL DISTRIBUTION WIDTH 15.1 % (12.0-15.0); WHITE BLOOD COUNT 9.9 x10^3/uL (4.8-10.8)
[2020-12-22 18:28] LABS: ALBUMIN 4.1 g/dL (3.2-5.5); ALBUMIN/GLOBULIN RATIO 1.1 (1.0-2.2); BILIRUBIN,TOTAL 1.4 mg/dL (0.2-1.0); CALCIUM 9.7 mg/dL (8.5-10.3); CREATININE 0.9 mg/dL (0.6-1.2); POTASSIUM 5.4 mmol/L (3.5-5.0); TOTAL PROTEIN 7.9 g/dL (6.7-8.2)
== END 2020-12-22 23:59 | disposition home or self-care (01) ==
LOC: LAB.WCP 08:00
PROVIDERS: ATTEND Nurse Practitioner Gerontology
DX: N40.0 Benign prostatic hyperplasia without lower urinary tract symptoms (principal); N39.0 Urinary tract infection, site not specified; A41.9 Sepsis, unspecified organism
CPT/HCPCS: 36415; 80053; 84153; 85025

== ENCOUNTER 2021-01-10 08:00 | Outpatient (CLI) | payer MEDICARE, OTHER ==
[2021-01-10 12:01] LABS: BASOPHILS # (AUTO) 0.1 10^3/uL (0.0-0.1); BASOPHILS % (AUTO) 0.8 %; EOSINOPHILS # (AUTO) 0.2 10^3/uL (0.0-0.7); EOSINOPHILS % (AUTO) 2.3 %; HCT - HEMATOCRIT 36.5 % (42.0-52.0); HGB - HEMOGLOBIN 11.9 g/dL (14.0-18.0); LYMPHOCYTES # (AUTO) 1.3 10^3/uL (1.5-3.5); MEAN CORPUSCULAR HEMOGLOBIN 30.7 pg (27.0-31.0); MEAN CORPUSCULAR HGB CONC 32.6 g/dL (32.0-36.0); MEAN CORPUSCULAR VOLUME 94.1 fL (80.0-94.0); MEAN PLATELET VOLUME 9.7 fL (7.4-11.4); MONOCYTES # (AUTO) 0.5 10^3/uL (0.0-1.0); NEUTROPHILS # (AUTO) 5.5 10^3/uL (1.5-6.6); NEUTROPHILS % (AUTO) 71.9 %; PLT - PLATELET COUNT 190 10^3/uL (130-450); RED BLOOD COUNT 3.88 10^6/uL (4.70-6.10); RED CELL DISTRIBUTION WIDTH 15.1 % (12.0-15.0); WHITE BLOOD COUNT 7.7 x10^3/uL (4.8-10.8)
[2021-01-10 12:24] LABS: ALBUMIN 3.5 g/dL (3.2-5.5); BILIRUBIN,TOTAL 0.9 mg/dL (0.2-1.0); CALCIUM 9.5 mg/dL (8.5-10.3); CREATININE 0.8 mg/dL (0.6-1.2); POTASSIUM 3.8 mmol/L (3.5-5.0)
== END 2021-01-10 23:59 | disposition home or self-care (01) ==
LOC: LAB.WCP 08:00
PROVIDERS: ATTEND Internal Medicine
DX: E87.5 Hyperkalemia (principal); E87.1 Hypo-osmolality and hyponatremia; D64.9 Anemia, unspecified
CPT/HCPCS: 36415; 80053; 85025

== ENCOUNTER 2021-01-12 18:36 | Outpatient (CLI) | payer MEDICARE, OTHER | END 2021-01-12 18:37 | disposition critical access hospital (66) | LOC: EMS 18:36 | DX: R07.89 Other chest pain (principal); R10.30 Lower abdominal pain, unspecified | CPT/HCPCS: A0425; A0427 ==

== ENCOUNTER 2021-01-12 18:56 | Observation (INO) | payer MEDICARE, OTHER ==
[2021-01-12 19:17] LABS: BASOPHILS # (AUTO) 0.1 10^3/uL (0.0-0.1); BASOPHILS % (AUTO) 0.6 %; EOSINOPHILS # (AUTO) 0.2 10^3/uL (0.0-0.7); EOSINOPHILS % (AUTO) 1.8 %; HCT - HEMATOCRIT 35.3 % (42.0-52.0); HGB - HEMOGLOBIN 11.4 g/dL (14.0-18.0); LYMPHOCYTES # (AUTO) 1.1 10^3/uL (1.5-3.5); LYMPHOCYTES % (AUTO) 12.9 %; MEAN CORPUSCULAR HEMOGLOBIN 30.2 pg (27.0-31.0); MEAN CORPUSCULAR HGB CONC 32.3 g/dL (32.0-36.0); MEAN CORPUSCULAR VOLUME 93.4 fL (80.0-94.0); MEAN PLATELET VOLUME 9.3 fL (7.4-11.4); MONOCYTES # (AUTO) 0.6 10^3/uL (0.0-1.0); NEUTROPHILS # (AUTO) 6.5 10^3/uL (1.5-6.6); PLT - PLATELET COUNT 177 10^3/uL (130-450); RED BLOOD COUNT 3.78 10^6/uL (4.70-6.10); RED CELL DISTRIBUTION WIDTH 15.3 % (12.0-15.0); WHITE BLOOD COUNT 8.5 x10^3/uL (4.8-10.8)
[2021-01-12 19:33] LABS: ALBUMIN 3.5 g/dL (3.2-5.5); BILIRUBIN,TOTAL 0.8 mg/dL (0.2-1.0); CALCIUM 9.3 mg/dL (8.5-10.3); CREATININE 0.9 mg/dL (0.6-1.2); POTASSIUM 3.8 mmol/L (3.5-5.0)
--- NOTE | 2021-01-12 19:35 | ED Physician Documentation ---
History of Present Illness - Stated complaint Stated Complaint: CP/ABD PAIN - Chief complaint Chief Complaint: Cardiac - Additonal information Additional information: 85-year-old male who resides in assisted living facility is brought to the emergency department for evaluation of acute onset chest pain. He reports that he was eating dinner when he began to develop substernal chest pressure radiated across his chest. No nausea or vomiting. He also endorsed left lower quadrant abdominal pain. This gentleman does have a history of coronary artery disease status post stenting in 2010. Chronic systolic heart failure as well as a pacemaker in place. Last echocardiogram done in November 2020 showed a preserved ejection fraction of 50 to 55%. He also has a history of PE for which she is on Eliquis. At the time that EMS arrived he was noted to be hypoxic on room air saturating 88 to 89%. He is placed on 3 L nasal cannula with resultant rise in oxygen saturations to 96%. He also had a soft blood pressure in the field with a systolic of 85-90 over 50s. He was not given any nitroglycerin in transport but did receive 324 mg of aspirin. The time the patient presents here to the emergency department he is now normotensive 120s over 80s and is denying any further chest pain/pressure. He remains on 3 L nasal cannula with saturations of 96%. This gentleman was admitted to our hospital in late November for evaluation of sepsis urinary tract infection and hyponatremia. Review of Systems Constitutional: denies: Fever, Chills Eyes: reports: Reviewed and negative Nose: reports: Reviewed and negative Throat: reports: Reviewed and negative Cardiac: reports: Chest pain / pressure, Palpitations. denies: Pedal edema, Calf pain Respiratory: reports: Reviewed and negative GI: reports: Abdominal Pain : reports: Reviewed and negative Skin: reports: Rash Musculoskeletal: reports: Reviewed and negative Neurologic: reports: Reviewed and negative PD PAST MEDICAL HISTORY - Past Medical History Past Medical History: Yes Cardiovascular: Congestive heart failure, Coronary artery disease Respiratory: Sleep apnea, CPAP use Neuro: CVA Endocrine/Autoimmune: None GI: Diverticulitis : Benign prostate hypertrophy HEENT: None Psych: None Musculoskeletal: Osteoarthritis, Chronic back pain Derm: None - Past Surgical History Past Surgical History: Yes General: Bowel surgery Ortho: Knee replacement, Spine surgery Cardiovascular: Coronary stent, Pacemaker Derm: Skin cancer surgery - Present Medications Home Medications: Ambulatory Orders Medication Instructions Recorded Confirmed Cholecalciferol (Vitamin D3) 5,000 units PO DAILY 02/21/16 01/12/21 [Vitamin D3] Spironolactone [Aldactone] 25 mg PO DAILY #30 tablet 01/14/18 01/12/21 Atorvastatin [Lipitor] 40 mg PO QPM 07/03/18 01/12/21 Metoprolol Succinate [Toprol Xl] 25 mg PO BID 07/03/18 01/12/21 Sertraline [Zoloft] 50 mg PO QPM 07/03/18 01/12/21 Apixaban [Eliquis] 5 mg PO BID 07/05/18 01/12/21 Nitroglycerin [Nitrostat] 0.4 mg SL Q5MIN PRN 04/09/19 01/12/21 Isosorbide Mononitrate ER [Imdur] 60 mg PO DAILY #7 tablet 10/14/19 01/12/21 Aspirin [Aspirin EC] 81 mg PO DAILY 02/25/20 01/12/21 Tiotropium [place] [Spiriva] 1 inh PO DAILY 12/01/20 01/12/21 Acetaminophen [Tylenol] 650 mg PO Q4HR PRN 01/12/21 01/12/21 Ciprofloxacin HCl [Cipro] 500 mg PO BID 01/12/21 01/12/21 - Allergies Allergies/Adverse Reactions: Allergies Allergy/AdvReac Type Severity Reaction Status Date / Time Influenza Virus Vaccines Allergy Rash Verified 01/12/21 19:10 baclofen AdvReac Severe Hallucinati Verified 01/12/21 19:10 ons bacitracin AdvReac Rash Verified 01/12/21 19:10 neomycin AdvReac Rash Verified 01/12/21 19:10 polymyxin B AdvReac Rash Verified 01/12/21 19:10 - Social History Does the pt smoke?: No Smoking Status: Never smoker Does the pt drink ETOH?: Yes Does the pt have substance abuse?: No - Immunizations Immunizations are current?: No Immunizations: TDAP >10years/unknown - POLST Patient has POLST: No POLST Status: DNR PD ED PE EXPANDED - General General: Alert, No acute distress - Cardiac Cardiac: Regular Rate, Murmur Present, Radial strong equal, Pedal strong equal, Cap refill < 2 sec - Respiratory Respiratory: Clear to ausultation debbi. No: Distress, Labored - Abdomen Abdomen: Normal Bowel sounds, Tender to palpation, LLQ (Tenderness left lower quadrant without guarding or rebound.) - Back Back: Normal exam. No: Soft tissue tenderness, CVA TTP right, CVA TTP left - Neuro Neuro: Alert and Oriented X 3, CNII-XII intact - GCS Eye Opening: Spontaneous Motor: Obeys Commands Verbal: Oriented Total: 15 Results - Vitals Vitals: Vital Signs - 24 hr 01/12/21 01/12/21 01/12/21 19:06 19:10 21:10 Temperature 36.7 C Heart Rate 82 77 Respiratory 18 21 Rate Blood Pressure 120/65 125/74 O2 Saturation 89 L 96 88 L Oxygen O2 Source [] Nasal cannula O2 Source Room air - EKG (time done) 1900 Rate: Rate (enter#) (78) Rhythm: Paced (Paced ECG rhythm no further analysis attempted.) - Labs Labs: Laboratory Tests 01/12/21 01/12/21 01/12/21 19:11 19:11 19:11 WBC 8.5 RBC 3.78 L Hgb 11.4 L Hct 35.3 L MCV 93.4 MCH 30.2 MCHC 32.3 RDW 15.3 H Plt Count 177 MPV 9.3 Neut # (Auto) 6.5 Lymph # (Auto) 1.1 L [place] # (Auto) 0.6 Eos # (Auto) 0.2 Baso # (Auto) 0.1 Absolute Nucleated RBC 0.00 Nucleated RBC % 0.0 Sodium 135 Potassium 3.8 Chloride 103 Carbon Dioxide 19 L Anion Gap 13.0 BUN 15 Creatinine 0.9 Estimated GFR (MDRD) 80 L Glucose 151 H Lactic Acid Calcium 9.3 Total Bilirubin 0.8 AST 18 ALT 17 Alkaline Phosphatase 79 Troponin I High Sens 25.0 H* B-Natriuretic Peptide Total Protein 7.0 Albumin 3.5 Globulin 3.5 Albumin/Globulin Ratio 1.0 Lipase 48 01/12/21 01/12/21 01/12/21 19:11 19:11 20:00 WBC RBC Hgb Hct MCV MCH MCHC RDW Plt Count MPV Neut # (Auto) Lymph # (Auto) [place] # (Auto) Eos # (Auto) Baso # (Auto) Absolute Nucleated RBC Nucleated RBC % Sodium Potassium Chloride Carbon Dioxide Anion Gap BUN Creatinine Estimated GFR (MDRD) Glucose Lactic Acid 2.7 H Calcium Total Bilirubin AST ALT Alkaline Phosphatase Troponin I High Sens 25.8 H* B-Natriuretic Peptide 262 H Total Protein Albumin Globulin Albumin/Globulin Ratio Lipase 01/12/21 01/12/21 21:02 21:02 WBC RBC Hgb Hct MCV MCH MCHC RDW Plt Count MPV Neut # (Auto) Lymph # (Auto) [place] # (Auto) Eos # (Auto) Baso # (Auto) Absolute Nucleated RBC Nucleated RBC % Sodium Potassium Chloride Carbon Dioxide Anion Gap BUN Creatinine Estimated GFR (MDRD) Glucose Lactic Acid 1.4 Calcium Total Bilirubin AST ALT Alkaline Phosphatase Troponin I High Sens 28.8 H* B-Natriuretic Peptide Total Protein Albumin Globulin Albumin/Globulin Ratio Lipase - Rads (name of study) CXR Radiology: Final report received (Extensive diffuse interstitial changes. Consider chronic interstitial pulmonary fibrosis versus interstitial pulmonary edema.) pulmonary angio Radiology: Final report received (Probable small basilar left lower lobe pulmonary emboli. Findings suggestive of possible mild interstitial pulmonary edema. Emphysematous changes in the lung. Moderately severe coronary artery calcifications) abd pelvis Radiology: Final report received (No evidence of acute abdominal process. Moderate to severe coronary artery calcifications. Diverticulosis without-itis. Severe canal stenosis at L3-L4) PD MEDICAL DECISION MAKING - ED course Complexity details: reviewed results, re-evaluated patient, considered differential, d/w patient ED course: 85-year-old male who has a history of coronary artery disease status post stenting as well as atrial fibs/flutter and a pacer in place with previous history of pulmonary emboli presents to the emergency department for evaluation of acute substernal chest pain and pressure that occurred after eating dinner. Screening EKG here shows a paced rhythm. Initial high-sensitivity troponin was 25 and on repeat is 28. Given the history of some congestive heart failure this is likely related to CHF as opposed to acute coronary syndrome. Patient is free of chest pain while here in the ER. I am it is noted that the patient had very soft blood pressures for EMS with systolic in the 90 over 50s. His initial lactate was 2.7. Chest x-ray was quite suggestive of chronic interstitial changes that may reflect congestive heart failure. Given this he was not given IV fluids in the ER. Repeat lactate was normalized at 1.4. However given the hypoxia and a history of PE CT pulmonary angio was completed. It is suggestive of a likely small left basilar pulmonary embolus. However given the size of this obstruction it is not likely clinically contributing to his hypoxia. His history of CHF is more likely the cause. In addition to that his chest x-ray is suggestive of this. Patient is previously anticoagulated on Eliquis. I spoke with Dr. Santiago Hospitalist on night who agrees to bring the patient in for observation status. Departure - Departure Disposition: ED Place in Observation Clinical Impression: Hypoxia Chest pain Qualifiers: Chest pain type: unspecified Qualified Code(s): R07.9 - Chest pain, unspecified Systolic heart failure Qualifiers: Heart failure chronicity: acute on chronic Qualified Code(s): I50.23 - Acute on chronic systolic (congestive) heart failure
--- NOTE | 2021-01-12 20:14 | XRAY Report ---
PROCEDURE: Chest 1 View X-Ray INDICATIONS: Chest Pain TECHNIQUE: One view of the chest was acquired. COMPARISON: 12/01/2020 FINDINGS: Surgical changes and devices: Pacemaker. Lungs and pleura: No pleural effusions or pneumothorax. Extensive diffuse interstitial changes, as b efore. Mediastinum: Mediastinal contours appear normal. Heart size is normal. Bones and chest wall: No suspicious bony lesions. Overlying soft tissues appear unremarkable. IMPRESSION: Extensive diffuse interstitial changes, as before. Consider chronic interstitial pulmonary fibrosis v ersus interstitial pulmonary edema. Reviewed by: Mario Vinson MD on 01/12/2021 8:13 PM PDT Approved by: Mario Vinson MD on 01/12/2021 8:13 PM PDT Station ID: [id number]
[2021-01-12] MEDS ORDERED: IOVERSOL 320 100 ML VIAL IVP ONE ×2 (20:16→21:34)
--- NOTE | 2021-01-12 21:37 | CT Report ---
PROCEDURE: ANGIO CHEST W/WO INDICATIONS: hypoxia, chest pain; hx of PE CONTRAST: IV CONTRAST: Optiray 320 ml: 100 PO CONTRAST: *NO PO CONTRAST TECHNIQUE: After the administration of intravenous contrast, 2 mm axial images were acquired from the pulmonary apices to the posterior costophrenic angles during the arterial phase. In addition, 1 mm lung kernel and 5 mm soft tissue kernel reconstructions were performed. 3-dimensional coronal oblique maximum int ensity projection (MIP) reformats, 8 mm axial MIP, and 5 mm coronal and sagittal MPR reformats were t hen performed through the thorax. For radiation dose reduction, the following was used: automated exp osure control, adjustment of mA and/or kV according to patient size. COMPARISON: None available currently FINDINGS: Image quality: Excellent. Pulmonary arteries: Probable small left basilar pulmonary emboli. Lungs and pleura: Mild emphysematous change. Patchy bilateral groundglass opacities and septal thicke massimo suggests possible mild interstitial pulmonary edema. No pleural effusions or pneumothorax. Cent ral and peripheral airways are patent. Mediastinum: Heart size is normal, without pericardial effusion. Moderate to severe coronary artery calcifications. Pacemaker. No mediastinal or hilar adenopathy. Thoracic aorta is normal in caliber and enhancement. Esophagus is normal in caliber, without hiatal hernia. Bones and chest wall: No suspicious bony lesions. Ribs and thoracic spine appear intact throughout. No axillary or supraclavicular adenopathy. Thyroid is grossly unremarkable. Abdomen: Visualized upper abdominal solid organs appear normal in the early arterial phase of enhanc ement. IMPRESSION: 1. Probable small basilar left lower lobe pulmonary emboli. 2. Findings suggest possible mild interstitial pulmonary edema. 3. Emphysematous change. 4. Moderately severe coronary artery calcifications CLINICAL RECOMMENDATION STATEMENTS: In patients <35 years with an ITN detected on CT, MRI, or extrathyroidal ultrasound, the Committee re commends further evaluation with dedicated thyroid ultrasound if the nodule is "e1 cm and has no susp icious imaging features, and if the patient has normal life expectancy. In patients "e35 years with an ITN detected on CT, MRI, or extrathyroidal ultrasound, the Committee r ecommends further evaluation with dedicated thyroid ultrasound if the nodule is "e1.5 cm and has no s uspicious imaging features, and if the patient has normal life expectancy. (ACR, 2014) Reviewed by: Mario Vinson MD on 01/12/2021 9:36 PM PDT Approved by: Mario Vinson MD on 01/12/2021 9:36 PM PDT Station ID: [id number]
--- NOTE | 2021-01-12 21:41 | CT Report ---
PROCEDURE: Abdomen/Pelvis W INDICATIONS: LLQ abd pain CONTRAST: IV CONTRAST: Optiray 320 ml: 100 PO CONTRAST: *NO PO CONTRAST TECHNIQUE: After the administration of intravenous contrast, 5 mm thick sections acquired from the diaphragms to the symphysis. 5 mm thick coronal and sagittal reformats were acquired. For radiation dose reducti on, the following was used: automated exposure control, adjustment of mA and/or kV according to jayme ent size. COMPARISON: CTA chest from today. FINDINGS: Image quality: Excellent. ABDOMEN: Lung bases: Lung bases are clear. Heart size is normal. Pacemaker. Moderate to severe coronary art mina calcifications. Solid organs: Liver and spleen are normal in size and enhancement. Gallbladder is contracted and co ntains small gallstones. Biliary system is non dilated. Pancreas enhances normally. No adrenal nod ules. Kidneys demonstrate normal size and enhancement, without hydronephrosis. Peritoneum and bowel: Bowel loops demonstrate normal wall thickness and caliber. No free fluid or a ir. Remote partial distal colectomy. Diverticulosis without evidence of diverticulitis. Nodes and vessels: No retroperitoneal or mesenteric adenopathy by size criteria. Aorta and inferior vena cava are normal in size. Diffuse aortobiiliac atherosclerotic calcifications. Miscellaneous: No ventral hernias. PELVIS: Genitourinary: Bladder wall thickness is normal. Miscellaneous: No inguinal hernias or adenopathy. Bones: No suspicious bony lesions. No vertebral body compression fractures. Diffuse lumbar degener ative change. Severe canal stenosis at L3-L4. IMPRESSION: 1. No evidence of acute abdominal process. 2. Moderate to severe coronary artery calcifications. 3. Diverticulosis without evidence of diverticulitis. 4. Incidental note made of severe canal stenosis at L3-L4 Reviewed by: Mario Vinson MD on 01/12/2021 9:39 PM PDT Approved by: Mario Vinson MD on 01/12/2021 9:39 PM PDT Station ID: [id number]
[2021-01-12] MEDS ORDERED: ONDANSETRON 4 MG/2 ML VIAL IVP PRN (21:57)
[2021-01-12] MEDS ORDERED: SODIUM CHLORIDE FLUSH 0.9% 10 ML SYRINGE IVP PRN (21:57)
[2021-01-12] MEDS ORDERED: FUROSEMIDE 20 MG/2 ML VIAL IVP STA (22:02)
--- NOTE | 2021-01-12 22:05 | HISTORY & PHYSICAL EXAMINATION ---
Chief Complaint - Chief Complaint Chief Complaint: chest pain, dyspnea, hypoxia History of Present Illness - Admitted From Admitted From:: [facility] ED - History Obtained From Records Reviewed: yes History obtained from: patient and records - History of Present Illness HPI Comment/Other: Patient is an 85-year-old male who presented to the ED initially with complaint of chest pain across the entire span of his chest. This started while he was having dinner. EMS was called and he was brought to the ED. Within 30 minutes of presenting to the ED his symptoms resolved. He was given a dose of aspirin en route. His chest pain is reproducible. It is non-radiating. Nothing seemed to make it better or worse. Work-up in the ED included troponin which was flat at 25, 25 and 28. He also had a CT angio of the chest which suggested mild pulmonary edema. His BNP was 242. The image also mentioned probable PE in the basilar area. 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 While in the ED it was noted that he was hypoxic with oxygen saturation at 88% on room air. With supplemental oxygen via nasal cannula of 3 L his oxygen saturation improved to 93%. Due to his hypoxia he was presented for admission for further treatment. The patient has sleep apnea and uses a CPAP at night. At bedside he is resting comfortably. He denies chest pain, dyspnea, abdominal pain, nausea, vomiting, fever or chills. The rest of his history is unr emarkable. History - Past Medical History Cardiovascular: reports: Congestive heart failure, Coronary artery disease Respiratory: reports: Sleep apnea, CPAP use Neuro: reports: CVA Endocrine/Autoimmune: reports: None GI: reports: Diverticulitis : reports: Benign prostate hypertrophy HEENT: reports: None Psych: reports: None Musculoskeletal: reports: Osteoarthritis, Chronic back pain Derm: reports: None MRSA Hx?: No - Past Surgical History General: reports: Bowel surgery Ortho: reports: Knee replacement, Spine surgery Cardiovascular: reports: Coronary stent, Pacemaker Derm: reports: Skin cancer surgery - Family & Social History Family History: Mother: , Father: Family History Comment/Other: Patient's mother of pneumonia when he was 14. Patient's father of cancer at age 83. Patient was an only child, no known history of heart disease, COPD, or diabetes in the family. Living Situation: Alone Social History Notes: The patient previously had described himself as a "moderate" drinker. No tobacco use ever and no illicit drug use history. - Substance History Use: Uses substance without health or social issues: Alcohol - POLST Patient has POLST: No POLST Status: DNR Meds/Allgy - Home Medications Home Medications: Ambulatory Orders Medication Instructions Recorded Confirmed Cholecalciferol (Vitamin D3) 5,000 units PO DAILY 02/21/16 01/12/21 [Vitamin D3] Spironolactone [Aldactone] 25 mg PO DAILY #30 tablet 01/14/18 01/12/21 Atorvastatin [Lipitor] 40 mg PO QPM 07/03/18 01/12/21 Metoprolol Succinate [Toprol Xl] 25 mg PO BID 07/03/18 01/12/21 Sertraline [Zoloft] 50 mg PO QPM 07/03/18 01/12/21 Apixaban [Eliquis] 5 mg PO BID 07/05/18 01/12/21 Nitroglycerin [Nitrostat] 0.4 mg SL Q5MIN PRN 04/09/19 01/12/21 Isosorbide Mononitrate ER [Imdur] 60 mg PO DAILY #7 tablet 10/14/19 01/12/21 Aspirin [Aspirin EC] 81 mg PO DAILY 02/25/20 01/12/21 Tiotropium [place] [Spiriva] 1 inh PO DAILY 12/01/20 01/12/21 Acetaminophen [Tylenol] 650 mg PO Q4HR PRN 01/12/21 01/12/21 Ciprofloxacin HCl [Cipro] 500 mg PO BID 01/12/21 01/12/21 - Allergies Allergies/Adverse Reactions: Allergies Allergy/AdvReac Type Severity Reaction Status Date / Time Influenza Virus Vaccines Allergy Rash Verified 01/12/21 19:10 baclofen AdvReac Severe Hallucinati Verified 01/12/21 19:10 ons bacitracin AdvReac Rash Verified 01/12/21 19:10 neomycin AdvReac Rash Verified 01/12/21 19:10 polymyxin B AdvReac Rash Verified 01/12/21 19:10 Review of Systems - Constitutional Constitutional: denies: Fatigue, Fever, Chills - Eyes Eyes: denies: Pain, Vision loss - Ears, Nose & Throat Ears, Nose & Throat: reports: Hearing loss. denies: Sore throat - Cardiovascular Cariovascular: reports: Chest pain. denies: Irregular heart rate, Palpitations, Edema, Lightheadedness, Syncope - Respiratory Respiratory: denies: Cough, Wheezing, SOB at rest, SOB with exertion - Gastrointestinal Gastrointestinal: denies: Abdominal pain, Abdominal distention, Nausea, Vomiting, Reflux/heartburn - Genitourinary Genitourinary: denies: Dysuria, Frequency, Urgency, Hematuria - Musculoskeletal Musculoskeletal: denies: Muscle pain, Back pain, Muscle aches - Integumentary Integumentary: denies: Rash, Pruritis - Neurological Neurological: denies: General weakness, Focal weakness, Headache - Psychiatric Psychiatric: denies: Depression, Anxiety - Endocrine Endocrine: denies: Polyuria, Polydypsia - Hematologic/Lymphatic Hematologic/Lymphatic: denies: Anemia, Bruising, Petechiae Prior Level of Functionality: Patient lives with her son and [id number] Exam - Vital Signs Vital Signs: Vital Signs x48h Temp Pulse Resp BP Pulse Ox 01/12/21 21:10 77 21 125/74 88 L 01/12/21 19:10 96 01/12/21 19:06 36.7 C 82 18 120/65 89 L - Physical Exam General Appearance: positive: Alert, Mild distress Eyes Bilateral: positive: PERRL, EOMI ENT: positive: No signs of dehydration Neck: positive: No JVD, Trachea midline Respiratory: positive: Chest non-tender, No respiratory distress, Breath sounds nml. negative: Wheezes, Rales, Rhonchi Cardiovascular: positive: Regular rate & rhythm, No murmur Abdomen: positive: Non-tender, No organomegaly, Nml bowel sounds, No distention. negative: Guarding, Rebound Back: positive: Nml inspection Skin: positive: Color nml, No rash, Warm, Dry Extremities: positive: Non-tender, Full ROM, Nml appearance, No pedal edema Neurologic/Psychiatric: positive: Oriented x3, Mood/affect nml Conclusion/Plan - Problem List (1) Acute respiratory failure with hypoxia Conclusion/Plan: CT angiogram of the chest showed mild pulmonary edema. The patient was hypoxic with oxygen saturation of 88% on room air. His oxygen saturation improved to 93% on 3 L. Patient given a dose of Lasix 20 mg IV x1. (2) Coronary artery disease Conclusion/Plan: Patient's troponin was trended in the ED and noted to be flat. He takes a baby aspirin daily and is on Eliquis. We will also continue his metoprolol, losartan and atorvastatin. (3) Emphysema lung Conclusion/Plan: Chronic. We will give supplemental oxygen. DuoNeb as needed. Qualifiers: Emphysema type: unspecified Qualified Code(s): J43.9 - Emphysema, unspecified (4) Gastroesophageal reflux disease Conclusion/Plan: Protonix ordered. (5) HLD (hyperlipidemia) Conclusion/Plan: On atorvastatin (6) HTN (hypertension) Conclusion/Plan: On metoprolol, losartan, lasix and spironolactone. (7) History of congestive heart failure Conclusion/Plan: CT angio of the chest done in the ED suggested mild pulmonary edema. Patient was given a dose of Lasix 20 mg IV x1. We will continue patient's Lasix, spironolactone, metoprolol and losartan. (8) History of pulmonary embolus (PE) Conclusion/Plan: CT angio of the chest mentioned probable PE in the basilar part of the lungs. Suspect this is residual finding. Patient has history of PE. We will continue Eliquis twice daily. (9) THOMAS on CPAP Conclusion/Plan: We will continue patient's home CPAP nightly - Lab Results Fish Bones: 01/12/21 19:11 01/12/21 19:11 Core Measures - DVT/VTE - Prophylaxis VTE/DVT Device ordered at admit?: Yes VTE/DVT Prophylaxis med ordered at admit?: Yes
[2021-01-12 23:18] LABS: B. PARAPERTUSSIS- RESP PCR PAN NOT DETECTED; B. PERTUSSIS- RESP PCR PANEL NOT DETECTED; C. PNEUMONIAE- RESP PCR PANEL NOT DETECTED; CORONAVIRUS 229E-RESP PCR NOT DETECTED; CORONAVIRUS HKU1-RESP PCR NOT DETECTED; CORONAVIRUS NL63-RESP PCR NOT DETECTED; CORONAVIRUS OC43-RESP PCR NOT DETECTED; HUMAN METAPNEUMOVIRUS NOT DETECTED; INFLUENZA A- RESP PCR PANEL NOT DETECTED; INFLUENZA B - RESP PCR PANEL NOT DETECTED; M. PNEUMONIAE- RESP PCR PANEL NOT DETECTED; PARAINFLUENZA VIRUS 1 NOT DETECTED; PARAINFLUENZA VIRUS 2 NOT DETECTED; PARAINFLUENZA VIRUS 3 NOT DETECTED; PARAINFLUENZA VIRUS 4 NOT DETECTED; RHINOVIRUS/ENTEROVIRUS NOT DETECTED; RSV- RESP PCR PANEL NOT DETECTED; SARS-CoV-2 -RESP PCR PANEL NOT DETECTED
[2021-01-13 05:53] LABS: BASOPHILS % (AUTO) 0.4 %; EOSINOPHILS # (AUTO) 0.2 10^3/uL (0.0-0.7); EOSINOPHILS % (AUTO) 1.7 %; HCT - HEMATOCRIT 38.2 % (42.0-52.0); HGB - HEMOGLOBIN 12.1 g/dL (14.0-18.0); LYMPHOCYTES # (AUTO) 1.5 10^3/uL (1.5-3.5); LYMPHOCYTES % (AUTO) 16.2 %; MEAN CORPUSCULAR HEMOGLOBIN 29.8 pg (27.0-31.0); MEAN CORPUSCULAR HGB CONC 31.7 g/dL (32.0-36.0); MEAN CORPUSCULAR VOLUME 94.1 fL (80.0-94.0); MEAN PLATELET VOLUME 9.5 fL (7.4-11.4); MONOCYTES # (AUTO) 0.6 10^3/uL (0.0-1.0); MONOCYTES % (AUTO) 6.7 %; NEUTROPHILS # (AUTO) 6.7 10^3/uL (1.5-6.6); NEUTROPHILS % (AUTO) 74.3 %; PLT - PLATELET COUNT 188 10^3/uL (130-450); RED BLOOD COUNT 4.06 10^6/uL (4.70-6.10); RED CELL DISTRIBUTION WIDTH 15.2 % (12.0-15.0)
[2021-01-13 06:04] LABS: CALCIUM 9.3 mg/dL (8.5-10.3); CREATININE 0.9 mg/dL (0.6-1.2); POTASSIUM 3.8 mmol/L (3.5-5.0)
[2021-01-13] MEDS: SODIUM CHLORIDE FLUSH 0.9% 10 ML SYRINGE IVP SCH ×2 (06:43→10:04)
[2021-01-13] MEDS ORDERED: PANTOPRAZOLE 40 MG TABLET PO SCH (07:00)
[2021-01-13] MEDS ORDERED: NYSTATIN POWDER 15 GM TOP SCH (09:00)
[2021-01-13 09:09] VITALS: BP 120/66
--- NOTE | 2021-01-13 09:23 | PHARMACY PROGRESS NOTE ---
- Best Possible Medication History Admit Date and Time: 01/12/212156 Processed by: Nursing Medication History completed: Yes Patient Interview: Completed (MED REC COMPLETED BY NURSING) As the person ultimately responsible for medication therapy, providers are able to order a medication from an existing home medication list in [facility] via the "Reconcile Routine" prior to Confirmation of that medication by community support specialist. Such practice is discouraged except when the physician, in their clinical judgment, deems that a medical need exists for a medication without regard to previous use.
[2021-01-13] MEDS ORDERED: ISOSORBIDE MONONITRATE ER 30 MG TABLET PO SCH (10:32)
--- NOTE | 2021-01-13 10:51 | Discharge Plan ---
"Discharge Plan for SNF / [facility] - Discharge Plan And Transition Orders Problem Reviewed?: Yes Disposition: 03 SNF DC/Xfer Condition: Stable Allergies and Adverse Reactions: Allergies Allergy/AdvReac Type Severity Reaction Status Date / Time Influenza Virus Vaccines Allergy Rash Verified 01/12/21 19:10 baclofen AdvReac Severe Hallucinati Verified 01/12/21 19:10 ons bacitracin AdvReac Rash Verified 01/12/21 19:10 neomycin AdvReac Rash Verified 01/12/21 19:10 polymyxin B AdvReac Rash Verified 01/12/21 19:10 Health Concerns: The patient was admitted to the hospital because of chest pain and low oxygen. His chest pain had resolved prior to arrival to the emergency department. We did do a CT scan which showed a small likely left pulmonary embolism but he is already on anticoagulation and already has a history of pulmonary embolism. His heart enzymes were only mildly elevated and it was felt that this was not a heart attack. He was initially placed on oxygen but this was later discontinued as he has a history of COPD and his oxygen numbers are within normal limits given his history of COPD. He does not need oxygen at rest but needs 2 L with activity. We were unable to obtain a stress test but I have recommended that he get one done on an outpatient basis. Plan of Treatment: He does not need oxygen at rest but does require 2 L with activity and this was prescribed for him. He will continue with his home medications including Spiriva. I have added an albuterol inhaler to take as needed. He would benefit from an outpatient stress test. I have asked him to return to the emergency department if he develops chest pain. - SNF / [facility] Transition Orders Admit to (Facility): [facility] Medicare Certification Statement: I certify that [facility] is medically necessary on a continuing basis for any of the conditions for which she/he is receiving care during hospitalization. Notify PCP of admission and forward orders to primary provider for signature. Weight on admission and: Weekly Other Notification Orders: Call PCP immediately if patient develops dyspnea, chest pain/tightness or edema. Additional Bowel Program Orders: If no BM after 2 days, nurse may give M.O.M. 30ml PO PRN and/or ducolax Supp 1 NM and/or RONNELL 250mg P.O., and/or senna 1-2 tabs PO. On day 3 nurse may give repeat above order until residents constipation is resolved. Medication Orders: PLEASE REFER TO THE DISCHARGE MEDICATION LIST. - Medications New Prescriptions: Albuterol 2.5 mg INH Q4H PRN #30 ml PRN Reason: Wheezing - Diet Type: Geriatric Texture: Regular Liquids: Thin - Therapies | Activity Activity: Activity as Tolerated Follow Up: He will need follow-up with his primary care physician within 1 week. He will also need follow-up with his wound care center consultant. Either one of them can order a stress test."
--- NOTE | 2021-01-13 10:59 | DISCHARGE SUMMARY ---
Discharge Summary Admit Date: 01/12/21 Discharge Date: 01/13/21 Discharging Provider: Blaze Talamnates Primary Care Provider: Rajan Espinal Code Status: Do Not Attempt Resuscitation Condition at Discharge: Stable Discharge Disposition: SNF DC/Xfer Discharge Facility Name: [facility] - DIAGNOSES Admission Diagnoses: Acute respiratory failure with hypoxia Coronary artery disease Emphysema GERD Hyperlipidemia Hypertension History of congestive heart failure History of PE THOMAS on CPAP Discharge Diagnoses with Status of Each Condition: Chronic respiratory failure with hypoxia. - stable. Coronary artery disease - stable. Emphysema - stable. GERD - stable. Hyperlipidemia - stable. Hypertension - stable History of congestive heart failure - stable. History of PE - stable. THOMAS on CPAP - stable. - HPI History of Present Illness: H&P per Dr. Santiago: Patient is an 85-year-old male who presented to the ED initially with complaint of chest pain across the entire span of his chest. This started while he was having dinner. EMS was called and he was brought to the ED. Within 30 minutes of presenting to the ED his symptoms resolved. He was given a dose of aspirin en route. His chest pain is reproducible. It is non-radiating. Nothing seemed to make it better or worse. Work-up in the ED included troponin which was flat at 25, 25 and 28. He also had a CT angio of the chest which suggested mild pulmonary edema. His BNP was 242. The image also mentioned probable PE in the basilar area. 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 While in the ED it was noted that he was hypoxic with oxygen saturation at 88% on room air. With supplemental oxygen via nasal cannula of 3 L his oxygen saturation improved to 93%. Due to his hypoxia he was presented for admission for further treatment. The patient has sleep apnea and uses a CPAP at night. At bedside he is resting comfortably. He denies chest pain, dyspnea, abdominal pain, nausea, vomiting, fever or chills. The rest of his history is unremarkable. - HOSPITAL COURSE Hospital Course: He initially presented to the emergency department with chest pain that lasted 30 minutes and had resolved prior to his arrival. He felt that this was musculoskeletal in nature. EKG revealed a paced rhythm and his troponins were only mildly elevated and remained flat. We unfortunately cannot obtain a stress test but there was low suspicion for ACS. He remained chest pain-free throughout his hospitalization. He did initially require oxygen but this was felt to likely be related to his underlying COPD. Review of prior records revealed that his oxygen saturation has varied from the high 80s to low 90s. An exercise these hydrogen test was obtained which showed he did not need oxygen at rest but does require 2 L with exertion. He also complained that he has felt short of breath with activity over the past month or so. He did not appear in a COPD exacerbation and so steroids were not started. He was discharged home on his home Spiriva and he was prescribed oxygen as well as an albuterol nebulizer. He was asked to follow-up with his primary care physician or rn care manager for an outpatient stress test and to return to the emergency department if he developed chest pain. Patient was not hypoxic at rest on room air, with oxygen saturation of 93%. However, with exertion on room air, his oxygen saturations were 78%. On 2 L of oxygen via nasal cannula, his oxygenation improved to 92% with exertion. I am therefore ordering him home oxygen. He will only need room air at rest but he will need 2 L of oxygen with exertion. I am also ordering him a home nebulizer machine to administer bronchodilators to treat his COPD - ALLERGIES Allergies/Adverse Reactions: Allergies Allergy/AdvReac Type Severity Reaction Status Date / Time Influenza Virus Vaccines Allergy Rash Verified 01/12/21 19:10 baclofen AdvReac Severe Hallucinati Verified 01/12/21 19:10 ons bacitracin AdvReac Rash Verified 01/12/21 19:10 neomycin AdvReac Rash Verified 01/12/21 19:10 polymyxin B AdvReac Rash Verified 01/12/21 19:10 - MEDICATIONS Home Medications: Ambulatory Orders Medication Instructions Recorded Confirmed Cholecalciferol (Vitamin D3) 5,000 units PO DAILY 02/21/16 01/12/21 [Vitamin D3] Spironolactone [Aldactone] 25 mg PO DAILY #30 tablet 01/14/18 01/12/21 Atorvastatin [Lipitor] 40 mg PO QPM 07/03/18 01/12/21 Metoprolol Succinate [Toprol Xl] 25 mg PO BID 07/03/18 01/12/21 Sertraline [Zoloft] 50 mg PO QPM 07/03/18 01/12/21 Apixaban [Eliquis] 5 mg PO BID 07/05/18 01/12/21 Nitroglycerin [Nitrostat] 0.4 mg SL Q5MIN PRN 04/09/19 01/12/21 Isosorbide Mononitrate ER [Imdur] 60 mg PO DAILY #7 tablet 10/14/19 01/12/21 Aspirin [Aspirin EC] 81 mg PO DAILY 02/25/20 01/12/21 Tiotropium [place] [Spiriva] 1 inh PO DAILY 12/01/20 01/12/21 Acetaminophen [Tylenol] 650 mg PO Q4HR PRN 01/12/21 01/12/21 Albuterol 2.5 mg INH Q4H PRN #30 ml 01/13/21 - PHYSICAL EXAM AT DISCHARGE General Appearance: positive: No acute distress, Alert Eyes Bilateral: positive: Normal inspection, Conjunctivae nml ENT: positive: ENT inspection nml Neck: positive: Nml inspection Respiratory: positive: No respiratory distress, Other (Diminished bilaterally.). negative: Wheezes, Rales Cardiovascular: positive: Regular rate & rhythm. negative: Tachycardia, Systolic murmur Abdomen: positive: Non-tender, No distention. negative: Tenderness Skin: positive: Warm, Dry Extremities: positive: No pedal edema Neurologic/Psychiatric: negative: Disoriented to person, Disoriented to place Physical Exam Other/Comments: Vital Signs - 24 hr 01/12/21 01/12/21 01/12/21 19:06 19:10 21:10 Temperature 36.7 C Heart Rate 82 77 Heart Rate [ Brachial] Respiratory 18 21 Rate Blood Pressure 120/65 125/74 Blood Pressure [Right Radial artery] O2 Saturation 89 L 96 88 L 01/12/21 01/12/21 01/13/21 22:08 23:14 08:00 Temperature 36.6 C 36.4 C L Heart Rate Heart Rate [ 73 Brachial] Respiratory 24 18 Rate Blood Pressure Blood Pressure 124/63 120/66 [Right Radial artery] O2 Saturation 96 100 96 01/13/21 11:30 Temperature Heart Rate 80 Heart Rate [ Brachial] Respiratory Rate Blood Pressure Blood Pressure [Right Radial artery] O2 Saturation Oxygen O2 Source [Without Activity] Nasal cannula O2 Source Nasal cannula - LABS Result Diagrams: 01/13/21 05:34 01/13/21 05:34 - DIAGNOSTIC IMAGING Diagnostic Imaging Results: Final report reviewed - FOLLOW UP Follow Up: He was asked to follow-up with his primary care physician or rn care manager within 1 week and to obtain an outpatient stress test. - TIME SPENT Time Spent in Discharge (Minutes): 32
[2021-01-13] MEDS ORDERED: APIXABAN 5 MG TABLET PO SCH (11:00)
[2021-01-13] MEDS ORDERED: METOPROLOL SUCCINATE 25 MG TABLET PO SCH (11:00)
[2021-01-13] MEDS ORDERED: SPIRONOLACTONE 25 MG TABLET PO SCH (11:00)
[2021-01-13] MEDS ORDERED: IPRATROPIUM 0.2 MG/ML NEB INH SCH (13:00)
[2021-01-13] MEDS ORDERED: SERTRALINE 50 MG TABLET PO SCH (21:00)
[2021-01-13] MEDS ORDERED: ATORVASTATIN 40 MG TABLET PO SCH (21:00)
[2021-01-14] MEDS ORDERED: TIOTROPIUM BROMIDE 18 MCG PO SCH (09:00)
[2021-01-14] MEDS ORDERED: ASPIRIN EC 81 MG TABLET PO SCH (09:00)
[2021-01-14] MEDS ORDERED: CHOLECALCIFEROL 5,000 UNIT CAPSULE PO SCH (09:00)
== END 2021-01-13 15:05 | disposition home or self-care (01) ==
LOC: EDUNIT# → ED 18:56 → SUPCPDRO 18:56 → MS2 21:57
PROVIDERS: ADMIT Internal Medicine; ATTEND Internal Medicine
DX: J96.11 Chronic respiratory failure with hypoxia (principal); J43.9 Emphysema, unspecified; G47.33 Obstructive sleep apnea (adult) (pediatric); I11.0 Hypertensive heart disease with heart failure; I50.9 Heart failure, unspecified; I25.10 Atherosclerotic heart disease of native coronary artery without angina pectoris; E78.5 Hyperlipidemia, unspecified; K21.9 Gastro-esophageal reflux disease without esophagitis; N40.0 Benign prostatic hyperplasia without lower urinary tract symptoms; G89.29 Other chronic pain; Z20.822 Contact with and (suspected) exposure to COVID-19; M54.9 Dorsalgia, unspecified; M19.90 Unspecified osteoarthritis, unspecified site; H91.90 Unspecified hearing loss, unspecified ear; Z99.81 Dependence on supplemental oxygen; Z79.51 Long term (current) use of inhaled steroids; Z79.82 Long term (current) use of aspirin; Z79.01 Long term (current) use of anticoagulants; Z79.899 Other long term (current) drug therapy; Z86.711 Personal history of pulmonary embolism; Z86.73 Personal history of transient ischemic attack (TIA), and cerebral infarction without residual deficits; Z95.5 Presence of coronary angioplasty implant and graft
CPT/HCPCS: 36415; 71045; 71275; 74177; 80048; 80053; 83605; 83690; 83880; 84484; 85025; 87631; 93005; 94761; 96374; 99284; 99285; A9270; G0378; Q9967; 0202U

== ENCOUNTER 2021-01-22 20:02 | Outpatient (CLI) | payer MEDICARE, OTHER | END 2021-01-22 20:03 | disposition EMS.NT | LOC: EMS 20:02 | DX: R51.9 Headache, unspecified (principal) ==

== ENCOUNTER 2021-02-15 01:30 | Outpatient (CLI) | payer MEDICARE, OTHER | END 2021-02-15 01:31 | disposition critical access hospital (66) | LOC: EMS 01:30 | DX: S09.90XA Unspecified injury of head, initial encounter (principal); W06.XXXA Fall from bed, initial encounter; R51.9 Headache, unspecified | CPT/HCPCS: A0425; A0429 ==

== ENCOUNTER 2021-02-15 01:46 | Emergency (ER) | payer MEDICARE, OTHER ==
--- NOTE | 2021-02-15 01:57 | ED Physician Documentation ---
History of Present Illness - Stated complaint Stated Complaint: HEAD INJURY - Chief complaint Chief Complaint: Neuro - History obtained from History obtained from: Patient, EMS - Additonal information Additional information: Patient is brought to the emergency department by EMS from his assisted living facility after he drank alcohol tonight and then slid out of his bed. Staff thought he might of hit his head and the patient is on Eliquis, so they sent him here to the emergency department. Medics state that the patient initially complained of his head being "sore", but that now, he is not complaining of anything and denying any complaints. Patient denies any neck or back pain. No extremity pain. No rib pain or abdominal pain. No difficulty breathing. He is not sure why he is on the Eliquis. Review of Systems Ten Systems: 10 systems reviewed and negative Constitutional: reports: Reviewed and negative Eyes: reports: Reviewed and negative Ears: reports: Reviewed and negative Nose: reports: Reviewed and negative Throat: reports: Reviewed and negative Cardiac: reports: Reviewed and negative Respiratory: reports: Reviewed and negative GI: reports: Reviewed and negative : reports: Reviewed and negative Skin: reports: Reviewed and negative Musculoskeletal: reports: Reviewed and negative Neurologic: reports: Head injury Psychiatric: reports: Reviewed and negative Endocrine: reports: Reviewed and negative Immunocompromised: reports: Reviewed and negative PD PAST MEDICAL HISTORY - Past Medical History Cardiovascular: Congestive heart failure, Coronary artery disease Respiratory: Sleep apnea, CPAP use Neuro: CVA Endocrine/Autoimmune: None GI: Diverticulitis : Benign prostate hypertrophy HEENT: None Psych: None Musculoskeletal: Osteoarthritis, Chronic back pain Derm: None - Past Surgical History Past Surgical History: Yes General: Bowel surgery Ortho: Knee replacement, Spine surgery Cardiovascular: Coronary stent, Pacemaker Derm: Skin cancer surgery - Present Medications Home Medications: Ambulatory Orders Medication Instructions Recorded Confirmed Cholecalciferol (Vitamin D3) 5,000 units PO DAILY 02/21/16 02/15/21 [Vitamin D3] Spironolactone [Aldactone] 25 mg PO DAILY #30 tablet 01/14/18 02/15/21 Atorvastatin [Lipitor] 40 mg PO QPM 07/03/18 02/15/21 Metoprolol Succinate [Toprol Xl] 25 mg PO BID 07/03/18 02/15/21 Sertraline [Zoloft] 50 mg PO QPM 07/03/18 02/15/21 Apixaban [Eliquis] 5 mg PO BID 07/05/18 02/15/21 Nitroglycerin [Nitrostat] 0.4 mg SL Q5MIN PRN 04/09/19 02/15/21 Isosorbide Mononitrate ER [Imdur] 60 mg PO DAILY #7 tablet 10/14/19 02/15/21 Aspirin [Aspirin EC] 81 mg PO DAILY 02/25/20 02/15/21 Tiotropium [place] [Spiriva] 1 inh PO DAILY 12/01/20 02/15/21 Albuterol 2.5 mg INH Q4H PRN #30 ml 01/13/21 02/15/21 - Allergies Allergies/Adverse Reactions: Allergies Allergy/AdvReac Type Severity Reaction Status Date / Time Influenza Virus Vaccines Allergy Rash Verified 02/15/21 01:51 baclofen AdvReac Severe Hallucinati Verified 02/15/21 01:51 ons bacitracin AdvReac Rash Verified 02/15/21 01:51 neomycin AdvReac Rash Verified 02/15/21 01:51 polymyxin B AdvReac Rash Verified 02/15/21 01:51 - Social History Does the pt smoke?: No Smoking Status: Former smoker Does the pt drink ETOH?: Yes Does the pt have substance abuse?: No - Immunizations Immunizations are current?: No Immunizations: TDAP >10years/unknown - POLST Patient has POLST: No POLST Status: DNR PD ED PE NORMAL - Vitals Vital signs reviewed: Yes - General General: Alert and oriented X 3 (Alert when aroused, but does fall asleep quickly if not being spoken to.), No acute distress, Well developed/nourished - HEENT HEENT: Atraumatic, PERRL, EOMI, Moist mucous membranes - Neck Neck: Supple, no meningeal sign - Cardiac Cardiac: RRR, No murmur, Strong equal pulses - Respiratory Respiratory: No respiratory distress, Clear bilaterally - Abdomen Abdomen: Soft, Non tender, Non distended - Derm Derm: Normal color, Warm and dry, No rash - Extremities Extremities: No deformity, No edema, No calf tenderness / cord - Neuro Neuro: Alert and oriented X 3, elevator supervisor 2-12 intact, Normal speech, Other (Grossly intact) - Psych Psych: Normal mood, Normal affect Results - Vitals Vitals: Vital Signs - 24 hr 02/15/21 02/15/21 02/15/21 01:51 02:27 02:30 Temperature 36.6 C Heart Rate 81 82 75 Respiratory 16 22 22 Rate Blood Pressure 112/66 92/55 L 97/63 O2 Saturation 91 L 92 95 02/15/21 02/15/21 02/15/21 03:00 03:10 03:24 Temperature Heart Rate 68 76 82 Respiratory 20 17 18 Rate Blood Pressure 111/65 108/65 O2 Saturation 95 95 95 02/15/21 02/15/21 02/15/21 03:30 04:44 05:40 Temperature Heart Rate 85 74 Respiratory 18 16 14 Rate Blood Pressure 108/65 121/65 O2 Saturation 93 94 Oxygen O2 Source [Without Activity] Nasal cannula O2 Source Nasal cannula Oxygen Flow Rate 2 - Labs Labs: Laboratory Tests 02/15/21 01:58 Ethyl Alcohol 89.3 - Rads (name of study) CT head Radiology: Final report received, EMP read indepedently, See rad report (No acute disease; old lacunar infarcts) CT C-spine Radiology: Final report received, EMP read indepedently, See rad report (DJD; otherwise unremarkable C-spine) Chest x-ray Radiology: Final report received, EMP read indepedently, See rad report (mild CHF) PD MEDICAL DECISION MAKING - ED course Complexity details: reviewed results, re-evaluated patient, considered differential ED course: The patient was worked up with an ethanol level, as well as CTs of the head and neck. I did also add a chest x-ray because the Patient's pulse ox on 2 L of oxygen per nasal cannula was ranging between 87 and 89%. This showed very mild CHF. As the patient became more awake, his O2 saturation did improve to 95% on the same amount of oxygen. The patient is already on spironolactone and may continue on this. He does not have any complaints acutely of dyspnea. Patient's CT scans were unremarkable and I feel he was stable for discharge. We have discussed that is probably not a good idea to drink at his advanced age especially since he is on anticoagulants and this poses especially increased risk if he falls. We have discussed the usual indications for return. Departure - Departure Disposition: 01 Home, Self Care Clinical Impression: Fall Qualifiers: Encounter type: initial encounter Qualified Code(s): W19.XXXA - Unspecified fall, initial encounter Alcohol intoxication Qualifiers: Complication of substance-induced condition: uncomplicated Qualified Code(s): F10.920 - Alcohol use, unspecified with intoxication, uncomplicated Condition: Stable Instructions: ED Alcohol Intoxication Comments: Your CT scans look good. Discharge Date/Time: 02/15/21 06:22
[2021-02-15 04:46] VITALS: BP 121/65
--- NOTE | 2021-02-15 08:06 | CT Report ---
PROCEDURE: HEAD WO INDICATIONS: fall/head injury TECHNIQUE: Noncontrast 4.5 mm thick angled axial sections acquired from the foramen magnum to the vertex. For r adiation dose reduction, the following was used: automated exposure control, adjustment of mA and/or kV according to patient size. COMPARISON: 07/23/2020. FINDINGS: Image quality: Excellent. CSF spaces: Basal cisterns are patent. No extra-axial fluid collections. The ventricles are symmet savana in size and shape. Brain: No intracranial bleeds or masses. Small chronic basal ganglia lacunar infarcts. There is cere bral volume loss for age, with resultant ventricular and sulcal prominence. There are periventricula r and deep white matter chronic small vessel ischemic changes. There is intracranial internal caroti d artery and vertebral artery atherosclerosis. Skull and face: Calvarium and visualized facial bones appear intact, without suspicious lesions. Sinuses: Visualized sinuses and mastoids are clear. IMPRESSION: No acute intracranial disease process. Reviewed by: Michaelle Méndez MD, PhD on 02/15/2021 8:05 AM PST Approved by: Michaelle Méndez MD, PhD on 02/15/2021 8:05 AM PST Station ID: [id number]
--- NOTE | 2021-02-15 08:08 | XRAY Report ---
PROCEDURE: Chest 1 View X-Ray INDICATIONS: chest pain TECHNIQUE: One view of the chest was acquired. COMPARISON: 01/12/2021 FINDINGS: Surgical changes and devices: Left chest wall pacemaker leads are in the region of right atrium, righ t ventricle and left ventricle.. Lungs and pleura: No pleural effusions or pneumothorax. Diffusely increased interstitial prominence is again seen, improved compared to prior study. No definite focal infiltrate. Mediastinum: Aortic arch calcification is seen. Heart size is enlarged. Bones and chest wall: No suspicious bony lesions. Overlying soft tissues appear unremarkable. IMPRESSION: Diffuse interstitial prominence, improved compared to 01/12/2021 study suggestive of mild pulmonary ed juanita versus chronic interstitial lung disease. No definite focal infiltrate. No pleural effusion or pn eumothorax. No significant discrepancies from preliminary reading. Reviewed by: Roby Pemberton MD on 02/15/2021 8:06 AM PST Approved by: Roby Pemberton MD on 02/15/2021 8:06 AM PST Station ID: [id number]
--- NOTE | 2021-02-15 08:13 | CT Report ---
PROCEDURE: CERVICAL SPINE WO INDICATIONS: fall/head injury TECHNIQUE: Noncontrast 3 mm thick sections acquired from the skull base to the T4 level. Sagittal and coronal r eformats were then constructed. For radiation dose reduction, the following was used: automated exp osure control, adjustment of mA and/or kV according to patient size. COMPARISON: 07/23/2020. FINDINGS: Image quality: Excellent. Bones: No fractures or dislocations. There is straightening of normal cervical lordosis. Mild degen erative endplate changes and bilateral facet hypertrophic changes are noted throughout cervical spine more prominent at C5-6 through C7-T1 levels. Prominent dorsal disc osteophyte complex formation at C 5-6 and C6-7 levels causing mild to moderate central canal stenosis is seen, no significant neural fo raminal narrowing. Visualized superior ribs are intact. Soft tissues: Prevertebral soft tissues are normal in thickness. No paravertebral hematomas. No ap ical pneumothoraces. Hazy groundglass opacities in posterior aspect of bilateral lung apices and visu alized portion of bilateral upper lobes. IMPRESSION: 1. No acute cervical spine fracture or dislocation. 2. Degenerative disc disease throughout cervical spine more prominent at C5-6 and C6-7 levels unchang ed from prior study. 3. Hazy groundglass opacities in visualized bilateral lung apices which may represent pulmonary edema versus patchy infiltrate/atelectasis. Clinical correlation is recommended. No discrepancies from pulmonary reading. Reviewed by: Roby Pemberton MD on 02/15/2021 8:11 AM PST Approved by: Roby Pemberton MD on 02/15/2021 8:11 AM PST Station ID: [id number]
== END 2021-02-15 06:22 | disposition home or self-care (01) ==
LOC: EDUNIT# → SUPCPDRO 01:46 → ED 01:46
DX: F10.920 Alcohol use, unspecified with intoxication, uncomplicated (principal); W06.XXXA Fall from bed, initial encounter; Y92.099 Unspecified place in other non-institutional residence as the place of occurrence of the external cause; I50.9 Heart failure, unspecified; Z79.01 Long term (current) use of anticoagulants; Z95.5 Presence of coronary angioplasty implant and graft; Z95.0 Presence of cardiac pacemaker; Z87.891 Personal history of nicotine dependence
CPT/HCPCS: 36415; 70450; 71045; 72125; 99283; 99285; G0480; 80320

== ENCOUNTER 2021-05-13 21:30 | Outpatient (CLI) | payer MEDICARE, OTHER | END 2021-05-13 21:31 | disposition left against medical advice (07) | LOC: EMS 21:30 | DX: R53.1 Weakness (principal); Z79.01 Long term (current) use of anticoagulants ==